=== PATIENT | female | born 1980 | race Caucasian/White ===

== ENCOUNTER 2016-08-05 15:21 | Emergency (ER) | payer MEDICAID ==
--- NOTE | 2016-08-05 15:52 | EDM.PDOC ---
ED HPI GI/ABDOMINAL - General Chief Complaint: Gastrointestinal Problem Stated Complaint: CONSTIPATION Time Seen by Provider: 08/05/16 15:37 Source of Information: Reports: Patient History Limitations: Reports: No limitations - History of Present Illness INITIAL COMMENTS - FREE TEXT/NARRATIVE: The patient presents with abdominal pain and cramping. She feels she is constipated. She has trouble with this and on July 29 she was here for the same and had an enema. She say Ana M Floberg in the mean time and she was put on miralax and she has tried prune juice. She has not had a bowel movement since . She has some nausea but no vomiting. She is still eating okay. She has some dysuria. Timing/Duration: Reports: Day(s): (3) Location: generalized Quality: Reports: cramping Severity: moderate Context: Denies: sick contact, bad/questionable food, out of country travel, recent surgery, recent trauma, lifting, activity/exercise Associated Symptoms (-Female): Reports: constipation, nausea/vomiting. Denies : chest pain, diarrhea - Related Data Allergies/ADRs: Allergies Allergy/AdvReac Type Severity Reaction Status Date / Time banana Allergy unknown Verified 08/05/16 15:42 Iodinated Contrast Media - Allergy Itching Verified 08/05/16 15:42 Oral and [Iodinated Contrast Media - IV Dye] melon Allergy UNKNOWN Verified 08/05/16 15:42 watermelon Allergy unknown Verified 08/05/16 15:42 Home Meds: Home Meds Cetirizine HCl [Zyrtec] 10 mg PO DAILY 11/10/13 [History] Fluticasone Propionate [Flonase] 2 spray NASBOTH DAILY 11/10/13 [History] Multivitamin with Minerals [Hair, Skin & Nails] 3 each PO DAILY 11/10/13 [ History] Albuterol [Proventil HFA] 2 puff INH Q4H PRN 01/28/16 [History] Calcium Carbonate [Calcium] 600 mg PO BID 01/28/16 [History] Cholecalciferol (Vitamin D3) [Vitamin D3] 5,000 unit PO ASDIRECTED 01/28/16 [ History] Clindamycin Phosphate [Cleocin T] 1 applic TP BID 01/28/16 [History] FA/Lycopene/Lut/MV,Ca,Iron,Min [Centrum] 1 tab PO DAILY 01/28/16 [History] Levothyroxine [Synthroid] 50 mcg PO ACBREAKFAST 01/28/16 [History] Lisinopril 20 mg PO DAILY 01/28/16 [History] Magnesium Oxide 500 mg PO DAILY 01/28/16 [History] Pantoprazole Sodium 40 mg PO DAILY 01/28/16 [History] Ziprasidone HCl 80 mg PO BID 01/28/16 [History] cloNIDine HCl [Catapres] 0.2 mg PO BEDTIME 01/28/16 [History] cycloSPORINE [Restasis] 1 each OP ASDIRECTED 01/28/16 [History] Empagliflozin [Jardiance] 25 mg PO DAILY 07/29/16 [History] Estradiol [Vagifem] 10 mg PO DAILY 07/29/16 [History] Insulin Glargine,Hum.Rec.Anlog [Toujeo Solostar] 50 units INJECT BEDTIME [History] fluvoxaMINE [Luvox] 100 mg PO DAILY 07/29/16 [History] ClonazePAM [KlonoPIN] 1 mg PO BID 08/05/16 [History] Docusate Sodium [Colace] 3 tab PO DAILY 08/05/16 [History] Fesoterodine Fumarate [Toviaz] 4 mg PO DAILY 08/05/16 [History] Krill/[place]-3/Dha/Epa/Lipids [Krill Oil 300 mg Softgel] 1 each PO DAILY [History] Lactobacillus Combination No.9 [Adult 50 + Probiotic] 1 each PO DAILY 08/05/16 [ History] Multivits Min/Iron/FA/Herb#186 [Hair, Skin & Nails Caplet] 3 tab PO DAILY [History] Prevagen 20 mg PO DAILY 08/05/16 [History] Psyllium Husk [Metamucil] 425 gm PO DAILY 08/05/16 [History] Rosuvastatin [Crestor] 5 mg PO DAILY 08/05/16 [History] atoMOXetine HCl [Strattera] 80 mg PO DAILY 08/05/16 [History] valACYclovir HCl [Valtrex] 500 mg PO DAILY 08/05/16 [History] Past Medical History HEENT History: Reports: Other (see below) Other HEENT History: 2 sinus surgeries Cardiovascular History: Reports: High cholesterol, Hypertension Gastrointestinal History: Reports: Irritable bowel syndrome Psychiatric History: Reports: ADHD, Anxiety, Bipolar, Dementia, OCD Endocrine/Metabolic History: Reports: Diabetes, type I, Other (see below) Other Endocrine/Metabolic History: fibramalgia - Past Surgical History HEENT Surgical History: Reports: Tonsillectomy GI Surgical History: Reports: Appendectomy, Bariatric procedure, Cholecystectomy Female Surgical History: Reports: Hysterectomy, Tubal ligation Social & Family History - Tobacco Use Smoking Status *Q: Former Smoker Years of Tobacco use: 20 Packs/Tins Daily: 0.2 Used Tobacco, but Quit: No Month Tobacco Last Used: 1 week Second Hand Smoke Exposure: Yes - Caffeine Use Caffeine Use: Reports: Coffee, Soda, Tea - Alcohol Use Days Per Week of Alcohol Use: 0 - Recreational Drug Use Recreational Drug Use: No ED ROS GENERAL - Review of Systems Review Of Systems: See Below Constitutional: Reports: no symptoms HEENT: Reports: No symptoms Respiratory: Reports: no symptoms Cardiovascular: Reports: No symptoms Endocrine: Reports: no symptoms GI/Abdominal: Reports: Abdominal pain, Constipation, Nausea. Denies: Diarrhea, Vomiting : Reports: dysuria Musculoskeletal: Reports: no symptoms Skin: Reports: no symptoms ED EXAM, GI/ABD - Physical Exam Exam: See Below Exam Limited By: No limitations General Appearance: alert, no apparent distress Ears: normal external exam Nose: normal inspection Head: atraumatic, normocephalic Neck: normal inspection Respiratory/Chest: no respiratory distress, lungs clear, normal breath sounds Cardiovascular: regular rate, rhythm, no edema, no murmur GI/Abdominal: soft, no organomegaly, no mass, tenderness (Mild generalized pain upon palpation) Course - Vital Signs Last Recorded V/S: Last Vital Signs Temp 97.7 F 08/05/16 15:35 Pulse 91 08/05/16 15:35 Resp 16 08/05/16 15:35 BP 137/103 H 08/05/16 15:35 Pulse Ox 98 08/05/16 15:35 - Orders/Labs/Meds Orders: Active Orders 24 hr Category Date Time Status Enema [RC] ASDIRECTED Care 08/05/16 16:11 Active Abdomen 1V Upright [CR] Stat Exams 08/05/16 15:47 Taken UA W/MICROSCOPIC [URIN] Stat Lab 08/05/16 16:24 Ordered - Re-Assessments/Exams Free Text/Narrative Re-Assessment/Exam: 08/05/16 15:52 I will get an x-ray and a UA. 08/05/16 17:42 She was unable to give us a urine sample. My nurse gave her an oil retention enema with no results and a soap suds enema with no results. Her x-ray shows moderate stool but it is up a little higher. I will give her some magnesium citrate to go home with. Departure - Departure Time of Disposition: 17:45 Disposition: Home, Self-Care 01 Condition: good Clinical Impression: Constipation by delayed colonic transit Referrals: Ana M Fontana [employer] IN[employer] [Primary Care Provider] - 1 Week Forms: ED Department Discharge Additional Instructions: Drink more water. Try to get about eight 8 ounce glasses per day or until your urine is pale yellow. Take more mag citrate tonight if you do not have a bowel movement. Please return if you are worse. - My Orders Last 24 Hours: My Active Orders 08/05/16 15:47 Abdomen 1V Upright [CR] Stat 08/05/16 16:11 Enema [RC] ASDIRECTED 08/05/16 16:24 UA W/MICROSCOPIC [URIN] Stat - Assessment/Plan Last 24 Hours: My Active Orders 08/05/16 15:47 Abdomen 1V Upright [CR] Stat 08/05/16 16:11 Enema [RC] ASDIRECTED 08/05/16 16:24 UA W/MICROSCOPIC [URIN] Stat
[2016-08-05] MEDS ORDERED: Magnesium Citrate Solution 296 ML Bottle PO ONE (17:44)
[2016-08-05 18:13] VITALS: BP 134/79
--- NOTE | 2016-08-07 07:37 | CR ---
Abdomen: Supine view of the abdomen was obtained. Comparison: Previous abdominal x-ray of 07/29/16. Bowel gas pattern is unremarkable with minimal increased stool within the colon. Surgical clips seen from prior cholecystectomy. Calcifications are identified from phleboliths. Bony structures are unremarkable. Surgical anastomotic sutures noted within the left upper abdomen. Impression: 1. Incidental findings as noted above. Minimal increased stool is seen. Diagnostic code #2
== END 2016-08-05 18:00 | disposition home or self-care (01) ==
LOC: JD.ED 15:21
DX: K59.01 Slow transit constipation (principal); I10 Essential (primary) hypertension; F41.9 Anxiety disorder, unspecified; F31.9 Bipolar disorder, unspecified; F03.90 Unspecified dementia, unspecified severity, without behavioral disturbance, psychotic disturbance, mood disturbance, and anxiety; E10.9 Type 1 diabetes mellitus without complications; Z98.890 Other specified postprocedural states; Z98.84 Bariatric surgery status; Z90.49 Acquired absence of other specified parts of digestive tract; Z90.710 Acquired absence of both cervix and uterus; Z87.891 Personal history of nicotine dependence; Z79.899 Other long term (current) drug therapy; Z91.041 Radiographic dye allergy status
CPT/HCPCS: 74000; 81001; 99284; A9270; 99282

== ENCOUNTER 2017-04-17 07:00 | Day surgery (SDC) | payer MEDICAID ==
--- NOTE | 2017-04-04 12:28 | HP ---
DATE OF ADMISSION: 04/04/2017 HISTORY OF PRESENT ILLNESS: This is the first orthopedic outpatient admission for surgery for this 36-year- old female who is being scheduled for left carpal tunnel release. The patient has had a failed conservative treatment program. 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 The procedure has been outlined to her. She understands the procedure itself and has consented to surgery. ALLERGIES: To iodine and contrast. CURRENT MEDICATIONS: Current medications include insulin, meloxicam, and Lyrica. PAST MEDICAL HISTORY: The patient has a history of hypertension along with increased cholesterol, sleep apnea, irritable bowel syndrome, and diabetes type 2. PAST SURGICAL HISTORY: Positive. She has had previous gastric surgery, bypass, sinus, hysterectomy, and tonsils. No general anesthesia complications or problem noted. Negative bleeding history and negative blood clot history. SOCIAL HISTORY: Tobacco use, the patient states she quit 6 months ago. Alcohol use is on occasional, infrequently. PHYSICAL EXAMINATION: GENERAL: Today reveals a well-developed and well-nourished 36-year-old female in moderate distress. HEAD, EYES, EARS, NOSE, AND THROAT: Normocephalic. NECK: Supple. CHEST: Clear. COR: Regular rate. ABDOMEN: Soft. : Intact. EXTREMITIES: Examination of the left wrist reveals positive pain over the carpal tunnel area with pressure. Positive Tinel's examination. The patient shows thenar atrophy, mild to moderate. ASSESSMENT: Carpal tunnel syndrome, left wrist, with failed treatment. PLAN: Plan is for the patient to undergo surgical left carpal tunnel ligament release. MMODAL /[id number]
[~2017-04-17 07:00] MED LIST: Lactated Ringers 1,000 ML IV SCH; Lidocaine 1%/Sod Bicarbonate in NS 8.4% 1 ML Syringe IV PRN; Sodium Chloride 0.9% 10 ML Syringe FLUSH PRN
[2017-04-17] MEDS ORDERED: Ketorolac 30 MG/ML SDV ONE (07:08)
[2017-04-17] MEDS ORDERED: Lactated Ringers 1,000 ML ONE (07:08)
[2017-04-17] MEDS ORDERED: Ondansetron 4 MG/2 ML SDV ONE (07:08)
[2017-04-17] MEDS ORDERED: ceFAZolin 1 GM Vial ONE (07:08)
[2017-04-17] MEDS ORDERED: fentaNYL 100 MCG/2 ML SDV ONE (07:08)
[2017-04-17] MEDS ORDERED: Midazolam 1 MG/ML 2 ML SDV ONE (07:08)
[2017-04-17] MEDS ORDERED: Scopolamine 1.5 MG Transdermal Patch TRDERM ONE (07:44)
--- NOTE | 2017-04-17 07:49 | PCM.PREANE ---
Preanesthetic Assessment - Anesthesia/Transfusion/Family Hx Anesthesia History: Prior Anesthesia Reaction Type of Anesthesia Reaction: Excessive Nausea/Vomiting Family History of Anesthesia Reaction: No Transfusion History: No Prior Transfusion(s) Intubation History: Unknown - Review of Systems General: Other (Muscle Pain) Pulmonary: No Symptoms, Other (Sleep Apnea in her history. No longer uses CPAP.) Cardiovascular: No Symptoms Gastrointestinal: No Symptoms Neurological: Numbness, Pre-Existing Deficit, Tingling, Other (Chronic Back Pain ) Other: Reports: Depression, Anxiety - Physical Assessment NPO Status Date: 04/16/17 NPO Status Time: 23:00 Pulse: 86 O2 Sat by Pulse Oximetry: 97 Respiratory Rate: 16 Blood Pressure: 128/81 Temperature: 36.6 C Weight: 94 kg ASA Class: 3 Mental Status: Alert & Oriented x3 Airway Class: Mallampati = 2 Dentition: Reports: Dentures (Upper and Lower) Thyro-Mental Finger Breadths: 3 Mouth Opening Finger Breadths: 3 ROM/Head Extension: Full Lungs: Clear to Auscultation, Normal Respiratory Effort Cardiovascular: Regular Rate, Regular Rhythm - Lab Values: Laboratory Last Values POC Glucose 140 mg/dL (70-105) H 04/17/17 07:40 - Allergies Allergies/Adverse Reactions: Allergies Allergy/AdvReac Type Severity Reaction Status Date / Time banana Allergy unknown Verified 04/16/17 14:17 Iodinated Contrast- Oral and Allergy Itching Verified 04/16/17 14:17 IV Dye [Iodinated Contrast Media - IV Dye] melon Allergy UNKNOWN Verified 04/16/17 14:17 watermelon Allergy unknown Verified 04/16/17 14:17 - Acknowledgements Anesthesia Type Planned: VILMA, MAC Pt an Appropriate Candidate for the Planned Anesthesia: Yes Alternatives and Risks of Anesthesia Discussed w Pt/Guardian: Yes Pt/Guardian Understands and Agrees with Anesthesia Plan: Yes PreAnesthesia Questionnaire HEENT History: Reports: Allergic Rhinitis, Sinusitis, Other (See Below) Other HEENT History: dentures, dental decay Cardiovascular History: Reports: High Cholesterol, Hypertension Respiratory History: Reports: Asthma, Bronchitis, Recurrent, Sleep Apnea, Other (See Below) Other Respiratory History: upper respiratory infection, Right lung nodule Gastrointestinal History: Reports: Chronic Constipation, GERD, Irritable Bowel Syndrome, Other (See Below) Other Gastrointestinal History: anal fissure, elevated liver function tests, nausea, flank pain Genitourinary History: Reports: STD, UTI, Recurrent, Other (See Below) Other Genitourinary History: dysuria, gential herpes, dyspareunia, frequency [employer] 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: Other (See Below) Other OB/BYN History: vagintis, vulvovagintitis, atropic vaginitis Musculoskeletal History: Reports: Arthritis, Fibromyalgia, Other (See Below) Other Musculoskeletal History: left carpal tunnel syndrome, cubital tunnel syndrome, elbow pain Neurological History: Reports: Migraines, Neuropathy, Diabetic, Other (See Below ) Other Neuro History: short term memory loss Psychiatric History: Reports: ADHD, Anxiety, Bipolar, Dementia, Depression, OCD Endocrine/Metabolic History: Reports: Diabetes, Type I, Obesity/BMI 30+, Vitamin D Deficiency Hematologic History: Reports: Other (See Below) Other Hematologic History: hypomagnesia Immunologic History: Reports: None Oncologic (Cancer) History: Reports: None Dermatologic History: Reports: Seborrheic Dermatitis, Other (See Below) Other Dermatologic History: acne, skin excoriation, skin lesion - Infectious Disease History Infectious Disease History: Reports: None - Past Surgical History Head Surgeries/Procedures: Reports: None HEENT Surgical History: Reports: Cataract Surgery, Naso-Sinus Surgery, Tonsillectomy Cardiovascular Surgical History: Reports: None Respiratory Surgical History: Reports: None GI Surgical History: Reports: Appendectomy, Bariatric Procedure, Cholecystectomy , Colonoscopy, EGD, Hernia, Inguinal Female Surgical History: Reports: Hysterectomy, Tubal Ligation Endocrine Surgical History: Reports: None Neurological Surgical History: Reports: None Musculoskeletal Surgical History: Reports: None Oncologic Surgical History: Reports: None - SUBSTANCE USE Smoking Status *Q: Former Smoker Tobacco Use Within Last Twelve Months: Cigarettes Second Hand Smoke Exposure: Yes Days Per Week of Alcohol Use: 0 Number of Drinks Per Day: 2 Total Drinks Per Week: 0 Recreational Drug Use History: No - HOME MEDS Home Medications: Home Meds Cetirizine HCl [Zyrtec] 10 mg PO DAILY 11/10/13 [History] Fluticasone Propionate [Flonase] 2 spray NASBOTH BID 11/10/13 [History] Multivitamin with Minerals [Hair, Skin & Nails] 3 each PO DAILY 11/10/13 [ History] Albuterol [Proventil HFA] 2 puff INH Q4H PRN 01/28/16 [History] Calcium Carbonate [Calcium] 600 mg PO BID 01/28/16 [History] Cholecalciferol (Vitamin D3) [Vitamin D3] 5,000 unit PO ASDIRECTED 01/28/16 [ History] FA/Lycopene/Lut/MV,Ca,Iron,Min [Centrum] 1 tab PO DAILY 01/28/16 [History] Levothyroxine [Synthroid] 50 mcg PO ACBREAKFAST 01/28/16 [History] Lisinopril 20 mg PO DAILY 01/28/16 [History] Magnesium Oxide 500 mg PO DAILY 01/28/16 [History] Pantoprazole Sodium 40 mg PO DAILY 01/28/16 [History] cloNIDine HCl [Catapres] 0.2 mg PO BEDTIME 01/28/16 [History] cycloSPORINE [Restasis] 1 each OP ASDIRECTED 01/28/16 [History] Insulin Glargine,Hum.Rec.Anlog [Toujeo Solostar] 60 units INJECT BEDTIME [History] fluvoxaMINE [Luvox] 100 mg PO BEDTIME 07/29/16 [History] ClonazePAM [KlonoPIN] 1 mg PO BEDTIME 08/05/16 [History] Docusate Sodium [Colace] 100 mg PO TID 08/05/16 [History] Lactobacillus Combination No.9 [Adult 50 + Probiotic] 1 each PO DAILY 08/05/16 [ History] Rosuvastatin [Crestor] 5 mg PO DAILY 08/05/16 [History] atoMOXetine HCl [Strattera] 80 mg PO DAILY 08/05/16 [History] valACYclovir HCl [Valtrex] 500 mg PO DAILY 08/05/16 [History] Adapalene [Differin] 1 dose TOP ASDIRECTED 04/16/17 [History] Clobetasol [Clobetasol 0.05%] 1 dose TOP ASDIRECTED 04/16/17 [History] Empagliflozin [Jardiance] 25 mg PO DAILY 04/16/17 [History] Estradiol [Yuvafem] 10 mcg VAG ASDIRECTED 04/16/17 [History] Fesoterodine Fumarate [Toviaz] 8 mg PO DAILY 04/16/17 [History] Insulin Aspart [NovoLOG] 1 dose SQ TID 04/16/17 [History] Lubiprostone [Amitiza] 24 mcg PO BID 04/16/17 [History] Polyethylene Glycol 3350 [MiraLAX] 17 g PO DAILY 04/16/17 [History] Pregabalin [Lyrica] 75 mg PO TID 04/16/17 [History] SUMAtriptan Succinate [Imitrex] 50 mg PO ASDIRECTED PRN 04/16/17 [History] Topiramate 25 mg PO BID 04/16/17 [History] Ziprasidone HCl [Geodon] 80 mg PO BID 04/16/17 [History] buPROPion [Wellbutrin XL] 150 mg PO DAILY 04/16/17 [History] hydrOXYzine HCl [Atarax] 50 mg PO BID 04/16/17 [History] - CURRENT (IN HOUSE) MEDS Current Meds: Current Medications Lactated Ringer's (Ringers, Lactated) 1,000 mls @ 125 mls/hr IV ASDIRECTED JACOB Lidocaine/Sodium Bicarbonate (Buffered Lidocaine 1% In Ns 8.4%) 0.25 ml IV ONETIME PRN PRN Reason: Prior to IV Start Sodium Chloride (Saline Flush) 10 ml FLUSH ASDIRECTED PRN PRN Reason: Keep Vein Open Discontinued Medications Cefazolin Sodium (Ancef) Confirm Administered Dose 2 gm .ROUTE .STK-MED ONE Stop: 04/17/17 07:09 Fentanyl (Sublimaze) Confirm Administered Dose 100 mcg .ROUTE .STK-MED ONE Stop: 04/17/17 07:09 Lactated Ringer's (Ringers, Lactated) Confirm Administered Dose 1,000 mls @ as directed .ROUTE .STK-MED ONE Stop: 04/17/17 07:09 Ketorolac Tromethamine (Toradol) Confirm Administered Dose 30 mg .ROUTE .STK- MED ONE Stop: 04/17/17 07:09 Midazolam HCl (Versed 1 Mg/Ml) Confirm Administered Dose 2 mg .ROUTE .STK-MED ONE Stop: 04/17/17 07:09 Ondansetron HCl (Zofran) Confirm Administered Dose 8 mg .ROUTE .STK-MED ONE Stop: 04/17/17 07:09
[2017-04-17] MEDS ORDERED: Ketorolac 30 MG/ML SDV IVPUSH PRN (07:50)
[2017-04-17] MEDS ORDERED: Acetaminophen/HYDROcodone 325-5 MG Tab PO PRN (07:50)
[2017-04-17] MEDS ORDERED: Ondansetron 4 MG/2 ML SDV IVPUSH PRN (07:50)
[2017-04-17] MEDS ORDERED: Propofol 200 MG/20 ML SDV ONE (07:58)
[2017-04-17] MEDS ORDERED: Lidocaine 1% 4 ML ONE (07:58)
[2017-04-17] MEDS ORDERED: Sodium Bicarbonate 8.4% 50 MEQ/50 ML SDV ONE (08:38)
[2017-04-17] MEDS ORDERED: Lidocaine 0.5% 50 ML SDV ONE (08:38)
--- NOTE | 2017-04-17 08:58 | PCM48HPAN ---
Post Anesthesia Note - EVALUATION WITHIN 48HRS OF ANESTHETIC Vital Signs in Normal Range: Yes Patient Participated in Evaluation: Yes Respiratory Function Stable: Yes Airway Patent: Yes Cardiovascular Function Stable: Yes Hydration Status Stable: Yes Pain Control Satisfactory: Yes Nausea and Vomiting Control Satisfactory: Yes Mental Status Recovered: Yes
[2017-04-17 09:00] VITALS: BP 119/75
--- NOTE | 2017-04-17 12:57 | OR ---
DATE OF OPERATION: 04/17/2017 SURGEON: Douglas Rucker MD PREOPERATIVE DIAGNOSIS: Severe carpal tunnel syndrome, left wrist. POSTOPERATIVE DIAGNOSIS: Severe carpal tunnel syndrome, left wrist. ANESTHESIA: Jacques block with sedation. OPERATION PERFORMED: Left wrist carpal tunnel ligament release. DESCRIPTION OF PROCEDURE: The patient was taken to the operative room in a supine position and was placed under a light sedation with a Jacques block anesthesia to the left upper extremity. After the adequate anesthesia, the left arm was then prepped and draped by standard technique, and the operation proceeded with evaluation of the approach to the carpal tunnel area. A small incision was made 1 cm distal to the flexion crease, paralleling the radial aspect of the ring finger. Approximately 1.5 cm incision was used, penetrating through the skin and subcutaneous tissues. These were dissected off the palmar fascia, which was lightly incised to expose the carpal ligament. Once the ligament was exposed, a direct-visualization release was then carried out in the mid-palm area into the carpal tunnel itself, staying to the ulnar aspect of the median nerve. The operation then proceeded with completion of the release approximately 1 cm to 2 cm past the flexion crease using the mini-instruments. The ligament was completely released to the level just above the flexion crease of the wrist and then the operation proceeded with inspection of that area. No other fibrous bands removed. It had a very soft type feel to it. The median nerve could be easily seen. The vasa vasorum returned quite nicely to the nerve itself. In the distal portion of the wound, the release was carried out to the palmar fat pad, again, staying to the ulnar aspect of the median nerve. Once that was completed, this was palpated to make sure no fibrous bands remained to cause compression on the nerve from the distal to the proximal release area. The nerve went through final inspection and then thorough irrigation. The operation then proceeded with closure of the wound using a 4-0 Prolene on a horizontal mattress suture and reinforced with 5-0 Prolene. She was then placed in standard dressings and splint. She tolerated this whole procedure well and left the operating room in a stable condition to room for recovery. ESTIMATED BLOOD LOSS: MMODAL /[id number]
== END 2017-04-17 09:37 | disposition home or self-care (01) ==
LOC: JD.SDS 07:00
PROVIDERS: ATTEND Specialist
DX: G56.02 Carpal tunnel syndrome, left upper limb (principal); G47.30 Sleep apnea, unspecified; E78.00 Pure hypercholesterolemia, unspecified; I10 Essential (primary) hypertension; K21.9 Gastro-esophageal reflux disease without esophagitis; K58.9 Irritable bowel syndrome, unspecified; F41.9 Anxiety disorder, unspecified; F32.9 Major depressive disorder, single episode, unspecified; F42.9 Obsessive-compulsive disorder, unspecified; F90.9 Attention-deficit hyperactivity disorder, unspecified type; E03.9 Hypothyroidism, unspecified; E11.40 Type 2 diabetes mellitus with diabetic neuropathy, unspecified; G43.909 Migraine, unspecified, not intractable, without status migrainosus; M19.90 Unspecified osteoarthritis, unspecified site; M79.7 Fibromyalgia; J45.909 Unspecified asthma, uncomplicated; F03.90 Unspecified dementia, unspecified severity, without behavioral disturbance, psychotic disturbance, mood disturbance, and anxiety; N32.81 Overactive bladder; E55.9 Vitamin D deficiency, unspecified; E66.9 Obesity, unspecified; Z68.39 Body mass index [BMI] 39.0-39.9, adult; Z87.891 Personal history of nicotine dependence; Z87.440 Personal history of urinary (tract) infections; Z91.041 Radiographic dye allergy status; Z91.018 Allergy to other foods; Z79.84 Long term (current) use of oral hypoglycemic drugs; Z79.818 Long term (current) use of other agents affecting estrogen receptors and estrogen levels; Z79.51 Long term (current) use of inhaled steroids; Z79.899 Other long term (current) drug therapy; Z79.4 Long term (current) use of insulin; Z98.84 Bariatric surgery status; Z98.49 Cataract extraction status, unspecified eye; Z98.51 Tubal ligation status; Z90.710 Acquired absence of both cervix and uterus; Z90.49 Acquired absence of other specified parts of digestive tract; Z98.890 Other specified postprocedural states
CPT/HCPCS: 64721; 82962; A9270; J0690; J1885; J2250; J2405; J3010; J7120; 01810; J2704

== ENCOUNTER 2017-12-01 15:22 | Emergency (ER) | payer MEDICAID ==
[2017-12-01 15:58] VITALS: BP 124/92
--- NOTE | 2017-12-01 17:57 | EDM.PDOC ---
ED HPI GENERAL MEDICAL PROBLEM - General Chief Complaint: Back Pain or Injury Stated Complaint: LOWER BACK PAIN Time Seen by Provider: 12/01/17 16:03 Source of Information: Reports: Patient, Family History Limitations: Reports: No Limitations - History of Present Illness INITIAL COMMENTS - FREE TEXT/NARRATIVE: The patient appears to have some cognitive difficulty, and as such is a poor historian. She states that she has lower back pain that radiates to her middle back. The pain occurs when she bends forward, or walks in a certain way. She states that it just developed yesterday, however, on further questioning, this is likely a chronic or recurring issue. She admitted that she has discussed this with her PCP, Ana M Fontana, but states that "nothing was done". She was seen by Dr. Rucker about 5 days ago, and prescribed prednisone 10 mg per day for probable arthritis, which she states has not helped. When asked further about this, she states that the prednisone was to treat her shoulder, not her back. She had previously been on Relafen, also without relief. No recent trauma , although the patient states that she falls a lot, but not since yesterday. During our discussion, while not her primary complaint, she also complained of constipation. The patient has an extremely long list of medications, including over-the- counter ointments, minerals, and supplements. Back Pain Score (Numeric/FACES): 8 - Related Data Allergies Allergy/AdvReac Type Severity Reaction Status Date / Time banana Allergy unknown Verified 12/01/17 16:04 Iodinated Contrast- Oral and Allergy Itching Verified 12/01/17 16:04 IV Dye [Iodinated Contrast Media - IV Dye] melon Allergy UNKNOWN Verified 12/01/17 16:04 watermelon Allergy unknown Verified 12/01/17 16:04 Home Meds: Home Meds ALPRAZolam [Xanax] 2 mg PO BID 12/01/17 [History] Activated Charcoal [Charcoal, Activated] 1,040 mg PO DAILY 12/01/17 [History] Albuterol [Ventolin HFA] 2 puff INH QID PRN 12/01/17 [History] Alpha Lipoic Acid 3 tab PO DAILY 12/01/17 [History] Ascorbic Acid/Ascorbate Sodium [Vitamin C 500 mg Wafer] 500 mg PO DAILY [History] Astroglide 1 dose TOP ASDIRECTED PRN 12/01/17 [History] Biotin 10,000 mcg PO DAILY 12/01/17 [History] Calcium Carbonate [Calcium] 1,200 mg PO DAILY 12/01/17 [History] Cetirizine [ZyrTEC] 10 mg PO DAILY 12/01/17 [History] Cholecalciferol (Vitamin D3) [Vitamin D3] 5,000 unit PO DAILY 12/01/17 [History] Chrom Emmett/Brindal Johnson [Garcinia Cambogia Tablet] 1,600 mg PO DAILY 12/01/17 [ History] Cinnamon Bark [Cinnamon] 2,000 mg PO DAILY 12/01/17 [History] Cognium 200 mg PO DAILY 12/01/17 [History] Cranberry Extract [Cranberry] 500 mg PO DAILY 12/01/17 [History] Docusate Sodium [Colace] 300 mg PO DAILY 12/01/17 [History] Empagliflozin [Jardiance] 25 mg PO DAILY 12/01/17 [History] Erythromycin/Benzoyl Peroxide [Benzamycin] 1 dose TP ASDIRECTED 12/01/17 [ History] Estradiol [Vagifem] 10 mcg VG DAILY 12/01/17 [History] Fesoterodine Fumarate [Toviaz] 8 mg PO DAILY 12/01/17 [History] Fluticasone Propionate [Flonase] 16 gm .XX ASDIRECTED PRN 12/01/17 [History] Gabapentin [Neurontin] 100 mg PO TID 12/01/17 [History] Molly 2 tab PO DAILY 12/01/17 [History] Glycerin/Min Oil/Polycarbophil [Replens Vaginal Applicator] 35 gm VG ASDIRECTED PRN 12/01/17 [History] Insulin Detemir [Levemir Flextouch] 65 unit SQ DAILY 12/01/17 [History] Iron 27 mg PO DAILY 12/01/17 [History] Lactobacillus Acidophilus [Probiotic] 1 each PO DAILY 12/01/17 [History] Levothyroxine [Synthroid] 50 mcg PO ACBREAKFAST 12/01/17 [History] Liraglutide [Victoza 3-Perez] 1.8 units .XX DAILY 12/01/17 [History] Lisdexamfetamine Dimesylate [Vyvanse] 70 mg PO DAILY 12/01/17 [History] Lubiprostone [Amitiza] 24 mcg PO BIDMEALS 12/01/17 [History] Lutein/Minerals/Vit A,C & E [Ocuvite] 1 tab PO DAILY 12/01/17 [History] Magnesium Oxide [Magnesium] 500 mg PO DAILY 12/01/17 [History] Meloxicam [Mobic] 15 mg PO DAILY 12/01/17 [History] Multivitamin/Iron/Folic Acid [Centrum Adults Tablet] 1 each PO DAILY 12/01/17 [ History] Ondansetron [Zofran ODT] 8 mg PO Q6H PRN 12/01/17 [History] Pantoprazole Sodium [Protonix] 40 mg PO DAILY 12/01/17 [History] Polyethylene Glycol 3350 [MiraLAX] 17 gm PO DAILY 12/01/17 [History] Rosuvastatin [Crestor] 5 mg PO DAILY 12/01/17 [History] Topiramate [Topamax] 50 mg PO BID 12/01/17 [History] Vitamin B6-pyridOXINE [Vitamin B6] 200 mg PO DAILY 12/01/17 [History] Vitamin E 2 tab PO DAILY 12/01/17 [History] Ziprasidone HCl [Geodon] 80 mg PO BID 12/01/17 [History] atoMOXetine HCl [Strattera] 100 mg PO DAILY 12/01/17 [History] buPROPion HCl [Wellbutrin Xl] 150 mg PO DAILY 12/01/17 [History] busPIRone [Buspar] 60 mg PO DAILY 12/01/17 [History] cloNIDine [Clonidine] 1 tab PO DAILY 12/01/17 [History] cycloSPORINE [Restasis] 1 each OP ASDIRECTED 12/01/17 [History] fluvoxaMINE [Luvox CR] 150 mg PO BID 12/01/17 [History] predniSONE [Prednisone] 10 mg PO DAILY 12/01/17 [History] valACYclovir HCl [Valtrex] 500 mg PO DAILY 12/01/17 [History] Past Medical History Cardiovascular History: Reports: High Cholesterol, Hypertension Respiratory History: Reports: Asthma (suspected), Sleep Apnea, Other (See Below ) (Right lung nodule) Gastrointestinal History: Reports: GERD, Irritable Bowel Syndrome (suspected), Other (See Below) (Anal fissure) NUTRITION EDUCATOR History: Reports: Other (See Below) (Atrophic vaginitis) Neurological History: Reports: Migraines, Other (See Below) (Short term memory loss) Psychiatric History: Reports: ADHD, Anxiety, Bipolar, Depression, OCD, Other ( See Below) (Fibromyalgia) Endocrine/Metabolic History: Reports: Diabetes, Type II, Hypothyroidism, Obesity /BMI 30+ Dermatologic History: Reports: Seborrheic Dermatitis - Infectious Disease History Infectious Disease History: Reports: Other (See Below) (STD) - Past Surgical History HEENT Surgical History: Reports: Tonsillectomy GI Surgical History: Reports: Appendectomy, Bariatric Procedure (Gastric bypass) , Cholecystectomy Female Surgical History: Reports: Hysterectomy, Salpingo-Oophorectomy, Tubal Ligation Social & Family History - Family History Family Medical History: Noncontributory - Tobacco Use Smoking Status *Q: Former Smoker Used Tobacco, but Quit: Yes Month/Year Tobacco Last Used: 1.5 yr - Caffeine Use Caffeine Use: Reports: Coffee, Soda, Tea - Recreational Drug Use Recreational Drug Use: No ED ROS GENERAL - Review of Systems Review Of Systems: ROS reveals no pertinent complaints other than HPI. ED EXAM, GENERAL - Physical Exam Exam: See Below Exam Limited By: No Limitations General Appearance: Alert, WD/WN, No Apparent Distress Eye Exam: Bilateral Eye: Normal Inspection Ears: Normal External Exam, Hearing Grossly Normal Nose: Normal Inspection, No Blood Throat/Mouth: Normal Inspection, Normal Lips, Normal Voice, No Airway Compromise Head: Atraumatic, Normocephalic Neck: Normal Inspection, Full Range of Motion Respiratory/Chest: No Respiratory Distress, Lungs Clear, Normal Breath Sounds, No Accessory Muscle Use Cardiovascular: Normal Peripheral Pulses, Regular Rate, Rhythm, No Gallop, No JVD, No Murmur, No Rub Peripheral Pulses: 4+: Radial (L), Radial (R) GI/Abdominal: Normal Bowel Sounds, Soft, Non-Tender, No Organomegaly, No Distention, No Abnormal Bruit, No Mass, Other (Obese) (Female) Exam: Deferred Rectal (Female) Exam: Deferred Back Exam: Normal Inspection, Full Range of Motion. No: Paraspinal Tenderness, Vertebral Tenderness Extremities: Normal Inspection, Normal Range of Motion, No Pedal Edema, Normal Capillary Refill Neurological: Alert, Oriented, No Motor/Sensory Deficits Psychiatric: Normal Affect Skin Exam: Warm, Dry, Intact, Normal Color, No Rash Course - Vital Signs Last Recorded V/S: Last Vital Signs Temp 36.4 C 12/01/17 15:55 Pulse 56 L 12/01/17 15:55 Resp 20 12/01/17 15:55 BP 124/92 H 12/01/17 15:55 Pulse Ox 99 12/01/17 15:55 - Orders/Labs/Meds Labs: Laboratory Tests 12/01/17 Range/Units 17:00 Urine Color Yellow (Yellow) Urine Appearance Clear (Clear) Urine pH 7.5 (5.0-8.0) Ur Specific [place] 1.020 (1.005-1.030) Urine Protein Negative (Negative) Urine Glucose (UA) 2+ H (Negative) Urine Ketones 1+ H (Negative) Urine Occult Blood Negative (Negative) Urine Nitrite Positive H (Negative) Urine Bilirubin Negative (Negative) Urine Urobilinogen 0.2 (0.2-1.0) Ur Leukocyte Esterase Negative (Negative) Urine RBC 0-5 (0-5) /hpf Urine WBC 0-5 (0-5) /hpf Ur Epithelial Cells 0-5 (0-5) /hpf Urine Bacteria Few (FEW) /hpf Urine Mucus Not seen (FEW) /hpf - Re-Assessments/Exams Free Text/Narrative Re-Assessment/Exam: 12/01/17 17:51 The patient has numerous complaints, primarily low back pain and constipation. Her low back pain is likely musculoskeletal in etiology, however, before I add another medication, such as a muscle relaxant, to her already long list, I'm recommending that she follow-up with her PCP, Ana M Fontana, for a medication review. I see numerous agents on that list that she can get rid of. Additionally , it sounds like she is already under the care of Dr. Rucker for her back pain. She had previously been on Relafen, and is currently on prednisone. The patient should follow-up with him in that regard. With respect to the patient having constipation, again, the patient is on numerous agents that can cause constipation, for example, she is on activated charcoal without sorbitol. She takes MiraLAX, but with an inadequate amount of fluid. She states that Addi has told her not to take so many enemas in the past, but for today's purposes, I am recommending she use [id number] mineral oil enemas, then follow-up with Ms. Fontana this week. Departure - Departure Time of Disposition: 17:53 Disposition: Home, Self-Care 01 Condition: Good Clinical Impression: Back pain, Constipation - Discharge Information Instructions: Constipation, Adult, Back Pain, Adult, [id number] Referrals: Ana M Fontana, ADVICE CLERK [Primary Care Provider] - Forms: ED Department Discharge Additional Instructions: You were seen in the emergency room for back pain and constipation. Based on your history and physical examination, it is likely that your back pain is musculoskeletal in etiology, however, before you are started on a muscle relaxant, we feel that it is better that you have a medication review. For your constipation, we recommend that you use [id number] mineral oil enemas until you get relief. Going forward, we recommend that you stop taking activated charcoal, and that you take your MiraLAX with 12 ounces of water. Stay adequately hydrated. Follow-up with your PCP, Ana M Fontana, this coming week, for a review of your medications. If any other problems, please do not hesitate to return to the ER.
== END 2017-12-01 18:10 | disposition home or self-care (01) ==
LOC: JD.ED 15:22
DX: M54.5 Low back pain (principal); E78.00 Pure hypercholesterolemia, unspecified; I10 Essential (primary) hypertension; K59.00 Constipation, unspecified; K21.9 Gastro-esophageal reflux disease without esophagitis; E03.9 Hypothyroidism, unspecified; F32.9 Major depressive disorder, single episode, unspecified; Z91.018 Allergy to other foods; Z79.899 Other long term (current) drug therapy; E11.9 Type 2 diabetes mellitus without complications; Z87.891 Personal history of nicotine dependence; Z79.4 Long term (current) use of insulin
CPT/HCPCS: 81001; 99284

== ENCOUNTER 2018-06-12 10:31 | Emergency (ER) | payer MEDICAID ==
[2018-06-12 10:45] VITALS: BP 143/101
[2018-06-12] MEDS ORDERED: ALPRAZolam 1 MG Tab PO ONE (11:24)
--- NOTE | 2018-06-12 11:32 | EDM.PDOCBH ---
ED HPI GENERAL MEDICAL PROBLEM - General Chief Complaint: Behavioral/Psych Stated Complaint: XANAX WITHDRAWAL Time Seen by Provider: 06/12/18 11:16 Source of Information: Reports: Patient, Old Records History Limitations: Reports: No Limitations - History of Present Illness INITIAL COMMENTS - FREE TEXT/NARRATIVE: 38-year-old female presents for refill of her Xanax and Xanax withdrawal. Patient reports she normally sees Dr. Gavin with [facility]. She has not seen him in several months. She is scheduled to see him on June 17. She reports that she is on Xanax 2 mg 3 times a day. She has been out for 3 days. She states that is hard for her to talk she feels very anxious and forgetful. Primary care provider is Ana M Fontana. She has not contacted her for refill of her medication. Reports she did contact Dr. Gavin's office on Sunday for refill but has not heard his office. Patient reports that she was seen by neurologist yesterday at [facility] in [place]. She states she had multiple labs done as she's been falling many times and feels that she is off balance. The neurologist recommended she be evaluated for paranoia. Patient reports past medical history of bipolar and OCD. - Related Data Allergies Allergy/AdvReac Type Severity Reaction Status Date / Time Iodinated Contrast- Oral and Allergy Itching Verified 06/12/18 10:45 IV Dye [Iodinated Contrast Media - IV Dye] Home Meds: Home Meds ALPRAZolam [Xanax] 2 mg PO TID 12/01/17 [History] Albuterol [Ventolin HFA] 2 puff INH QID PRN 12/01/17 [History] Calcium Carbonate [Calcium] 600 mg PO BID 12/01/17 [History] Cetirizine [ZyrTEC] 10 mg PO DAILY 12/01/17 [History] Cholecalciferol (Vitamin D3) [Vitamin D3] 5,000 unit PO DAILY 12/01/17 [History] Docusate Sodium [Colace] 250 mg PO DAILY 12/01/17 [History] Empagliflozin [Jardiance] 25 mg PO DAILY 12/01/17 [History] Erythromycin/Benzoyl Peroxide [Benzamycin] 1 dose TP BID PRN 12/01/17 [History] Estradiol [Vagifem] 10 mcg VG MOWEFR 12/01/17 [History] Fesoterodine Fumarate [Toviaz] 8 mg PO DAILY 12/01/17 [History] Fluticasone Propionate [Flonase] 1 spray RICARDO BID 12/01/17 [History] Gabapentin [Neurontin] 100 mg PO TID 12/01/17 [History] Molly 1 tab PO DAILY 12/01/17 [History] Lactobacillus Acidophilus [Probiotic] 1 each PO DAILY 12/01/17 [History] Levothyroxine [Synthroid] 50 mcg PO ACBREAKFAST 12/01/17 [History] Liraglutide [Victoza 3-Perez] 1.8 mg SQ DAILY 12/01/17 [History] Lisdexamfetamine Dimesylate [Vyvanse] 70 mg PO DAILY 12/01/17 [History] Lubiprostone [Amitiza] 24 mcg PO DAILY 12/01/17 [History] Lutein/Minerals/Vit A,C & E [Ocuvite] 1 tab PO DAILY 12/01/17 [History] Meloxicam [Mobic] 15 mg PO DAILY 12/01/17 [History] Multivitamin/Iron/Folic Acid [Centrum Adults Tablet] 1 each PO DAILY 12/01/17 [ History] Ondansetron [Zofran ODT] 8 mg PO Q6H PRN 12/01/17 [History] Pantoprazole Sodium [Protonix] 40 mg PO DAILY 12/01/17 [History] Polyethylene Glycol 3350 [MiraLAX] 1 packet PO DAILY 12/01/17 [History] Rosuvastatin [Crestor] 5 mg PO DAILY 12/01/17 [History] Topiramate [Topamax] 50 mg PO BID 12/01/17 [History] Ziprasidone HCl [Geodon] 80 mg PO DAILY 12/01/17 [History] cycloSPORINE [Restasis] 1 each OP BID 12/01/17 [History] valACYclovir HCl [Valtrex] 500 mg PO DAILY 12/01/17 [History] ALPRAZolam [Alprazolam] 2 mg PO TID PRN #20 tablet 06/12/18 [Rx] Ciprofloxacin [Ciprofloxacin HCl] 500 mg PO BID 06/12/18 [History] Cranberry Extract [Cranberry] 2 tab PO DAILY 06/12/18 [History] Cream Base No.103 [Lipovan] 1 appful RECTAL ASDIRECTED 06/12/18 [History] Enalapril [Vasotec] 2.5 mg PO DAILY 06/12/18 [History] Ibuprofen [Motrin] 800 mg PO BID 06/12/18 [History] Insulin Degludec/Liraglutide [Xultophy 100 Unit-3.6 mg/ml] 74 ml SQ BEDTIME 02/20 [History] Insulin Detemir [Levemir Flextouch] 80 unit SQ BEDTIME 06/12/18 [History] Lurasidone HCl [Latuda] 80 mg PO DAILY 06/12/18 [History] Magnesium Oxide [Magnesium] 400 mg PO DAILY 06/12/18 [History] Milk Thistle 175 mg PO BID 06/12/18 [History] buPROPion HCl [Wellbutrin Xl] 300 mg PO DAILY 06/12/18 [History] cloNIDine [Catapres] 0.2 mg PO DAILY 06/12/18 [History] fluvoxaMINE [fluvoxaMINE Maleate] 200 mg PO DAILY 06/12/18 [History] guaiFENesin [Mucus Relief ER] 600 mg PO BID 06/12/18 [History] Past Medical History HEENT History: Reports: Other (See Below) Other HEENT History: 2 sinus surgeries Cardiovascular History: Reports: High Cholesterol, Hypertension Respiratory History: Reports: Asthma, Sleep Apnea Other Respiratory History: upper respiratory infection, Right lung nodule Gastrointestinal History: Reports: GERD, Irritable Bowel Syndrome Other Gastrointestinal History: anal fissure, elevated liver function tests, nausea, flank pain Genitourinary History: Reports: STD, UTI, Recurrent, Other (See Below) Other Genitourinary History: dysuria, gential herpes, dyspareunia, frequency 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 SKEINS EXAMINER History: Reports: Other (See Below) (Atrophic vaginitis) Other YARN SKEINS EXAMINER History: vagintis, vulvovagintitis, atropic vaginitis Musculoskeletal History: Reports: Fibromyalgia Other Musculoskeletal History: left carpal tunnel syndrome, cubital tunnel syndrome, elbow pain Neurological History: Reports: Migraines Other Neuro History: short term memory loss Psychiatric History: Reports: ADHD, Anxiety, Bipolar, Depression, OCD Endocrine/Metabolic History: Reports: Diabetes, Type II, Hypothyroidism, Obesity /BMI 30+ Other Endocrine/Metabolic History: fibramalgia Hematologic History: Reports: Other (See Below) Other Hematologic History: hypomagnesia Immunologic History: Reports: None Oncologic (Cancer) History: Reports: None Dermatologic History: Reports: Seborrheic Dermatitis Other Dermatologic History: acne, skin excoriation, skin lesion - Infectious Disease History Infectious Disease History: Reports: Other (See Below) (STD) - Past Surgical History Head Surgeries/Procedures: Reports: None HEENT Surgical History: Reports: Tonsillectomy GI Surgical History: Reports: Appendectomy, Bariatric Procedure, Cholecystectomy Female Surgical History: Reports: Hysterectomy, Salpingo-Oophorectomy, Tubal Ligation Oncologic Surgical History: Reports: None Social & Family History - Family History Family Medical History: Noncontributory - Tobacco Use Smoking Status *Q: Never Smoker - Caffeine Use Caffeine Use: Reports: None - Recreational Drug Use Recreational Drug Use: No ED ROS GENERAL - Review of Systems Review Of Systems: See Below Psychiatric: Reports: Anxiety ED EXAM, BEHAVIORAL HEALTH - Physical Exam Exam: See Below Exam Limited By: No Limitations General Appearance: Alert, WD/WN, No Apparent Distress, Anxious Respiratory/Chest: No Respiratory Distress, Lungs Clear, Normal Breath Sounds Cardiovascular: Normal Peripheral Pulses, Regular Rate, Rhythm, No Rub Neurological: Alert, Normal Mood/Affect, Normal Cognition Psychiatric: Alert, Normal Affect, Normal Cognition Skin Exam: Warm, Dry, Normal color COURSE, BEHAVIORAL HEALTH COMP - Course Vital Signs: Last Vital Signs Temp 98.6 F 06/12/18 10:39 Pulse 111 H 06/12/18 10:39 Resp 20 06/12/18 10:39 BP 143/101 H 06/12/18 10:39 Pulse Ox 97 06/12/18 10:39 Orders, Labs, Meds: Active Orders 24 hr Category Date Time Status ALPRAZolam [Xanax] Med 06/12/18 11:24 Once 2 mg PO ONETIME ONE Re-Assessment/Re-Exam: 11:25 Patient was searched on the [place] prescription drug registry. She has not received a prescription present next since mid April. She has been receiving Xanax 2 mg 3 times a day. I will give her 2 mg of Xanax here and send a prescription for 10 pills. I did inform her the ED does not do to management of chronic problems and she will need to contact Dr. Gavin's office or Ana M Francois for further management. Educated that she may not receive a refill in the future from the ED. She expresses understanding. Discharge instructions as documented. Departure - Departure Time of Disposition: 11:26 Disposition: Home, Self-Care 01 Condition: Fair Clinical Impression: Anxiety - Discharge Information *PRESCRIPTION DRUG MONITORING PROGRAM REVIEWED*: Yes *COPY OF PRESCRIPTION DRUG MONITORING REPORT IN PATIENT NICOLAS: No Prescriptions: ALPRAZolam [Alprazolam] 2 mg PO TID PRN #20 tablet PRN Reason: Anxiety Referrals: PCP,Not In Area [Ordering Only Provider] - Ana M Fontana, ACCOUNT EXECUTIVE SALES REPRESENTATIVE [Primary Care Provider] - Additional Instructions: you were given medication in the ER that can affect your ability to drive or operate machinery. Do not drive or operate machinery within 10 hours of taking controlled substances. Take your xanax as prescribed 1 tab PO tid prn anxiety. It is not recommended that you drive or operate machinery within 10 hours of taking controlled substances. Unfortunately, we are unable to prescribe medications in the ER for management of chronic problems. I recommend you contact your psychiatrist, Dr. Gavin or Ana M Fontana for further management. Please return to ER if your symptoms change or worsen. - My Orders Last 24 Hours: My Active Orders 06/12/18 11:24 ALPRAZolam [Xanax] 2 mg PO ONETIME ONE - Assessment/Plan Last 24 Hours: My Active Orders 06/12/18 11:24 ALPRAZolam [Xanax] 2 mg PO ONETIME ONE
== END 2018-06-12 11:43 | disposition home or self-care (01) ==
LOC: JD.ED 10:31
DX: F41.9 Anxiety disorder, unspecified (principal); I10 Essential (primary) hypertension; E11.9 Type 2 diabetes mellitus without complications; E66.9 Obesity, unspecified; Z91.041 Radiographic dye allergy status; Z79.899 Other long term (current) drug therapy
CPT/HCPCS: 99284; A9270

== ENCOUNTER 2018-08-12 16:31 | Emergency (ER) | payer MEDICAID ==
[2018-08-12 16:41] VITALS: BP 128/93
[2018-08-12] MEDS ORDERED: Sodium Chloride 0.9% 10 ML Syringe FLUSH PRN (17:01)
[2018-08-12] MEDS ORDERED: Sodium Chloride 0.9% 1,000 ML IV SCH (17:15)
--- NOTE | 2018-08-12 19:09 | EDM.PDOC ---
ED HPI GENERAL MEDICAL PROBLEM - General Chief Complaint: Neuro Symptoms/Deficits Stated Complaint: [facility] Time Seen by Provider: 08/12/18 17:01 Source of Information: Reports: Patient, EMS, Family, RN Notes Reviewed (Mother) - History of Present Illness INITIAL COMMENTS - FREE TEXT/NARRATIVE: 2-year-old female who's been brought in by ambulance after having been found at home with altered mental status. And some dependent diabetic. She did not respond to family phone calls her messages this morning. They finally were able to get police to "break into her door". Is found in bed unresponsive extremely low blood sugar in the "20 range". EMS did get an IV started gave her one amp of D50 and she is awake on arrival to ED although still somewhat drowsy. Her mother states that she also had an episode of hypoglycemia about 2 or 3 days prior. At that time EMS just gave her some oral glucose and she responded very rapidly to that with no further intervention. Patient is not sure how long she may have been hypoglycemic. There's been no recent vomiting. On arrival to ED she denies chest pain or difficulty breathing. She denies headache or any focal weakness. - Related Data Allergies Allergy/AdvReac Type Severity Reaction Status Date / Time Iodinated Contrast- Oral and Allergy Itching Verified 08/12/18 16:40 IV Dye [Iodinated Contrast Media - IV Dye] Home Meds: Home Meds ALPRAZolam [Xanax] 2 mg PO TID 12/01/17 [History] Albuterol [Ventolin HFA] 2 puff INH QID PRN 12/01/17 [History] Calcium Carbonate [Calcium] 600 mg PO BID 12/01/17 [History] Cetirizine [ZyrTEC] 10 mg PO DAILY 12/01/17 [History] Cholecalciferol (Vitamin D3) [Vitamin D3] 5,000 unit PO DAILY 12/01/17 [History] Docusate Sodium [Colace] 250 mg PO DAILY 12/01/17 [History] Empagliflozin [Jardiance] 25 mg PO DAILY 12/01/17 [History] Erythromycin/Benzoyl Peroxide [Benzamycin] 1 dose TP BID PRN 12/01/17 [History] Estradiol [Vagifem] 10 mcg VG MOWEFR 12/01/17 [History] Fesoterodine Fumarate [Toviaz] 8 mg PO DAILY 12/01/17 [History] Fluticasone Propionate [Flonase] 1 spray RICARDO BID 12/01/17 [History] Gabapentin [Neurontin] 100 mg PO TID 12/01/17 [History] Molly 1 tab PO DAILY 12/01/17 [History] Lactobacillus Acidophilus [Probiotic] 1 each PO DAILY 12/01/17 [History] Levothyroxine [Synthroid] 50 mcg PO ACBREAKFAST 12/01/17 [History] Liraglutide [Victoza 3-Perez] 1.8 mg SQ DAILY 12/01/17 [History] Lisdexamfetamine Dimesylate [Vyvanse] 70 mg PO DAILY 12/01/17 [History] Lubiprostone [Amitiza] 24 mcg PO DAILY 12/01/17 [History] Lutein/Minerals/Vit A,C & E [Ocuvite] 1 tab PO DAILY 12/01/17 [History] Meloxicam [Mobic] 15 mg PO DAILY 12/01/17 [History] Multivitamin/Iron/Folic Acid [Centrum Adults Tablet] 1 each PO DAILY 12/01/17 [ History] Ondansetron [Zofran ODT] 8 mg PO Q6H PRN 12/01/17 [History] Pantoprazole Sodium [Protonix] 40 mg PO DAILY 12/01/17 [History] Polyethylene Glycol 3350 [MiraLAX] 1 packet PO DAILY 12/01/17 [History] Rosuvastatin [Crestor] 5 mg PO DAILY 12/01/17 [History] Topiramate [Topamax] 50 mg PO BID 12/01/17 [History] Ziprasidone HCl [Geodon] 80 mg PO DAILY 12/01/17 [History] cycloSPORINE [Restasis] 1 each OP BID 12/01/17 [History] valACYclovir HCl [Valtrex] 500 mg PO DAILY 12/01/17 [History] ALPRAZolam [Alprazolam] 2 mg PO TID PRN #20 tablet 06/12/18 [Rx] Ciprofloxacin [Ciprofloxacin HCl] 500 mg PO BID 06/12/18 [History] Cranberry Extract [Cranberry] 2 tab PO DAILY 06/12/18 [History] Cream Base No.103 [Lipovan] 1 appful RECTAL ASDIRECTED 06/12/18 [History] Enalapril [Vasotec] 2.5 mg PO DAILY 06/12/18 [History] Ibuprofen [Motrin] 800 mg PO BID 06/12/18 [History] Insulin Degludec/Liraglutide [Xultophy 100 Unit-3.6 mg/ml] 74 ml SQ BEDTIME 02/20 [History] Insulin Detemir [Levemir Flextouch] 80 unit SQ BEDTIME 06/12/18 [History] Lurasidone HCl [Latuda] 80 mg PO DAILY 06/12/18 [History] Magnesium Oxide [Magnesium] 400 mg PO DAILY 06/12/18 [History] Milk Thistle 175 mg PO BID 06/12/18 [History] buPROPion HCl [Wellbutrin Xl] 300 mg PO DAILY 06/12/18 [History] cloNIDine [Catapres] 0.2 mg PO DAILY 06/12/18 [History] fluvoxaMINE [fluvoxaMINE Maleate] 200 mg PO DAILY 06/12/18 [History] guaiFENesin [Mucus Relief ER] 600 mg PO BID 06/12/18 [History] Past Medical History HEENT History: Reports: Other (See Below) Other HEENT History: 2 sinus surgeries Cardiovascular History: Reports: High Cholesterol, Hypertension Respiratory History: Reports: Asthma, Sleep Apnea Other Respiratory History: upper respiratory infection, Right lung nodule Gastrointestinal History: Reports: GERD, Irritable Bowel Syndrome Other Gastrointestinal History: anal fissure, elevated liver function tests, nausea, flank pain Genitourinary History: Reports: STD, UTI, Recurrent, Other (See Below) Other Genitourinary History: dysuria, gential herpes, dyspareunia, frequency CURTAIN DRIER History: Reports: Other (See Below) Other CURTAIN DRIER History: vagintis, vulvovagintitis, atropic vaginitis Musculoskeletal History: Reports: Fibromyalgia Other Musculoskeletal History: left carpal tunnel syndrome, cubital tunnel syndrome, elbow pain Neurological History: Reports: Migraines Other Neuro History: short term memory loss Psychiatric History: Reports: ADHD, Anxiety, Bipolar, Depression, OCD Endocrine/Metabolic History: Reports: Diabetes, Type II, Hypothyroidism, Obesity /BMI 30+ Other Endocrine/Metabolic History: fibramalgia Hematologic History: Reports: Other (See Below) Other Hematologic History: hypomagnesia Immunologic History: Reports: None Oncologic (Cancer) History: Reports: None Dermatologic History: Reports: Seborrheic Dermatitis Other Dermatologic History: acne, skin excoriation, skin lesion - Infectious Disease History Infectious Disease History: Reports: Other (See Below) - Past Surgical History Head Surgeries/Procedures: Reports: None HEENT Surgical History: Reports: Tonsillectomy GI Surgical History: Reports: Appendectomy, Bariatric Procedure, Cholecystectomy Female Surgical History: Reports: Hysterectomy, Salpingo-Oophorectomy, Tubal Ligation Oncologic Surgical History: Reports: None Social & Family History - Family History Family Medical History: Noncontributory - Tobacco Use Smoking Status *Q: Never Smoker - Caffeine Use Caffeine Use: Reports: None - Recreational Drug Use Recreational Drug Use: No ED ROS GENERAL - Review of Systems Review Of Systems: Unable To Obtain Constitutional: Reports: Diaphoresis. Denies: Fever, Chills HEENT: Denies: Sinus Problem, Throat Pain (Gone) Respiratory: Denies: Shortness of Breath Cardiovascular: Denies: Chest Pain GI/Abdominal: Denies: Abdominal Pain, Nausea, Vomiting Musculoskeletal: Denies: Shoulder Pain, Arm Pain Skin: Denies: Rash Neurological: Reports: Dizziness (No better). Denies: Trouble Speaking, Weakness (No focal weakness) ED EXAM, NEURO - Physical Exam Exam: See Below General Appearance: Alert, No Apparent Distress (On arrival to ED) Throat/Mouth: Normal Inspection, Normal Oropharynx, Other (Oral mucosa is moist , no tongue injury) Head Exam: Atraumatic Neck: Supple, Full Range of Motion Respiratory/Chest: No Respiratory Distress, Lungs Clear, Normal Breath Sounds Cardiovascular: Regular Rate, Rhythm GI/Abdominal: Soft, Non-Tender Neurological: Alert, No Motor/Sensory Deficits Extremities: Normal Inspection, Normal Range of Motion Skin Exam: Warm, Dry, Normal Color Course - Vital Signs Last Recorded V/S: Last Vital Signs Temp 96.8 F 08/12/18 16:36 Pulse 78 08/12/18 16:36 Resp 18 08/12/18 16:36 BP 128/93 H 08/12/18 16:36 Pulse Ox 99 08/12/18 16:36 - Orders/Labs/Meds Orders: Active Orders 24 hr Category Date Time Status POC Glucose [Blood Glucose Check, Bedside] [RC] ONETIME Care 08/12/18 18:02 Active Peripheral IV Care [RC] . DIRECTED Care 08/12/18 17:01 Active Peripheral IV Insertion Adult [OM.PC] Stat Oth 08/12/18 17:01 Ordered Labs: Laboratory Tests 08/12/18 08/12/18 08/12/18 Range/Units 16:43 17:20 18:06 WBC 12.26 H (3.98-10.04) K/mm3 RBC 4.02 (3.98-5.22) M/mm3 Hgb 13.0 (11.2-15.7) gm/L Hct 39.9 (34.1-44.9) % MCV 99.3 H (79.4-94.8) fl MCH 32.3 H (25.6-32.2) pg MCHC 32.6 (32.2-35.5) g/dl RDW Std Deviation 51.3 H (36.4-46.3) fL Plt Count 329 (182-369) K/mm3 MPV 8.5 L (9.4-12.3) fl Neut % (Auto) 74.1 H (34.0-71.1) % Lymph % (Auto) 19.6 (19.3-51.7) % [place] % (Auto) 5.3 (4.7-12.5) % Eos % (Auto) 0.7 (0.7-5.8) Baso % (Auto) 0.1 (0.1-1.2) % Neut # (Auto) 9.09 H (1.56-6.13) K/mm3 Lymph # (Auto) 2.40 (1.18-3.74) K/mm3 [place] # (Auto) 0.65 H (0.24-0.36) K/mm3 Eos # (Auto) 0.09 (0.04-0.36) K/mm3 Baso # (Auto) 0.01 (0.01-0.08) K/mm3 Sodium (136-145) mEq/L Potassium (3.5-5.1) mEq/L Chloride (98-107) mEq/L Carbon Dioxide (21-32) mEq/L Anion Gap (5-15) BUN (7-18) mg/dL Creatinine (0.55-1.02) mg/dL Est Cr Clr Drug Dosing mL/min Estimated GFR (MDRD) (>60) mL/min BUN/Creatinine Ratio (14-18) Glucose (74-106) mg/dL POC Glucose 184 H (70-105) mg/dL Calcium (8.5-10.1) mg/dL Total Bilirubin (0.2-1.0) mg/dL AST (15-37) U/L ALT (14-59) U/L Alkaline Phosphatase (46-116) U/L Creatine Kinase (26-192) U/L Total Protein (6.4-8.2) g/dl Albumin (3.4-5.0) g/dl Globulin gm/dL Albumin/Globulin Ratio (1-2) Urine Color Yellow (Yellow) Urine Appearance Slt cloudy H (Clear) Urine pH 6.5 (5.0-8.0) Ur Specific [place] > or = 1.030 (1.005-1.030) Urine Protein Negative (Negative) Urine Glucose (UA) Trace H (Negative) Urine Ketones Negative (Negative) Urine Occult Blood Negative (Negative) Urine Nitrite Negative (Negative) Urine Bilirubin Negative (Negative) Urine Urobilinogen 0.2 (0.2-1.0) Ur Leukocyte Esterase 1+ H (Negative) Urine RBC 0-5 (0-5) /hpf Urine WBC 10-20 H (0-5) /hpf Ur Epithelial Cells 20-30 H (0-5) /hpf Urine Bacteria Few (FEW) /hpf Urine Mucus Many H (FEW) /hpf 08/12/18 08/12/18 08/12/18 Range/Units 18:06 18:06 19:02 WBC (3.98-10.04) K/mm3 RBC (3.98-5.22) M/mm3 Hgb (11.2-15.7) gm/L Hct (34.1-44.9) % MCV (79.4-94.8) fl MCH (25.6-32.2) pg MCHC (32.2-35.5) g/dl RDW Std Deviation (36.4-46.3) fL Plt Count (182-369) K/mm3 MPV (9.4-12.3) fl Neut % (Auto) (34.0-71.1) % Lymph % (Auto) (19.3-51.7) % [place] % (Auto) (4.7-12.5) % Eos % (Auto) (0.7-5.8) Baso % (Auto) (0.1-1.2) % Neut # (Auto) (1.56-6.13) K/mm3 Lymph # (Auto) (1.18-3.74) K/mm3 [place] # (Auto) (0.24-0.36) K/mm3 Eos # (Auto) (0.04-0.36) K/mm3 Baso # (Auto) (0.01-0.08) K/mm3 Sodium 148 H (136-145) mEq/L Potassium 3.7 (3.5-5.1) mEq/L Chloride 114 H (98-107) mEq/L Carbon Dioxide 23 (21-32) mEq/L Anion Gap 14.7 (5-15) BUN 24 H (7-18) mg/dL Creatinine 1.1 H (0.55-1.02) mg/dL Est Cr Clr Drug Dosing 56.24 mL/min Estimated GFR (MDRD) 55 (>60) mL/min BUN/Creatinine Ratio 21.8 H (14-18) Glucose 92 (74-106) mg/dL POC Glucose 205 H (70-105) mg/dL Calcium 8.9 (8.5-10.1) mg/dL Total Bilirubin 0.2 (0.2-1.0) mg/dL AST 29 (15-37) U/L ALT 45 (14-59) U/L Alkaline Phosphatase 76 (46-116) U/L Creatine Kinase 142 (26-192) U/L Total Protein 6.4 (6.4-8.2) g/dl Albumin 3.1 L (3.4-5.0) g/dl Globulin 3.3 gm/dL Albumin/Globulin Ratio 0.9 L (1-2) Urine Color (Yellow) Urine Appearance (Clear) Urine pH (5.0-8.0) Ur Specific [place] (1.005-1.030) Urine Protein (Negative) Urine Glucose (UA) (Negative) Urine Ketones (Negative) Urine Occult Blood (Negative) Urine Nitrite (Negative) Urine Bilirubin (Negative) Urine Urobilinogen (0.2-1.0) Ur Leukocyte Esterase (Negative) Urine RBC (0-5) /hpf Urine WBC (0-5) /hpf Ur Epithelial Cells (0-5) /hpf Urine Bacteria (FEW) /hpf Urine Mucus (FEW) /hpf Meds: Medications Discontinued Medications Generic Name Dose Route Start Last Admin Trade Name Perla PRN Reason Stop Dose Admin Sodium Chloride 1,000 mls @ 999 mls/hr 08/12/18 17:15 08/12/18 17:41 Normal Saline IV 999 mls/hr ONETIME JACOB Administration Sodium Chloride 10 ml 08/12/18 17:01 08/12/18 17:42 Saline Flush FLUSH 10 ml ASDIRECTED PRN Administration Keep Vein Open - Re-Assessments/Exams Free Text/Narrative Re-Assessment/Exam: 08/12/18 22:26 Labs did come back relatively normal, initial glucose 184, follow-up glucose 205 , has been alert the whole time here in the ED, ambulatory without difficulty she has eaten a small amount of food. She states she has been taking insulin 82 mg daily, I'm going to cut her back to 75. Discharge instructions as documented. Departure - Departure Time of Disposition: 19:13 Disposition: Home, Self-Care 01 Condition: Fair Clinical Impression: Hypoglycemia - Discharge Information Instructions: Hypoglycemia Referrals: Ana M Fontana, [facility] [Primary Care Provider] - Forms: ED Department Discharge Additional Instructions: Decrease your insulin to 75 units daily. Drink plenty of water to maintain hydration. Eat regular meals and snacks to keep your blood sugar up. Follow-up clinic Sunday, call tomorrow morning for appointment to see one of the other clinic providers covering for Darcy while she is gone. - My Orders Last 24 Hours: My Active Orders 08/12/18 17:01 Peripheral IV Care [RC] . DIRECTED Peripheral IV Insertion Adult [OM.PC] Stat 08/12/18 18:02 POC Glucose [Blood Glucose Check, Bedside] [] ONETIME - Assessment/Plan Last 24 Hours: My Active Orders 08/12/18 17:01 Peripheral IV Care [RC] . DIRECTED Peripheral IV Insertion Adult [OM.PC] Stat 08/12/18 18:02 POC Glucose [Blood Glucose Check, Bedside] [RC] ONETIME
== END 2018-08-12 19:22 | disposition home or self-care (01) ==
LOC: JD.ED 16:31 → SUPCPDRO 16:31 → JD.ED 19:22
DX: E11.649 Type 2 diabetes mellitus with hypoglycemia without coma (principal); E03.9 Hypothyroidism, unspecified; E66.9 Obesity, unspecified; Z90.49 Acquired absence of other specified parts of digestive tract; Z98.84 Bariatric surgery status; Z98.51 Tubal ligation status; Z90.710 Acquired absence of both cervix and uterus; Z79.4 Long term (current) use of insulin; Z79.899 Other long term (current) drug therapy; Z91.041 Radiographic dye allergy status
CPT/HCPCS: 36415; 80053; 81001; 82550; 82962; 85025; 96360; 96361; 99285; J7040; 99284

== ENCOUNTER 2018-08-13 15:48 | Emergency (ER) | payer MEDICAID ==
[2018-08-13] MEDS ORDERED: Dextrose 5%-0.9% NaCl 1,000 ML IV SCH (16:00)
--- NOTE | 2018-08-13 16:01 | EDM.PDOC ---
ED HPI GENERAL MEDICAL PROBLEM - General Chief Complaint: Diabetic Complaint Stated Complaint: [facility] Time Seen by Provider: 08/13/18 15:50 Source of Information: Reports: Patient, EMS History Limitations: Reports: No Limitations - History of Present Illness INITIAL COMMENTS - FREE TEXT/NARRATIVE: 38-year-old female arrives in the ED after suffering a severe insulin reaction and severe hypoglycemia in her home she was seen through the ED last evening with a hypoglycemic reaction secondary to insulin. Her Lantus insulin was reduced from 82 units to 75 units. She's not sure what she took last evening but she uses this medication only at bedtime. She never got out of bed today and is thus never ate or drank. When her mother went to check on her after work she found her unresponsive. Paramedics were summoned and identified initially no blood sugar record recording on the monitor. After nap of D50 they got 27 and after a second happened when up to 265. Piotr became alert and oriented within 2-3 minutes after the second amp of D50 percent. There was no evidence that she had suffered a seizure in terms of tongue was intact without any oral bleeding but she had lost control of her bladder. Is not acting postictal when I seen her but I'm suspicious she may have had a hypoglycemic seizure. Denies any pain. Patient is on a multitude of psychiatric medications and it must be very difficult for her to keep them straight as to what she should be taking and when. She usually does not use any insulin with meals. He is on Victoza for blood sugar controls as well and has been apparently for greater than 3 months. Has lost some weight on this medication this may be part of the reason she is developing hypoglycemic episodes. It appears that mostly is because she's not eating. Her serum may be some financial barriers to getting appropriate amounts of food. On initial assessment she is alert oriented and answers all questions fairly appropriately. Onset: Today, Unknown/Unsure (Never got out of bed today. Therefore appears that she developed hypoglycemia sometime early this morning or during the night and remained essentially comatose.) Onset Date: 08/13/18 Duration: Other (Unable to know for how long she has been hypoglycemic) Location: Reports: Generalized (Found unresponsive.) Quality: Reports: Same as Previous Episode (Had a similar event yesterday. And apparently 2 other attacks within the last 10 days.) Severity: Severe Improves with: Reports: Medication ( awoke after second amp of D50 percent was given intravenously.) Worsens with: Reports: Other (Not eating) Context: Reports: Other (and suffering insulin reactions.). Denies: Activity, Exercise, Lifting, Sick Contact, Trauma Associated Symptoms: Reports: Confusion, Malaise, Other (Clothing is what I believe she lost control of her bladder which she is also diaphoretic in her clothing is soak from sweat.). 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 (see below) (Patient has had 2 A of D50 percent given to her intravenously prior to arriving in the ED by paramedics.) - Related Data Allergies Allergy/AdvReac Type Severity Reaction Status Date / Time Iodinated Contrast- Oral and Allergy Itching Verified 08/13/18 16:03 IV Dye [Iodinated Contrast Media - IV Dye] Home Meds: Home Meds ALPRAZolam [Xanax] 10 mg PO BEDTIME 12/01/17 [History] Albuterol [Ventolin HFA] 2 puff INH QID PRN 12/01/17 [History] Calcium Carbonate [Calcium] 600 mg PO BID 12/01/17 [History] Cetirizine [ZyrTEC] 10 mg PO DAILY 12/01/17 [History] Cholecalciferol (Vitamin D3) [Vitamin D3] 5,000 unit PO DAILY 12/01/17 [History] Docusate Sodium [Colace] 250 mg PO DAILY 12/01/17 [History] Erythromycin/Benzoyl Peroxide [Benzamycin] 1 dose TP BID PRN 12/01/17 [History] Estradiol [Vagifem] 10 mcg VG MOWEFR 12/01/17 [History] Fesoterodine Fumarate [Toviaz] 8 mg PO DAILY 12/01/17 [History] Fluticasone Propionate [Flonase] 1 spray RICARDO BID 12/01/17 [History] Gabapentin [Neurontin] 100 mg PO TID 12/01/17 [History] Molly 1 tab PO DAILY 12/01/17 [History] Lactobacillus Acidophilus [Probiotic] 1 each PO DAILY 12/01/17 [History] Levothyroxine [Synthroid] 50 mcg PO ACBREAKFAST 12/01/17 [History] Liraglutide [Victoza 3-Perez] 1.8 mg SQ DAILY 12/01/17 [History] Lisdexamfetamine Dimesylate [Vyvanse] 70 mg PO DAILY 12/01/17 [History] Lubiprostone [Amitiza] 24 mcg PO BID 12/01/17 [History] Lutein/Minerals/Vit A,C & E [Ocuvite] 1 tab PO DAILY 12/01/17 [History] Meloxicam [Mobic] 15 mg PO DAILY 12/01/17 [History] Multivitamin/Iron/Folic Acid [Centrum Adults Tablet] 1 each PO DAILY 12/01/17 [ History] Ondansetron [Zofran ODT] 8 mg PO Q6H PRN 12/01/17 [History] Pantoprazole Sodium [Protonix] 40 mg PO DAILY 12/01/17 [History] Polyethylene Glycol 3350 [MiraLAX] 1 packet PO DAILY 12/01/17 [History] Rosuvastatin [Crestor] 5 mg PO DAILY 12/01/17 [History] Topiramate [Topamax] 50 mg PO BID 12/01/17 [History] cycloSPORINE [Restasis] 1 each OP BID 12/01/17 [History] valACYclovir HCl [Valtrex] 500 mg PO DAILY 12/01/17 [History] Cranberry Extract [Cranberry] 2 tab PO DAILY 06/12/18 [History] Cream Base No.103 [Lipovan] 1 appful RECTAL ASDIRECTED 06/12/18 [History] Enalapril [Vasotec] 2.5 mg PO DAILY 06/12/18 [History] Ibuprofen [Motrin] 800 mg PO BID 06/12/18 [History] Lurasidone HCl [Latuda] 80 mg PO DAILY 06/12/18 [History] Magnesium Oxide [Magnesium] 400 mg PO DAILY 06/12/18 [History] Milk Thistle 175 mg PO BID 06/12/18 [History] buPROPion HCl [Wellbutrin Xl] 300 mg PO DAILY 06/12/18 [History] cloNIDine [Catapres] 0.2 mg PO DAILY 06/12/18 [History] fluvoxaMINE [fluvoxaMINE Maleate] 200 mg PO DAILY 06/12/18 [History] guaiFENesin [Mucus Relief ER] 600 mg PO BID 06/12/18 [History] Diazepam [Valium] 10 mg PO ASDIRECTED 08/13/18 [History] Diazepam [Valium] 10 mg PO TID #90 tablet 08/13/18 [Rx] Lisdexamfetamine Dimesylate [Vyvanse] 70 mg PO DAILY #30 capsule 08/13/18 [Rx] Lurasidone HCl [Latuda] 80 mg PO DAILY #30 tablet 08/13/18 [Rx] Past Medical History HEENT History: Reports: Other (See Below) Other HEENT History: 2 sinus surgeries Cardiovascular History: Reports: High Cholesterol, Hypertension Respiratory History: Reports: Asthma, Sleep Apnea Other Respiratory History: upper respiratory infection, Right lung nodule Gastrointestinal History: Reports: GERD, Irritable Bowel Syndrome Other Gastrointestinal History: anal fissure, elevated liver function tests, nausea, flank pain Genitourinary History: Reports: STD, UTI, Recurrent, Other (See Below) Other Genitourinary History: dysuria, gential herpes, dyspareunia, frequency [employer]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 (See Below) 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 [employer]ING [employer]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 SUPER[employer]OR History: vagintis, vulvovagintitis, atropic vaginitis Musculoskeletal History: Reports: Fibromyalgia Other Musculoskeletal History: left carpal tunnel syndrome, cubital tunnel syndrome, elbow pain Neurological History: Reports: Migraines Other Neuro History: short term memory loss Psychiatric History: Reports: ADHD, Anxiety, Bipolar, Depression, OCD Endocrine/Metabolic History: Reports: Diabetes, Type II, Hypothyroidism, Obesity /BMI 30+ Other Endocrine/Metabolic History: fibramalgia Hematologic History: Reports: Other (See Below) Other Hematologic History: hypomagnesia Immunologic History: Reports: None Oncologic (Cancer) History: Reports: None Dermatologic History: Reports: Seborrheic Dermatitis Other Dermatologic History: acne, skin excoriation, skin lesion - Infectious Disease History Infectious Disease History: Reports: Other (See Below) - Past Surgical History Head Surgeries/Procedures: Reports: None HEENT Surgical History: Reports: Tonsillectomy GI Surgical History: Reports: Appendectomy, Bariatric Procedure, Cholecystectomy Female Surgical History: Reports: Hysterectomy, Salpingo-Oophorectomy, Tubal Ligation Oncologic Surgical History: Reports: None Social & Family History - Family History Family Medical History: Noncontributory - Caffeine Use Caffeine Use: Reports: None - Living Situation & Occupation Living situation: Reports: Single Occupation: Disabled ED ROS GENERAL - Review of Systems Review Of Systems: See Below Constitutional: Reports: Malaise, Weakness, Fatigue, Weight Loss (Reports probably a 5-10 pound weight loss in the last 2 months.). Denies: Fever, Chills HEENT: Reports: Glasses Respiratory: Denies: Shortness of Breath, Wheezing, Pleuritic Chest Pain, Cough , Sputum Cardiovascular: Reports: Dyspnea on Exertion, Lightheadedness. Denies: Chest Pain, Blood Pressure Problem, Claudication, Edema, Orthopnea Endocrine: Reports: Fatigue (Sometimes) GI/Abdominal: Reports: Constipation (Occasional problems with constipation) : Reports: Frequency, Incontinence (Some stress-induced incontinence) Musculoskeletal: Reports: Back Pain, Joint Pain (Knees hips and neck at times) Skin: Reports: Bruising (Bruises fairly easily.) Neurological: Reports: No Symptoms Psychiatric: Reports: Depression, Hallucinations, Mood Lability, Other (Patient is on what to do at present for bipolar affective disorder with apparent history of psychoses. She appears to have lost weight since she discontinued Geodon and is now using Latuda.) Hematologic/Lymphatic: Reports: No Symptoms Immunologic: Reports: No Symptoms ED EXAM GENERAL NO PERIP PULSE - Physical Exam Exam: See Below Exam Limited By: No Limitations General Appearance: Alert, WD/WN, Anxious (Mildly anxious.) Eye Exam: Bilateral Eye: Normal Fundi (No flame hemorrhages.), Normal Inspection , PERRL Ears: Normal TMs Throat/Mouth: Other (No evidence of any dental or tongue injuries.) Head: Atraumatic, Normocephalic Neck: Normal Inspection, Supple, Non-Tender, Full Range of Motion. No: Lymphadenopathy (L), Lymphadenopathy (R) Respiratory/Chest: No Respiratory Distress, Lungs Clear, Normal Breath Sounds, Chest Non-Tender, Other Cardiovascular: Normal Peripheral Pulses (No pain on from compression of her ribs and/or her sternum.), Regular Rate, Rhythm, No Edema, No Gallop, No Murmur , No Rub GI/Abdominal: Normal Bowel Sounds, Soft, Non-Tender, No Organomegaly, No Abnormal Bruit, No Mass, Pelvis Stable, Other (Mildly obese.) Back Exam: Normal Inspection, Full Range of Motion. No: CVA Tenderness (L), CVA Tenderness (R) Extremities: Normal Inspection, Normal Range of Motion, Non-Tender, No Pedal Edema, Other (No evidence of extremity trauma.) Neurological: Alert ( A few old bruises on her lower extremities which she states is from bumping into things), Oriented, CN II-XII Intact, Normal Cognition Psychiatric: Normal Affect, Normal Mood Skin Exam: Cool, Diaphoretic, Other (Temperatures 36.0.) Course - Vital Signs Last Recorded V/S: Last Vital Signs Temp 36.0 C 08/13/18 15:48 Pulse 68 08/13/18 15:48 Resp 18 08/13/18 15:48 BP 128/90 08/13/18 15:48 Pulse Ox 100 08/13/18 15:48 - Orders/Labs/Meds Orders: Active Orders 24 hr Category Date Time Status Blood Glucose Check, Bedside [RC] ASDIRECTED Care 08/13/18 16:35 Active Blood Glucose Check, Bedside [RC] ONETIME Care 08/13/18 16:05 Active Dextrose 5%-0.9% NaCl [Dextrose 5%-Normal Saline] 1,000 Med 08/13/18 16:00 Active ml IV ASDIRECTED Medication Orders Dextrose/Sodium Chloride (Dextrose 5%-Normal Saline) 1,000 mls @ 200 mls/hr IV ASDIRECTED JACOB Last Admin: 08/13/18 16:00 Dose: 200 mls/hr Labs: Laboratory Tests 08/13/18 08/13/18 08/13/18 Range/Units 16:07 16:12 16:12 WBC 7.41 (3.98-10.04) K/mm3 RBC 3.69 L (3.98-5.22) M/mm3 Hgb 11.9 (11.2-15.7) gm/L Hct 36.8 (34.1-44.9) % MCV 99.7 H (79.4-94.8) fl MCH 32.2 (25.6-32.2) pg MCHC 32.3 (32.2-35.5) g/dl RDW Std Deviation 51.6 H (36.4-46.3) fL Plt Count 268 (182-369) K/mm3 MPV 8.8 L (9.4-12.3) fl Neutrophils % (Manual) 60 (40-60) % Band Neutrophils % 0 (0-10) % Lymphocytes % (Manual) 33 (20-40) % Atypical Lymphs % 0 % Monocytes % (Manual) 6 (2-10) % Eosinophils % (Manual) 1 (0.7-5.8) % Basophils % (Manual) 0 L (0.1-1.2) Platelet Estimate Adequate Anisocytosis 1+ slight Macrocytosis 1+ slight Sodium 146 H (136-145) mEq/L Potassium 3.8 (3.5-5.1) mEq/L Chloride 113 H (98-107) mEq/L Carbon Dioxide 22 (21-32) mEq/L Anion Gap 14.8 (5-15) BUN 27 H (7-18) mg/dL Creatinine 1.1 H (0.55-1.02) mg/dL Est Cr Clr Drug Dosing 56.24 mL/min Estimated GFR (MDRD) 55 (>60) mL/min BUN/Creatinine Ratio 24.5 H (14-18) Glucose 146 H (74-106) mg/dL POC Glucose 179 H (70-105) mg/dL Hemoglobin A1c (4.50-6.20) % Calcium 8.6 (8.5-10.1) mg/dL Total Bilirubin 0.2 (0.2-1.0) mg/dL AST 36 (15-37) U/L ALT 43 (14-59) U/L Alkaline Phosphatase 72 (46-116) U/L Total Protein 5.9 L (6.4-8.2) g/dl Albumin 2.8 L (3.4-5.0) g/dl Globulin 3.1 gm/dL Albumin/Globulin Ratio 0.9 L (1-2) Urine Color (Yellow) Urine Appearance (Clear) Urine pH (5.0-8.0) Ur Specific [place] (1.005-1.030) Urine Protein (Negative) Urine Glucose (UA) (Negative) Urine Ketones (Negative) Urine Occult Blood (Negative) Urine Nitrite (Negative) Urine Bilirubin (Negative) Urine Urobilinogen (0.2-1.0) Ur Leukocyte Esterase (Negative) Urine RBC (0-5) /hpf Urine WBC (0-5) /hpf Ur Epithelial Cells Ur Squamous Epith Cells (0-5) /hpf Urine Bacteria (FEW) /hpf Urine Mucus (FEW) /hpf 08/13/18 08/13/18 08/13/18 Range/Units 16:12 16:48 17:07 WBC (3.98-10.04) K/mm3 RBC (3.98-5.22) M/mm3 Hgb (11.2-15.7) gm/L Hct (34.1-44.9) % MCV (79.4-94.8) fl MCH (25.6-32.2) pg MCHC (32.2-35.5) g/dl RDW Std Deviation (36.4-46.3) fL Plt Count (182-369) K/mm3 MPV (9.4-12.3) fl Neutrophils % (Manual) (40-60) % Band Neutrophils % (0-10) % Lymphocytes % (Manual) (20-40) % Atypical Lymphs % % Monocytes % (Manual) (2-10) % Eosinophils % (Manual) (0.7-5.8) % Basophils % (Manual) (0.1-1.2) Platelet Estimate Anisocytosis Macrocytosis Sodium (136-145) mEq/L Potassium (3.5-5.1) mEq/L Chloride (98-107) mEq/L Carbon Dioxide (21-32) mEq/L Anion Gap (5-15) BUN (7-18) mg/dL Creatinine (0.55-1.02) mg/dL Est Cr Clr Drug Dosing mL/min Estimated GFR (MDRD) (>60) mL/min BUN/Creatinine Ratio (14-18) Glucose (74-106) mg/dL POC Glucose 148 H 174 H (70-105) mg/dL Hemoglobin A1c 5.70 (4.50-6.20) % Calcium (8.5-10.1) mg/dL Total Bilirubin (0.2-1.0) mg/dL AST (15-37) U/L ALT (14-59) U/L Alkaline Phosphatase (46-116) U/L Total Protein (6.4-8.2) g/dl Albumin (3.4-5.0) g/dl Globulin gm/dL Albumin/Globulin Ratio (1-2) Urine Color (Yellow) Urine Appearance (Clear) Urine pH (5.0-8.0) Ur Specific [place] (1.005-1.030) Urine Protein (Negative) Urine Glucose (UA) (Negative) Urine Ketones (Negative) Urine Occult Blood (Negative) Urine Nitrite (Negative) Urine Bilirubin (Negative) Urine Urobilinogen (0.2-1.0) Ur Leukocyte Esterase (Negative) Urine RBC (0-5) /hpf Urine WBC (0-5) /hpf Ur Epithelial Cells Ur Squamous Epith Cells (0-5) /hpf Urine Bacteria (FEW) /hpf Urine Mucus (FEW) /hpf 08/13/18 08/13/18 08/13/18 Range/Units 17:51 18:36 20:24 WBC (3.98-10.04) K/mm3 RBC (3.98-5.22) M/mm3 Hgb (11.2-15.7) gm/L Hct (34.1-44.9) % MCV (79.4-94.8) fl MCH (25.6-32.2) pg MCHC (32.2-35.5) g/dl RDW Std Deviation (36.4-46.3) fL Plt Count (182-369) K/mm3 MPV (9.4-12.3) fl Neutrophils % (Manual) (40-60) % Band Neutrophils % (0-10) % Lymphocytes % (Manual) (20-40) % Atypical Lymphs % % Monocytes % (Manual) (2-10) % Eosinophils % (Manual) (0.7-5.8) % Basophils % (Manual) (0.1-1.2) Platelet Estimate Anisocytosis Macrocytosis Sodium (136-145) mEq/L Potassium (3.5-5.1) mEq/L Chloride (98-107) mEq/L Carbon Dioxide (21-32) mEq/L Anion Gap (5-15) BUN (7-18) mg/dL Creatinine (0.55-1.02) mg/dL Est Cr Clr Drug Dosing mL/min Estimated GFR (MDRD) (>60) mL/min BUN/Creatinine Ratio (14-18) Glucose (74-106) mg/dL POC Glucose 299 H 197 H (70-105) mg/dL Hemoglobin A1c (4.50-6.20) % Calcium (8.5-10.1) mg/dL Total Bilirubin (0.2-1.0) mg/dL AST (15-37) U/L ALT (14-59) U/L Alkaline Phosphatase (46-116) U/L Total Protein (6.4-8.2) g/dl Albumin (3.4-5.0) g/dl Globulin gm/dL Albumin/Globulin Ratio (1-2) Urine Color Yellow (Yellow) Urine Appearance Clear (Clear) Urine pH 6.0 (5.0-8.0) Ur Specific [place] > or = 1.030 (1.005-1.030) Urine Protein Negative (Negative) Urine Glucose (UA) 2+ H (Negative) Urine Ketones Negative (Negative) Urine Occult Blood Negative (Negative) Urine Nitrite Negative (Negative) Urine Bilirubin Negative (Negative) Urine Urobilinogen 0.2 (0.2-1.0) Ur Leukocyte Esterase Negative (Negative) Urine RBC 0-5 (0-5) /hpf Urine WBC 0-5 (0-5) /hpf Ur Epithelial Cells Not Reportable Ur Squamous Epith Cells 5-10 H (0-5) /hpf Urine Bacteria Few (FEW) /hpf Urine Mucus Moderate H (FEW) /hpf Meds: Medications Generic Name Dose Route Start Last Admin Trade Name Freq PRN Reason Stop Dose Admin Dextrose/Sodium Chloride 1,000 mls @ 200 mls/hr 08/13/18 16:00 08/13/18 16:00 Dextrose 5%-Normal Saline IV 200 mls/hr ASDIRECTED JACOB Administration Discontinued Medications Generic Name Dose Route Start Last Admin Trade Name Freq PRN Reason Stop Dose Admin Insulin Glargine 55 unit 08/13/18 19:24 Lantus SUBCUT 08/13/18 19:25 ONETIME ONE Insulin Glargine 55 unit 08/13/18 19:42 08/13/18 20:21 Lantus SUBCUT 08/13/18 19:43 55 unit ONETIME ONE Administration - Radiology Interpretation Free Text/Narrative:: 38-year-old female arrives in the ED per ambulance after being found unresponsive at her home by her mother. He is an insulin-dependent diabetic and had an insulin reaction yesterday where she had to be brought to the hospital per ambulance as well. Appears that it's a combination of things. She is not eating like she should and it appears that there may be some financial barriers to getting appropriate food. She has lost 5-10 pounds of weight after changing from Geodon and to latuda. Her Lantus insulin was decreased from 82 units to 75 units last evening. She did take this amount of insulin at bedtime and never woke up all day today. She never got up to eat or drink. Reports unclear how long she suffered significant hypoglycemia and whether or not she suffered any hypoglycemic seizures. I can find no trauma on her extremities had her neck or back. Paramedics resuscitated with 2 ampules of D50 percent to achieve blood sugar greater than 260. Initial blood sugar in the ED was 174. And routine labs will be performed. She will have blood sugars done every half an hour. She'll be started on D5 normal saline at 250 mils per hour. No triangular 78 and drink to make sure she does not suffer any further hypoglycemia. - Re-Assessments/Exams Free Text/Narrative Re-Assessment/Exam: 08/13/18 18:54 WBC is 7.41 with 60% neutrophils and no bands. Hemoglobin is slightly low 11.9 with hematocrit of 36.8. MCV is slightly elevated at 99.7. Clinically, Mr. is 68,000. The slide shows 1+ anisocytosis and 1+ macrocytosis. Sodium is 146 with a potassium of 3.8. Cord 113 with a bicarbonate of 22. And a gap is 14.8. BUNs 27. Creatinine is 1.1 EGFR is 55. BUN/creatinine ratio is 24.5. Glucose is 146. Last glucose was 299. This was at the bedside hemoglobin A1c is 5.70 indicating that she is a little overtreated in terms of insulin management. Calcium is 8.6. Bilirubin is 0.2. AST is 36 with an ALT of 43. Alk phosphatase is 72. Total protein is slightly limited low at 5.9 with an albumin fraction of 2.8. Urinalysis shows 2+ glucosuria no ketones 5-10 squamous epithelial cells no signs of infection 08/13/18 20:58 blood sugars dropped as low as 134. After eating and time they were up to 197 at the time of discharge home. I'm going to reduce her Lantus insulin to 55 units at bedtime. Her hemoglobin A1c was 5.7. It appears that she' s had for significant hypoglycemic episodes in the last 2 weeks. May need social worker assistant to become involved to identify whether or not she's got any financial barriers to getting appropriate amounts of food or food preparation. I also refilled prescriptions for diazepam 10 mg 3 times a day, Latuda -80 mg daily and her Vyvanse-70 mg daily. She had run a lot out of all of these medications. Can see her psychiatrist for several weeks and her primary care physician is out of the office until next week. She was advised to follow-up with her primary care physician early next week to discuss blood sugars. Departure - Departure Time of Disposition: 19:10 Disposition: Home, Self-Care 01 Condition: Fair Clinical Impression: Hypoglycemia due to type 2 diabetes mellitus Insulin reaction Qualifiers: Encounter type: initial encounter Qualified Code(s): T38.3X5A - Adverse effect of insulin and oral hypoglycemic [antidiabetic] drugs, initial encounter - Discharge Information *PRESCRIPTION DRUG MONITORING PROGRAM REVIEWED*: Not Applicable *COPY OF PRESCRIPTION DRUG MONITORING REPORT IN PATIENT NICOLAS: Not Applicable Prescriptions: Diazepam [Valium] 10 mg PO TID #90 tablet Lisdexamfetamine Dimesylate [Vyvanse] 70 mg PO DAILY #30 capsule Lurasidone HCl [Latuda] 80 mg PO DAILY #30 tablet Instructions: Hypoglycemia, [id number] Referrals: Chato Jorgensen MD [Primary Care Provider] - Forms: ED Department Discharge Additional Instructions: Evaluation in the emergency room today to insulin reaction and very very low blood sugar. When the paramedics arrived they found they could not register any sugar and after the first amp of D50 percent given intravenously they got 27 and after the second amp they got up over 260. Similar problem occurred last night with an insulin reaction. Therefore decision made to cut back on your current insulin dosage which is Lantus 82 units. It was cut back last night to 75 mg. However I want to cut back to 55 units at bedtime. Of course you must eat regularly and ideally 3 meals a day to prevent insulin reactions from occurring. I also refilled your medications for lipid 2-80 mg once daily. Diazepam 10 mg 3 times daily as you have been previously using and Vyvanse 70 mg once daily in the morning. Just follow-up with your personal care physician early next week. Of course keep track of your blood sugars when you take them and record them in a book so that we can identify your insulin requirements. - My Orders Last 24 Hours: My Active Orders 08/13/18 16:00 Dextrose 5%-0.9% NaCl [Dextrose 5%-Normal Saline] 1,000 ml IV ASDIRECTED 08/13/18 16:05 Blood Glucose Check, Bedside [RC] ONETIME 08/13/18 16:35 Blood Glucose Check, Bedside [RC] ASDIRECTED - Assessment/Plan Last 24 Hours: My Active Orders 08/13/18 16:00 Dextrose 5%-0.9% NaCl [Dextrose 5%-Normal Saline] 1,000 ml IV ASDIRECTED 08/13/18 16:05 Blood Glucose Check, Bedside [RC] ONETIME 08/13/18 16:35 Blood Glucose Check, Bedside [RC] ASDIRECTED
[2018-08-13 16:03] VITALS: BP 128/90
[2018-08-13 16:34] LABS: HEMOGLOBIN A1C 5.7 % (4.50-6.20)
[2018-08-13] MEDS ORDERED: Insulin Glarg,Human.Rec.Analog 100 UNIT/ML ML SUBCUT ONE ×2 (19:24→19:42)
== END 2018-08-13 20:30 | disposition home or self-care (01) ==
LOC: JD.ED 15:48
DX: E11.649 Type 2 diabetes mellitus with hypoglycemia without coma (principal); T38.3X5A Adverse effect of insulin and oral hypoglycemic [antidiabetic] drugs, initial encounter; I10 Essential (primary) hypertension; E03.9 Hypothyroidism, unspecified; E66.9 Obesity, unspecified; Z98.84 Bariatric surgery status; Z90.49 Acquired absence of other specified parts of digestive tract; Z90.710 Acquired absence of both cervix and uterus; Z98.51 Tubal ligation status; Z79.899 Other long term (current) drug therapy; Z91.041 Radiographic dye allergy status
CPT/HCPCS: 36415; 80053; 81001; 82962; 83036; 85007; 85027; 96360; 96361; 96372; 99283; J7042; 99285

== ENCOUNTER → 2018-08-13 | Emergency (ER) | payer MEDICAID ==
[2018-08-13 15:45] VITALS: BP 128/90
== END ==
LOC: JD.ED 15:50
DX: Z53.21 Procedure and treatment not carried out due to patient leaving prior to being seen by health care provider (principal)

== ENCOUNTER 2018-08-16 11:08 | Inpatient (IN) | payer MEDICAID ==
--- NOTE | 2018-08-16 11:21 | EDM.PDOC ---
ED HPI GENERAL MEDICAL PROBLEM - General Chief Complaint: Diabetic Complaint Stated Complaint: PHYLLIS SAGE Time Seen by Provider: 08/16/18 11:19 Source of Information: Reports: Patient History Limitations: Reports: No Limitations - History of Present Illness INITIAL COMMENTS - FREE TEXT/NARRATIVE: Patient is a 38-year-old female who presents to the ED complaining of hypoglycemic event secondary to inappropriate dosing of exogenous insulin. Patient was found to have altered mental status. EMS was called and patient had a blood sugar on arrival of 24. Amp of D50 was administered by EMS. Upon admission to the ED patient's blood sugar is 223. She has been seen in the ED on 3 different occasions since 12 August for hyperglycemia. Patient was supposed to decrease her evening dose of Lantus from 75 units to 55 units at bedtime. Patient states she took 75 units last night. She is very confused on what medications she is supposed to be taking and gets them mixed up often. She is also taking victoza 1.8 mq daily. She admitted to nursing staff that she has financial issues and has difficulty with buying groceries. She states this past Sunday she was able to buy groceries and ate 3 meals yesterday. Patient states she is on multiple medications at home and has difficulty with taking them at the appropriate time. She denies CP, SOB, N/V, abdominal pain, dizziness, fever , dysuria, and or any additional complaints. Treatments SET BUILDER: Reports: Other (see below) Other Treatments SET BUILDER: D50 given by ambulance Headache Pain Score (Numeric/FACES): 7 - Related Data Allergies Allergy/AdvReac Type Severity Reaction Status Date / Time Iodinated Contrast- Oral and Allergy Itching Verified 08/16/18 15:04 IV Dye [Iodinated Contrast Media - IV Dye] Home Meds: Home Meds ALPRAZolam [Xanax] 2 mg PO TID 12/01/17 [History] Calcium Carbonate [Calcium] 600 mg PO BID 12/01/17 [History] Cetirizine [ZyrTEC] 10 mg PO DAILY 12/01/17 [History] Cholecalciferol (Vitamin D3) [Vitamin D3] 5,000 unit PO DAILY 12/01/17 [History] Erythromycin/Benzoyl Peroxide [Benzamycin] 1 dose TP BID PRN 12/01/17 [History] Fesoterodine Fumarate [Toviaz] 8 mg PO DAILY 12/01/17 [History] Fluticasone Propionate [Flonase] 1 spray RICARDO BID 12/01/17 [History] Gabapentin [Neurontin] 100 mg PO TID 12/01/17 [History] Molly 1 tab PO DAILY 12/01/17 [History] Lactobacillus Acidophilus [Probiotic] 1 each PO DAILY 12/01/17 [History] Levothyroxine [Synthroid] 50 mcg PO ACBREAKFAST 12/01/17 [History] Liraglutide [Victoza 3-Perez] 1.8 mg SQ DAILY 12/01/17 [History] Lubiprostone [Amitiza] 24 mcg PO BID 12/01/17 [History] Lutein/Minerals/Vit A,C & E [Ocuvite] 1 tab PO DAILY 12/01/17 [History] Multivitamin/Iron/Folic Acid [Centrum Adults Tablet] 1 each PO DAILY 12/01/17 [ History] Ondansetron [Zofran ODT] 8 mg PO Q6H PRN 12/01/17 [History] Pantoprazole Sodium [Protonix] 40 mg PO DAILY 12/01/17 [History] Polyethylene Glycol 3350 [MiraLAX] 1 packet PO DAILY 12/01/17 [History] Rosuvastatin [Crestor] 5 mg PO DAILY 12/01/17 [History] Topiramate [Topamax] 50 mg PO BID 12/01/17 [History] cycloSPORINE [Restasis] 1 each OP BID 12/01/17 [History] valACYclovir HCl [Valtrex] 500 mg PO DAILY 12/01/17 [History] Cranberry Extract [Cranberry] 2 tab PO DAILY 06/12/18 [History] Cream Base No.103 [Lipovan] 1 appful RECTAL ASDIRECTED 06/12/18 [History] Enalapril [Vasotec] 2.5 mg PO DAILY 06/12/18 [History] Ibuprofen [Motrin] 800 mg PO TID PRN 06/12/18 [History] buPROPion HCl [Wellbutrin Xl] 300 mg PO DAILY 06/12/18 [History] fluvoxaMINE [fluvoxaMINE Maleate] 200 mg PO BEDTIME 06/12/18 [History] Lisdexamfetamine Dimesylate [Vyvanse] 70 mg PO DAILY #30 capsule 08/13/18 [Rx] Albuterol Sulfate [Proair Hfa] 2 inh INH Q4H PRN 08/16/18 [History] Albuterol [Proventil HFA] 2 inh INH Q4H PRN 08/16/18 [History] Cyclobenzaprine [Flexeril] 10 mg PO TID PRN 08/16/18 [History] Diazepam [Valium] 10 mg PO QID 08/16/18 [History] Diclofenac Sodium [Voltaren] 75 mg PO BID 08/16/18 [History] Empagliflozin [Jardiance] 25 mg PO DAILY 08/16/18 [History] Estradiol [Yuvafem] 10 mg VAG ASDIRECTED 08/16/18 [History] Fluconazole [Diflucan] 150 mg PO DAILY PRN 08/16/18 [History] Insulin Aspart [NovoLOG] 18 units SQ TIDMEALS 08/16/18 [History] Insulin Detemir [Levemir] 60 unit SQ DAILY 08/16/18 [History] Insulin Glarg,Human.Rec.Analog [Lantus Solostar] 55 unit SUBCUT BEDTIME [History] LORazepam 2 mg PO TID 08/16/18 [History] Lidocaine 5% 1 applic TOP Q6H PRN 08/16/18 [History] Lurasidone HCl [Latuda] 120 mg PO BEDTIME 08/16/18 [History] Nitroglycerin [Rectiv] 1 applic TOP BID 08/16/18 [History] Nystatin [Nyamyc] 1 applic TOP TID 08/16/18 [History] Pregabalin [Lyrica] 150 mg PO BID 08/16/18 [History] SUMAtriptan [Imitrex] 50 mg PO ASDIRECTED 08/16/18 [History] Triamcinolone Acetonide [Triamcinolone Acetonide 0.1% Crm] 1 applic TOP BID [History] busPIRone [Buspar] 30 mg PO BID 08/16/18 [History] cloNIDine HCl [Catapres] 0.2 mg PO BEDTIME 08/16/18 [History] hydrOXYzine HCl [hydrOXYzine] 50 mg PO TID 08/16/18 [History] Past Medical History HEENT History: Reports: Other (See Below) Other HEENT History: 2 sinus surgeries Cardiovascular History: Reports: High Cholesterol, Hypertension Respiratory History: Reports: Asthma, Sleep Apnea Other Respiratory History: upper respiratory infection, Right lung nodule Gastrointestinal History: Reports: GERD, Irritable Bowel Syndrome Other Gastrointestinal History: anal fissure, elevated liver function tests, nausea, flank pain Genitourinary History: Reports: STD, UTI, Recurrent, Other (See Below) Other Genitourinary History: dysuria, gential herpes, dyspareunia, frequency COMBINATION MAN History: Reports: Other (See Below) Other COMBINATION MAN History: vagintis, vulvovagintitis, atropic vaginitis Musculoskeletal History: Reports: Fibromyalgia Other Musculoskeletal History: left carpal tunnel syndrome, cubital tunnel syndrome, elbow pain Neurological History: Reports: Migraines Other Neuro History: short term memory loss Psychiatric History: Reports: ADHD, Anxiety, Bipolar, Depression, OCD Endocrine/Metabolic History: Reports: Diabetes, Type II, Hypothyroidism, Obesity /BMI 30+ Other Endocrine/Metabolic History: fibramalgia Hematologic History: Reports: Other (See Below) Other Hematologic History: hypomagnesia Immunologic History: Reports: None Oncologic (Cancer) History: Reports: None Dermatologic History: Reports: Seborrheic Dermatitis Other Dermatologic History: acne, skin excoriation, skin lesion - Infectious Disease History Infectious Disease History: Reports: Other (See Below) - Past Surgical History Head Surgeries/Procedures: Reports: None HEENT Surgical History: Reports: Tonsillectomy GI Surgical History: Reports: Appendectomy, Bariatric Procedure, Cholecystectomy Female Surgical History: Reports: Hysterectomy, Salpingo-Oophorectomy, Tubal Ligation Oncologic Surgical History: Reports: None Social & Family History - Family History Family Medical History: Noncontributory - Tobacco Use Smoking Status *Q: Former Smoker Used Tobacco, but Quit: Yes Month/Year Tobacco Last Used: 2 - Caffeine Use Caffeine Use: Reports: Coffee, Soda, Tea - Recreational Drug Use Recreational Drug Use: No ED ROS GENERAL - Review of Systems Review Of Systems: ROS reveals no pertinent complaints other than HPI. ED EXAM GENERAL NO PERIP PULSE - Physical Exam Exam: See Below Exam Limited By: No Limitations General Appearance: Alert, WD/WN, No Apparent Distress Eye Exam: Bilateral Eye: Normal Inspection, PERRL Ears: Hearing Grossly Normal Nose: Normal Inspection Throat/Mouth: Normal Inspection, Normal Oropharynx, Normal Voice, No Airway Compromise Head: Atraumatic, Normocephalic Neck: Normal Inspection, Supple Respiratory/Chest: No Respiratory Distress, Lungs Clear, Normal Breath Sounds, No Accessory Muscle Use, Chest Non-Tender Cardiovascular: Normal Peripheral Pulses, Regular Rate, Rhythm, No Murmur GI/Abdominal: Normal Bowel Sounds, Soft, Non-Tender, No Organomegaly, No Distention Back Exam: Normal Inspection Extremities: Normal Inspection, Non-Tender Neurological: Alert, Oriented, CN II-XII Intact, Normal Cognition, No Motor/ Sensory Deficits Psychiatric: Normal Affect, Normal Mood Skin Exam: Warm, Dry, Intact, Normal Color Course - Vital Signs Last Recorded V/S: Last Vital Signs Temp 97.9 F 08/16/18 11:10 Pulse 66 08/16/18 15:09 Resp 16 08/16/18 15:09 BP 133/84 08/16/18 15:09 Pulse Ox 99 08/16/18 15:09 - Orders/Labs/Meds Orders: Active Orders 24 hr Category Date Time Status Glucose [Blood Glucose Check, Bedside] [RC] ASDIRECTED Care 08/16/18 11:38 Active Dextrose 5%-0.9% NaCl [Dextrose 5%-Normal Saline] 1,000 Med 08/16/18 11:45 Active ml IV ASDIRECTED Medication Orders Dextrose/Sodium Chloride (Dextrose 5%-Normal Saline) 1,000 mls @ 150 mls/hr IV ASDIRECTED JACOB Last Admin: 08/16/18 11:49 Dose: 150 mls/hr Labs: Laboratory Tests 08/16/18 08/16/18 08/16/18 Range/Units 12:05 12:05 12:51 WBC 8.40 (3.98-10.04) K/mm3 RBC 4.16 (3.98-5.22) M/mm3 Hgb 13.4 (11.2-15.7) gm/L Hct 40.8 (34.1-44.9) % MCV 98.1 H (79.4-94.8) fl MCH 32.2 (25.6-32.2) pg MCHC 32.8 (32.2-35.5) g/dl RDW Std Deviation 50.9 H (36.4-46.3) fL Plt Count 309 (182-369) K/mm3 MPV 8.6 L (9.4-12.3) fl Neutrophils % (Manual) 64 H (40-60) % Band Neutrophils % 0 (0-10) % Lymphocytes % (Manual) 27 (20-40) % Atypical Lymphs % 0 % Monocytes % (Manual) 7 (2-10) % Eosinophils % (Manual) 2 (0.7-5.8) % Basophils % (Manual) 0 L (0.1-1.2) Platelet Estimate Adequate Plt Morphology Comment Normal RBC Morph Comment Normal Sodium 150 H (136-145) mEq/L Potassium 3.4 L (3.5-5.1) mEq/L Chloride 114 H (98-107) mEq/L Carbon Dioxide 25 (21-32) mEq/L Anion Gap 14.4 (5-15) BUN 26 H (7-18) mg/dL Creatinine 1.1 H (0.55-1.02) mg/dL Est Cr Clr Drug Dosing 56.24 mL/min Estimated GFR (MDRD) 55 (>60) mL/min BUN/Creatinine Ratio 23.6 H (14-18) Glucose 102 (74-106) mg/dL POC Glucose 124 H (70-105) mg/dL Calcium 9.0 (8.5-10.1) mg/dL Total Bilirubin 0.2 (0.2-1.0) mg/dL AST 26 (15-37) U/L ALT 47 (14-59) U/L Alkaline Phosphatase 70 (46-116) U/L Total Protein 6.5 (6.4-8.2) g/dl Albumin 3.1 L (3.4-5.0) g/dl Globulin 3.4 gm/dL Albumin/Globulin Ratio 0.9 L (1-2) Urine Color (Yellow) Urine Appearance (Clear) Urine pH (5.0-8.0) Ur Specific Cum[place] (1.005-1.030) Urine Protein (Negative) Urine Glucose (UA) (Negative) Urine Ketones (Negative) Urine Occult Blood (Negative) Urine Nitrite (Negative) Urine Bilirubin (Negative) Urine Urobilinogen (0.2-1.0) Ur Leukocyte Esterase (Negative) Urine RBC (0-5) /hpf Urine WBC (0-5) /hpf Ur Epithelial Cells (0-5) /hpf Urine Bacteria (FEW) /hpf Hyaline Casts (0-5) /lpf Urine Mucus (FEW) /hpf 08/16/18 Range/Units 13:15 WBC (3.98-10.04) K/mm3 RBC (3.98-5.22) M/mm3 Hgb (11.2-15.7) gm/L Hct (34.1-44.9) % MCV (79.4-94.8) fl MCH (25.6-32.2) pg MCHC (32.2-35.5) g/dl RDW Std Deviation (36.4-46.3) fL Plt Count (182-369) K/mm3 MPV (9.4-12.3) fl Neutrophils % (Manual) (40-60) % Band Neutrophils % (0-10) % Lymphocytes % (Manual) (20-40) % Atypical Lymphs % % Monocytes % (Manual) (2-10) % Eosinophils % (Manual) (0.7-5.8) % Basophils % (Manual) (0.1-1.2) Platelet Estimate Plt Morphology Comment RBC Morph Comment Sodium (136-145) mEq/L Potassium (3.5-5.1) mEq/L Chloride (98-107) mEq/L Carbon Dioxide (21-32) mEq/L Anion Gap (5-15) BUN (7-18) mg/dL Creatinine (0.55-1.02) mg/dL Est Cr Clr Drug Dosing mL/min Estimated GFR (MDRD) (>60) mL/min BUN/Creatinine Ratio (14-18) Glucose (74-106) mg/dL POC Glucose (70-105) mg/dL Calcium (8.5-10.1) mg/dL Total Bilirubin (0.2-1.0) mg/dL AST (15-37) U/L ALT (14-59) U/L Alkaline Phosphatase (46-116) U/L Total Protein (6.4-8.2) g/dl Albumin (3.4-5.0) g/dl Globulin gm/dL Albumin/Globulin Ratio (1-2) Urine Color Yellow (Yellow) Urine Appearance Clear (Clear) Urine pH 6.5 (5.0-8.0) Ur Specific [place] > or = 1.030 (1.005-1.030) Urine Protein Negative (Negative) Urine Glucose (UA) Negative (Negative) Urine Ketones Negative (Negative) Urine Occult Blood Negative (Negative) Urine Nitrite Negative (Negative) Urine Bilirubin Negative (Negative) Urine Urobilinogen 0.2 (0.2-1.0) Ur Leukocyte Esterase Negative (Negative) Urine RBC 0-5 (0-5) /hpf Urine WBC 0-5 (0-5) /hpf Ur Epithelial Cells 5-10 H (0-5) /hpf Urine Bacteria Few (FEW) /hpf Hyaline Casts 5-10 H (0-5) /lpf Urine Mucus Few (FEW) /hpf Meds: Medications Generic Name Dose Route Start Last Admin Trade Name Freq PRN Reason Stop Dose Admin Dextrose/Sodium Chloride 1,000 mls @ 150 mls/hr 08/16/18 11:45 08/16/18 11:49 Dextrose 5%-Normal Saline IV 150 mls/hr ASDIRECTED JACOB Administration Discontinued Medications Generic Name Dose Route Start Last Admin Trade Name Freq PRN Reason Stop Dose Admin Ondansetron HCl 4 mg 08/16/18 11:36 08/16/18 11:49 Zofran IVPUSH 08/16/18 11:37 4 mg ONETIME ONE Administration - Re-Assessments/Exams Free Text/Narrative Re-Assessment/Exam: IV was established with D5 normal saline and Zofran 4 mg IVP. Initial labs and studies include: CBC, chem 14, UA, and bedside blood glucose test every half hour for the next 2 hours. I have contacted that he was also services come speak with the patient. I do not believe patient is safe to go home since she cannot keep track of her diabetic medications. I believe the patient will require assistance and possible admission to that she can get the appropriate care. Labs reviewed: CBC was essentially normal. Strep panel revealed sodium 150, potassium 3.4, CO2 25, Hgb 14.4, BUN 26, creatinine 1.1, and glucose of 102. Point of care glucose 124. Patient is hungry will allow her to eat a diabetic diet. UA came back with specific gravity greater than 1.030. Otherwise negative. I spoke with Dr. Mcintosh. He has agreed to admit the patient. Admission orders have been placed. 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
[2018-08-16] MEDS ORDERED: Ondansetron 4 MG/2 ML SDV IVPUSH ONE (11:36)
[2018-08-16] MEDS ORDERED: Dextrose 5%-0.9% NaCl 1,000 ML IV SCH (11:45)
[2018-08-16] MEDS ORDERED: Metoprolol Tartrate 5 MG/5 ML SDV IVPUSH PRN (16:54)
[2018-08-16] MEDS ORDERED: LORazepam 2 MG/ML SDV IVPUSH PRN (16:54)
[2018-08-16] MEDS ORDERED: hydrALAZINE 20 MG/ML SDV IVPUSH PRN (16:54)
[2018-08-16] MEDS ORDERED: Albuterol/Ipratropium 3.0-0.5 MG/3 ML Neb Soln NEB PRN (16:59)
[2018-08-16] MEDS ORDERED: Acetaminophen 325 MG Tab PO PRN (16:59)
[2018-08-16] MEDS ORDERED: Promethazine 6.25 MG in Sodium Chloride 0.9% 50 ML IV PRN (16:59)
[2018-08-16] MEDS ORDERED: Docusate Sodium 100 MG Cap PO PRN (16:59)
[2018-08-16] MEDS ORDERED: HYDROmorphone 1 MG/ML Syringe IVPUSH PRN (16:59)
[2018-08-16] MEDS ORDERED: LORazepam 2 MG/ML SDV IV PRN (16:59)
[2018-08-16] MEDS ORDERED: Ondansetron 4 MG/2 ML SDV IV PRN (16:59)
[2018-08-16] MEDS ORDERED: Acetaminophen/HYDROcodone 325-5 MG Tab PO PRN (16:59)
[2018-08-16] MEDS ORDERED: Bisacodyl 5 MG Tab PO PRN (16:59)
[2018-08-16] MEDS: Potassium Chloride 20 MEQ Tab.ER PO SCH ×2 (18:30→21:55)
[2018-08-16] MEDS ORDERED: Ibuprofen 800 MG Tab PO PRN (19:32)
[2018-08-16] MEDS ORDERED: Cyclobenzaprine 10 MG Tab PO PRN (19:32)
[2018-08-16] MEDS ORDERED: Albuterol 6.7 GM Inhaler INH PRN (19:32)
[2018-08-16] MEDS ORDERED: Ondansetron 4 MG Tab.DIS PO PRN (19:32)
--- NOTE | 2018-08-16 19:40 | PCM.HP ---
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 She is a DM2 on insulin. She has seen a specialist in the past. She was told to go on insulin pump but could not afford it and her current insurance unfortunately would not cover it. She is currently on SGLT2 and GLP1 inhibitors as well insulin for her hyperglycemic regimen and still experience episodic hypoglycemia. Her nutritional intake is erratic and also not consistent. She brings a bag full of goodies and candies. Her initial work up shows a CBC remarkable for MCV of 98.1, RDW of 50.9, MPV of 8.6, and Neutrophils of 64%. Her Chemistry is significant for NA of 150, K of 3.4, Cl of 114, BUN of 26, Cr of 1.1, BS of 102, Albumin of 3.1. Her UDS is negative for UTI of suggestive of dehydration or inadequate fluid intake. She is essentially for inability to take care of her self and management of intermittent hypoglycemia. Headache Pain Score (Numeric/FACES): 7 - Related Data Allergies/Adverse Reactions: Allergies Allergy/AdvReac Type Severity Reaction Status Date / Time Iodinated Contrast- Oral and Allergy Itching Verified 08/16/18 15:04 IV Dye [Iodinated Contrast Media - IV Dye] Home Medications: Home Meds Calcium Carbonate [Calcium] 600 mg PO BID 12/01/17 [History] Cetirizine [ZyrTEC] 10 mg PO BEDTIME 12/01/17 [History] Cholecalciferol (Vitamin D3) [Vitamin D3] 5,000 unit PO DAILY 12/01/17 [History] Fesoterodine Fumarate [Toviaz] 8 mg PO DAILY 12/01/17 [History] Fluticasone Propionate [Flonase] 1 spray RICARDO BID 12/01/17 [History] Gabapentin [Neurontin] 100 mg PO TID 12/01/17 [History] Molly 1 tab PO DAILY 12/01/17 [History] Lactobacillus Acidophilus [Probiotic] 1 each PO DAILY 12/01/17 [History] Levothyroxine [Synthroid] 50 mcg PO ACBREAKFAST 12/01/17 [History] Liraglutide [Victoza 3-Perez] 1.8 mg SQ DAILY 12/01/17 [History] Lubiprostone [Amitiza] 24 mcg PO BID 12/01/17 [History] Lutein/Minerals/Vit A,C & E [Ocuvite] 1 tab PO DAILY 12/01/17 [History] Multivitamin/Iron/Folic Acid [Centrum Adults Tablet] 1 each PO DAILY 12/01/17 [ History] Ondansetron [Zofran ODT] 8 mg PO Q6H PRN 12/01/17 [History] Pantoprazole Sodium [Protonix] 40 mg PO DAILY 12/01/17 [History] Polyethylene Glycol 3350 [MiraLAX] 1 packet PO DAILY 12/01/17 [History] Rosuvastatin [Crestor] 5 mg PO BEDTIME 12/01/17 [History] Topiramate [Topamax] 50 mg PO BID 12/01/17 [History] cycloSPORINE [Restasis] 1 each OP BID 12/01/17 [History] valACYclovir HCl [Valtrex] 500 mg PO DAILY 12/01/17 [History] Cranberry Extract [Cranberry] 2 tab PO DAILY 06/12/18 [History] Enalapril [Vasotec] 2.5 mg PO DAILY 06/12/18 [History] Ibuprofen [Motrin] 800 mg PO TID PRN 06/12/18 [History] buPROPion HCl [Wellbutrin Xl] 300 mg PO DAILY 06/12/18 [History] fluvoxaMINE [fluvoxaMINE Maleate] 200 mg PO BEDTIME 06/12/18 [History] Lisdexamfetamine Dimesylate [Vyvanse] 70 mg PO DAILY #30 capsule 08/13/18 [Rx] Albuterol Sulfate [Proair Hfa] 2 inh INH Q4H PRN 08/16/18 [History] Cyclobenzaprine [Flexeril] 10 mg PO TID PRN 08/16/18 [History] Diazepam [Valium] 10 mg PO TID 08/16/18 [History] Empagliflozin [Jardiance] 25 mg PO DAILY 08/16/18 [History] Estradiol [Yuvafem] 10 mg VAG ASDIRECTED 08/16/18 [History] Fluconazole [Diflucan] 150 mg PO DAILY PRN 08/16/18 [History] Insulin Glarg,Human.Rec.Analog [Lantus Solostar] 55 unit SUBCUT BEDTIME [History] Lurasidone HCl [Latuda] 120 mg PO BEDTIME 08/16/18 [History] Nitroglycerin [Rectiv] 1 applic TOP BID 08/16/18 [History] SUMAtriptan [Imitrex] 50 mg PO ASDIRECTED 08/16/18 [History] Triamcinolone Acetonide [Triamcinolone Acetonide 0.1% Crm] 1 applic TOP BID [History] busPIRone [Buspar] 30 mg PO BID 08/16/18 [History] cloNIDine HCl [Catapres] 0.2 mg PO BEDTIME 08/16/18 [History] Past Medical History HEENT History: Reports: Other (See Below) Other HEENT History: 2 sinus surgeries Cardiovascular History: Reports: High Cholesterol, Hypertension Respiratory History: Reports: Asthma, Sleep Apnea Other Respiratory History: upper respiratory infection, Right lung nodule Gastrointestinal History: Reports: GERD, Irritable Bowel Syndrome Other Gastrointestinal History: anal fissure, elevated liver function tests, nausea, flank pain Genitourinary History: Reports: STD, UTI, Recurrent, Other (See Below) Other Genitourinary History: dysuria, gential herpes, dyspareunia, frequency [employer] History: Reports: Other (See Below) Other OB/BYN History: vagintis, vulvovagintitis, atropic vaginitis Musculoskeletal History: Reports: Fibromyalgia Other Musculoskeletal History: left carpal tunnel syndrome, cubital tunnel syndrome, elbow pain Neurological History: Reports: Migraines Other Neuro History: short term memory loss Psychiatric History: Reports: ADHD, Anxiety, Bipolar, Depression, OCD Endocrine/Metabolic History: Reports: Diabetes, Type II, Hypothyroidism, Obesity /BMI 30+ Other Endocrine/Metabolic History: fibramalgia Hematologic History: Reports: Other (See Below) Other Hematologic History: hypomagnesia Immunologic History: Reports: None Oncologic (Cancer) History: Reports: None Dermatologic History: Reports: Seborrheic Dermatitis Other Dermatologic History: acne, skin excoriation, skin lesion - Infectious Disease History Infectious Disease History: Reports: Other (See Below) Other Infectious Disease History: STD: genital herpes - Past Surgical History Head Surgeries/Procedures: Reports: None HEENT Surgical History: Reports: Tonsillectomy GI Surgical History: Reports: Appendectomy, Bariatric Procedure, Cholecystectomy Female Surgical History: Reports: Hysterectomy, Salpingo-Oophorectomy, Tubal Ligation Oncologic Surgical History: Reports: None Social & Family History - Family History Family Medical History: Noncontributory - Tobacco Use Smoking Status *Q: Former Smoker Used Tobacco, but Quit: Yes Month/Year Tobacco Last Used: 2 - Caffeine Use Caffeine Use: Reports: Coffee, Soda, Tea Other Caffeine Use: minimally - Recreational Drug Use Recreational Drug Use: No H&P Review of Systems - Review of Systems: Review Of Systems: See Below General: Denies: Fever, Chills, Malaise, Weakness, Fatigue HEENT: Reports: No Symptoms Pulmonary: Denies: Shortness of Breath, Pleuritic Chest Pain, Other Cardiovascular: Denies: Chest Pain, Dyspnea on Exertion, Lightheadedness Gastrointestinal: Reports: Constipation. Denies: Abdominal Pain, Decreased Appetite, Melena, Nausea Genitourinary: Reports: No Symptoms Musculoskeletal: Reports: No Symptoms, Neck Pain Skin: Denies: Cyanosis, Mottled, Pallor, Diaphoresis, Bruising, Erythema Psychiatric: Denies: Depression, Anxiety, Agitation Neurological: Denies: Confusion, Difficulty Walking, Weakness, Gait Disturbance Hematologic/Lymphatic: Reports: No Symptoms Immunologic: Reports: Seasonal Allergy Exam - Exam Exam: See Below - Vital Signs Vital Signs: Last Vital Signs Temp 36.5 C 08/16/18 14:34 Pulse 66 08/16/18 15:09 Resp 16 08/16/18 15:09 BP 133/84 08/16/18 15:09 Pulse Ox 99 08/16/18 15:09 Weight: 74.417 kg - Exam General: Alert, Oriented, Cooperative, Mild Distress HEENT: Conjunctiva Clear, EACs Clear, EOMI, Hearing Intact, Mucosa Moist & [place] , Nares Patent, Normal Nasal Septum, Posterior Pharynx Clear, Pupils Equal, Pupils Reactive, Other (missing full set of teeth) Neck: Supple, Trachea Midline Lungs: Clear to Auscultation, Normal Respiratory Effort Cardiovascular: Regular Rate, Regular Rhythm GI/Abdominal Exam: Normal Bowel Sounds, Soft, Non-Tender, No Organomegaly, No Distention, No Abnormal Bruit (Female) Exam: Deferred Rectal (Female) Exam: Deferred Back Exam: Normal Inspection, Decreased Range of Motion Extremities: Normal Inspection, Normal Range of Motion, Non-Tender, No Pedal Edema, Normal Capillary Refill Peripheral Pulses: 3+: Posterior Tibial (L), Posterior Tibial (R), Dorsalis Pedis (L), Dorsalis Pedis (R) Skin: Warm, Dry, Intact Neuro Extensive - Mental Status: Oriented x3, Normal Cognition, Memory Intact Neuro Extensive - Motor, Sensory, Reflexes: CN II-XII Intact Psychiatric: Alert, Normal Affect, Normal Mood - Patient Data Lab Results Last 24 hrs: Laboratory Results - last 24 hr 08/16/18 08/16/18 08/16/18 Range/Units 12:05 12:05 12:51 WBC 8.40 (3.98-10.04) K/mm3 RBC 4.16 (3.98-5.22) M/mm3 Hgb 13.4 (11.2-15.7) gm/L Hct 40.8 (34.1-44.9) % MCV 98.1 H (79.4-94.8) fl MCH 32.2 (25.6-32.2) pg MCHC 32.8 (32.2-35.5) g/dl RDW Std Deviation 50.9 H (36.4-46.3) fL Plt Count 309 (182-369) K/mm3 MPV 8.6 L (9.4-12.3) fl Neutrophils % (Manual) 64 H (40-60) % Band Neutrophils % 0 (0-10) % Lymphocytes % (Manual) 27 (20-40) % Atypical Lymphs % 0 % Monocytes % (Manual) 7 (2-10) % Eosinophils % (Manual) 2 (0.7-5.8) % Basophils % (Manual) 0 L (0.1-1.2) Platelet Estimate Adequate Plt Morphology Comment Normal RBC Morph Comment Normal Sodium 150 H (136-145) mEq/L Potassium 3.4 L (3.5-5.1) mEq/L Chloride 114 H (98-107) mEq/L Carbon Dioxide 25 (21-32) mEq/L Anion Gap 14.4 (5-15) BUN 26 H (7-18) mg/dL Creatinine 1.1 H (0.55-1.02) mg/dL Est Cr Clr Drug Dosing 56.24 mL/min Estimated GFR (MDRD) 55 (>60) mL/min BUN/Creatinine Ratio 23.6 H (14-18) Glucose 102 (74-106) mg/dL POC Glucose 124 H (70-105) mg/dL Calcium 9.0 (8.5-10.1) mg/dL Total Bilirubin 0.2 (0.2-1.0) mg/dL AST 26 (15-37) U/L ALT 47 (14-59) U/L Alkaline Phosphatase 70 (46-116) U/L Total Protein 6.5 (6.4-8.2) g/dl Albumin 3.1 L (3.4-5.0) g/dl Globulin 3.4 gm/dL Albumin/Globulin Ratio 0.9 L (1-2) Urine Color (Yellow) Urine Appearance (Clear) Urine pH (5.0-8.0) Ur Specific [place] (1.005-1.030) Urine Protein (Negative) Urine Glucose (UA) (Negative) Urine Ketones (Negative) Urine Occult Blood (Negative) Urine Nitrite (Negative) Urine Bilirubin (Negative) Urine Urobilinogen (0.2-1.0) Ur Leukocyte Esterase (Negative) Urine RBC (0-5) /hpf Urine WBC (0-5) /hpf Ur Epithelial Cells (0-5) /hpf Urine Bacteria (FEW) /hpf Hyaline Casts (0-5) /lpf Urine Mucus (FEW) /hpf 08/16/18 08/16/18 Range/Units 13:15 17:53 WBC (3.98-10.04) K/mm3 RBC (3.98-5.22) M/mm3 Hgb (11.2-15.7) gm/L Hct (34.1-44.9) % MCV (79.4-94.8) fl MCH (25.6-32.2) pg MCHC (32.2-35.5) g/dl RDW Std Deviation (36.4-46.3) fL Plt Count (182-369) K/mm3 MPV (9.4-12.3) fl Neutrophils % (Manual) (40-60) % Band Neutrophils % (0-10) % Lymphocytes % (Manual) (20-40) % Atypical Lymphs % % Monocytes % (Manual) (2-10) % Eosinophils % (Manual) (0.7-5.8) % Basophils % (Manual) (0.1-1.2) Platelet Estimate Plt Morphology Comment RBC Morph Comment Sodium (136-145) mEq/L Potassium (3.5-5.1) mEq/L Chloride (98-107) mEq/L Carbon Dioxide (21-32) mEq/L Anion Gap (5-15) BUN (7-18) mg/dL Creatinine (0.55-1.02) mg/dL Est Cr Clr Drug Dosing mL/min Estimated GFR (MDRD) (>60) mL/min BUN/Creatinine Ratio (14-18) Glucose (74-106) mg/dL POC Glucose 186 H (70-105) mg/dL Calcium (8.5-10.1) mg/dL Total Bilirubin (0.2-1.0) mg/dL AST (15-37) U/L ALT (14-59) U/L Alkaline Phosphatase (46-116) U/L Total Protein (6.4-8.2) g/dl Albumin (3.4-5.0) g/dl Globulin gm/dL Albumin/Globulin Ratio (1-2) Urine Color Yellow (Yellow) Urine Appearance Clear (Clear) Urine pH 6.5 (5.0-8.0) Ur Specific [place] > or = 1.030 (1.005-1.030) Urine Protein Negative (Negative) Urine Glucose (UA) Negative (Negative) Urine Ketones Negative (Negative) Urine Occult Blood Negative (Negative) Urine Nitrite Negative (Negative) Urine Bilirubin Negative (Negative) Urine Urobilinogen 0.2 (0.2-1.0) Ur Leukocyte Esterase Negative (Negative) Urine RBC 0-5 (0-5) /hpf Urine WBC 0-5 (0-5) /hpf Ur Epithelial Cells 5-10 H (0-5) /hpf Urine Bacteria Few (FEW) /hpf Hyaline Casts 5-10 H (0-5) /lpf Urine Mucus Few (FEW) /hpf Result Diagrams: 08/17/18 04:50 08/17/18 04:50 Problem List Initiated/Reviewed/Updated: Yes Orders Last 24hrs: Active Orders 24 hr Category Date Time Status Admission Status [Patient Status] [ADT] Routine ADT 08/16/18 14:04 Active Accu Check [Blood Glucose Check, Bedside] [RC] Care 08/16/18 17:03 Active QIDACANDBED Antiembolic Devices [RC] PER UNIT ROUTINE Care 08/16/18 17:00 Active Diabetes Education [RC] DAILY Care 08/16/18 18:04 Active Height and Weight [RC] 04 Care 08/16/18 16:59 Active Intake and Output [RC] QSHIFT Care 08/16/18 16:59 Active Oxygen Therapy [RC] PRN Care 08/16/18 16:59 Active RT Aerosol Therapy [RC] ASDIRECTED Care 08/16/18 17:00 Active Up ad Randi [RC] ASDIRECTED Care 08/16/18 16:59 Active VTE/DVT Education [RC] BID Care 08/16/18 16:59 Active Vital Signs [RC] Q4HR Care 08/16/18 16:59 Active Consult to Case Management/[employer] Programmer [CONS] Cons 08/16/18 16:59 Active Routine Consult to Spiritual Care [CONS] Routine Cons 08/16/18 16:59 Active ADA Diabetic [[place] Citizen [employer] Diet] [DIET Diet 08/16/18 Dinner Active ] A1C [GLYCOSYLATED HEMOGLOBIN,HGBA1C] [CHEM] AM Lab 08/17/18 05:11 Ordered BASIC METABOLIC PANEL,BMP [CHEM] AM Lab 08/17/18 05:11 Ordered BASIC METABOLIC PANEL,BMP [CHEM] AM Lab 08/18/18 05:11 Ordered BASIC METABOLIC PANEL,BMP [CHEM] AM Lab 08/19/18 05:11 Ordered BASIC METABOLIC PANEL,BMP [CHEM] AM Lab 08/20/18 05:11 Ordered CBC WITH AUTO DIFF [HEME] AM Lab 08/17/18 05:11 Ordered MAGNESIUM [CHEM] AM Lab 08/17/18 05:11 Ordered MAGNESIUM [CHEM] AM Lab 08/18/18 05:11 Ordered MAGNESIUM [CHEM] AM Lab 08/19/18 05:11 Ordered MAGNESIUM [CHEM] AM Lab 08/20/18 05:11 Ordered Acetaminophen [Tylenol] Med 08/16/18 16:59 Active 650 mg PO Q4H PRN Acetaminophen/HYDROcodone [[place] 325-5 MG] Med 08/16/18 16:59 Active 1 tab PO Q4H PRN Albuterol [Proventil HFA] Med 08/16/18 19:32 Ordered 2 inh INH Q4H PRN Albuterol/Ipratropium [DuoNeb 3.0-0.5 MG/3 ML] Med 08/16/18 16:59 Active 3 ml NEB Q4H PRN Bisacodyl [Dulcolax] Med 08/16/18 16:59 Active 5 mg PO DAILY PRN Calcium Carbonate Med 08/16/18 21:00 Ordered 600 mg PO BID Cetirizine Med 08/16/18 21:00 Ordered 10 mg PO BEDTIME Cholecalciferol (Vitamin D3) [Vitamin D3] Med 08/17/18 09:00 Ordered 5,000 unit PO DAILY Cyclobenzaprine [Flexeril] Med 08/16/18 19:32 Ordered 10 mg PO TID PRN Diazepam [Valium] Med 08/16/18 21:00 Ordered 10 mg PO TID Docusate Sodium [Colace] Med 08/16/18 16:59 Active 100 mg PO BID PRN Docusate Sodium/Sennosides [Senna Plus] Med 08/16/18 16:59 Active 1 tab PO BID PRN Empagliflozin [Jardiance] Med 08/17/18 09:00 Ordered 25 mg PO DAILY Enalapril [Vasotec] Med 08/17/18 09:00 Ordered 2.5 mg PO DAILY Estradiol [Yuvafem] Med 08/16/18 19:45 Ordered 10 mg VAG ASDIRECTED Fesoterodine Fumarate [Toviaz] Med 08/17/18 09:00 Ordered 8 mg PO DAILY Fluticasone Propionate Med 08/16/18 21:00 Ordered 1 spray RICARDO BID Gabapentin [Neurontin] Med 08/16/18 21:00 Ordered 100 mg PO TID HYDROmorphone [Dilaudid] Med 08/16/18 16:59 Active 0.25 mg IVPUSH Q2H PRN Ibuprofen [Motrin] Med 08/16/18 19:32 Ordered 800 mg PO TID PRN Insulin Glarg,Human.Rec.Analog [LantUS] Med 08/17/18 06:00 Active 20 unit SUBCUT BIDAC Insulin Lispro [HumaLOG] Med 08/16/18 22:00 Active See Protocol SUBCUT QIDACANDBED LORazepam [Ativan] Med 08/16/18 16:59 Active 0.5 mg IV Q6H PRN LORazepam [Ativan] Med 08/16/18 16:54 Active 2 mg IVPUSH Q4H PRN Lactobacillus Acidophilus [Probiotic] Med 08/17/18 09:00 Ordered 1 each PO DAILY Levothyroxine [Synthroid] Med 08/17/18 06:00 Ordered 50 mcg PO ACBREAKFAST Liraglutide Med 08/17/18 09:00 Ordered 1.8 mg SQ DAILY Lisdexamfetamine Dimesylate [Vyvanse] Med 08/17/18 09:00 Ordered 70 mg PO DAILY Lubiprostone [Amitiza] Med 08/16/18 21:00 Ordered 24 mcg PO BID Lurasidone HCl [Latuda] Med 08/16/18 21:00 Ordered 120 mg PO BEDTIME Metoprolol Tartrate [Lopressor] Med 08/16/18 16:54 Active 5 mg IVPUSH Q4H PRN Multivitamin/Iron/Folic Acid [Centrum Adults Tablet] Med 08/17/18 09:00 Ordered 1 each PO DAILY Nitroglycerin [Rectiv] Med 08/16/18 21:00 Ordered 1 applic TOP BID Ondansetron [Zofran ODT] Med 08/16/18 19:32 Ordered 8 mg PO Q6H PRN Ondansetron [Zofran] Med 08/16/18 16:59 Active 4 mg IV Q6H PRN Pantoprazole [ProTONIX] Med 08/17/18 09:00 Ordered 40 mg PO DAILY Pharmacy to Dose - Magnesium R [Pharmacy to Dose - Med 08/16/18 17:00 Pending Magnesium Replacement] 1 dose .XX ASDIRECTED Pharmacy to Dose - Potassium R [Pharmacy to Dose - Med 08/16/18 17:00 Pending Potassium Replacement] 1 dose .XX ASDIRECTED Polyethylene Glycol 3350 [MiraLAX] Med 08/17/18 09:00 Ordered 1 packet PO DAILY Potassium Chloride [Klor-Con M20] Med 08/16/18 18:00 Active 40 meq PO Q4H Promethazine [Phenergan] 6.25 mg Med 08/16/18 16:59 Active Sodium Chloride 0.9% [Normal Saline] 50 ml IV Q6H Rosuvastatin Med 08/16/18 21:00 Ordered 5 mg PO BEDTIME SUMAtriptan [Imitrex] Med 08/16/18 19:45 Ordered 50 mg PO ASDIRECTED Topiramate Med 08/16/18 21:00 Ordered 50 mg PO BID buPROPion HCl Med 08/17/18 09:00 Ordered 300 mg PO DAILY busPIRone [Buspar] Med 08/16/18 21:00 Ordered 30 mg PO BID cloNIDine HCl [Catapres] Med 08/16/18 21:00 Ordered 0.2 mg PO BEDTIME cycloSPORINE Med 08/16/18 21:00 Ordered 1 each OP BID fluvoxaMINE [Luvox] Med 08/16/18 21:00 Ordered 200 mg PO BEDTIME hydrALAZINE [Apresoline] Med 08/16/18 16:54 Active 20 mg IVPUSH Q4H PRN Sequential Compression Device [OM.PC] Per Unit Routine Oth 08/16/18 16:59 Ordered Resuscitation Status Routine Resus Stat 08/16/18 14:39 Ordered Medication Orders Acetaminophen (Tylenol) 650 mg PO Q4H PRN PRN Reason: Pain (Mild 1-3)/fever Hydrocodone Bitart/Acetaminophen ([place] 325-5 Mg) 1 tab PO Q4H PRN PRN Reason: Pain (moderate 4-6) Albuterol/Ipratropium (Duoneb 3.0-0.5 Mg/3 Ml) 3 ml NEB Q4H PRN PRN Reason: Shortness Of Breath/wheezing Bisacodyl (Dulcolax) 5 mg PO DAILY PRN PRN Reason: Constipation Docusate Sodium (Colace) 100 mg PO BID PRN PRN Reason: Constipation Hydralazine HCl (Apresoline) 20 mg IVPUSH Q4H PRN PRN Reason: Hypertension Hydromorphone HCl (Dilaudid) 0.25 mg IVPUSH Q2H PRN PRN Reason: Pain (severe 7-10) Promethazine HCl 6.25 mg/ (Sodium Chloride) 50.25 mls @ 100 mls/hr IV Q6H PRN PRN Reason: Nausea/Vomiting Insulin Glargine (Lantus) 20 unit SUBCUT BIDAC [facility] Insulin Human Lispro (Humalog) 0 unit SUBCUT QIDACANDBED [facility]; Protocol Lorazepam (Ativan) 2 mg IVPUSH Q4H PRN PRN Reason: Seizures Lorazepam (Ativan) 0.5 mg IV Q6H PRN PRN Reason: Anxiety Magnesium Sulfate (Pharmacy To Dose - Magnesium Replacement) 1 dose .XX ASDIRECTED [facility] Metoprolol Tartrate (Lopressor) 5 mg IVPUSH Q4H PRN PRN Reason: Tachycardia Ondansetron HCl (Zofran) 4 mg IV Q6H PRN PRN Reason: Nausea/Vomiting Potassium Chloride (Pharmacy To Dose - Potassium Replacement) 1 dose .XX ASDIRECTED [facility] Potassium Chloride (Klor-Con M20) 40 meq PO Q4H [facility] Stop: 08/16/18 22:01 Last Admin: 08/16/18 18:30 Dose: 40 meq Senna/Docusate Sodium (Senna Plus) 1 tab PO BID PRN PRN Reason: Constipation Assessment/Plan Comment:: Assessment/Plan: Acute: Hypoglycemia - Has DM2 on Jardiance, Victoza and Insulin - Poorly controlled and lives alone - Needs 24 hrs supervised care or placement to help with her insulin administration - Accu-check AC/HS and ISS - A1C in AM - Adjusted her insulin regimen Inability to Care for Herself - Unclear if she has baseline cognitive impairment - Polypharmacy is an obvious risk factor Polypharmacy - Recommend to trim down her extensive list of medications Chronic: HTN HLD Asthma ROWDY GERD IBS Recurrent UTI/STI Genital Herpes DM2 Hypothyroidism Vaginitis/Vulvovaginitis/Atrophic Vaginitis Fibromyalgia Carpal Tunnel and Cubital Tunnel Syndrome Migraines ADHD OCD Anxiety Depression Seborrheic Dermatitis Class I Obesity Plan: Admit to [facility] Admission Routine AM Lab Resume Some Home Meds Consider P[employer] CONSULTANT Evaluation r/o Cognitive Impairment DVT PPx SW/CM for d/c planning Discharge pending placement
[2018-08-16] MEDS ORDERED: SUMAtriptan 50 MG Tab PO SCH (19:45)
[2018-08-16] MEDS ORDERED: ESTRADIOL VAG SCH (19:45)
[2018-08-16] MEDS ORDERED: fluvoxaMINE 100 MG Tab PO SCH (21:00)
[2018-08-16] MEDS: Lubiprostone 24 MCG Cap PO SCH (21:47)
[2018-08-16] MEDS: busPIRone 15 MG Tab PO SCH (21:48)
[2018-08-16] MEDS: Calcium Carbonate 600 MG Tab PO SCH (21:48)
[2018-08-16] MEDS: cloNIDine 0.1 MG Tab PO SCH (21:49)
[2018-08-16] MEDS: Loratadine 10 MG Tab PO SCH (21:50)
[2018-08-16] MEDS: Rosuvastatin 10 MG Tab PO SCH (21:51)
[2018-08-16] MEDS: Topiramate 25 MG Tab PO SCH (21:53)
[2018-08-16] MEDS: Gabapentin 100 MG Cap PO SCH (21:53)
[2018-08-16] MEDS: Insulin Lispro 100 Units/ML 3 ML Vial SUBCUT SCH (21:54)
[2018-08-16] MEDS: Diazepam 5 MG Tab PO SCH (21:54)
[2018-08-17] MEDS: Levothyroxine 50 MCG Tab PO SCH (07:09)
[2018-08-17] MEDS: Pantoprazole 40 MG Tab.CR PO SCH (07:09)
[2018-08-17] MEDS: Trospium 20 MG Tab PO SCH ×2 (07:10→15:29)
[2018-08-17] MEDS: Insulin Lispro 100 Units/ML 3 ML Vial SUBCUT SCH ×4 (07:10→21:43)
[2018-08-17] MEDS: Insulin Glarg,Human.Rec.Analog 100 UNIT/ML ML SUBCUT SCH ×2 (07:53→15:30)
[2018-08-17 07:55] LABS: HEMOGLOBIN A1C 5.5 % (4.50-6.20)
--- NOTE | 2018-08-17 08:37 | PCM.PN ---
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 Subjective Update: Follow Up Functional Status: Reports: Pain Controlled, Tolerating Diet, Ambulating, Urinating - Review of Systems General: Denies: Fever, Weakness, Fatigue, Malaise, Chills HEENT: Reports: No Symptoms Pulmonary: Denies: Shortness of Breath Cardiovascular: Denies: Chest Pain, Dyspnea on Exertion, Lightheadedness Gastrointestinal: Denies: Abdominal Pain, Decreased Appetite, Nausea, Vomiting Genitourinary: Reports: No Symptoms Musculoskeletal: Reports: No Symptoms Skin: Denies: Cyanosis, Mottled, Bruising Neurological: Denies: Confusion, Weakness, Gait Disturbance Psychiatric: Denies: Depression, Anxiety, Agitation, Hallucinations Systems Review Comment:: No overnight or acute issues. She rested well last night and has no new complaints this AM. Her glucose overall is controlled. - Patient Data Vitals - Most Recent: Last Vital Signs Temp 36.8 C 08/17/18 07:39 Pulse 58 L 08/17/18 07:39 Resp 16 08/17/18 07:39 BP 99/65 08/17/18 07:39 Pulse Ox 99 08/17/18 07:39 Weight - Most Recent: 74.752 kg I&O - Last 24 Hours: Intake & Output 08/16/18 08/17/18 08/17/18 22:59 06:59 14:59 Intake Total 600 Output Total 1450 Balance -850 Lab Results Last 24 Hours: Laboratory Results - last 24 hr 08/16/18 08/16/18 08/16/18 Range/Units 12:05 12:05 12:51 WBC 8.40 (3.98-10.04) K/mm3 RBC 4.16 (3.98-5.22) M/mm3 Hgb 13.4 (11.2-15.7) gm/L Hct 40.8 (34.1-44.9) % MCV 98.1 H (79.4-94.8) fl MCH 32.2 (25.6-32.2) pg MCHC 32.8 (32.2-35.5) g/dl RDW Std Deviation 50.9 H (36.4-46.3) fL Plt Count 309 (182-369) K/mm3 MPV 8.6 L (9.4-12.3) fl Neut % (Auto) (34.0-71.1) % Lymph % (Auto) (19.3-51.7) % [place] % (Auto) (4.7-12.5) % Eos % (Auto) (0.7-5.8) Baso % (Auto) (0.1-1.2) % Neut # (Auto) (1.56-6.13) K/mm3 Lymph # (Auto) (1.18-3.74) K/mm3 [place] # (Auto) (0.24-0.36) K/mm3 Eos # (Auto) (0.04-0.36) K/mm3 Baso # (Auto) (0.01-0.08) K/mm3 Neutrophils % (Manual) 64 H (40-60) % Band Neutrophils % 0 (0-10) % Lymphocytes % (Manual) 27 (20-40) % Atypical Lymphs % 0 % Monocytes % (Manual) 7 (2-10) % Eosinophils % (Manual) 2 (0.7-5.8) % Basophils % (Manual) 0 L (0.1-1.2) Manual Slide Review Platelet Estimate Adequate Plt Morphology Comment Normal RBC Morph Comment Normal D-Dimer, Quantitative (0.19-0.50) mg/L Sodium 150 H (136-145) mEq/L Potassium 3.4 L (3.5-5.1) mEq/L Chloride 114 H (98-107) mEq/L Carbon Dioxide 25 (21-32) mEq/L Anion Gap 14.4 (5-15) BUN 26 H (7-18) mg/dL Creatinine 1.1 H (0.55-1.02) mg/dL Est Cr Clr Drug Dosing 56.24 mL/min Estimated GFR (MDRD) 55 (>60) mL/min BUN/Creatinine Ratio 23.6 H (14-18) Glucose 102 (74-106) mg/dL POC Glucose 124 H (70-105) mg/dL Hemoglobin A1c (4.50-6.20) % Calcium 9.0 (8.5-10.1) mg/dL Magnesium (1.8-2.4) mg/dl Total Bilirubin 0.2 (0.2-1.0) mg/dL AST 26 (15-37) U/L ALT 47 (14-59) U/L Alkaline Phosphatase 70 (46-116) U/L Total Protein 6.5 (6.4-8.2) g/dl Albumin 3.1 L (3.4-5.0) g/dl Globulin 3.4 gm/dL Albumin/Globulin Ratio 0.9 L (1-2) Urine Color (Yellow) Urine Appearance (Clear) Urine pH (5.0-8.0) Ur Specific [place] (1.005-1.030) Urine Protein (Negative) Urine Glucose (UA) (Negative) Urine Ketones (Negative) Urine Occult Blood (Negative) Urine Nitrite (Negative) Urine Bilirubin (Negative) Urine Urobilinogen (0.2-1.0) Ur Leukocyte Esterase (Negative) Urine RBC (0-5) /hpf Urine WBC (0-5) /hpf Ur Epithelial Cells (0-5) /hpf Urine Bacteria (FEW) /hpf Hyaline Casts (0-5) /lpf Urine Mucus (FEW) /hpf 08/16/18 08/16/18 08/16/18 Range/Units 13:15 17:53 20:41 WBC (3.98-10.04) K/mm3 RBC (3.98-5.22) M/mm3 Hgb (11.2-15.7) gm/L Hct (34.1-44.9) % MCV (79.4-94.8) fl MCH (25.6-32.2) pg MCHC (32.2-35.5) g/dl RDW Std Deviation (36.4-46.3) fL Plt Count (182-369) K/mm3 MPV (9.4-12.3) fl Neut % (Auto) (34.0-71.1) % Lymph % (Auto) (19.3-51.7) % [place] % (Auto) (4.7-12.5) % Eos % (Auto) (0.7-5.8) Baso % (Auto) (0.1-1.2) % Neut # (Auto) (1.56-6.13) K/mm3 Lymph # (Auto) (1.18-3.74) K/mm3 [place] # (Auto) (0.24-0.36) K/mm3 Eos # (Auto) (0.04-0.36) K/mm3 Baso # (Auto) (0.01-0.08) K/mm3 Neutrophils % (Manual) (40-60) % Band Neutrophils % (0-10) % Lymphocytes % (Manual) (20-40) % Atypical Lymphs % % Monocytes % (Manual) (2-10) % Eosinophils % (Manual) (0.7-5.8) % Basophils % (Manual) (0.1-1.2) Manual Slide Review Platelet Estimate Plt Morphology Comment RBC Morph Comment D-Dimer, Quantitative 0.74 H (0.19-0.50) mg/L Sodium (136-145) mEq/L Potassium (3.5-5.1) mEq/L Chloride (98-107) mEq/L Carbon Dioxide (21-32) mEq/L Anion Gap (5-15) BUN (7-18) mg/dL Creatinine (0.55-1.02) mg/dL Est Cr Clr Drug Dosing mL/min Estimated GFR (MDRD) (>60) mL/min BUN/Creatinine Ratio (14-18) Glucose (74-106) mg/dL POC Glucose 186 H (70-105) mg/dL Hemoglobin A1c (4.50-6.20) % Calcium (8.5-10.1) mg/dL Magnesium (1.8-2.4) mg/dl Total Bilirubin (0.2-1.0) mg/dL AST (15-37) U/L ALT (14-59) U/L Alkaline Phosphatase (46-116) U/L Total Protein (6.4-8.2) g/dl Albumin (3.4-5.0) g/dl Globulin gm/dL Albumin/Globulin Ratio (1-2) Urine Color Yellow (Yellow) Urine Appearance Clear (Clear) Urine pH 6.5 (5.0-8.0) Ur Specific [place] > or = 1.030 (1.005-1.030) Urine Protein Negative (Negative) Urine Glucose (UA) Negative (Negative) Urine Ketones Negative (Negative) Urine Occult Blood Negative (Negative) Urine Nitrite Negative (Negative) Urine Bilirubin Negative (Negative) Urine Urobilinogen 0.2 (0.2-1.0) Ur Leukocyte Esterase Negative (Negative) Urine RBC 0-5 (0-5) /hpf Urine WBC 0-5 (0-5) /hpf Ur Epithelial Cells 5-10 H (0-5) /hpf Urine Bacteria Few (FEW) /hpf Hyaline Casts 5-10 H (0-5) /lpf Urine Mucus Few (FEW) /hpf 08/16/18 08/17/18 08/17/18 Range/Units 21:45 04:50 04:50 WBC 9.82 (3.98-10.04) K/mm3 RBC 3.68 L (3.98-5.22) M/mm3 Hgb 11.8 (11.2-15.7) gm/L Hct 36.6 (34.1-44.9) % MCV 99.5 H (79.4-94.8) fl MCH 32.1 (25.6-32.2) pg MCHC 32.2 (32.2-35.5) g/dl RDW Std Deviation 50.6 H (36.4-46.3) fL Plt Count 291 (182-369) K/mm3 MPV 8.9 L (9.4-12.3) fl Neut % (Auto) 29.5 L (34.0-71.1) % Lymph % (Auto) 61.7 H (19.3-51.7) % [place] % (Auto) 5.8 (4.7-12.5) % Eos % (Auto) 2.7 (0.7-5.8) Baso % (Auto) 0.2 (0.1-1.2) % Neut # (Auto) 2.89 (1.56-6.13) K/mm3 Lymph # (Auto) 6.06 H (1.18-3.74) K/mm3 [place] # (Auto) 0.57 H (0.24-0.36) K/mm3 Eos # (Auto) 0.27 (0.04-0.36) K/mm3 Baso # (Auto) 0.02 (0.01-0.08) K/mm3 Neutrophils % (Manual) (40-60) % Band Neutrophils % (0-10) % Lymphocytes % (Manual) (20-40) % Atypical Lymphs % % Monocytes % (Manual) (2-10) % Eosinophils % (Manual) (0.7-5.8) % Basophils % (Manual) (0.1-1.2) Manual Slide Review Abnormal smear Platelet Estimate Plt Morphology Comment RBC Morph Comment D-Dimer, Quantitative (0.19-0.50) mg/L Sodium 144 (136-145) mEq/L Potassium 4.0 (3.5-5.1) mEq/L Chloride 113 H (98-107) mEq/L Carbon Dioxide 22 (21-32) mEq/L Anion Gap 13.0 (5-15) BUN 29 H (7-18) mg/dL Creatinine 1.0 (0.55-1.02) mg/dL Est Cr Clr Drug Dosing 61.86 mL/min Estimated GFR (MDRD) > 60 (>60) mL/min BUN/Creatinine Ratio 29.0 H (14-18) Glucose 102 (74-106) mg/dL POC Glucose 105 (70-105) mg/dL Hemoglobin A1c (4.50-6.20) % Calcium 8.8 (8.5-10.1) mg/dL Magnesium 1.9 (1.8-2.4) mg/dl Total Bilirubin (0.2-1.0) mg/dL AST (15-37) U/L ALT (14-59) U/L Alkaline Phosphatase (46-116) U/L Total Protein (6.4-8.2) g/dl Albumin (3.4-5.0) g/dl Globulin gm/dL Albumin/Globulin Ratio (1-2) Urine Color (Yellow) Urine Appearance (Clear) Urine pH (5.0-8.0) Ur Specific [place] (1.005-1.030) Urine Protein (Negative) Urine Glucose (UA) (Negative) Urine Ketones (Negative) Urine Occult Blood (Negative) Urine Nitrite (Negative) Urine Bilirubin (Negative) Urine Urobilinogen (0.2-1.0) Ur Leukocyte Esterase (Negative) Urine RBC (0-5) /hpf Urine WBC (0-5) /hpf Ur Epithelial Cells (0-5) /hpf Urine Bacteria (FEW) /hpf Hyaline Casts (0-5) /lpf Urine Mucus (FEW) /hpf 08/17/18 08/17/18 Range/Units 04:50 07:08 WBC (3.98-10.04) K/mm3 RBC (3.98-5.22) M/mm3 Hgb (11.2-15.7) gm/L Hct (34.1-44.9) % MCV (79.4-94.8) fl MCH (25.6-32.2) pg MCHC (32.2-35.5) g/dl RDW Std Deviation (36.4-46.3) fL Plt Count (182-369) K/mm3 MPV (9.4-12.3) fl Neut % (Auto) (34.0-71.1) % Lymph % (Auto) (19.3-51.7) % [place] % (Auto) (4.7-12.5) % Eos % (Auto) (0.7-5.8) Baso % (Auto) (0.1-1.2) % Neut # (Auto) (1.56-6.13) K/mm3 Lymph # (Auto) (1.18-3.74) K/mm3 [place] # (Auto) (0.24-0.36) K/mm3 Eos # (Auto) (0.04-0.36) K/mm3 Baso # (Auto) (0.01-0.08) K/mm3 Neutrophils % (Manual) (40-60) % Band Neutrophils % (0-10) % Lymphocytes % (Manual) (20-40) % Atypical Lymphs % % Monocytes % (Manual) (2-10) % Eosinophils % (Manual) (0.7-5.8) % Basophils % (Manual) (0.1-1.2) Manual Slide Review Platelet Estimate Plt Morphology Comment RBC Morph Comment D-Dimer, Quantitative (0.19-0.50) mg/L Sodium (136-145) mEq/L Potassium (3.5-5.1) mEq/L Chloride (98-107) mEq/L Carbon Dioxide (21-32) mEq/L Anion Gap (5-15) BUN (7-18) mg/dL Creatinine (0.55-1.02) mg/dL Est Cr Clr Drug Dosing mL/min Estimated GFR (MDRD) (>60) mL/min BUN/Creatinine Ratio (14-18) Glucose (74-106) mg/dL POC Glucose 83 (70-105) mg/dL Hemoglobin A1c 5.50 (4.50-6.20) % Calcium (8.5-10.1) mg/dL Magnesium (1.8-2.4) mg/dl Total Bilirubin (0.2-1.0) mg/dL AST (15-37) U/L ALT (14-59) U/L Alkaline Phosphatase (46-116) U/L Total Protein (6.4-8.2) g/dl Albumin (3.4-5.0) g/dl Globulin gm/dL Albumin/Globulin Ratio (1-2) Urine Color (Yellow) Urine Appearance (Clear) Urine pH (5.0-8.0) Ur Specific [place] (1.005-1.030) Urine Protein (Negative) Urine Glucose (UA) (Negative) Urine Ketones (Negative) Urine Occult Blood (Negative) Urine Nitrite (Negative) Urine Bilirubin (Negative) Urine Urobilinogen (0.2-1.0) Ur Leukocyte Esterase (Negative) Urine RBC (0-5) /hpf Urine WBC (0-5) /hpf Ur Epithelial Cells (0-5) /hpf Urine Bacteria (FEW) /hpf Hyaline Casts (0-5) /lpf Urine Mucus (FEW) /hpf Med Orders - Current: Current Medications Acetaminophen (Tylenol) 650 mg PO Q4H PRN PRN Reason: Pain (Mild 1-3)/fever Hydrocodone Bitart/Acetaminophen ([place] 325-5 Mg) 1 tab PO Q4H PRN PRN Reason: Pain (moderate 4-6) Albuterol (Proventil Hfa) 0 gm INH Q4H PRN PRN Reason: Shortness of Breath Albuterol/Ipratropium (Duoneb 3.0-0.5 Mg/3 Ml) 3 ml NEB Q4H PRN PRN Reason: Shortness Of Breath/wheezing Bisacodyl (Dulcolax) 5 mg PO DAILY PRN PRN Reason: Constipation Bupropion HCl (Wellbutrin Xl) 300 mg PO DAILY [facility] Buspirone HCl (Buspar) 30 mg PO BID [facility] Last Admin: 08/16/18 21:48 Dose: 30 mg Calcium Carbonate/Glycine (Calcium Carbonate) 600 mg PO BID [facility] Last Admin: 08/16/18 21:48 Dose: 600 mg Cholecalciferol (Vitamin D3) 5,000 unit PO DAILY [facility] Clonidine HCl (Catapres) 0.2 mg PO BEDTIME [facility] Last Admin: 08/16/18 21:49 Dose: 0.2 mg Cyclobenzaprine HCl (Flexeril) 10 mg PO TID PRN PRN Reason: Pain Diazepam (Valium.) 10 mg PO TID [facility] Last Admin: 08/16/18 21:54 Dose: 10 mg Docusate Sodium (Colace) 100 mg PO BID PRN PRN Reason: Constipation Enalapril Maleate (Vasotec) 2.5 mg PO DAILY [facility] Flunisolide (Nasalide Nasal [place]) 0 ml RICARDO BID [facility] Last Admin: 08/16/18 21:52 Dose: 2 sprays Fluvoxamine Maleate (Luvox) 200 mg PO BEDTIME [facility] Last Admin: 08/16/18 21:52 Dose: Not Given Gabapentin (Neurontin) 100 mg PO TID [facility] Last Admin: 08/16/18 21:53 Dose: 100 mg Hydralazine HCl (Apresoline) 20 mg IVPUSH Q4H PRN PRN Reason: Hypertension Hydromorphone HCl (Dilaudid) 0.25 mg IVPUSH Q2H PRN PRN Reason: Pain (severe 7-10) Promethazine HCl 6.25 mg/ (Sodium Chloride) 50.25 mls @ 100 mls/hr IV Q6H PRN PRN Reason: Nausea/Vomiting Ibuprofen (Motrin) 800 mg PO TID PRN PRN Reason: Pain Insulin Glargine (Lantus) 20 unit SUBCUT BIDAC [facility] Last Admin: 08/17/18 07:53 Dose: 20 units Insulin Human Lispro (Humalog) 0 unit SUBCUT QIDACANDBED [facility]; Protocol Last Admin: 08/17/18 07:10 Dose: Not Given Levothyroxine Sodium (Synthroid) 50 mcg PO ACBREAKFAST [facility] Last Admin: 08/17/18 07:09 Dose: 50 mcg Loratadine (Claritin) 10 mg PO BEDTIME [facility] Last Admin: 08/16/18 21:50 Dose: 10 mg Lorazepam (Ativan) 2 mg IVPUSH Q4H PRN PRN Reason: Seizures Lorazepam (Ativan) 0.5 mg IV Q6H PRN PRN Reason: Anxiety Lubiprostone (Amitiza) 24 mcg PO BID [facility] Last Admin: 08/16/18 21:47 Dose: Not Given Magnesium Sulfate (Pharmacy To Dose - Magnesium Replacement) 1 dose .XX ASDIRECTED [facility] Metoprolol Tartrate (Lopressor) 5 mg IVPUSH Q4H PRN PRN Reason: Tachycardia Multivitamins (Thera) 1 each PO DAILY [facility] Non-Formulary Medication (Cyclosporine) 1 each OP BID [facility] Non-Formulary Medication (Empagliflozin [Jardiance]) 25 mg PO DAILY [facility] Non-Formulary Medication (Estradiol [Yuvafem]) 10 mg VAG ASDIRECTED [facility] Non-Formulary Medication (Liraglutide) 1.8 mg SQ DAILY [facility] Non-Formulary Medication (Lisdexamfetamine Dimesylate [Vyvanse]) 70 mg PO DAILY [facility] Non-Formulary Medication (Lurasidone Hcl [Latuda]) 120 mg PO BEDTIME [facility] Non-Formulary Medication (Nitroglycerin [Rectiv]) 1 applic TOP BID [facility] Ondansetron HCl (Zofran) 4 mg IV Q6H PRN PRN Reason: Nausea/Vomiting Ondansetron HCl (Zofran Odt) 8 mg PO Q6H PRN PRN Reason: Nausea Pantoprazole Sodium (Protonix) 40 mg PO ACBREAKFAST [facility] Last Admin: 08/17/18 07:09 Dose: 40 mg Polyethylene Glycol (Miralax) 17 gm PO DAILY [facility] Potassium Chloride (Pharmacy To Dose - Potassium Replacement) 1 dose .XX ASDIRECTED [facility] Rosuvastatin Calcium (Crestor) 5 mg PO BEDTIME [facility] Last Admin: 08/16/18 21:51 Dose: 5 mg Saccharomyces Boulardii (Florastor) 250 mg PO DAILY [facility] Senna/Docusate Sodium (Senna Plus) 1 tab PO BID PRN PRN Reason: Constipation Sumatriptan Succinate (Imitrex) 50 mg PO ASDIRECTED [facility] Topiramate (Topamax) 50 mg PO BID [facility] Last Admin: 08/16/18 21:53 Dose: 50 mg Trospium (Sanctura) 20 mg PO BIDAC [facility] Last Admin: 08/17/18 07:10 Dose: 20 mg Discontinued Medications Dextrose/Sodium Chloride (Dextrose 5%-Normal Saline) 1,000 mls @ 150 mls/hr IV ASDIRECTED [facility] Last Admin: 08/16/18 11:49 Dose: 150 mls/hr Ondansetron HCl (Zofran) 4 mg IVPUSH ONETIME ONE Stop: 08/16/18 11:37 Last Admin: 08/16/18 11:49 Dose: 4 mg Potassium Chloride (Klor-Con M20) 40 meq PO Q4H [facility] Stop: 08/16/18 22:01 Last Admin: 08/16/18 21:55 Dose: 40 meq - Exam General: Alert, Oriented, Cooperative, No Acute Distress HEENT: Pupils Equal, Pupils Reactive, EOMI, Mucous Membr. Moist/[place], Other ( missing full set of teeth) Neck: Supple Lungs: Clear to Auscultation, Normal Respiratory Effort Cardiovascular: Regular Rate, Regular Rhythm GI/Abdominal Exam: Normal Bowel Sounds, Soft, Non-Tender, No Organomegaly, No Distention, No Abnormal Bruit (Female) Exam: Deferred Back Exam: Normal Inspection, Decreased Range of Motion Extremities: Normal Inspection, Normal Range of Motion, Non-Tender, No Pedal Edema, Normal Capillary Refill Peripheral Pulses: 2+: Dorsalis Pedis (L), Dorsalis Pedis (R) Skin: Warm, Dry, Intact Neurological: No New Focal Deficit Psy/Mental Status: Alert, Normal Affect, Normal Mood - Problem List Review Problem List Initiated/Reviewed/Updated: Yes - My Orders Last 24 Hours: My Active Orders 08/16/18 14:39 Resuscitation Status Routine 08/16/18 16:54 LORazepam [Ativan] 2 mg IVPUSH Q4H PRN Metoprolol Tartrate [Lopressor] 5 mg IVPUSH Q4H PRN hydrALAZINE [Apresoline] 20 mg IVPUSH Q4H PRN 08/16/18 16:59 Height and Weight [RC] 04 Intake and Output [RC] 04,16 Oxygen Therapy [RC] PRN Up ad Randi [RC] ASDIRECTED VTE/DVT Education [RC] BID Vital Signs [RC] Q4HR Consult to Case Management/Machine Sander [CONS] Routine Consult to Spiritual Care [CONS] Routine Acetaminophen [Tylenol] 650 mg PO Q4H PRN Acetaminophen/HYDROcodone [[place] 325-5 MG] 1 tab PO Q4H PRN Albuterol/Ipratropium [DuoNeb 3.0-0.5 MG/3 ML] 3 ml NEB Q4H PRN Bisacodyl [Dulcolax] 5 mg PO DAILY PRN Docusate Sodium [Colace] 100 mg PO BID PRN Docusate Sodium/Sennosides [Senna Plus] 1 tab PO BID PRN HYDROmorphone [Dilaudid] 0.25 mg IVPUSH Q2H PRN LORazepam [Ativan] 0.5 mg IV Q6H PRN Ondansetron [Zofran] 4 mg IV Q6H PRN Promethazine [Phenergan] 6.25 mg Sodium Chloride 0.9% [Normal Saline] 50 ml IV Q6H Sequential Compression Device [OM.PC] Per Unit Routine 08/16/18 17:00 Antiembolic Devices [RC] 10,22 RT Aerosol Therapy [RC] ASDIRECTED Pharmacy to Dose - Magnesium R [Pharmacy to Dose - Magnesium Replacement] 1 dose .XX ASDIRECTED Pharmacy to Dose - Potassium R [Pharmacy to Dose - Potassium Replacement] 1 dose .XX ASDIRECTED 08/16/18 17:03 Accu Check [Blood Glucose Check, Bedside] [RC] QIDACANDBED 08/16/18 18:04 Diabetes Education [RC] DAILY 08/16/18 19:32 Albuterol [Proventil HFA] 0 gm INH Q4H PRN Cyclobenzaprine [Flexeril] 10 mg PO TID PRN Ibuprofen [Motrin] 800 mg PO TID PRN Ondansetron [Zofran ODT] 8 mg PO Q6H PRN 08/16/18 19:45 Estradiol [Yuvafem] 10 mg VAG ASDIRECTED SUMAtriptan [Imitrex] 50 mg PO ASDIRECTED 08/16/18 21:00 Calcium Carbonate 600 mg PO BID Flunisolide [Nasalide Nasal [place]] 0 ml RICARDO BID Gabapentin [Neurontin] 100 mg PO TID Loratadine [Claritin] 10 mg PO BEDTIME Lubiprostone [Amitiza] 24 mcg PO BID Lurasidone HCl [Latuda] 120 mg PO BEDTIME Nitroglycerin [Rectiv] 1 applic TOP BID Rosuvastatin [Crestor] 5 mg PO BEDTIME Topiramate [Topamax] 50 mg PO BID busPIRone [Buspar] 30 mg PO BID cloNIDine [Catapres] 0.2 mg PO BEDTIME cycloSPORINE 1 each OP BID diazePAM [Valium] 10 mg PO TID fluvoxaMINE [Luvox] 200 mg PO BEDTIME 08/16/18 22:00 Insulin Lispro [HumaLOG] See Protocol SUBCUT QIDACANDBED 08/16/18 Dinner ADA Diabetic [[employer] Diet] [DIET] 08/17/18 06:00 Insulin Glarg,Human.Rec.Analog [LantUS] 20 unit SUBCUT BIDAC Levothyroxine [Synthroid] 50 mcg PO ACBREAKFAST Pantoprazole [ProTONIX] 40 mg PO ACBREAKFAST Trospium [Sanctura] 20 mg PO BIDAC 08/17/18 09:00 Cholecalciferol (Vitamin D3) [Vitamin D3] 5,000 unit PO DAILY Empagliflozin [Jardiance] 25 mg PO DAILY Enalapril [Vasotec] 2.5 mg PO DAILY Liraglutide 1.8 mg SQ DAILY Lisdexamfetamine Dimesylate [Vyvanse] 70 mg PO DAILY Multivitamins,Therapeutic [Thera] 1 each PO DAILY Polyethylene Glycol 3350 [MiraLAX] 17 gm PO DAILY Saccharomyces Boulardii [Florastor] 250 mg PO DAILY buPROPion [Wellbutrin XL] 300 mg PO DAILY 08/18/18 05:11 BASIC METABOLIC PANEL,BMP [CHEM] AM MAGNESIUM [CHEM] AM 08/19/18 05:11 BASIC METABOLIC PANEL,BMP [CHEM] AM MAGNESIUM [CHEM] AM 08/20/18 05:11 BASIC METABOLIC PANEL,BMP [CHEM] AM MAGNESIUM [CHEM] AM - Plan Plan:: Assessment/Plan: Acute: S/p Hypoglycemia - Has DM2 on Jardiance, Victoza and Insulin - Poorly controlled and lives alone - Needs 24 hrs supervised care or placement to help with her insulin administration - Accu-check AC/HS and ISS - A1C in AM - Adjusted her insulin regimen Inability to Care for Herself - Unclear if she has baseline cognitive impairment - Polypharmacy is an obvious risk factor Polypharmacy - Recommend to trim down her extensive list of medications - Will try to eliminate as much medications she got - Asked patient's mother to brings all her home meds so we can sort things out and perhaps discards those that have already Chronic: HTN HLD Asthma ROWDY GERD IBS Recurrent UTI/STI Genital Herpes DM2 Hypothyroidism Vaginitis/Vulvovaginitis/Atrophic Vaginitis Fibromyalgia Carpal Tunnel and Cubital Tunnel Syndrome Migraines ADHD OCD Anxiety Depression Seborrheic Dermatitis Class I Obesity Plan: She is clinically stable Continue current treatment Routine AM Lab Consider [employer] Evaluation r/o Cognitive Impairment DVT PPx SW/CM for d/c planning Discharge pending placement Updated other about her clinical and plan to trim down her home routine medications
[2018-08-17] MEDS: Cholecalciferol (Vitamin D3) 5,000 UNIT Tab PO SCH (09:50)
[2018-08-17] MEDS: Diazepam 5 MG Tab PO SCH ×3 (09:50→21:39)
[2018-08-17] MEDS: Gabapentin 100 MG Cap PO SCH ×3 (09:50→21:38)
[2018-08-17] MEDS: Saccharomyces Boulardii (Probiotic) 250 MG Cap PO SCH (09:51)
[2018-08-17] MEDS: Calcium Carbonate 600 MG Tab PO SCH ×2 (09:52→21:40)
[2018-08-17] MEDS: Multivitamins,Therapeutic Tab PO SCH (09:52)
[2018-08-17] MEDS: Topiramate 25 MG Tab PO SCH ×2 (09:57→21:41)
[2018-08-17] MEDS: buPROPion 150 MG Tab.ER PO SCH (09:57)
[2018-08-17] MEDS: busPIRone 15 MG Tab PO SCH ×2 (09:58→21:41)
[2018-08-17] MEDS: Polyethylene Glycol 3350 Powder 17 GM Packet PO SCH (10:01)
[2018-08-17] MEDS: Lubiprostone 24 MCG Cap PO SCH ×3 (11:00→21:40)
[2018-08-17] MEDS: NITROGLYCERIN TOP SCH ×3 (12:56→21:43)
[2018-08-17] MEDS: CYCLOSPORINE EYEBOTH SCH ×3 (12:56→21:42)
[2018-08-17] MEDS: Lisdexamfetamine Dimesylate [Vyvanse] 70 MG PO SCH (12:57)
[2018-08-17] MEDS: Empagliflozin [Jardiance] 25 MG PO SCH (12:57)
[2018-08-17] MEDS: Lurasidone Hcl [Latuda] 120 MG PO SCH ×2 (14:30→21:42)
[2018-08-17] MEDS: Loratadine 10 MG Tab PO SCH (21:38)
[2018-08-17] MEDS: Rosuvastatin 10 MG Tab PO SCH (21:39)
[2018-08-17] MEDS: cloNIDine 0.1 MG Tab PO SCH (21:40)
[2018-08-17] MEDS: FLUVOXAMINE 100 MG PO SCH (21:42)
[2018-08-18] MEDS: Pantoprazole 40 MG Tab.CR PO SCH (06:48)
[2018-08-18] MEDS: Trospium 20 MG Tab PO SCH ×2 (06:48→15:30)
[2018-08-18] MEDS: Insulin Glarg,Human.Rec.Analog 100 UNIT/ML ML SUBCUT SCH ×2 (06:48→15:30)
[2018-08-18] MEDS: Levothyroxine 50 MCG Tab PO SCH (06:48)
[2018-08-18] MEDS: Insulin Lispro 100 Units/ML 3 ML Vial SUBCUT SCH ×4 (06:49→22:27)
[2018-08-18] MEDS: Cholecalciferol (Vitamin D3) 5,000 UNIT Tab PO SCH (09:12)
[2018-08-18] MEDS: Gabapentin 100 MG Cap PO SCH ×3 (09:12→20:24)
[2018-08-18] MEDS: Calcium Carbonate 600 MG Tab PO SCH ×2 (09:13→20:26)
[2018-08-18] MEDS: Multivitamins,Therapeutic Tab PO SCH (09:13)
[2018-08-18] MEDS: busPIRone 15 MG Tab PO SCH ×2 (09:15→20:24)
[2018-08-18] MEDS: Saccharomyces Boulardii (Probiotic) 250 MG Cap PO SCH (09:15)
[2018-08-18] MEDS: buPROPion 150 MG Tab.ER PO SCH (09:16)
[2018-08-18] MEDS: Diazepam 5 MG Tab PO SCH ×3 (09:16→20:25)
[2018-08-18] MEDS: Topiramate 25 MG Tab PO SCH ×2 (09:17→20:25)
[2018-08-18] MEDS: Polyethylene Glycol 3350 Powder 17 GM Packet PO SCH (09:19)
[2018-08-18] MEDS: Lubiprostone 24 MCG Cap PO SCH ×2 (09:19→20:22)
[2018-08-18] MEDS: Empagliflozin [Jardiance] 25 MG PO SCH (10:53)
[2018-08-18] MEDS: CYCLOSPORINE EYEBOTH SCH ×2 (10:53→22:04)
[2018-08-18] MEDS: Lisdexamfetamine Dimesylate [Vyvanse] 70 MG PO SCH (10:54)
[2018-08-18] MEDS: NITROGLYCERIN TOP SCH ×2 (10:54→22:04)
[2018-08-18] MEDS: Potassium Chloride 20 MEQ Tab.ER PO SCH ×2 (11:05→14:25)
--- NOTE | 2018-08-18 12:49 | PCM.PN ---
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 Denies : New Symptoms - Review of Systems General: Denies: Fever, Weakness, Fatigue, Malaise, Chills HEENT: Reports: No Symptoms Pulmonary: Denies: Shortness of Breath, Pleuritic Chest Pain, Cough, Wheezing Cardiovascular: Denies: Chest Pain Gastrointestinal: Denies: Abdominal Pain, Constipation, Decreased Appetite, Hematochezia, Nausea, Vomiting Genitourinary: Reports: No Symptoms Musculoskeletal: Reports: No Symptoms Skin: Denies: Cyanosis, Mottled, Pallor, Bruising, Other Neurological: Denies: Confusion, Headache, Tingling, Difficulty Walking, Gait Disturbance Psychiatric: Denies: Depression, Anxiety, Agitation, Hallucinations Systems Review Comment:: No overnight or acute issues. She slept well and no complaints except she misses her cat. Her glucose overall is well control but her K is slightly low at 3.4. - Patient Data Vitals - Most Recent: Last Vital Signs Temp 36.9 C 08/18/18 04:47 Pulse 57 L 08/18/18 04:48 Resp 12 08/18/18 04:47 BP 114/75 08/18/18 09:13 Pulse Ox 96 08/18/18 04:48 Weight - Most Recent: 73.845 kg I&O - Last 24 Hours: Intake & Output 08/17/18 08/18/18 08/18/18 22:59 06:59 14:59 Intake Total 1040 600 Output Total 600 1100 Balance 440 -500 Lab Results Last 24 Hours: Laboratory Results - last 24 hr 08/17/18 08/17/18 08/18/18 Range/Units 16:54 21:37 04:30 Sodium 144 (136-145) mEq/L Potassium 3.4 L (3.5-5.1) mEq/L Chloride 108 H (98-107) mEq/L Carbon Dioxide 25 (21-32) mEq/L Anion Gap 14.4 (5-15) BUN 36 H (7-18) mg/dL Creatinine 0.9 (0.55-1.02) mg/dL Est Cr Clr Drug Dosing 68.73 mL/min Estimated GFR (MDRD) > 60 (>60) mL/min BUN/Creatinine Ratio 40.0 H (14-18) Glucose 110 H (74-106) mg/dL POC Glucose 143 H 145 H (70-105) mg/dL Calcium 9.8 (8.5-10.1) mg/dL Magnesium 2.0 (1.8-2.4) mg/dl 08/18/18 08/18/18 Range/Units 06:47 11:04 Sodium (136-145) mEq/L Potassium (3.5-5.1) mEq/L Chloride (98-107) mEq/L Carbon Dioxide (21-32) mEq/L Anion Gap (5-15) BUN (7-18) mg/dL Creatinine (0.55-1.02) mg/dL Est Cr Clr Drug Dosing mL/min Estimated GFR (MDRD) (>60) mL/min BUN/Creatinine Ratio (14-18) Glucose (74-106) mg/dL POC Glucose 115 H 207 H (70-105) mg/dL Calcium (8.5-10.1) mg/dL Magnesium (1.8-2.4) mg/dl Med Orders - Current: Current Medications Acetaminophen (Tylenol) 650 mg PO Q4H PRN PRN Reason: Pain (Mild 1-3)/fever Hydrocodone Bitart/Acetaminophen ([place] 325-5 Mg) 1 tab PO Q4H PRN PRN Reason: Pain (moderate 4-6) Albuterol (Proventil Hfa) 0 gm INH Q4H PRN PRN Reason: Shortness of Breath Albuterol/Ipratropium (Duoneb 3.0-0.5 Mg/3 Ml) 3 ml NEB Q4H PRN PRN Reason: Shortness Of Breath/wheezing Bisacodyl (Dulcolax) 5 mg PO DAILY PRN PRN Reason: Constipation Bupropion HCl (Wellbutrin Xl) 300 mg PO DAILY [facility] Last Admin: 08/18/18 09:16 Dose: 300 mg Buspirone HCl (Buspar) 30 mg PO BID [facility] Last Admin: 08/18/18 09:15 Dose: 30 mg Calcium Carbonate/Glycine (Calcium Carbonate) 600 mg PO BID [facility] Last Admin: 08/18/18 09:13 Dose: 600 mg Cholecalciferol (Vitamin D3) 5,000 unit PO DAILY [facility] Last Admin: 08/18/18 09:12 Dose: 5,000 unit Clonidine HCl (Catapres) 0.2 mg PO BEDTIME [facility] Last Admin: 08/17/18 21:40 Dose: 0.2 mg Cyclobenzaprine HCl (Flexeril) 10 mg PO TID PRN PRN Reason: Pain Diazepam (Valium.) 10 mg PO TID [facility] Last Admin: 08/18/18 09:16 Dose: 10 mg Docusate Sodium (Colace) 100 mg PO BID PRN PRN Reason: Constipation Enalapril Maleate (Vasotec) 2.5 mg PO DAILY [facility] Last Admin: 08/18/18 09:13 Dose: 2.5 mg Flunisolide (Nasalide Nasal [place]) 0 ml RICARDO BID [facility] Last Admin: 08/18/18 09:20 Dose: 2 sprays Gabapentin (Neurontin) 100 mg PO TID [facility] Last Admin: 08/18/18 09:12 Dose: 100 mg Hydralazine HCl (Apresoline) 20 mg IVPUSH Q4H PRN PRN Reason: Hypertension Hydromorphone HCl (Dilaudid) 0.25 mg IVPUSH Q2H PRN PRN Reason: Pain (severe 7-10) Promethazine HCl 6.25 mg/ (Sodium Chloride) 50.25 mls @ 100 mls/hr IV Q6H PRN PRN Reason: Nausea/Vomiting Ibuprofen (Motrin) 800 mg PO TID PRN PRN Reason: Pain Insulin Glargine (Lantus) 20 unit SUBCUT BIDAC [facility] Last Admin: 08/18/18 06:48 Dose: 20 units Insulin Human Lispro (Humalog) 0 unit SUBCUT QIDACANDBED [facility]; Protocol Last Admin: 08/18/18 11:21 Dose: 2 units Levothyroxine Sodium (Synthroid) 50 mcg PO ACBREAKFAST [facility] Last Admin: 08/18/18 06:48 Dose: 50 mcg Loratadine (Claritin) 10 mg PO BEDTIME [facility] Last Admin: 08/17/18 21:38 Dose: 10 mg Lorazepam (Ativan) 2 mg IVPUSH Q4H PRN PRN Reason: Seizures Lorazepam (Ativan) 0.5 mg IV Q6H PRN PRN Reason: Anxiety Lubiprostone (Amitiza) 24 mcg PO BID [facility] Last Admin: 08/18/18 09:19 Dose: 24 mcg Magnesium Sulfate (Pharmacy To Dose - Magnesium Replacement) 1 dose .XX ASDIRECTED [facility] Metoprolol Tartrate (Lopressor) 5 mg IVPUSH Q4H PRN PRN Reason: Tachycardia Multivitamins (Thera) 1 each PO DAILY [facility] Last Admin: 08/18/18 09:13 Dose: 1 each Ondansetron HCl (Zofran) 4 mg IV Q6H PRN PRN Reason: Nausea/Vomiting Ondansetron HCl (Zofran Odt) 8 mg PO Q6H PRN PRN Reason: Nausea Pantoprazole Sodium (Protonix) 40 mg PO ACBREAKFAST [facility] Last Admin: 08/18/18 06:48 Dose: 40 mg Cyclosporine 1 Each 0 each EYEBOTH BID [facility] Last Admin: 08/18/18 10:53 Dose: Not Given Empagliflozin [ (Jardiance] 25 Mg) 0 each PO DAILY [facility] Last Admin: 08/18/18 10:53 Dose: Not Given Estradiol [Yuvafem] (10 Mg) 0 each VAG ASDIRECTED [facility] Liraglutide 1.8 Mg 0 each SUBCUT DAILY [facility] Last Admin: 08/18/18 10:53 Dose: Not Given Lisdexamfetamine Dimesylate [Vyvanse] 70 Mg 0 each PO DAILY [facility] Last Admin: 08/18/18 10:54 Dose: Not Given Lurasidone Hcl [ (Latuda] 120 Mg) 0 each PO BEDTIME [facility] Last Admin: 08/17/18 21:42 Dose: Not Given Nitroglycerin [ (Rectiv] 1 Applic) 0 each TOP BID [facility] Last Admin: 08/18/18 10:54 Dose: Not Given Fluvoxamine 100 Mg (Tab.) 200 each PO BEDTIME [facility] Last Admin: 08/17/18 21:42 Dose: Not Given Polyethylene Glycol (Miralax) 17 gm PO DAILY [facility] Last Admin: 08/18/18 09:19 Dose: 17 gm Potassium Chloride (Pharmacy To Dose - Potassium Replacement) 1 dose .XX ASDIRECTED [facility] Potassium Chloride (Klor-Con M20) 40 meq PO Q4H [facility] Stop: 08/18/18 15:01 Last Admin: 08/18/18 11:05 Dose: 40 meq Rosuvastatin Calcium (Crestor) 5 mg PO BEDTIME [facility] Last Admin: 08/17/18 21:39 Dose: 5 mg Saccharomyces Boulardii (Florastor) 250 mg PO DAILY [facility] Last Admin: 08/18/18 09:15 Dose: 250 mg Senna/Docusate Sodium (Senna Plus) 1 tab PO BID PRN PRN Reason: Constipation Sumatriptan Succinate (Imitrex) 50 mg PO ASDIRECTED [facility] Topiramate (Topamax) 50 mg PO BID [facility] Last Admin: 08/18/18 09:17 Dose: 50 mg Trospium (Sanctura) 20 mg PO BIDAC [facility] Last Admin: 08/18/18 06:48 Dose: 20 mg Discontinued Medications Fluvoxamine Maleate (Luvox) 200 mg PO BEDTIME [facility] Last Admin: 08/16/18 21:52 Dose: Not Given Dextrose/Sodium Chloride (Dextrose 5%-Normal Saline) 1,000 mls @ 150 mls/hr IV ASDIRECTED [facility] Last Admin: 08/16/18 11:49 Dose: 150 mls/hr Ondansetron HCl (Zofran) 4 mg IVPUSH ONETIME ONE Stop: 08/16/18 11:37 Last Admin: 08/16/18 11:49 Dose: 4 mg Potassium Chloride (Klor-Con M20) 40 meq PO Q4H [facility] Stop: 08/16/18 22:01 Last Admin: 08/16/18 21:55 Dose: 40 meq - Exam General: Alert, Oriented, Cooperative, No Acute Distress HEENT: Pupils Equal, Pupils Reactive, EOMI, Mucous Membr. Moist/Black, Other ( missing full set of teeth) Neck: Supple, No JVD, No Thyromegaly Lungs: Clear to Auscultation, Normal Respiratory Effort Cardiovascular: Regular Rate, Regular Rhythm GI/Abdominal Exam: Normal Bowel Sounds, Soft, Non-Tender, No Organomegaly, No Distention, No Abnormal Bruit, No Mass (Female) Exam: Deferred Back Exam: Normal Inspection, Decreased Range of Motion Extremities: Normal Inspection, Normal Range of Motion, Non-Tender, No Pedal Edema, Normal Capillary Refill Peripheral Pulses: 2+: Dorsalis Pedis (L), Dorsalis Pedis (R) Skin: Warm, Dry, Intact Neurological: No New Focal Deficit Psy/Mental Status: Alert, Normal Affect, Normal Mood - Problem List Review Problem List Initiated/Reviewed/Updated: Yes - My Orders Last 24 Hours: My Active Orders 08/17/18 21:00 Patient's Own Medication [Ptom] 200 each PO BEDTIME 08/18/18 11:00 Potassium Chloride [Klor-Con M20] 40 meq PO Q4H 08/19/18 05:11 BASIC METABOLIC PANEL,BMP [CHEM] AM MAGNESIUM [CHEM] AM 08/20/18 05:11 BASIC METABOLIC PANEL,BMP [CHEM] AM MAGNESIUM [CHEM] AM - Plan Plan:: Assessment/Plan: Acute: Inability to Care for Herself - Unclear if she has baseline cognitive impairment - Polypharmacy is an obvious risk factor Polypharmacy - Recommend to trim down her extensive list of medications - Will try to eliminate as much medications she got - Asked patient's mother to brings all her home meds so we can sort things out and perhaps discards those that have already Hypokalemia - K 3.4 - 2/2 inadequate intake - Replete and monitor Resolved: S/p Hypoglycemia - Has DM2 on Jardiance, Victoza and Insulin - Poorly controlled and lives alone - Needs 24 hrs supervised care or placement to help with her insulin administration - Accu-check AC/HS and ISS - A1C in AM - Adjusted her insulin regimen Chronic: HTN HLD Asthma ROWDY GERD IBS Recurrent UTI/STI Genital Herpes DM2 Hypothyroidism Vaginitis/Vulvovaginitis/Atrophic Vaginitis Fibromyalgia Carpal Tunnel and Cubital Tunnel Syndrome Migraines ADHD OCD Anxiety Depression Seborrheic Dermatitis Class I Obesity Plan: She remains clinically stable Continue current treatment Routine AM Lab 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 Her mother is on board and willing to give it a try.
[2018-08-18] MEDS: Rosuvastatin 10 MG Tab PO SCH (20:23)
[2018-08-18] MEDS: cloNIDine 0.1 MG Tab PO SCH (20:24)
[2018-08-18] MEDS: Loratadine 10 MG Tab PO SCH (20:26)
[2018-08-18] MEDS: Lurasidone Hcl [Latuda] 120 MG PO SCH (22:04)
[2018-08-18] MEDS: FLUVOXAMINE 100 MG PO SCH (22:04)
[2018-08-19] MEDS: Trospium 20 MG Tab PO SCH ×2 (06:16→17:43)
[2018-08-19] MEDS: Pantoprazole 40 MG Tab.CR PO SCH (06:16)
[2018-08-19] MEDS: Levothyroxine 50 MCG Tab PO SCH (06:16)
[2018-08-19] MEDS: Insulin Glarg,Human.Rec.Analog 100 UNIT/ML ML SUBCUT SCH ×2 (06:16→17:43)
[2018-08-19] MEDS: Diazepam 5 MG Tab PO SCH ×2 (08:27→14:11)
[2018-08-19] MEDS: Topiramate 25 MG Tab PO SCH (08:27)
[2018-08-19] MEDS: busPIRone 15 MG Tab PO SCH (08:27)
[2018-08-19] MEDS: Cholecalciferol (Vitamin D3) 5,000 UNIT Tab PO SCH (08:29)
[2018-08-19] MEDS: buPROPion 150 MG Tab.ER PO SCH (08:29)
[2018-08-19] MEDS: Saccharomyces Boulardii (Probiotic) 250 MG Cap PO SCH (08:29)
[2018-08-19] MEDS: Calcium Carbonate 600 MG Tab PO SCH (08:29)
[2018-08-19] MEDS: Gabapentin 100 MG Cap PO SCH ×2 (08:29→14:11)
[2018-08-19] MEDS: Multivitamins,Therapeutic Tab PO SCH (08:29)
[2018-08-19] MEDS: Insulin Lispro 100 Units/ML 3 ML Vial SUBCUT SCH ×3 (08:30→17:42)
[2018-08-19] MEDS: Polyethylene Glycol 3350 Powder 17 GM Packet PO SCH (08:30)
[2018-08-19] MEDS: CYCLOSPORINE EYEBOTH SCH (08:46)
[2018-08-19] MEDS: Lubiprostone 24 MCG Cap PO SCH (08:46)
[2018-08-19] MEDS: Empagliflozin [Jardiance] 25 MG PO SCH (08:46)
[2018-08-19] MEDS: Lisdexamfetamine Dimesylate [Vyvanse] 70 MG PO SCH (08:47)
[2018-08-19] MEDS: NITROGLYCERIN TOP SCH (08:47)
--- NOTE | 2018-08-19 09:06 | PCM.PN ---
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 Mcintosh. She is lying in bed and has no concerns or complaints. No nursing concerns. We are awaiting placement. Dr. Mcintosh is going through her medications. She would like oral diabetic medications if possible. Blood sugars have been much better. Functional Status: Reports: Pain Controlled, Tolerating Diet, Ambulating, Urinating. Denies: New Symptoms - Review of Systems General: Reports: No Symptoms. Denies: Fever, Weakness, Fatigue, Malaise HEENT: Reports: No Symptoms. Denies: Headaches, Sore Throat Pulmonary: Reports: No Symptoms. Denies: Shortness of Breath, Pleuritic Chest Pain, Cough, Sputum, Wheezing Cardiovascular: Reports: No Symptoms. Denies: Chest Pain, Palpitations, Dyspnea on Exertion, Edema Gastrointestinal: Reports: No Symptoms. Denies: Abdominal Pain, Constipation, Diarrhea, Nausea, Vomiting Genitourinary: Reports: No Symptoms. Denies: Pain Musculoskeletal: Reports: No Symptoms Skin: Reports: No Symptoms. Denies: Cyanosis Neurological: Reports: No Symptoms Psychiatric: Reports: No Symptoms - Patient Data Vitals - Most Recent: Last Vital Signs Temp 98.2 F 08/19/18 08:26 Pulse 68 08/19/18 08:26 Resp 16 08/19/18 08:26 BP 105/82 08/19/18 08:26 Pulse Ox 97 08/19/18 08:26 Weight - Most Recent: 159 lb 8 oz I&O - Last 24 Hours: Intake & Output 08/18/18 08/19/18 08/19/18 22:59 06:59 14:59 Intake Total 580 800 Output Total 1200 1150 Balance -620 -350 Lab Results Last 24 Hours: Laboratory Results - last 24 hr 08/18/18 08/18/18 08/18/18 Range/Units 11:04 15:34 22:16 Sodium (136-145) mEq/L Potassium (3.5-5.1) mEq/L Chloride (98-107) mEq/L Carbon Dioxide (21-32) mEq/L Anion Gap (5-15) BUN (7-18) mg/dL Creatinine (0.55-1.02) mg/dL Est Cr Clr Drug Dosing mL/min Estimated GFR (MDRD) (>60) mL/min BUN/Creatinine Ratio (14-18) Glucose (74-106) mg/dL POC Glucose 207 H 135 H 144 H (70-105) mg/dL Calcium (8.5-10.1) mg/dL Magnesium (1.8-2.4) mg/dl 08/19/18 08/19/18 Range/Units 04:33 06:06 Sodium 143 (136-145) mEq/L Potassium 3.7 (3.5-5.1) mEq/L Chloride 109 H (98-107) mEq/L Carbon Dioxide 23 (21-32) mEq/L Anion Gap 14.7 (5-15) BUN 30 H (7-18) mg/dL Creatinine 0.9 (0.55-1.02) mg/dL Est Cr Clr Drug Dosing 68.73 mL/min Estimated GFR (MDRD) > 60 (>60) mL/min BUN/Creatinine Ratio 33.3 H (14-18) Glucose 143 H (74-106) mg/dL POC Glucose 153 H (70-105) mg/dL Calcium 10.0 (8.5-10.1) mg/dL Magnesium 1.8 (1.8-2.4) mg/dl Med Orders - Current: Current Medications Acetaminophen (Tylenol) 650 mg PO Q4H PRN PRN Reason: Pain (Mild 1-3)/fever Hydrocodone Bitart/Acetaminophen ([place] 325-5 Mg) 1 tab PO Q4H PRN PRN Reason: Pain (moderate 4-6) Albuterol (Proventil Hfa) 0 gm INH Q4H PRN PRN Reason: Shortness of Breath Albuterol/Ipratropium (Duoneb 3.0-0.5 Mg/3 Ml) 3 ml NEB Q4H PRN PRN Reason: Shortness Of Breath/wheezing Bisacodyl (Dulcolax) 5 mg PO DAILY PRN PRN Reason: Constipation Bupropion HCl (Wellbutrin Xl) 300 mg PO DAILY [facility] Last Admin: 08/19/18 08:29 Dose: 300 mg Buspirone HCl (Buspar) 30 mg PO BID [facility] Last Admin: 08/19/18 08:27 Dose: 30 mg Calcium Carbonate/Glycine (Calcium Carbonate) 600 mg PO BID [facility] Last Admin: 08/19/18 08:29 Dose: 600 mg Cholecalciferol (Vitamin D3) 5,000 unit PO DAILY [facility] Last Admin: 08/19/18 08:29 Dose: 5,000 unit Clonidine HCl (Catapres) 0.2 mg PO BEDTIME [facility] Last Admin: 08/18/18 20:24 Dose: 0.2 mg Cyclobenzaprine HCl (Flexeril) 10 mg PO TID PRN PRN Reason: Pain Diazepam (Valium.) 10 mg PO TID [facility] Last Admin: 08/19/18 08:27 Dose: 10 mg Docusate Sodium (Colace) 100 mg PO BID PRN PRN Reason: Constipation Enalapril Maleate (Vasotec) 2.5 mg PO DAILY [facility] Last Admin: 08/19/18 08:47 Dose: Not Given Flunisolide (Nasalide Nasal [place]) 0 ml RICARDO BID [facility] Last Admin: 08/19/18 08:40 Dose: 2 sprays Gabapentin (Neurontin) 100 mg PO TID [facility] Last Admin: 08/19/18 08:29 Dose: 100 mg Hydralazine HCl (Apresoline) 20 mg IVPUSH Q4H PRN PRN Reason: Hypertension Hydromorphone HCl (Dilaudid) 0.25 mg IVPUSH Q2H PRN PRN Reason: Pain (severe 7-10) Promethazine HCl 6.25 mg/ (Sodium Chloride) 50.25 mls @ 100 mls/hr IV Q6H PRN PRN Reason: Nausea/Vomiting Ibuprofen (Motrin) 800 mg PO TID PRN PRN Reason: Pain Insulin Glargine (Lantus) 20 unit SUBCUT BIDAC [facility] Last Admin: 08/19/18 06:16 Dose: 20 units Insulin Human Lispro (Humalog) 0 unit SUBCUT QIDACANDBED [facility]; Protocol Last Admin: 08/19/18 08:30 Dose: 1 units Levothyroxine Sodium (Synthroid) 50 mcg PO ACBREAKFAST [facility] Last Admin: 08/19/18 06:16 Dose: 50 mcg Loratadine (Claritin) 10 mg PO BEDTIME [facility] Last Admin: 08/18/18 20:26 Dose: 10 mg Lorazepam (Ativan) 2 mg IVPUSH Q4H PRN PRN Reason: Seizures Lorazepam (Ativan) 0.5 mg IV Q6H PRN PRN Reason: Anxiety Lubiprostone (Amitiza) 24 mcg PO BID [facility] Last Admin: 08/19/18 08:46 Dose: Not Given Magnesium Sulfate (Pharmacy To Dose - Magnesium Replacement) 1 dose .XX ASDIRECTED [facility] Metoprolol Tartrate (Lopressor) 5 mg IVPUSH Q4H PRN PRN Reason: Tachycardia Multivitamins (Thera) 1 each PO DAILY [facility] Last Admin: 08/19/18 08:29 Dose: 1 each Ondansetron HCl (Zofran) 4 mg IV Q6H PRN PRN Reason: Nausea/Vomiting Ondansetron HCl (Zofran Odt) 8 mg PO Q6H PRN PRN Reason: Nausea Pantoprazole Sodium (Protonix) 40 mg PO ACBREAKFAST [facility] Last Admin: 08/19/18 06:16 Dose: 40 mg Cyclosporine 1 Each 0 each EYEBOTH BID [facility] Last Admin: 08/19/18 08:46 Dose: Not Given Empagliflozin [ (Jardiance] 25 Mg) 0 each PO DAILY [facility] Last Admin: 08/19/18 08:46 Dose: Not Given Estradiol [Yuvafem] (10 Mg) 0 each VAG ASDIRECTED [facility] Liraglutide 1.8 Mg 0 each SUBCUT DAILY [facility] Last Admin: 08/19/18 08:46 Dose: Not Given Lisdexamfetamine Dimesylate [Vyvanse] 70 Mg 0 each PO DAILY [facility] Last Admin: 08/19/18 08:47 Dose: Not Given Lurasidone Hcl [ (Latuda] 120 Mg) 0 each PO BEDTIME [facility] Last Admin: 08/18/18 22:04 Dose: Not Given Nitroglycerin [ (Rectiv] 1 Applic) 0 each TOP BID [facility] Last Admin: 08/19/18 08:47 Dose: Not Given Fluvoxamine 100 Mg (Tab.) 200 each PO BEDTIME [facility] Last Admin: 08/18/18 22:04 Dose: Not Given Polyethylene Glycol (Miralax) 17 gm PO DAILY [facility] Last Admin: 08/19/18 08:30 Dose: 17 gm Potassium Chloride (Pharmacy To Dose - Potassium Replacement) 1 dose .XX ASDIRECTED [facility] Rosuvastatin Calcium (Crestor) 5 mg PO BEDTIME [facility] Last Admin: 08/18/18 20:23 Dose: 5 mg Saccharomyces Boulardii (Florastor) 250 mg PO DAILY [facility] Last Admin: 08/19/18 08:29 Dose: 250 mg Senna/Docusate Sodium (Senna Plus) 1 tab PO BID PRN PRN Reason: Constipation Sumatriptan Succinate (Imitrex) 50 mg PO ASDIRECTED [facility] Topiramate (Topamax) 50 mg PO BID [facility] Last Admin: 08/19/18 08:27 Dose: 50 mg Trospium (Sanctura) 20 mg PO BIDAC [facility] Last Admin: 08/19/18 06:16 Dose: 20 mg Discontinued Medications Fluvoxamine Maleate (Luvox) 200 mg PO BEDTIME [facility] Last Admin: 08/16/18 21:52 Dose: Not Given Dextrose/Sodium Chloride (Dextrose 5%-Normal Saline) 1,000 mls @ 150 mls/hr IV ASDIRECTED [facility] Last Admin: 08/16/18 11:49 Dose: 150 mls/hr Ondansetron HCl (Zofran) 4 mg IVPUSH ONETIME ONE Stop: 08/16/18 11:37 Last Admin: 08/16/18 11:49 Dose: 4 mg Potassium Chloride (Klor-Con M20) 40 meq PO Q4H [facility] Stop: 08/16/18 22:01 Last Admin: 08/16/18 21:55 Dose: 40 meq Potassium Chloride (Klor-Con M20) 40 meq PO Q4H [facility] Stop: 08/18/18 15:01 Last Admin: 08/18/18 14:25 Dose: 40 meq - Exam Quality Assessment: DVT Prophylaxis General: Alert, Oriented, Cooperative, No Acute Distress HEENT: Pupils Equal, Pupils Reactive, EOMI, Mucous Membr. Moist/[place] Neck: Supple, Trachea Midline, No JVD Lungs: Clear to Auscultation, Normal Respiratory Effort Cardiovascular: Regular Rate, Regular Rhythm GI/Abdominal Exam: Normal Bowel Sounds, Soft, Non-Tender, No Organomegaly, No Distention (Female) Exam: Deferred Back Exam: Normal Inspection, Full Range of Motion Extremities: Normal Inspection, Normal Range of Motion, Non-Tender, No Pedal Edema, Normal Capillary Refill Peripheral Pulses: 2+: Radial (L), Radial (R) Skin: Warm, Dry, Intact Neurological: No New Focal Deficit Psy/Mental Status: Alert, Normal Affect, Normal Mood - Problem List & Annotations (1) 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 SNOMED Code(s): 088740436, 080154315 Code(s): E16.1 - OTHER HYPOGLYCEMIA Status: Acute Priority: High Current Visit: Yes (2) Hypokalemia SNOMED Code(s): 25549817 Code(s): E87.6 - HYPOKALEMIA Status: Resolved Priority: High Current Visit: Yes (3) Polypharmacy SNOMED Code(s): 780592663 Code(s): 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 Status: Acute Priority: High Current Visit: Yes (4) Hospital admission due to social situation SNOMED Code(s): 221876055 Code(s): Z60.9 - PROBLEM RELATED TO SOCIAL ENVIRONMENT, UNSPECIFIED Status : Acute Priority: High Current Visit: Yes - Problem List Review Problem List Initiated/Reviewed/Updated: Yes - Plan Plan:: Assessment/Plan: Acute: Inability to Care for Herself - Unclear if she has baseline cognitive impairment - Polypharmacy is an obvious risk factor Polypharmacy - Recommend to trim down her extensive list of medications - Will try to eliminate as many medications as we can - Asked patient's mother to brings all her home meds so we can sort things out and perhaps discards those that have already Resolved: S/p Hypoglycemia - Has DM2 on Jardiance, Victoza and Insulin - Poorly controlled and lives alone - Needs 24 hrs supervised care or placement to help with her insulin administration - Accu-check AC/HS and ISS - A1C in AM - Adjusted her insulin regimen S/P Hypokalemia - K 3.4-->3.7 - 2/2 inadequate intake - Replete and monitor Chronic: HTN HLD Asthma ROWDY GERD IBS Recurrent UTI/STI Genital Herpes DM2 Hypothyroidism Vaginitis/Vulvovaginitis/Atrophic Vaginitis Fibromyalgia Carpal Tunnel and Cubital Tunnel Syndrome Migraines ADHD OCD Anxiety Depression Seborrheic Dermatitis Class I Obesity Plan: She remains clinically stable Continue current treatment Routine AM Lab Consider BLOOD TYPER Evaluation r/o Cognitive Impairment DVT PPx SW/CM for d/c planning Discharge pending placement We will try to sort out and trim down her home medications. Her mother is on board and willing to give it a try. She would like oral diabetic meds if possible
[2018-08-19] MEDS ORDERED: Lubiprostone 24 MCG Cap PO ONE (12:00)
[2018-08-19 16:19] VITALS: BP 112/72
--- NOTE | 2018-08-19 20:26 | PCM.DCSUM1 ---
Discharge Summary - Hospital Course Free Text/Narrative:: Patient was primarily admitted for hypoglycemia and inability to care for herself pending placement to assisted living or half-way. She was initially receptive to further placement while we were working on her paperwork. Unfortunately, it proved too much for her to be away from her angelo cats and so she decided to leave AMA this afternoon. HPI Initial Comments: This is a 38 yo white female with extensive past medical hx/o HTN, HLD, Asthma, ROWDY, GERD, IBS, Recurrent UTI/STI, Genital Herpes, DM2, Hypothyroidism, Vaginitis/Vulvovaginitis/Atrophic Vaginitis, Fibromyalgia, Carpal Tunnel and Cubital Tunnel Syndrome, Migraines, ADHD, OCD, Anxiety, Depression, Seborrheic Dermatitis, and Class I Obesity who comes in for chronic hypoglycemic episode. She is a DM2 on insulin. She has seen a specialist in the past. She was told to go on insulin pump but could not afford it and her current insurance unfortunately would not cover it. She is currently on SGLT2 and GLP1 inhibitors as well insulin for her hyperglycemic regimen and still experience episodic hypoglycemia. Her nutritional intake is erratic and also not consistent. She brings a bag full of goodies and candies. Her initial work up shows a CBC remarkable for MCV of 98.1, RDW of 50.9, MPV of 8.6, and Neutrophils of 64%. Her Chemistry is significant for NA of 150, K of 3.4, Cl of 114, BUN of 26, Cr of 1.1, BS of 102, Albumin of 3.1. Her UDS is negative for UTI of suggestive of dehydration or inadequate fluid intake. She is essentially for inability to take care of her self and management of intermittent hypoglycemia. Diagnosis: Stroke: No Modified Rhea Scale: No Symptoms at All Modified Sorin Scale Score: 0 - Discharge Data Discharge Date: 08/19/18 Discharge Disposition: Against Medical Advice 07 Condition: Undetermined - Discharge Diagnosis/Problem(s) (1) Left against medical advice SNOMED Code(s): 803614772 ICD Code: Z53.20 - PROC/TRTMT NOT CRD OUT BEC PT DECISION FOR UNSP REASONS Status: Acute (2) Hypoglycemia due to type 2 diabetes mellitus SNOMED Code(s): 108864733464011, 473531819523497 ICD Code: E11.649 - TYPE 2 DIABETES MELLITUS WITH HYPOGLYCEMIA WITHOUT COMA Status: Resolved (3) Polypharmacy SNOMED Code(s): 949405798 ICD Code: Z79.899 - OTHER SCHOOL CUSTODIAN (CURRENT) DRUG THERAPY Status: Chronic Priority: High - Patient Summary/Data Operative Procedure(s) Performed: None Complications: None Consults: Consultations 08/16/18 16:59 Consult to Case Management/Outsole Compressor [CONS] Routine Consult to Spiritual Care [CONS] Routine Labs Pending at D/C: None Recommended Follow-up Testing/Procedures: None Planned Operative Procedure(s) after DC: None - Patient Instructions Other/Special Instructions: - Patient against medical advice - Discharge Plan *PRESCRIPTION DRUG MONITORING PROGRAM REVIEWED*: Not Applicable *COPY OF PRESCRIPTION DRUG MONITORING REPORT IN PATIENT NICOLAS: Not Applicable Home Medications: Home Meds Calcium Carbonate [Calcium] 600 mg PO BID 12/01/17 [History] Cetirizine [ZyrTEC] 10 mg PO BEDTIME 12/01/17 [History] Cholecalciferol (Vitamin D3) [Vitamin D3] 5,000 unit PO DAILY 12/01/17 [History] Fesoterodine Fumarate [Toviaz] 8 mg PO DAILY 12/01/17 [History] Fluticasone Propionate [Flonase] 1 spray RICARDO BID 12/01/17 [History] Gabapentin [Neurontin] 100 mg PO TID 12/01/17 [History] Molly 1 tab PO DAILY 12/01/17 [History] Lactobacillus Acidophilus [Probiotic] 1 each PO DAILY 12/01/17 [History] Levothyroxine [Synthroid] 50 mcg PO ACBREAKFAST 12/01/17 [History] Liraglutide [Victoza 3-Perez] 1.8 mg SQ DAILY 12/01/17 [History] Lubiprostone [Amitiza] 24 mcg PO BID 12/01/17 [History] Lutein/Minerals/Vit A,C & E [Ocuvite] 1 tab PO DAILY 12/01/17 [History] Multivitamin/Iron/Folic Acid [Centrum Adults Tablet] 1 each PO DAILY 12/01/17 [ History] Ondansetron [Zofran ODT] 8 mg PO Q6H PRN 12/01/17 [History] Pantoprazole Sodium [Protonix] 40 mg PO DAILY 12/01/17 [History] Polyethylene Glycol 3350 [MiraLAX] 1 packet PO DAILY 12/01/17 [History] Rosuvastatin [Crestor] 5 mg PO BEDTIME 12/01/17 [History] Topiramate [Topamax] 50 mg PO BID 12/01/17 [History] cycloSPORINE [Restasis] 1 each OP BID 12/01/17 [History] valACYclovir HCl [Valtrex] 500 mg PO DAILY 12/01/17 [History] Cranberry Fruit Extract [Cranberry] 2 tab PO DAILY 06/12/18 [History] Enalapril [Vasotec] 2.5 mg PO DAILY 06/12/18 [History] Ibuprofen [Motrin] 800 mg PO TID PRN 06/12/18 [History] buPROPion HCl [Wellbutrin Xl] 300 mg PO DAILY 06/12/18 [History] fluvoxaMINE [fluvoxaMINE Maleate] 200 mg PO BEDTIME 06/12/18 [History] Lisdexamfetamine Dimesylate [Vyvanse] 70 mg PO DAILY #30 capsule 08/13/18 [Rx] Albuterol Sulfate [Proair Hfa] 2 inh INH Q4H PRN 08/16/18 [History] Cyclobenzaprine [Flexeril] 10 mg PO TID PRN 08/16/18 [History] Diazepam [Valium] 10 mg PO TID 08/16/18 [History] Empagliflozin [Jardiance] 25 mg PO DAILY 08/16/18 [History] Estradiol [Yuvafem] 10 mg VAG ASDIRECTED 08/16/18 [History] Fluconazole [Diflucan] 150 mg PO DAILY PRN 08/16/18 [History] Insulin Glarg,Human.Rec.Analog [Lantus Solostar] 55 unit SUBCUT BEDTIME [History] Lurasidone HCl [Latuda] 120 mg PO BEDTIME 08/16/18 [History] Nitroglycerin [Rectiv] 1 applic TOP BID 08/16/18 [History] SUMAtriptan [Imitrex] 50 mg PO ASDIRECTED 08/16/18 [History] Triamcinolone Acetonide [Triamcinolone Acetonide 0.1% Crm] 1 applic TOP BID [History] busPIRone [Buspar] 30 mg PO BID 08/16/18 [History] cloNIDine HCl [Catapres] 0.2 mg PO BEDTIME 08/16/18 [History] Referrals: Ana M Fontana, DIRECTOR OF INSTITUTIONAL GIVING [Primary Care Provider] - (Discuss with your doctor about reducing your medications.) - Discharge Summary/Plan Comment DC Time >30 min.: No Discharge Summary/Plan Comment: Patient left against medical advice - General Info Date of Service: 08/19/18 Admission Dx/Problem (Free Text: Admission Diagnosis/Problem Admission Diagnosis/Problem 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 Patient left AMA. - Patient Data Vitals - Most Recent: Last Vital Signs Temp 36.7 C 08/19/18 16:00 Pulse 78 08/19/18 16:00 Resp 14 08/19/18 16:00 BP 112/72 08/19/18 16:00 Pulse Ox 98 08/19/18 16:00 Weight - Most Recent: 72.348 kg I&O - Last 24 hours: Intake & Output 08/19/18 08/19/18 08/19/18 06:59 14:59 22:59 Intake Total 388 765 2606 Output Total 1150 Balance -453 720 8247 Lab Results - Last 24 hrs: Laboratory Results - last 24 hr 08/18/18 08/19/18 08/19/18 Range/Units 22:16 04:33 06:06 Sodium 143 (136-145) mEq/L Potassium 3.7 (3.5-5.1) mEq/L Chloride 109 H (98-107) mEq/L Carbon Dioxide 23 (21-32) mEq/L Anion Gap 14.7 (5-15) BUN 30 H (7-18) mg/dL Creatinine 0.9 (0.55-1.02) mg/dL Est Cr Clr Drug Dosing 68.73 mL/min Estimated GFR (MDRD) > 60 (>60) mL/min BUN/Creatinine Ratio 33.3 H (14-18) Glucose 143 H (74-106) mg/dL POC Glucose 144 H 153 H (70-105) mg/dL Calcium 10.0 (8.5-10.1) mg/dL Magnesium 1.8 (1.8-2.4) mg/dl 08/19/18 08/19/18 Range/Units 11:30 17:06 Sodium (136-145) mEq/L Potassium (3.5-5.1) mEq/L Chloride (98-107) mEq/L Carbon Dioxide (21-32) mEq/L Anion Gap (5-15) BUN (7-18) mg/dL Creatinine (0.55-1.02) mg/dL Est Cr Clr Drug Dosing mL/min Estimated GFR (MDRD) (>60) mL/min BUN/Creatinine Ratio (14-18) Glucose (74-106) mg/dL POC Glucose 103 136 H (70-105) mg/dL Calcium (8.5-10.1) mg/dL Magnesium (1.8-2.4) mg/dl Med Orders - Current: Current Medications Discontinued Medications Acetaminophen (Tylenol) 650 mg PO Q4H PRN PRN Reason: Pain (Mild 1-3)/fever Last Admin: 08/19/18 14:12 Dose: 650 mg Hydrocodone Bitart/Acetaminophen ([place] 325-5 Mg) 1 tab PO Q4H PRN PRN Reason: Pain (moderate 4-6) Albuterol (Proventil Hfa) 0 gm INH Q4H PRN PRN Reason: Shortness of Breath Albuterol/Ipratropium (Duoneb 3.0-0.5 Mg/3 Ml) 3 ml NEB Q4H PRN PRN Reason: Shortness Of Breath/wheezing Bisacodyl (Dulcolax) 5 mg PO DAILY PRN PRN Reason: Constipation Bupropion HCl (Wellbutrin Xl) 300 mg PO DAILY [facility] Last Admin: 08/19/18 08:29 Dose: 300 mg Buspirone HCl (Buspar) 30 mg PO BID [facility] Last Admin: 08/19/18 08:27 Dose: 30 mg Calcium Carbonate/Glycine (Calcium Carbonate) 600 mg PO BID [facility] Last Admin: 08/19/18 08:29 Dose: 600 mg Cholecalciferol (Vitamin D3) 5,000 unit PO DAILY [facility] Last Admin: 08/19/18 08:29 Dose: 5,000 unit Clonidine HCl (Catapres) 0.2 mg PO BEDTIME [facility] Last Admin: 08/18/18 20:24 Dose: 0.2 mg Cyclobenzaprine HCl (Flexeril) 10 mg PO TID PRN PRN Reason: Pain Diazepam (Valium.) 10 mg PO TID [facility] Last Admin: 08/19/18 14:11 Dose: 10 mg Docusate Sodium (Colace) 100 mg PO BID PRN PRN Reason: Constipation Enalapril Maleate (Vasotec) 2.5 mg PO DAILY [facility] Last Admin: 08/19/18 08:47 Dose: Not Given Flunisolide (Nasalide Nasal [place]) 0 ml RICARDO BID [facility] Last Admin: 08/19/18 09:00 Dose: 2 sprays Fluvoxamine Maleate (Luvox) 200 mg PO BEDTIME [facility] Last Admin: 08/16/18 21:52 Dose: Not Given Gabapentin (Neurontin) 100 mg PO TID [facility] Last Admin: 08/19/18 14:11 Dose: 100 mg Hydralazine HCl (Apresoline) 20 mg IVPUSH Q4H PRN PRN Reason: Hypertension Hydromorphone HCl (Dilaudid) 0.25 mg IVPUSH Q2H PRN PRN Reason: Pain (severe 7-10) Dextrose/Sodium Chloride (Dextrose 5%-Normal Saline) 1,000 mls @ 150 mls/hr IV ASDIRECTED [facility] Last Admin: 08/16/18 11:49 Dose: 150 mls/hr Promethazine HCl 6.25 mg/ (Sodium Chloride) 50.25 mls @ 100 mls/hr IV Q6H PRN PRN Reason: Nausea/Vomiting Ibuprofen (Motrin) 800 mg PO TID PRN PRN Reason: Pain Insulin Glargine (Lantus) 20 unit SUBCUT BIDAC [facility] Last Admin: 08/19/18 17:43 Dose: 20 units Insulin Human Lispro (Humalog) 0 unit SUBCUT QIDACANDBED [facility]; Protocol Last Admin: 08/19/18 17:42 Dose: Not Given Levothyroxine Sodium (Synthroid) 50 mcg PO ACBREAKFAST [facility] Last Admin: 08/19/18 06:16 Dose: 50 mcg Loratadine (Claritin) 10 mg PO BEDTIME [facility] Last Admin: 08/18/18 20:26 Dose: 10 mg Lorazepam (Ativan) 2 mg IVPUSH Q4H PRN PRN Reason: Seizures Lorazepam (Ativan) 0.5 mg IV Q6H PRN PRN Reason: Anxiety Last Admin: 08/19/18 13:29 Dose: 0.5 mg Lubiprostone (Amitiza) 24 mcg PO BID [facility] Last Admin: 08/19/18 08:46 Dose: Not Given Lubiprostone (Amitiza) 24 mcg PO ONETIME ONE Stop: 08/19/18 12:01 Last Admin: 08/19/18 12:07 Dose: 24 mcg Magnesium Sulfate (Pharmacy To Dose - Magnesium Replacement) 1 dose .XX ASDIRECTED [facility] Metoprolol Tartrate (Lopressor) 5 mg IVPUSH Q4H PRN PRN Reason: Tachycardia Multivitamins (Thera) 1 each PO DAILY [facility] Last Admin: 08/19/18 08:29 Dose: 1 each Ondansetron HCl (Zofran) 4 mg IVPUSH ONETIME ONE Stop: 08/16/18 11:37 Last Admin: 08/16/18 11:49 Dose: 4 mg Ondansetron HCl (Zofran) 4 mg IV Q6H PRN PRN Reason: Nausea/Vomiting Ondansetron HCl (Zofran Odt) 8 mg PO Q6H PRN PRN Reason: Nausea Pantoprazole Sodium (Protonix) 40 mg PO ACBREAKFAST [facility] Last Admin: 08/19/18 06:16 Dose: 40 mg Cyclosporine 1 Each 0 each EYEBOTH BID [facility] Last Admin: 08/19/18 08:46 Dose: Not Given Empagliflozin [ (Jardiance] 25 Mg) 0 each PO DAILY [facility] Last Admin: 08/19/18 08:46 Dose: Not Given Estradiol [Yuvafem] (10 Mg) 0 each VAG ASDIRECTED [facility] Liraglutide 1.8 Mg 0 each SUBCUT DAILY [facility] Last Admin: 08/19/18 08:46 Dose: Not Given Lisdexamfetamine Dimesylate [Vyvanse] 70 Mg 0 each PO DAILY [facility] Last Admin: 08/19/18 08:47 Dose: Not Given Lurasidone Hcl [ (Latuda] 120 Mg) 0 each PO BEDTIME [facility] Last Admin: 08/18/18 22:04 Dose: Not Given Nitroglycerin [ (Rectiv] 1 Applic) 0 each TOP BID [facility] Last Admin: 08/19/18 08:47 Dose: Not Given Fluvoxamine 100 Mg (Tab.) 200 each PO BEDTIME [facility] Last Admin: 08/18/18 22:04 Dose: Not Given Polyethylene Glycol (Miralax) 17 gm PO DAILY [facility] Last Admin: 08/19/18 08:30 Dose: 17 gm Potassium Chloride (Pharmacy To Dose - Potassium Replacement) 1 dose .XX ASDIRECTED [facility] Potassium Chloride (Klor-Con M20) 40 meq PO Q4H [facility] Stop: 08/16/18 22:01 Last Admin: 08/16/18 21:55 Dose: 40 meq Potassium Chloride (Klor-Con M20) 40 meq PO Q4H [facility] Stop: 08/18/18 15:01 Last Admin: 08/18/18 14:25 Dose: 40 meq Rosuvastatin Calcium (Crestor) 5 mg PO BEDTIME [facility] Last Admin: 08/18/18 20:23 Dose: 5 mg Saccharomyces Boulardii (Florastor) 250 mg PO DAILY [facility] Last Admin: 08/19/18 08:29 Dose: 250 mg Senna/Docusate Sodium (Senna Plus) 1 tab PO BID PRN PRN Reason: Constipation Sumatriptan Succinate (Imitrex) 50 mg PO ASDIRECTED [facility] Topiramate (Topamax) 50 mg PO BID [facility] Last Admin: 08/19/18 08:27 Dose: 50 mg Trospium (Sanctura) 20 mg PO BIDAC [facility] Last Admin: 08/19/18 17:43 Dose: 20 mg - Exam Physical Findings Comments:: Unable to perform. Patient left AMA.
== END 2018-08-19 18:30 | disposition left against medical advice (07) | DRG 639 ==
LOC: JD.ED 11:08 → SUPCPDRO 11:08 → JD.MS 14:04
PROVIDERS: ADMIT Internal Medicine; ATTEND Internal Medicine
DX: E11.649 Type 2 diabetes mellitus with hypoglycemia without coma (principal); R41.82 Altered mental status, unspecified; E87.6 Hypokalemia; K44.9 Diaphragmatic hernia without obstruction or gangrene; E78.00 Pure hypercholesterolemia, unspecified; I10 Essential (primary) hypertension; J45.909 Unspecified asthma, uncomplicated; G47.30 Sleep apnea, unspecified; K21.9 Gastro-esophageal reflux disease without esophagitis; K58.9 Irritable bowel syndrome, unspecified; A60.00 Herpesviral infection of urogenital system, unspecified; E78.5 Hyperlipidemia, unspecified; G47.33 Obstructive sleep apnea (adult) (pediatric); M79.7 Fibromyalgia; G43.909 Migraine, unspecified, not intractable, without status migrainosus; F90.9 Attention-deficit hyperactivity disorder, unspecified type; F41.9 Anxiety disorder, unspecified; F31.9 Bipolar disorder, unspecified; F42.9 Obsessive-compulsive disorder, unspecified; E03.9 Hypothyroidism, unspecified; E66.9 Obesity, unspecified; L21.9 Seborrheic dermatitis, unspecified; Z98.84 Bariatric surgery status; Z90.49 Acquired absence of other specified parts of digestive tract; Z90.710 Acquired absence of both cervix and uterus; Z79.4 Long term (current) use of insulin; Z87.440 Personal history of urinary (tract) infections; Z59.6 Low income; Z91.041 Radiographic dye allergy status; Z79.899 Other long term (current) drug therapy; Z87.891 Personal history of nicotine dependence; Z68.29 Body mass index [BMI] 29.0-29.9, adult; Z91.19 Patient's noncompliance with other medical treatment and regimen
CPT/HCPCS: 36415; 80053; 81001; 82962; 85007; 85027; 96361; 96374; 99285; J2405; J7042; 80048; 83036; 83735; 85025; 85379; A9270-GY; J1815-GY; J2060

== ENCOUNTER 2018-09-01 22:56 | Emergency (ER) | payer MEDICAID ==
[2018-09-01 23:03] VITALS: BP 124/82
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
== END 2018-09-02 09:00 ==
LOC: JD.ED 22:56
DX: R44.0 Auditory hallucinations (principal); R44.1 Visual hallucinations; I45.81 Long QT syndrome; E11.9 Type 2 diabetes mellitus without complications; F90.9 Attention-deficit hyperactivity disorder, unspecified type; F31.9 Bipolar disorder, unspecified; E78.00 Pure hypercholesterolemia, unspecified; I10 Essential (primary) hypertension; J45.909 Unspecified asthma, uncomplicated; K21.9 Gastro-esophageal reflux disease without esophagitis; E03.9 Hypothyroidism, unspecified; Z87.891 Personal history of nicotine dependence; Z79.4 Long term (current) use of insulin; Z91.041 Radiographic dye allergy status; Z79.899 Other long term (current) drug therapy
CPT/HCPCS: 36415; 80053; 80306; 81025; 84443; 85007; 85027; 93005; 99285; G0480; 93010

== ENCOUNTER 2018-11-25 10:29 | Emergency (ER) | payer MEDICAID ==
[2018-11-25 11:03] VITALS: BP 103/79
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
[2018-11-25] MEDS ORDERED: Sodium Chloride 0.9% 10 ML Syringe FLUSH PRN (12:53)
[2018-11-25] MEDS ORDERED: Sodium Chloride 0.9% 1,000 ML IV SCH (13:00)
== END 2018-11-25 16:20 ==
LOC: JD.ED 10:29
DX: R44.1 Visual hallucinations (principal); E78.00 Pure hypercholesterolemia, unspecified; I10 Essential (primary) hypertension; K21.9 Gastro-esophageal reflux disease without esophagitis; Z87.891 Personal history of nicotine dependence; Z91.041 Radiographic dye allergy status; Z79.899 Other long term (current) drug therapy
CPT/HCPCS: 36415; 80053; 80306; 81025; 82140; 84443; 85007; 85027; 93005; 96360; 96361; 99285; G0480; J7040; 93010

== ENCOUNTER 2020-02-17 11:38 | Emergency (ER) | payer MEDICARE, MEDICAID ==
[2020-02-17] MEDS ORDERED: Sodium Chloride 0.9% 10 ML Syringe FLUSH PRN (11:49)
[2020-02-17] MEDS ORDERED: HYDROmorphone 0.5 MG/0.5 ML Syringe IVPUSH ONE ×2 (12:15→14:21)
[2020-02-17] MEDS ORDERED: Ondansetron 4 MG/2 ML SDV IVPUSH ONE (12:15)
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
--- NOTE | 2020-02-17 12:21 | CT ---
Head CT Technique: Multiple axial sections through the brain were obtained. Intravenous contrast was not utilized. Comparison: Prior head CT study of 02/25/15. Findings: Ventricles along with basal cisterns and sulci over the convexities appear within normal limits for the patient's age. No abnormal parenchymal densities are seen. No evidence of intracranial hemorrhage. No midline shift or mass-effect is seen. Bone window settings were reviewed. No acute calvarial finding is seen. Visualized mastoid sinuses and visualized paranasal sinuses show nothing acute. No acute calvarial finding is seen. Impression: 1. Nothing acute is appreciated on noncontrast head CT exam. Diagnostic code #1 This report was dictated in MDT
[2020-02-17] MEDS ORDERED: Sodium Chloride 0.9% 1,000 ML IV STA (12:24)
--- NOTE | 2020-02-17 12:24 | EDM.PDOC ---
ED HPI GENERAL MEDICAL PROBLEM - General Chief Complaint: Lower Extremity Injury/Pain Stated Complaint: [facility] Time Seen by Provider: 02/17/20 11:43 Source of Information: Reports: Patient History Limitations: Reports: No Limitations - History of Present Illness INITIAL COMMENTS - FREE TEXT/NARRATIVE: Patient is a 39 year old female presenting to the ER via [facility] with c/o pain to her right lower leg. Pt states that she was answering the door and got dizzy and fell, landing on her right leg. She has been unable to bear weight on the extremity since the injury. She states that she has been having a migraine for the last few days and she frequently gets dizzy with her migraines. At this time, her headache is doing "OK", but she is c/o pain to her lower leg. She is type 2 diabetic and is due to take her weekly diabetic medication today. She denies any fever, abdominal pain, nausea, vomiting, or diarrhea. She denies being dizzy at this time. Right Lower Leg Pain Score (Numeric/FACES): 6 - Related Data Allergies Allergy/AdvReac Type Severity Reaction Status Date / Time Iodinated Contrast Media Allergy Itching Verified 02/17/20 11:43 [Iodinated Contrast Media - IV Dye] Home Meds: Home Meds Cetirizine [ZyrTEC] 10 mg PO BEDTIME 12/01/17 [History] Fesoterodine Fumarate [Toviaz] 8 mg PO DAILY 12/01/17 [History] Levothyroxine [Synthroid] 50 mcg PO ACBREAKFAST 12/01/17 [History] Lubiprostone [Amitiza] 24 mcg PO BID 12/01/17 [History] Ondansetron [Zofran ODT] 8 mg PO Q6H PRN 12/01/17 [History] Pantoprazole Sodium [Protonix] 40 mg PO DAILY 12/01/17 [History] Rosuvastatin [Crestor] 5 mg PO BEDTIME 12/01/17 [History] Topiramate [Topamax] 50 mg PO BID 12/01/17 [History] polyethylene glycoL 3350 [MiraLAX] 1 packet PO DAILY 12/01/17 [History] valACYclovir HCl [Valtrex] 500 mg PO DAILY 12/01/17 [History] fluvoxaMINE [fluvoxaMINE Maleate] 200 mg PO BEDTIME 06/12/18 [History] SUMAtriptan [Imitrex] 50 mg PO ASDIRECTED 08/16/18 [History] Hydrocodone/Acetaminophen [Hydrocodone-Acetamin 5-325 mg] 1 each PO Q4H PRN #15 tablet 02/17/20 [Rx] Past Medical History HEENT History: Reports: Other (See Below) Other HEENT History: 2 sinus surgeries Cardiovascular History: Reports: High Cholesterol, Hypertension Respiratory History: Reports: Asthma, Sleep Apnea Other Respiratory History: upper respiratory infection, Right lung nodule Gastrointestinal History: Reports: GERD, Irritable Bowel Syndrome, Other (See Below) Other Gastrointestinal History: anal fissure, elevated liver function tests, nausea, flank pain Genitourinary History: Reports: STD, UTI, Recurrent, Other (See Below) Other Genitourinary History: dysuria, gential herpes, dyspareunia, frequency FIBRE TECHNOLOGIST History: Reports: Other (See Below) Other FIBRE TECHNOLOGIST History: vagintis, vulvovagintitis, atropic vaginitis Musculoskeletal History: Reports: Fibromyalgia Other Musculoskeletal History: left carpal tunnel syndrome, cubital tunnel syndrome, elbow pain Neurological History: Reports: Migraines, Other (See Below) Other Neuro History: short term memory loss Psychiatric History: Reports: ADHD, Bipolar, Depression, OCD, Other (See Below) Endocrine/Metabolic History: Reports: Diabetes, Type II, Hypothyroidism, Obesity/BMI 30+ Other Endocrine/Metabolic History: fibromyalgia Hematologic History: Reports: Other (See Below) Other Hematologic History: hypomagnesia Immunologic History: Reports: None Oncologic (Cancer) History: Reports: None Dermatologic History: Reports: Seborrheic Dermatitis Other Dermatologic History: acne, skin excoriation, skin lesion - Infectious Disease History Infectious Disease History: Reports: None Other Infectious Disease History: STD: genital herpes - Past Surgical History Head Surgeries/Procedures: Reports: None HEENT Surgical History: Reports: Naso-Sinus Surgery, Oral Surgery, Tonsillectomy GI Surgical History: Reports: Appendectomy, Bariatric Procedure, Cholecystectomy Female Surgical History: Reports: Hysterectomy, Salpingo-Oophorectomy, Tubal Ligation Oncologic Surgical History: Reports: None Social & Family History - Family History Family Medical History: Noncontributory - Tobacco Use Smoking Status *Q: Current Every Day Smoker Years of Tobacco use: 2 Packs/Tins Daily: 0.5 - Caffeine Use Caffeine Use: Reports: Coffee, Soda, Tea Other Caffeine Use: minimally - Recreational Drug Use Recreational Drug Use: Yes Drug Use in Last 12 Months: No Recreational Drug Type: Reports: Cocaine, Heroin, Marijuana/Hashish, PCP (Lele Dust) - Living Situation & Occupation Living situation: Reports: Single, Alone Occupation: Disabled Review of Systems - Review of Systems Review Of Systems: See Below Constitutional: Reports: Chills. Denies: Fever, Weakness Eyes: Reports: No Symptoms Ears: Reports: No Symptoms Nose: Reports: No Symptoms Mouth/Throat: Reports: No Symptoms Respiratory: Reports: No Symptoms. Denies: Shortness of Breath, Cough Cardiovascular: Reports: No Symptoms GI/Abdominal: Reports: No Symptoms. Denies: Abdominal Pain, Diarrhea, Nausea, Vomiting Genitourinary: Reports: No Symptoms Musculoskeletal: Reports: Leg Pain Skin: Reports: No Symptoms Neurological: Reports: Dizziness, Headache Psychiatric: Reports: No Symptoms ED EXAM, GENERAL - Physical Exam Exam: See Below General Appearance: Alert, WD/WN, No Apparent Distress Respiratory/Chest: No Respiratory Distress, Lungs Clear, Normal Breath Sounds, No Accessory Muscle Use, Chest Non-Tender Cardiovascular: Normal Peripheral Pulses, Regular Rate, Rhythm, No Edema, No Gallop, No JVD, No Murmur, No Rub Extremities: Other (mild pretibial swelling to the right lower extremity. No obvious deformity. CMS intact distal to the injury.) Psychiatric: Normal Affect, Normal Mood Skin Exam: Warm, Dry, Intact, Normal Color, No Rash Course - Vital Signs Last Recorded V/S: Last Vital Signs Temp 97.3 F 02/17/20 14:46 Pulse 69 02/17/20 14:46 Resp 16 02/17/20 14:46 BP 119/78 02/17/20 14:46 Pulse Ox 96 02/17/20 14:46 - Orders/Labs/Meds Orders: Active Orders 24 hr Category Date Time Status CULTURE URINE [RM] Stat Lab 02/17/20 12:20 Received DME for Discharge [COMM] Routine Oth 02/17/20 15:06 Ordered Peripheral IV Insertion Adult [OM.PC] Stat Oth 02/17/20 11:49 Ordered Labs: Laboratory Tests 02/17/20 02/17/20 02/17/20 Range/Units 11:49 12:15 12:37 WBC (3.98-10.04) K/mm3 RBC (3.98-5.22) M/mm3 Hgb (11.2-15.7) gm/dl Hct (34.1-44.9) % MCV (79.4-94.8) fl MCH (25.6-32.2) pg MCHC (32.2-35.5) g/dl RDW Std Deviation (36.4-46.3) fL Plt Count (182-369) K/mm3 MPV (9.4-12.3) fl Neut % (Auto) (34.0-71.1) % Lymph % (Auto) (19.3-51.7) % Arthur % (Auto) (4.7-12.5) % Eos % (Auto) (0.7-5.8) Baso % (Auto) (0.1-1.2) % Neut # (Auto) (1.56-6.13) K/mm3 Lymph # (Auto) (1.18-3.74) K/mm3 Arthur # (Auto) (0.24-0.36) K/mm3 Eos # (Auto) (0.04-0.36) K/mm3 Baso # (Auto) (0.01-0.08) K/mm3 Sodium (136-145) mEq/L Potassium (3.5-5.1) mEq/L Chloride (98-107) mEq/L Carbon Dioxide (21-32) mEq/L Anion Gap (5-15) BUN (7-18) mg/dL Creatinine (0.55-1.02) mg/dL Est Cr Clr Drug Dosing mL/min Estimated GFR (MDRD) (>60) mL/min BUN/Creatinine Ratio (14-18) Glucose (74-106) mg/dL POC Glucose 249 H (70-105) mg/dL Calcium (8.5-10.1) mg/dL Total Bilirubin (0.2-1.0) mg/dL AST (15-37) U/L ALT (14-59) U/L Alkaline Phosphatase (46-116) U/L C-Reactive Protein (<1.0) mg/dL Total Protein (6.4-8.2) g/dl Albumin (3.4-5.0) g/dl Globulin gm/dL Albumin/Globulin Ratio (1-2) Urine Color Yellow (Yellow) Urine Appearance Clear (Clear) Urine pH 5.5 (5.0-8.0) Ur Specific [place] > or = 1.030 (1.005-1.030) Urine Protein 1+ H (Negative) Urine Glucose (UA) Negative (Negative) Urine Ketones Trace H (Negative) Urine Occult Blood Negative (Negative) Urine Nitrite Negative (Negative) Urine Bilirubin 1+ H (Negative) Urine Urobilinogen 0.2 (0.2-1.0) Ur Leukocyte Esterase Trace H (Negative) U Hyaline Cast (Auto) 20-30 H (0-5) /lpf Urine RBC Not seen (0-5) /hpf Urine WBC 0-5 (0-5) /hpf Ur Squamous Epith Cells 0-5 (0-5) /hpf Urine Bacteria Moderate H (FEW) /hpf Urine Mucus Many H (FEW) /hpf Urine Yeast Moderate H (NOT SEEN) SARS-CoV-2 RNA (RAYNE) Negative (NEGATIVE) 02/17/20 02/17/20 Range/Units 12:51 12:51 WBC 8.36 (3.98-10.04) K/mm3 RBC 4.19 (3.98-5.22) M/mm3 Hgb 13.5 (11.2-15.7) gm/dl Hct 40.7 (34.1-44.9) % MCV 97.1 H (79.4-94.8) fl MCH 32.2 (25.6-32.2) pg MCHC 33.2 (32.2-35.5) g/dl RDW Std Deviation 49.3 H (36.4-46.3) fL Plt Count 248 (182-369) K/mm3 MPV 9.0 L (9.4-12.3) fl Neut % (Auto) 59.5 (34.0-71.1) % Lymph % (Auto) 30.7 (19.3-51.7) % Arthur % (Auto) 6.3 (4.7-12.5) % Eos % (Auto) 3.2 (0.7-5.8) Baso % (Auto) 0.1 (0.1-1.2) % Neut # (Auto) 4.96 (1.56-6.13) K/mm3 Lymph # (Auto) 2.57 (1.18-3.74) K/mm3 Arthur # (Auto) 0.53 H (0.24-0.36) K/mm3 Eos # (Auto) 0.27 (0.04-0.36) K/mm3 Baso # (Auto) 0.01 (0.01-0.08) K/mm3 Sodium 143 (136-145) mEq/L Potassium 4.0 (3.5-5.1) mEq/L Chloride 108 H (98-107) mEq/L Carbon Dioxide 23 (21-32) mEq/L Anion Gap 16.0 H (5-15) BUN 18 (7-18) mg/dL Creatinine 1.0 (0.55-1.02) mg/dL Est Cr Clr Drug Dosing 61.24 mL/min Estimated GFR (MDRD) > 60 (>60) mL/min BUN/Creatinine Ratio 18.0 (14-18) Glucose 212 H (74-106) mg/dL POC Glucose (70-105) mg/dL Calcium 9.3 (8.5-10.1) mg/dL Total Bilirubin 0.2 (0.2-1.0) mg/dL AST 50 H (15-37) U/L ALT 96 H (14-59) U/L Alkaline Phosphatase 98 (46-116) U/L C-Reactive Protein 1.6 H* (<1.0) mg/dL Total Protein 6.5 (6.4-8.2) g/dl Albumin 3.3 L (3.4-5.0) g/dl Globulin 3.2 gm/dL Albumin/Globulin Ratio 1.0 (1-2) Urine Color (Yellow) Urine Appearance (Clear) Urine pH (5.0-8.0) Ur Specific [place] (1.005-1.030) Urine Protein (Negative) Urine Glucose (UA) (Negative) Urine Ketones (Negative) Urine Occult Blood (Negative) Urine Nitrite (Negative) Urine Bilirubin (Negative) Urine Urobilinogen (0.2-1.0) Ur Leukocyte Esterase (Negative) U Hyaline Cast (Auto) (0-5) /lpf Urine RBC (0-5) /hpf Urine WBC (0-5) /hpf Ur Squamous Epith Cells (0-5) /hpf Urine Bacteria (FEW) /hpf Urine Mucus (FEW) /hpf Urine Yeast (NOT SEEN) SARS-CoV-2 RNA (RAYNE) (NEGATIVE) Meds: Medications Discontinued Medications Generic Name Dose Route Start Last Admin Trade Name Perla PRN Reason Stop Dose Admin Hydromorphone HCl 0.5 mg 02/17/20 12:15 02/17/20 12:23 Dilaudid IVPUSH 02/17/20 12:16 0.5 mg ONETIME ONE Administration Hydromorphone HCl 0.5 mg 02/17/20 14:21 02/17/20 14:26 Dilaudid IVPUSH 02/17/20 14:22 0.5 mg ONETIME ONE Administration Sodium Chloride 1,000 mls @ 150 mls/hr 02/17/20 12:24 02/17/20 12:29 Normal Saline IV 02/17/20 19:03 150 mls/hr NOW STA Administration Ondansetron HCl 4 mg 02/17/20 12:15 02/17/20 12:22 Zofran IVPUSH 02/17/20 12:16 4 mg ONETIME ONE Administration Sodium Chloride 10 ml 02/17/20 11:49 02/17/20 12:23 Saline Flush FLUSH 10 ml ASDIRECTED PRN Administration Keep Vein Open - Re-Assessments/Exams Free Text/Narrative Re-Assessment/Exam: Patient is a 39-year-old female presenting to ER with complaints of right lower leg pain after falling at home. States that she got dizzy and feels that this was associated with her migraine headache that she is had for the last few days. I have ordered a CBC, CMP, CRP, a right tib-fib x-ray, and a head CT. We will start NS at 150 mils per hour, Dilaudid 0.5 mg IV, and Zofran 4 mg IV. 02/17/20 12:26 The right lower extremity showed a tibial diaphyseal fracture and a fibular head fracture. Spoke with orthopedist, Dr. Camarillo. He stated that he will stop the visit with the patient to discuss treatment options. There were no acute abnormalities visualized on the head CT. Lab results and urinalysis are currently pending. 02/17/20 14:54 Hematology was grossly unremarkable. Urinalysis showed trace leukocyte esterase and moderate bacteria. Patient has had no urinary symptoms. I have sent the urine for culture and will rate results before deciding if she needs treatment.Dr. Camarillo was here to see the pt. He had initially planned to admit her with plans for surgery tomorrow; however, there are currently no available beds in our facility. Dr. Camarillo recommended placing her in an above the knee splint and he will plan to take her to surgery on or Sunday. A posterior above the knee, custom orthoglass splint was applied. We will discharge her home with a prescription for Clark and a walker. Dr. Camarillo's office will be in contact with her to make arrangements for surgery. Discharge instructions as documented. Departure - Departure Time of Disposition: 15:00 Disposition: Home, Self-Care 01 Condition: Good Clinical Impression: Fracture of tibia AND fibula - Discharge Information *PRESCRIPTION DRUG MONITORING PROGRAM REVIEWED*: No Prescriptions: Hydrocodone/Acetaminophen [Hydrocodone-Acetamin 5-325 mg] 1 each PO Q4H PRN #15 tablet PRN Reason: Pain Instructions: Cast or Splint Care, Adult, [id number] Referrals: Romeo Camarillo MD [Physician] - Forms: ED Department Discharge Additional Instructions: You were seen in the emergency department today for pain and swelling to your right lower extremity after falling at home. Your work-up included blood work, urinalysis, CT scan of your head, and x-ray of your lower leg, and a coronavirus swab. X-ray of your lower leg shows that you do have a fracture of the shaft of your tibia as well as the head of your fibula. CT scan of your head was normal. Your lab work was overall normal. Urine sample has been sent for culture to see if antibiotic treatment is indicated. Your coronavirus test was negative. You have been placed in a posterior leg splint. This should be kept clean and dry and stay on at all times. Recommend that you ice and elevate your extremity intermittently over the next few days. Do not bear weight on the extremity. Use your walker for assistance with walking. Recommend that you take [id number] Tylenol routinely for pain management. For pain not relieved by this, you may use 1 Clark every 4 hours. Take this medication only as prescribed. Be aware that this can cause sedation. Follow-up with Dr. Camarillo as planned. They will be in contact with you to arrange for surgery date. Return to ER with any new or worsening symptoms of concern. Sepsis Event Note (ED) - Evaluation Sepsis Screening Result: No Definite Risk - Focused Exam Vital Signs: Vital Signs Temp Pulse Resp BP Pulse Ox 02/17/20 14:46 97.3 F 69 16 119/78 96 02/17/20 11:58 97.2 F 72 18 113/82 98 - My Orders Last 24 Hours: My Active Orders 02/17/20 11:49 Peripheral IV Insertion Adult [OM.PC] Stat 02/17/20 12:20 CULTURE URINE [RM] Stat 02/17/20 15:06 DME for Discharge [COMM] Routine - Assessment/Plan Last 24 Hours: My Active Orders 02/17/20 11:49 Peripheral IV Insertion Adult [OM.PC] Stat 02/17/20 12:20 CULTURE URINE [RM] Stat 02/17/20 15:06 DME for Discharge [COMM] Routine
[2020-02-17 14:47] VITALS: BP 119/78; PULSE 69
== END 2020-02-17 15:33 | disposition home or self-care (01) ==
LOC: JD.ED 11:38
DX: S82.301A Unspecified fracture of lower end of right tibia, initial encounter for closed fracture (principal); S82.831A Other fracture of upper and lower end of right fibula, initial encounter for closed fracture; I10 Essential (primary) hypertension; J45.909 Unspecified asthma, uncomplicated; E11.9 Type 2 diabetes mellitus without complications; E66.9 Obesity, unspecified; K21.9 Gastro-esophageal reflux disease without esophagitis; F17.210 Nicotine dependence, cigarettes, uncomplicated; Z91.041 Radiographic dye allergy status; Z79.899 Other long term (current) drug therapy; Z90.710 Acquired absence of both cervix and uterus; Z90.49 Acquired absence of other specified parts of digestive tract; W18.30XA Fall on same level, unspecified, initial encounter
CPT/HCPCS: 29505; 36415; 70450; 70450-26; 73590-26-RT; 73590-RT; 80053; 81001; 82962; 85025; 86140; 87086; 87088; 87186; 96361; 96374; 96375; 96376; 99285-25; J1170; J2405; J7030; U0002

== ENCOUNTER 2020-02-23 14:07 | Inpatient (IN) | payer MEDICARE, MEDICAID ==
[2020-02-23] MEDS: Lactated Ringers 1,000 ML IV SCH ×2 (07:55→14:03)
--- NOTE | 2020-02-23 08:02 | PCM.PREANE ---
Preanesthetic Assessment - Procedure Proposed Procedure: Right tibial intramedullary nailing. - Anesthesia/Transfusion/Family Hx Anesthesia History: Prior Anesthesia Without Reaction Transfusion History: No Prior Transfusion(s) Intubation History: Unknown Additional History: No previous difficulties with intubation per patient - Review of Systems General: No Symptoms Pulmonary: No Symptoms Cardiovascular: No Symptoms Gastrointestinal: No Symptoms Neurological: No Symptoms, Other (Flat affect) Other: Reports: None - Physical Assessment ASA Class: 2 Mental Status: Alert & Oriented x3 Airway Class: Mallampati = 3 Dentition: Reports: Dentures Thyro-Mental Finger Breadths: 3 Mouth Opening Finger Breadths: 3 ROM/Head Extension: Full Lungs: Clear to Auscultation, Normal Respiratory Effort Cardiovascular: Regular Rate, Regular Rhythm - Lab Values: Laboratory Last Values POC Glucose 160 mg/dL (70-105) H 02/23/20 07:56 SARS-CoV-2 (PCR) Not detected (NOT DETECT) 02/19/20 10:45 MRSA (PCR) Negative 02/19/20 10:10 - Allergies Allergies/Adverse Reactions: Allergies Allergy/AdvReac Type Severity Reaction Status Date / Time Iodinated Contrast Media Allergy Itching Verified 02/21/20 10:19 [Iodinated Contrast Media - IV Dye] - Anesthesia Plan Pre-Op Medication Ordered: Other (scopolamine patch) - Acknowledgements Anesthesia Type Planned: General Anesthesia Pt an Appropriate Candidate for the Planned Anesthesia: Yes Alternatives and Risks of Anesthesia Discussed w Pt/Guardian: Yes Pt/Guardian Understands and Agrees with Anesthesia Plan: Yes PreAnesthesia Questionnaire HEENT History: Reports: Impaired Vision, Other (See Below) Other HEENT History: wears glasses Cardiovascular History: Reports: High Cholesterol, Hypertension Respiratory History: Reports: Asthma, Sleep Apnea Other Respiratory History: upper respiratory infection, Right lung nodule Gastrointestinal History: Reports: GERD, Irritable Bowel Syndrome, Other (See Below) Other Gastrointestinal History: anal fissure, elevated liver function tests, nausea, flank pain Genitourinary History: Reports: STD, UTI, Recurrent, Other (See Below) Other Genitourinary History: dysuria, gential herpes, dyspareunia, frequency 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: Other (See Below) Other OB/BYN History: vagintis, vulvovagintitis, atropic vaginitis Musculoskeletal History: Reports: Fibromyalgia Other Musculoskeletal History: left carpal tunnel syndrome, cubital tunnel syndrome, elbow pain Neurological History: Reports: Migraines, Other (See Below) Other Neuro History: short term memory loss Psychiatric History: Reports: ADHD, Bipolar, Depression, OCD, Other (See Below) Endocrine/Metabolic History: Reports: Diabetes, Type II, Hypothyroidism, Obesity/BMI 30+ Other Endocrine/Metabolic History: fibromyalgia Hematologic History: Reports: Other (See Below) Other Hematologic History: hypomagnesia Immunologic History: Reports: None Oncologic (Cancer) History: Reports: None Dermatologic History: Reports: Seborrheic Dermatitis Other Dermatologic History: acne, skin excoriation, skin lesion - Infectious Disease History Infectious Disease History: Reports: Herpes Other Infectious Disease History: STD: genital herpes - Past Surgical History Head Surgeries/Procedures: Reports: None HEENT Surgical History: Reports: Naso-Sinus Surgery, Oral Surgery, Tonsillectomy Other HEENT Surgeries/Procedures: Endentulous Cardiovascular Surgical History: Reports: None Respiratory Surgical History: Reports: None GI Surgical History: Reports: Appendectomy, Bariatric Procedure, Cholecystectomy Female Surgical History: Reports: Hysterectomy, Salpingo-Oophorectomy, Tubal Ligation Endocrine Surgical History: Reports: None Neurological Surgical History: Reports: None Other Neurological Surgeries/Procedures: Depression Musculoskeletal Surgical History: Reports: None Oncologic Surgical History: Reports: None - SUBSTANCE USE Smoking Status *Q: Current Every Day Smoker Recreational Drug Use History: Yes - HOME MEDS Home Medications: Home Meds Cetirizine [ZyrTEC] 10 mg PO BEDTIME 12/01/17 [History] Fesoterodine Fumarate [Toviaz] 8 mg PO DAILY 12/01/17 [History] Levothyroxine [Synthroid] 50 mcg PO ACBREAKFAST 12/01/17 [History] Lubiprostone [Amitiza] 24 mcg PO BID 12/01/17 [History] Ondansetron [Zofran ODT] 8 mg PO Q6H PRN 12/01/17 [History] Pantoprazole Sodium [Protonix] 40 mg PO DAILY 12/01/17 [History] Rosuvastatin [Crestor] 5 mg PO BEDTIME 12/01/17 [History] Topiramate [Topamax] 50 mg PO BID 12/01/17 [History] polyethylene glycoL 3350 [MiraLAX] 1 packet PO DAILY 12/01/17 [History] valACYclovir HCl [Valtrex] 500 mg PO DAILY 12/01/17 [History] fluvoxaMINE [Luvox] 200 mg PO BEDTIME 06/12/18 [History] SUMAtriptan [Imitrex] 50 mg PO ASDIRECTED PRN 08/16/18 [History] Cefdinir [Omnicef] 300 mg PO BID 7 Days #14 cap 02/20/20 [Rx] Ozempic 1 dose SQ TH 02/21/20 [History] Acetaminophen/oxyCODONE [Percocet 325-5 MG] 1 - 2 each PO Q6H PRN #40 tab 02/23/20 [Rx] Cyclobenzaprine [Flexeril] 10 mg PO BID PRN #20 tab 02/23/20 [Rx] Enoxaparin Sodium [Lovenox] 40 mg SQ DAILY #30 ml 02/23/20 [Rx] - CURRENT (IN HOUSE) MEDS Current Meds: Current Medications Lactated Ringer's (Ringers, Lactated) 1,000 mls @ 125 mls/hr IV ASDIRECTED JACOB Lidocaine/Sodium Bicarbonate (Buffered Lidocaine 1% In Ns 8.4%) 0.25 ml IDERM ONETIME PRN PRN Reason: Prior to IV Start Scopolamine (Transderm-Scop) 1.5 mg TRDERM ONETIME PRN PRN Reason: PONV Last Admin: 02/23/20 07:54 Dose: 1.5 mg Documented by: Sodium Chloride (Saline Flush) 10 ml FLUSH ASDIRECTED PRN PRN Reason: Keep Vein Open Discontinued Medications Bupivacaine HCl (Sensorcaine-Mpf 0.25%) Confirm Administered Dose 20 ml .ROUTE .STK-MED ONE Stop: 02/23/20 07:22 Fentanyl (Sublimaze) Confirm Administered Dose 100 mcg .ROUTE .STK-MED ONE Stop: 02/23/20 07:40 Lidocaine HCl (Xylocaine-Mpf 1%) Confirm Administered Dose 4 mls @ as directed .ROUTE .STK-MED ONE Stop: 02/23/20 07:39 Propofol (Diprivan 20 Ml) Confirm Administered Dose 200 mg .ROUTE .STK-MED ONE Stop: 02/23/20 07:39
--- NOTE | 2020-02-23 12:58 | PCM.POSTAN ---
POST ANESTHESIA ASSESSMENT - MENTAL STATUS Mental Status: Alert, Somnolent - VITAL SIGNS Vital Signs: Last Vital Signs Temp 37.2 C 02/23/20 07:30 Pulse 82 02/23/20 07:30 Resp 16 02/23/20 07:30 BP 123/90 02/23/20 07:30 Pulse Ox 95 02/23/20 07:30 - RESPIRATORY Respiratory Status: Respiratory Rate WNL, Airway Patent, O2 Saturation Stable - CARDIOVASCULAR CV Status: Pulse Rate WNL, Blood Pressure Stable - GASTROINTESTINAL GI Status: No Symptoms - PAIN Pain Score: 0 - POST OP HYDRATION Hydration Status: Adequate & Stable - OBSERVATIONS Free Text/Narrative:: Routine extubation in OR without event. Transfer to PACU with handoff to RN. VSS, SV, PAULINO, FAC, CTAB. No concerns at this time.
[~2020-02-23 14:07] MED LIST changes: +Albuterol 0.083% 2.5 MG/3 ML Neb Soln NEB PRN; +Albuterol/Ipratropium 3.0-0.5 MG/3 ML Neb Soln NEB ONE; +Bupivacaine 0.25% 10 ML SDV ONE; +Famotidine 20 MG/2 ML SDV IVPUSH ONE; +HYDROmorphone 0.5 MG/0.5 ML Syringe IVPUSH PRN; +Lidocaine 1% 4 ML ONE; +Lidocaine 1%/Sod Bicarbonate in NS 8.4% 1 ML Syringe IDERM PRN; -Lidocaine 1%/Sod Bicarbonate in NS 8.4% 1 ML Syringe IV PRN; +Midazolam 1 MG/ML 2 ML SDV IVPUSH ONE; +Midazolam 1 MG/ML 2 ML SDV ONE; +Morphine 2 MG/ML SYRINGE IVPUSH PRN; +Naloxone 0.4 MG/ML SDV IVPUSH PRN; +Ondansetron 4 MG/2 ML SDV IVPUSH PRN; +Propofol 200 MG/20 ML SDV ONE; +Scopolamine 1.5 MG Transdermal Patch TRDERM PRN; +ceFAZolin 1 GM Vial ONE; +fentaNYL 100 MCG/2 ML SDV IVPUSH PRN; +fentaNYL 100 MCG/2 ML SDV ONE; +fentaNYL 250 MCG/5 ML SDV ONE
--- NOTE | 2020-02-23 14:50 | CR ---
Right tibia and fibula: 9 fluoroscopic spot views were obtained of the right tibia and fibula utilizing C-arm device. Comparison: Previous right tibia and fibula study of 02/17/20. Fracture is noted within the fibular head as well as tibial diaphysis. Tibial diaphyseal fracture shows fixation with intramedullary gracie. Fluoroscopy time is given as 79.2 seconds. Impression: 1. Procedural study showing placement of intramedullary gracie across previous tibia fracture. Diagnostic code #2 Study was dictated in MDT
[2020-02-23] MEDS: Acetaminophen/oxyCODONE 325-5 MG Tab PO PRN (17:42)
[2020-02-23] MEDS: Lubiprostone 24 MCG Cap PO SCH (17:43)
--- NOTE | 2020-02-23 19:03 | PCM.SN.2 ---
- Free Text/Narrative Note: Call received from Day Surgery nurse re: pt with incontinence and need for assistance of 3 to stand at edge of bed. Discussed with social work and DON. Decision made to admit pt to inpt status due to need for PT, OT, assistance with mobility and for close monitoring of pt's status due to comorbidities. Social work indicates pt agreeable to transfer to NH (likely in [place] or [place]). Pt with hx ROWDY, HTN, GERD, bipolar disorder, schizoaffective disorder, GERD, family hx VTE, hx gastric bypass, hx drug and ETOH abuse, DM.
[2020-02-23] MEDS: ceFAZolin 2 GM in Premix Bag 1 BAG IV SCH (19:31)
[2020-02-23] MEDS ORDERED: CEFDINIR 300 MG PO SCH (21:00)
[2020-02-23] MEDS: Cyclobenzaprine 10 MG Tab PO PRN (21:59)
[2020-02-23] MEDS: Topiramate 25 MG Tab PO SCH (22:00)
[2020-02-23] MEDS: Loratadine 10 MG Tab PO SCH (22:00)
[2020-02-23] MEDS: Rosuvastatin 10 MG Tab PO SCH (22:00)
[2020-02-23] MEDS: Ketorolac 15 MG/ML SDV IVPUSH PRN (22:01)
[2020-02-23] MEDS: FLUVOXAMINE 200 MG PO SCH (22:12)
[2020-02-24] MEDS: Nicotine 21 MG/24 Hr Patch TRDERM SCH ×2 (01:24→12:12)
[2020-02-24] MEDS: ceFAZolin 2 GM in Premix Bag 1 BAG IV SCH ×2 (03:29→12:18)
[2020-02-24] MEDS: Ketorolac 15 MG/ML SDV IVPUSH PRN ×2 (03:31→20:20)
[2020-02-24] MEDS: Pantoprazole 40 MG Tab.CR PO SCH (06:48)
[2020-02-24] MEDS: Levothyroxine 50 MCG Tab PO SCH (06:48)
--- NOTE | 2020-02-24 07:28 | PCM48HPAN ---
Post Anesthesia Note - EVALUATION WITHIN 48HRS OF ANESTHETIC Vital Signs in Normal Range: Yes Patient Participated in Evaluation: Yes Respiratory Function Stable: Yes Airway Patent: Yes Cardiovascular Function Stable: Yes Hydration Status Stable: Yes Pain Control Satisfactory: Yes (sitting up eating breakfast. Pain less than before.) Nausea and Vomiting Control Satisfactory: Yes Mental Status Recovered: Yes Vital Signs: Last Vital Signs Temp 98.2 F 02/24/20 04:00 Pulse 80 02/24/20 04:00 Resp 16 02/24/20 04:00 BP 136/88 02/24/20 04:00 Pulse Ox 95 02/24/20 04:00
[2020-02-24] MEDS ORDERED: Sennosides 8.6 MG Tab PO PRN (07:53)
[2020-02-24] MEDS ORDERED: Ondansetron 4 MG/2 ML SDV IVPUSH PRN (07:53)
--- NOTE | 2020-02-24 08:00 | PCM.SURGPN ---
- General Info Date of Service: 02/24/20 POD#: 1 Functional Status: Reports: Tolerating Diet, Ambulating, Urinating, Other (The pt received IV Toradol with improvements noted. ) - Review of Systems Musculoskeletal: Reports: Other (Pt has had ice to the limb and elevating limb. ) - Patient Data Vitals - Most Recent: Last Vital Signs Temp 98.2 F 02/24/20 04:00 Pulse 80 02/24/20 04:00 Resp 16 02/24/20 04:00 BP 136/88 02/24/20 04:00 Pulse Ox 95 02/24/20 04:00 Weight - Most Recent: 163 lb I&O - Last 24 Hours: Intake & Output 02/23/20 02/24/20 02/24/20 22:59 06:59 14:59 Intake Total 500 1000 Balance 500 1000 Lab Results Last 24 Hrs: Laboratory Results - last 24 hr 02/23/20 02/23/20 02/23/20 Range/Units 07:56 08:30 13:28 WBC (3.98-10.04) K/mm3 RBC (3.98-5.22) M/mm3 Hgb (11.2-15.7) gm/dl Hct (34.1-44.9) % MCV (79.4-94.8) fl MCH (25.6-32.2) pg MCHC (32.2-35.5) g/dl RDW Std Deviation (36.4-46.3) fL Plt Count (182-369) K/mm3 MPV (9.4-12.3) fl Sodium (136-145) mEq/L Potassium (3.5-5.1) mEq/L Chloride (98-107) mEq/L Carbon Dioxide (21-32) mEq/L Anion Gap (5-15) BUN (7-18) mg/dL Creatinine (0.55-1.02) mg/dL Est Cr Clr Drug Dosing mL/min Estimated GFR (MDRD) (>60) mL/min BUN/Creatinine Ratio (14-18) Glucose (74-106) mg/dL POC Glucose 160 H 168 H (70-105) mg/dL Calcium (8.5-10.1) mg/dL Total Bilirubin (0.2-1.0) mg/dL AST (15-37) U/L ALT (14-59) U/L Alkaline Phosphatase (46-116) U/L Total Protein (6.4-8.2) g/dl Albumin (3.4-5.0) g/dl Globulin gm/dL Albumin/Globulin Ratio (1-2) Urine Opiates Screen Presumptive positive H (TFUNRZ=288) Ur Buprenorphine Scrn Negative (CUTOFF=10) Ur Oxycodone Screen Negative (WRE1AT=959) Urine Methadone Screen Negative (GFWLVO=105) Ur Propoxyphene Screen Negative (ZCZUPK=053) Ur Barbiturates Screen Negative (XNNGQT=353) Ur Tricyclics Screen Negative (JOONIM=889) Ur Phencyclidine Scrn Negative (CUTOFF=25) Ur Amphetamine Screen Negative (EYVJJG=945) U Methamphetamines Scrn Negative (OVXOLJ=009) U Benzodiazepines Scrn Negative (GLFOEO=334) U Cocaine Metab Screen Negative (AFBEAE=622) U Marijuana (THC) Screen Negative (CUTOFF=50) 02/24/20 02/24/20 Range/Units 05:40 05:40 WBC 9.29 (3.98-10.04) K/mm3 RBC 2.93 L (3.98-5.22) M/mm3 Hgb 9.3 L D (11.2-15.7) gm/dl Hct 28.6 L (34.1-44.9) % MCV 97.6 H (79.4-94.8) fl MCH 31.7 (25.6-32.2) pg MCHC 32.5 (32.2-35.5) g/dl RDW Std Deviation 46.9 H (36.4-46.3) fL Plt Count 258 (182-369) K/mm3 MPV 8.8 L (9.4-12.3) fl Sodium 140 (136-145) mEq/L Potassium 4.3 (3.5-5.1) mEq/L Chloride 104 (98-107) mEq/L Carbon Dioxide 27 (21-32) mEq/L Anion Gap 13.3 (5-15) BUN 21 H (7-18) mg/dL Creatinine 0.9 (0.55-1.02) mg/dL Est Cr Clr Drug Dosing 65.06 mL/min Estimated GFR (MDRD) > 60 (>60) mL/min BUN/Creatinine Ratio 23.3 H (14-18) Glucose 211 H (74-106) mg/dL POC Glucose (70-105) mg/dL Calcium 8.9 (8.5-10.1) mg/dL Total Bilirubin 0.3 (0.2-1.0) mg/dL AST 36 (15-37) U/L ALT 57 (14-59) U/L Alkaline Phosphatase 107 (46-116) U/L Total Protein 5.7 L (6.4-8.2) g/dl Albumin 2.5 L (3.4-5.0) g/dl Globulin 3.2 gm/dL Albumin/Globulin Ratio 0.8 L (1-2) Urine Opiates Screen (VMUOZK=800) Ur Buprenorphine Scrn (CUTOFF=10) Ur Oxycodone Screen (EXD4MF=528) Urine Methadone Screen (NIADOG=921) Ur Propoxyphene Screen (ITQYVK=009) Ur Barbiturates Screen (HGWLDO=573) Ur Tricyclics Screen (CGUOHH=656) Ur Phencyclidine Scrn (CUTOFF=25) Ur Amphetamine Screen (PYYHPX=018) U Methamphetamines Scrn (MCRPSL=359) U Benzodiazepines Scrn (UQMFLV=926) U Cocaine Metab Screen (KFIEWR=767) U Marijuana (THC) Screen (CUTOFF=50) Med Orders - Current: Current Medications Bisacodyl (Dulcolax) 5 mg PO DAILY PRN PRN Reason: Constipation Cyclobenzaprine HCl (Flexeril) 10 mg PO TID PRN PRN Reason: Spasms Last Admin: 02/23/20 21:59 Dose: 10 mg Documented by: Docusate Sodium (Colace) 100 mg PO BID [facility] Enoxaparin Sodium (Lovenox) 30 mg SUBCUT BID [facility] Cefazolin Sodium/Dextrose 2 gm (/ Premix) 50 mls @ 100 mls/hr IV Q8H [facility] Stop: 02/24/20 11:29 Last Admin: 02/24/20 03:29 Dose: 100 mls/hr Documented by: Ketorolac Tromethamine (Toradol) 15 mg IVPUSH Q6H PRN PRN Reason: Pain Last Admin: 02/24/20 03:31 Dose: 15 mg Documented by: Levothyroxine Sodium (Synthroid) 50 mcg PO ACBREAKFAST [facility] Last Admin: 09/22/20 06:48 Dose: 50 mcg Documented by: Loratadine (Claritin) 10 mg PO BEDTIME [facility] Last Admin: 02/23/20 22:00 Dose: 10 mg Documented by: Lubiprostone (Amitiza) 24 mcg PO BIDMEALS [facility] Last Admin: 02/23/20 17:43 Dose: 24 mcg Documented by: Magnesium Hydroxide (Milk Of Magnesia) 30 ml PO BID PRN PRN Reason: Constipation Miscellaneous Information (Remove Patch) 0 ea TRDERM ONETIME ONE Stop: 02/26/20 08:01 Miscellaneous Information (Remove Patch) 1 ea TRDERM DAILY [facility] Morphine Sulfate (Morphine) 2 mg IVPUSH Q2H PRN PRN Reason: Breakthrough Pain Naloxone HCl (Narcan) 0.1 mg IVPUSH Q5M PRN PRN Reason: Oversedation Nicotine (Habitrol) 21 mg TRDERM DAILY [facility] Last Admin: 02/24/20 01:24 Dose: 21 mg Documented by: Ondansetron HCl (Zofran Odt) 8 mg PO Q6H PRN PRN Reason: Nausea Ondansetron HCl (Zofran) 4 mg IVPUSH Q6H PRN PRN Reason: Nausea/Vomiting Oxycodone/Acetaminophen (Percocet 325-5 Mg) 1 - 2 tab PO Q4H PRN PRN Reason: Pain Last Admin: 02/23/20 17:42 Dose: 1 tab Documented by: Pantoprazole Sodium (Protonix) 40 mg PO DAILY@0700 [facility] Last Admin: 02/24/20 06:48 Dose: 40 mg Documented by: Fluvoxamine 200 Mg 0 each PO BEDTIME [facility] Last Admin: 02/23/20 22:12 Dose: Not Given Documented by: Ozempic Pen Injector 0 each SUBCUT Th@0900 [facility] Polyethylene Glycol (Miralax) 17 gm PO DAILY [facility] Rosuvastatin Calcium (Crestor) 5 mg PO BEDTIME [facility] Last Admin: 02/23/20 22:00 Dose: 5 mg Documented by: Senna (Senna) 8.6 mg PO BID PRN PRN Reason: Constipation Sumatriptan Succinate (Imitrex) 50 mg PO ASDIRECTED PRN PRN Reason: migraines Topiramate (Topamax) 50 mg PO BID [facility] Last Admin: 02/23/20 22:00 Dose: 50 mg Documented by: Trospium (Sanctura) 20 mg PO BID [facility] Valacyclovir HCl (Valtrex) 500 mg PO DAILY [facility] Discontinued Medications Albuterol (Proventil Neb Soln) 2.5 mg NEB ONETIME PRN PRN Reason: asthma Stop: 02/23/20 18:00 Albuterol/Ipratropium (Duoneb 3.0-0.5 Mg/3 Ml) 3 ml NEB ONETIME ONE Stop: 02/23/20 09:01 Last Admin: 02/23/20 08:32 Dose: 3 ml Documented by: Bupivacaine HCl (Sensorcaine-Mpf 0.25%) Confirm Administered Dose 20 ml .ROUTE .STK-MED ONE Stop: 02/23/20 07:22 Last Admin: 02/23/20 12:37 Dose: 20 ml Documented by: Cefazolin Sodium (Ancef) 2 gm .ROUTE .STK-MED ONE Stop: 02/23/20 11:07 Famotidine (Pepcid) 20 mg IVPUSH ONETIME ONE Stop: 02/23/20 09:01 Last Admin: 02/23/20 08:40 Dose: 20 mg Documented by: Fentanyl (Sublimaze) Confirm Administered Dose 100 mcg .ROUTE .STK-MED ONE Stop: 02/23/20 07:40 Fentanyl (Sublimaze) 50 mcg IVPUSH Q5M PRN PRN Reason: Pain Stop: 02/23/20 18:00 Fentanyl (Sublimaze) Confirm Administered Dose 250 mcg .ROUTE .STK-MED ONE Stop: 02/23/20 11:21 Fentanyl (Sublimaze) 50 mcg IVPUSH Q5M PRN PRN Reason: Pain Stop: 02/23/20 18:00 Hydromorphone HCl (Dilaudid) 0.5 mg IVPUSH Q10M PRN PRN Reason: Pain (severe 7-10) Stop: 02/23/20 18:00 Hydromorphone HCl (Dilaudid) 0.5 mg IVPUSH Q10M PRN PRN Reason: Pain (severe 7-10) Stop: 02/23/20 18:00 Last Admin: 02/23/20 13:58 Dose: 0.5 mg Documented by: Lactated Ringer's (Ringers, Lactated) 1,000 mls @ 125 mls/hr IV ASDIRECTED [facility] Lidocaine HCl (Xylocaine-Mpf 1%) Confirm Administered Dose 4 mls @ as directed .ROUTE .ST-MED ONE Stop: 02/23/20 07:39 Lactated Ringer's (Ringers, Lactated) 1,000 mls @ 125 mls/hr IV ASDIRECTED [facility] Stop: 02/23/20 23:00 Last Admin: 02/23/20 14:03 Dose: 125 mls/hr Documented by: Lidocaine/Sodium Bicarbonate (Buffered Lidocaine 1% In Ns 8.4%) 0.25 ml IDERM ONETIME PRN PRN Reason: Prior to IV Start Lidocaine/Sodium Bicarbonate (Buffered Lidocaine 1% In Ns 8.4%) 0.25 ml IDERM ONETIME PRN PRN Reason: Prior to IV Start Stop: 02/23/20 18:00 Midazolam HCl (Versed 1 Mg/Ml) 1 mg IVPUSH ONETIME ONE Stop: 02/23/20 08:03 Last Admin: 02/23/20 17:12 Dose: Not Given Documented by: Midazolam HCl (Versed 1 Mg/Ml) Confirm Administered Dose 2 mg .ROUTE .[facility] ONE Stop: 02/23/20 11:10 Non-Formulary Medication (Cefdinir [Omnicef]) 300 mg PO BID [facility] Ondansetron HCl (Zofran) 4 mg IVPUSH ONETIME PRN PRN Reason: Nausea/Vomiting Stop: 02/23/20 18:00 Ondansetron HCl (Zofran) 4 mg IVPUSH ONETIME PRN PRN Reason: Nausea/Vomiting Stop: 02/23/20 18:00 Propofol (Diprivan 20 Ml) Confirm Administered Dose 200 mg .ROUTE .ST-MED ONE Stop: 02/23/20 07:39 Scopolamine (Transderm-Scop) 1.5 mg TRDERM ONETIME PRN PRN Reason: PONV Stop: 02/23/20 18:00 Last Admin: 02/23/20 07:54 Dose: 1.5 mg Documented by: Sodium Chloride (Saline Flush) 10 ml FLUSH ASDIRECTED PRN PRN Reason: Keep Vein Open Sodium Chloride (Saline Flush) 10 ml FLUSH ASDIRECTED PRN PRN Reason: Keep Vein Open Stop: 02/23/20 18:00 - Exam Wound/Incisions: Dressing Dry and Intact General: Alert, Cooperative, No Acute Distress Lungs: Normal Respiratory Effort Extremities: Other (NVS intact for RLE. Corine's negative. ) Sepsis Event Note - Evaluation Sepsis Screening Result: No Definite Risk - Focused Exam Vital Signs: Vital Signs Temp Pulse Resp BP Pulse Ox 02/24/20 04:00 98.2 F 80 16 136/88 95 02/23/20 23:57 98.1 F 79 16 137/84 95 - Problem List Review Problem List Initiated/Reviewed/Updated: Yes - My Orders Last 24 Hours: Active Orders 24 hr Category Date Time Status Admission Status [Patient Status] [ADT] Routine ADT 02/23/20 18:52 Active Patient Status [ADT] Routine ADT 02/23/20 14:07 Active Ambulate [RC] PER UNIT ROUTINE Care 02/23/20 14:07 Active Antiembolic Devices [RC] PER UNIT ROUTINE Care 02/23/20 14:09 Active Blood Glucose Check, Bedside [RC] PRN Care 02/23/20 14:05 Active Elevate Extremity [RC] CONTINUOUS Care 02/23/20 14:28 Active Insert Urinary Catheter [OM.PC] Q24H Care 02/23/20 08:15 Ordered May Shower [RC] ASDIRECTED Care 02/23/20 14:07 Active Notify Provider Consults [RC] ASDIRECTED Care 02/24/20 07:52 Ordered Oxygen Therapy [RC] PRN Care 02/23/20 14:07 Active Oxygen Therapy [RC] PRN Care 02/24/20 07:53 Ordered Ready for Discharge [RC] PER UNIT ROUTINE Care 02/23/20 07:05 Active Up to Chair [RC] ASDIRECTED Care 02/23/20 14:07 Active Vital Signs [RC] PER UNIT ROUTINE Care 02/24/20 07:53 Ordered Vital Signs [RC] Q4HR Care 02/23/20 14:07 Active Consult to Physician [CONS] Routine Cons 02/24/20 07:51 Ordered OT Evaluation and Treatment [CONS] Routine Cons 02/23/20 19:03 Active PT Evaluation and Treatment [CONS] Routine Cons 02/23/20 14:06 Active [employer] Diet [DIET] Diet 02/23/20 Lunch Active Acetaminophen/oxyCODONE [Percocet 325-5 MG] Med 02/23/20 14:06 Active 1 - 2 tab PO Q4H PRN Cyclobenzaprine [Flexeril] Med 02/23/20 15:00 Active 10 mg PO TID PRN Docusate Sodium [Colace] Med 02/24/20 09:00 Ordered 100 mg PO BID Enoxaparin [Lovenox] Med 02/24/20 09:00 Active 30 mg SUBCUT BID Ketorolac [Toradol] Med 02/23/20 15:00 Active 15 mg IVPUSH Q6H PRN Levothyroxine [Synthroid] Med 02/24/20 06:00 Active 50 mcg PO ACBREAKFAST Loratadine [Claritin] Med 02/23/20 21:00 Active 10 mg PO BEDTIME Lubiprostone [Amitiza] Med 02/23/20 17:00 Active 24 mcg PO BIDMEALS Magnesium Hydroxide [Milk of Magnesia] Med 02/24/20 07:53 Ordered 30 ml PO BID PRN Morphine Med 02/23/20 14:07 Active 2 mg IVPUSH Q2H PRN Naloxone [Narcan] Med 02/23/20 14:07 Active 0.1 mg IVPUSH Q5M PRN Nicotine [Habitrol] Med 02/24/20 01:00 Active 21 mg TRDERM DAILY Ondansetron [Zofran ODT] Med 02/23/20 14:29 Active 8 mg PO Q6H PRN Ondansetron [Zofran] Med 02/24/20 07:53 Ordered 4 mg IVPUSH Q6H PRN Pantoprazole [ProTONIX] Med 02/24/20 07:00 Active 40 mg PO DAILY@0700 Patient's Own Medication [Ptom] Med 02/23/20 21:00 Active 0 each PO BEDTIME Patient's Own Medication [Ptom] Med 02/26/20 09:00 Active 0 each SUBCUT Th@0900 Remove Patch Med 02/26/20 08:00 Once 0 ea TRDERM ONETIME ONE Remove Patch Med 02/24/20 09:00 Active 1 ea TRDERM DAILY Rosuvastatin [Crestor] Med 02/23/20 21:00 Active 5 mg PO BEDTIME SUMAtriptan [Imitrex] Med 02/23/20 14:29 Active 50 mg PO ASDIRECTED PRN Sennosides [Senna] Med 02/24/20 07:53 Ordered 8.6 mg PO BID PRN Topiramate [Topamax] Med 02/23/20 21:00 Active 50 mg PO BID Trospium [Sanctura] Med 02/24/20 09:00 Active 20 mg PO BID bisacodyL [Dulcolax] Med 02/24/20 07:53 Ordered 5 mg PO DAILY PRN ceFAZolin [Ancef] 2 gm Med 02/23/20 19:00 Active Premix Bag 1 bag IV Q8H polyethylene glycoL 3350 [MiraLAX] Med 02/24/20 09:00 Active 17 gm PO DAILY valACYclovir [Valtrex] Med 02/24/20 09:00 Active 500 mg PO DAILY Antiembolic Hose [OM.PC] Routine Oth 02/23/20 14:06 Ordered Ice Therapy [OM.PC] Per Unit Routine Oth 02/23/20 14:09 Ordered Peripheral IV Insertion Adult [OM.PC] Routine Oth 02/23/20 08:02 Ordered Sequential Compression Device [OM.PC] Per Unit Routine Oth 02/23/20 14:06 Ordered Weight bearing status [OM.PC] Routine Oth 02/23/20 14:06 Ordered Resuscitation Status Routine Resus Stat 02/23/20 14:07 Ordered Medication Orders Bisacodyl (Dulcolax) 5 mg PO DAILY PRN PRN Reason: Constipation Cyclobenzaprine HCl (Flexeril) 10 mg PO TID PRN PRN Reason: Spasms Last Admin: 02/23/20 21:59 Dose: 10 mg Documented by: LAINA Docusate Sodium (Colace) 100 mg PO BID [facility] Enoxaparin Sodium (Lovenox) 30 mg SUBCUT BID [facility] Cefazolin Sodium/Dextrose 2 gm (/ Premix) 50 mls @ 100 mls/hr IV Q8H [facility] Stop: 02/24/20 11:29 Last Admin: 02/24/20 03:29 Dose: 100 mls/hr Documented by: Infusion: 02/23/20 20:01 Dose: 100 mls/hr Documented by: Admin: 02/23/20 19:31 Dose: 100 mls/hr Documented by: LAINA Ketorolac Tromethamine (Toradol) 15 mg IVPUSH Q6H PRN PRN Reason: Pain Last Admin: 02/24/20 03:31 Dose: 15 mg Documented by: Admin: 02/23/20 22:01 Dose: 15 mg Documented by: LAINA Levothyroxine Sodium (Synthroid) 50 mcg PO ACBREAKFAST [facility] Last Admin: 02/24/20 06:48 Dose: 50 mcg Documented by: LAINA Loratadine (Claritin) 10 mg PO BEDTIME [facility] Last Admin: 02/23/20 22:00 Dose: 10 mg Documented by: LAINA Lubiprostone (Amitiza) 24 mcg PO BIDMEALS [facility] Last Admin: 02/23/20 17:43 Dose: 24 mcg Documented by: CHELSEA Magnesium Hydroxide (Milk Of Magnesia) 30 ml PO BID PRN PRN Reason: Constipation Miscellaneous Information (Remove Patch) 0 ea TRDERM ONETIME ONE Stop: 02/26/20 08:01 Miscellaneous Information (Remove Patch) 1 ea TRDERM DAILY [facility] Morphine Sulfate (Morphine) 2 mg IVPUSH Q2H PRN PRN Reason: Breakthrough Pain Naloxone HCl (Narcan) 0.1 mg IVPUSH Q5M PRN PRN Reason: Oversedation Nicotine (Habitrol) 21 mg TRDERM DAILY [facility] Last Admin: 02/24/20 01:24 Dose: 21 mg Documented by: LAINA Ondansetron HCl (Zofran Odt) 8 mg PO Q6H PRN PRN Reason: Nausea Ondansetron HCl (Zofran) 4 mg IVPUSH Q6H PRN PRN Reason: Nausea/Vomiting Oxycodone/Acetaminophen (Percocet 325-5 Mg) 1 - 2 tab PO Q4H PRN PRN Reason: Pain Last Admin: 02/23/20 17:42 Dose: 1 tab Documented by: CHELSEA Pantoprazole Sodium (Protonix) 40 mg PO DAILY@0700 [facility] Last Admin: 02/24/20 06:48 Dose: 40 mg Documented by: LAINA Fluvoxamine 200 Mg 0 each PO BEDTIME [facility] Last Admin: 02/23/20 22:12 Dose: Not Given Documented by: LAINA Ozempic Pen Injector 0 each SUBCUT Th@0900 [facility] Polyethylene Glycol (Miralax) 17 gm PO DAILY [facility] Rosuvastatin Calcium (Crestor) 5 mg PO BEDTIME [facility] Last Admin: 02/23/20 22:00 Dose: 5 mg Documented by: LAINA Senna (Senna) 8.6 mg PO BID PRN PRN Reason: Constipation Sumatriptan Succinate (Imitrex) 50 mg PO ASDIRECTED PRN PRN Reason: migraines Topiramate (Topamax) 50 mg PO BID [facility] Last Admin: 02/23/20 22:00 Dose: 50 mg Documented by: LAINA Trospium (Sanctura) 20 mg PO BID [facility] Valacyclovir HCl (Valtrex) 500 mg PO DAILY [facility] - Assessment Assessment (Free Text/Narrative):: POD#1 - IM gracie placement for right tibia fracture - Plan Plan (Free Text/Narrative):: 1. Hgb 9.3. 2. Lovenox BID (family hx VTE, pt with hx gastric bypass, smoker), frequent moibility, SCD, TEDs. 3. Suspect d/c to [place] for continued therapy. 4. Hospitalist consult ordered for DM, HTN, ROWDY management. 5. Social work/case management consult for discharge planning. The pt's case was discussed with Dr. Camarillo.
--- NOTE | 2020-02-24 08:07 | PCM.CONS ---
H&P History of Present Illness - General Date of Service: 02/24/20 Admit Problem/Dx: Admission Diagnosis/Problem Admission Diagnosis/Problem Fracture of distal end of right tibia Source of Information: Patient, Old Records, Provider, RN, RN Notes Reviewed History Limitations: Reports: No Limitations - History of Present Illness Initial Comments - Free Text/Narative: Nancy Davenport is a 39 yo female patient of Dr. Camarillo who is post-operative day 1 of right tibia intramedullary nailing. Was seen in the ED on 02/17/2020 and diagnosed with a tibial and fibular fracture. Splint was placed she was instructed to follow-up with orthopedics. Surgery was performed on 02/23/2020. P ryan was to discharge home same day, after surgery however patient was noted to have difficulty with urination and ambulation postoperatively. Hospital medicine was consulted for post-operative medical care of the following listed medical conditions. At this time she is resting comfortably in bed. Pain is controlled. She denies any chest pain, shortness of breath, palpitations, nausea, or vomiting. She carries a history of: HLD, HTN, asthma, sleep apnea, right lung nodule, GERD, IBD, elevated LFT, STDs, recurrent UTIs, fibromyalgia, migraines, short-term memory loss, ADHD, bipolar, depression, OCD, type II DM, hypothyroidism, obesity, History of drug and ETOH abuse, gastric bypass. She is a current daily smoker. She is a full code. Her primary care provider is Ana M Fontana NP. Right Lower Leg Pain Score (Numeric/FACES): 7 - Related Data Allergies/Adverse Reactions: Allergies Allergy/AdvReac Type Severity Reaction Status Date / Time Iodinated Contrast Media Allergy Rash Verified 02/23/20 10:35 [Iodinated Contrast Media - IV Dye] Home Medications: Home Meds Cetirizine [ZyrTEC] 10 mg PO BEDTIME 12/01/17 [History] Fesoterodine Fumarate [Toviaz] 8 mg PO DAILY 12/01/17 [History] Levothyroxine [Synthroid] 50 mcg PO ACBREAKFAST 12/01/17 [History] Lubiprostone [Amitiza] 24 mcg PO BID 12/01/17 [History] Ondansetron [Zofran ODT] 8 mg PO Q6H PRN 12/01/17 [History] Pantoprazole Sodium [Protonix] 40 mg PO DAILY 12/01/17 [History] Rosuvastatin [Crestor] 5 mg PO BEDTIME 12/01/17 [History] Topiramate [Topamax] 50 mg PO BID 12/01/17 [History] polyethylene glycoL 3350 [MiraLAX] 1 packet PO DAILY 12/01/17 [History] valACYclovir HCl [Valtrex] 500 mg PO DAILY 12/01/17 [History] fluvoxaMINE [Luvox] 200 mg PO BEDTIME 06/12/18 [History] SUMAtriptan [Imitrex] 50 mg PO ASDIRECTED PRN 08/16/18 [History] Cefdinir [Omnicef] 300 mg PO BID 7 Days #14 cap 02/20/20 [Rx] Ozempic 1 dose SQ TH 02/21/20 [History] Acetaminophen/oxyCODONE [Percocet 325-5 MG] 1 - 2 tab PO Q4H PRN #40 tablet 02/23/20 [Rx] Cyclobenzaprine [Flexeril] 10 mg PO BID PRN #20 tablet 02/23/20 [Rx] Enoxaparin [Lovenox] 30 mg SUBCUT BID #60 syringe 02/23/20 [Rx] Past Medical History HEENT History: Reports: Impaired Vision, Other (See Below) Other HEENT History: wears glasses Cardiovascular History: Reports: High Cholesterol, Hypertension Respiratory History: Reports: Asthma, Sleep Apnea Other Respiratory History: upper respiratory infection, Right lung nodule Gastrointestinal History: Reports: GERD, Irritable Bowel Syndrome, Other (See Below) Other Gastrointestinal History: anal fissure, elevated liver function tests, nausea, flank pain Genitourinary History: Reports: STD, UTI, Recurrent, Other (See Below) Other Genitourinary History: dysuria, gential herpes, dyspareunia, frequency FRUIT HARVESTER History: Reports: Other (See Below) Other OB/BYN History: vagintis, vulvovagintitis, atropic vaginitis Musculoskeletal History: Reports: Fibromyalgia Other Musculoskeletal History: left carpal tunnel syndrome, cubital tunnel syndrome, elbow pain Neurological History: Reports: Migraines, Other (See Below) Other Neuro History: short term memory loss Psychiatric History: Reports: ADHD, Bipolar, Depression, OCD, Other (See Below) Endocrine/Metabolic History: Reports: Diabetes, Type II, Hypothyroidism, Obesity/BMI 30+ Other Endocrine/Metabolic History: fibromyalgia Hematologic History: Reports: Other (See Below) Other Hematologic History: hypomagnesia Immunologic History: Reports: None Oncologic (Cancer) History: Reports: None Dermatologic History: Reports: Seborrheic Dermatitis Other Dermatologic History: acne, skin excoriation, skin lesion - Infectious Disease History Infectious Disease History: Reports: Herpes Other Infectious Disease History: STD: genital herpes - Past Surgical History Head Surgeries/Procedures: Reports: None HEENT Surgical History: Reports: Naso-Sinus Surgery, Oral Surgery, Tonsillectomy Other HEENT Surgeries/Procedures: Endentulous Cardiovascular Surgical History: Reports: None Respiratory Surgical History: Reports: None GI Surgical History: Reports: Appendectomy, Bariatric Procedure, Cholecystectomy Female Surgical History: Reports: Hysterectomy, Salpingo-Oophorectomy, Tubal Ligation Endocrine Surgical History: Reports: None Neurological Surgical History: Reports: None Other Neurological Surgeries/Procedures: Depression Musculoskeletal Surgical History: Reports: None Oncologic Surgical History: Reports: None Social & Family History - Family History Family Medical History: Noncontributory - Tobacco Use Smoking Status *Q: Current Every Day Smoker Years of Tobacco use: 20 Packs/Tins Daily: 10 Second Hand Smoke Exposure: Yes - Caffeine Use Caffeine Use: Reports: Coffee, Soda Other Caffeine Use: 2 cans of pop and a cup of coffee - Recreational Drug Use Recreational Drug Use: Yes Drug Use in Last 12 Months: No Recreational Drug Type: Reports: Ecstasy, Heroin, Methamphetamine, Other (see below) Other Recreational Drug Type: in [place] in 1996 - Living Situation & Occupation Living situation: Reports: Single, Alone Occupation: Disabled H&P Review of Systems - Review of Systems: Review Of Systems: See Below General: Reports: Weakness. Denies: Fever, Chills HEENT: Reports: No Symptoms Pulmonary: Reports: No Symptoms. Denies: Shortness of Breath, Wheezing, Pleuritic Chest Pain, Cough, Sputum Cardiovascular: Reports: No Symptoms. Denies: Chest Pain, Palpitations, Dyspnea on Exertion, Edema Gastrointestinal: Reports: No Symptoms. Denies: Abdominal Pain, Constipation, Diarrhea, Nausea, Vomiting Genitourinary: Reports: No Symptoms. Denies: Pain Musculoskeletal: Reports: Leg Pain Skin: Reports: No Symptoms. Denies: Cyanosis Psychiatric: Reports: No Symptoms. Denies: Confusion Neurological: Reports: Difficulty Walking, Weakness, Gait Disturbance. Denies: Numbness, Tingling Hematologic/Lymphatic: Reports: No Symptoms Immunologic: Reports: No Symptoms Exam - Exam Exam: See Below - Vital Signs Vital Signs: Last Vital Signs Temp 98.2 F 02/24/20 04:00 Pulse 80 02/24/20 04:00 Resp 16 02/24/20 04:00 BP 136/88 02/24/20 04:00 Pulse Ox 95 02/24/20 04:00 Weight: 163 lb - Exam Quality Assessment: DVT Prophylaxis. No: Supplemental Oxygen, Urinary Catheter General: Alert, Oriented, Cooperative. No: Mild Distress HEENT: Conjunctiva Clear, EACs Clear, Mucosa Moist & [place] Neck: Supple, Trachea Midline Lungs: Clear to Auscultation, Normal Respiratory Effort Cardiovascular: Regular Rate, Regular Rhythm GI/Abdominal Exam: Normal Bowel Sounds, Soft, Non-Tender, No Distention (Female) Exam: Normal External Exam Rectal (Female) Exam: Deferred Extremities: Normal Capillary Refill, Leg Pain, Limited Range of Motion, Other (Bandage in place on right leg. Cooling pack in place. ) Skin: Warm, Dry, Intact Neurological: Cranial Nerves Intact (Grossly ) Neuro Extensive - Mental Status: Alert, Oriented x3, Normal Mood/Affect - Patient Data Lab Results Last 24 hrs: Laboratory Results - last 24 hr 02/23/20 02/23/20 02/24/20 Range/Units 08:30 13:28 05:40 WBC 9.29 (3.98-10.04) K/mm3 RBC 2.93 L (3.98-5.22) M/mm3 Hgb 9.3 L D (11.2-15.7) gm/dl Hct 28.6 L (34.1-44.9) % MCV 97.6 H (79.4-94.8) fl MCH 31.7 (25.6-32.2) pg MCHC 32.5 (32.2-35.5) g/dl RDW Std Deviation 46.9 H (36.4-46.3) fL Plt Count 258 (182-369) K/mm3 MPV 8.8 L (9.4-12.3) fl Sodium (136-145) mEq/L Potassium (3.5-5.1) mEq/L Chloride (98-107) mEq/L Carbon Dioxide (21-32) mEq/L Anion Gap (5-15) BUN (7-18) mg/dL Creatinine (0.55-1.02) mg/dL Est Cr Clr Drug Dosing mL/min Estimated GFR (MDRD) (>60) mL/min BUN/Creatinine Ratio (14-18) Glucose (74-106) mg/dL POC Glucose 168 H (70-105) mg/dL Calcium (8.5-10.1) mg/dL Total Bilirubin (0.2-1.0) mg/dL AST (15-37) U/L ALT (14-59) U/L Alkaline Phosphatase (46-116) U/L Total Protein (6.4-8.2) g/dl Albumin (3.4-5.0) g/dl Globulin gm/dL Albumin/Globulin Ratio (1-2) Urine Opiates Screen Presumptive positive H (BOEYCV=405) Ur Buprenorphine Scrn Negative (CUTOFF=10) Ur Oxycodone Screen Negative (ARV4DH=244) Urine Methadone Screen Negative (DOYJQZ=888) Ur Propoxyphene Screen Negative (NRJDKN=655) Ur Barbiturates Screen Negative (YJTRWO=200) Ur Tricyclics Screen Negative (OUIQMG=261) Ur Phencyclidine Scrn Negative (CUTOFF=25) Ur Amphetamine Screen Negative (KHQAKS=750) U Methamphetamines Scrn Negative (SUZEPP=459) U Benzodiazepines Scrn Negative (QXIIXJ=913) U Cocaine Metab Screen Negative (KGUMSS=490) U Marijuana (THC) Screen Negative (CUTOFF=50) 02/24/20 Range/Units 05:40 WBC (3.98-10.04) K/mm3 RBC (3.98-5.22) M/mm3 Hgb (11.2-15.7) gm/dl Hct (34.1-44.9) % MCV (79.4-94.8) fl MCH (25.6-32.2) pg MCHC (32.2-35.5) g/dl RDW Std Deviation (36.4-46.3) fL Plt Count (182-369) K/mm3 MPV (9.4-12.3) fl Sodium 140 (136-145) mEq/L Potassium 4.3 (3.5-5.1) mEq/L Chloride 104 (98-107) mEq/L Carbon Dioxide 27 (21-32) mEq/L Anion Gap 13.3 (5-15) BUN 21 H (7-18) mg/dL Creatinine 0.9 (0.55-1.02) mg/dL Est Cr Clr Drug Dosing 65.06 mL/min Estimated GFR (MDRD) > 60 (>60) mL/min BUN/Creatinine Ratio 23.3 H (14-18) Glucose 211 H (74-106) mg/dL POC Glucose (70-105) mg/dL Calcium 8.9 (8.5-10.1) mg/dL Total Bilirubin 0.3 (0.2-1.0) mg/dL AST 36 (15-37) U/L ALT 57 (14-59) U/L Alkaline Phosphatase 107 (46-116) U/L Total Protein 5.7 L (6.4-8.2) g/dl Albumin 2.5 L (3.4-5.0) g/dl Globulin 3.2 gm/dL Albumin/Globulin Ratio 0.8 L (1-2) Urine Opiates Screen (TRTTLA=497) Ur Buprenorphine Scrn (CUTOFF=10) Ur Oxycodone Screen (CTV6VB=429) Urine Methadone Screen (VYKTOZ=269) Ur Propoxyphene Screen (VCNJUM=561) Ur Barbiturates Screen (DHVXVS=764) Ur Tricyclics Screen (QXLUGZ=008) Ur Phencyclidine Scrn (CUTOFF=25) Ur Amphetamine Screen (IZAKXE=843) U Methamphetamines Scrn (WXUXYB=007) U Benzodiazepines Scrn (FQSXRU=124) U Cocaine Metab Screen (NTNWQF=124) U Marijuana (THC) Screen (CUTOFF=50) Result Diagrams: 02/24/20 05:40 02/24/20 05:40 Sepsis Event Note - Evaluation Sepsis Screening Result: No Definite Risk - Focused Exam Vital Signs: Vital Signs Temp Pulse Resp BP Pulse Ox 02/24/20 04:00 98.2 F 80 16 136/88 95 02/23/20 23:57 98.1 F 79 16 137/84 95 Consult PN Assessment/Plan POD#: 1 Procedures: Procedures ACUTE HEPATITIS PANEL (03/20/18) ANTINUCLEAR ANTIBODIES (03/20/18) APPLICATION LONG LEG SPLINT (02/17/20) ASSAY OF AMMONIA (11/25/18) ASSAY OF CERULOPLASMIN (03/20/18) ASSAY OF CK (CPK) (08/12/18) ASSAY OF COPPER (11/16/15) ASSAY OF CREATININE (01/31/16) ASSAY OF FERRITIN (04/21/19) ASSAY OF FOLIC ACID SERUM (11/16/15) ASSAY OF FREE THYROXINE (09/15/15) ASSAY OF IRON (04/21/19) ASSAY OF LITHIUM (10/11/15) ASSAY OF MAGNESIUM (08/16/18) ASSAY OF PHOSPHORUS (11/16/15) ASSAY THYROID STIM HORMONE (11/13/19) BL SMEAR W/DIFF WBC COUNT (11/25/18) C-REACTIVE PROTEIN (02/17/20) CARDIOVASCULAR STRESS TEST (01/13/16) CARPAL TUNNEL SURGERY (04/17/17) CHEST X-RAY 2VW FRONTAL&LATL (01/13/16) COMP SCREEN MAMMOGRAM ADD-ON (09/03/14) COMPLETE CBC AUTOMATED (11/13/19) COMPLETE CBC W/AUTO DIFF WBC (02/19/20) COMPREHEN METABOLIC PANEL (02/19/20) CT HEAD/BRAIN W/O DYE (02/17/20) CT MAXILLOFACIAL W/O DYE (06/05/18) CT NECK SPINE W/O DYE (02/25/15) CT THORAX W/DYE (01/31/16) CULTURE SCREEN ONLY (08/21/17) DRUG TEST PRSMV INSTRMNT (11/25/18) ECHO EXAM OF ABDOMEN (12/12/17) ELECTROCARDIOGRAM TRACING (11/25/18) EMERGENCY DEPT VISIT (02/17/20) EMERGENCY DEPT VISIT (08/13/18) EMERGENCY DEPT VISIT (08/12/18) EMERGENCY DEPT VISIT (06/12/18) EMERGENCY DEPT VISIT (07/04/16) EMERGENCY DEPT VISIT (02/25/15) EMERGENCY DEPT VISIT (11/10/13) FIBRIN DEGRADATION QUANT (08/16/18) FREE ASSAY (FT-3) (09/15/15) GLUCOSE BLOOD TEST (02/17/20) GLYCOSYLATED HEMOGLOBIN TEST (02/19/20) HT MUSCLE IMAGE SPECT MULT (01/13/16) HYDRATE IV INFUSION ADD-ON (02/17/20) HYDRATION IV INFUSION INIT (11/25/18) LIPID PANEL (11/25/18) METABOLIC PANEL TOTAL CA (08/16/18) MICROBE SUSCEPTIBLE SALOME (02/17/20) MR-STAPH DNA AMP PROBE (04/04/17) MRI JOINT UPR EXTREM W/O DYE (10/23/17) OFFICE/OUTPATIENT VISIT EST (11/13/19) POLYSOM 6/> YRS 4/> ALEKSANDRA (05/17/17) PROTHROMBIN TIME (04/10/17) ROUTINE VENIPUNCTURE (02/19/20) SMEAR WET [place] SALINE/INK (06/24/18) STREP A AG IA (08/21/17) THER/PROPH/DIAG INJ IV PUSH (02/17/20) THER/PROPH/DIAG INJ SC/IM (08/13/18) TRICHOMONAS ASSAY W/OPTIC (06/24/18) TX/PRO/DX INJ NEW DRUG ADDON (02/17/20) TX/PRO/DX INJ SAME DRUG COLLABORATIVE PHYSICIAN (02/17/20) UR ALBUMIN SEMIQUANTITATIVE (02/15/16) URINALYSIS AUTO W/O SCOPE (04/21/19) URINALYSIS AUTO W/SCOPE (02/17/20) URINE BACTERIA CULTURE (02/17/20) URINE CULTURE/COLONY COUNT (02/17/20) URINE TEST (11/25/18) VITAMIN B-12 (06/27/17) VITAMIN D 25 HYDROXY (06/27/17) X-RAY EXAM L-S SPINE 2/3 VWS (12/06/17) X-RAY EXAM NECK SPINE 2-3 VW (11/10/13) X-RAY EXAM NECK SPINE 4/5VWS (10/17/17) X-RAY EXAM OF ABDOMEN (08/05/16) X-RAY EXAM OF ABDOMEN (07/29/16) X-RAY EXAM OF LOWER LEG (02/17/20) X-RAY EXAM OF SHOULDER (10/17/17) (1) HLD (hyperlipidemia) SNOMED Code(s): 18136545 Code(s): E78.5 - HYPERLIPIDEMIA, UNSPECIFIED Priority: Low Current Visit: No Qualifiers: Hyperlipidemia type: unspecified Qualified Code(s): E78.5 - Hyperlipidemia, unspecified (2) HTN (hypertension) SNOMED Code(s): 49238611 Code(s): I10 - ESSENTIAL (PRIMARY) HYPERTENSION Priority: Medium Current Visit: No Qualifiers: Hypertension type: unspecified Qualified Code(s): I10 - Essential (primary) hypertension (3) Asthma SNOMED Code(s): 359998505 Code(s): J45.909 - UNSPECIFIED ASTHMA, UNCOMPLICATED Priority: Low Current Visit: No Qualifiers: Asthma severity: unspecified severity Asthma persistence: unspecified Asthma complication type: unspecified Qualified Code(s): J45.909 - Unspecified asthma, uncomplicated (4) ROWDY (obstructive sleep apnea) SNOMED Code(s): 87462070 Code(s): G47.33 - OBSTRUCTIVE SLEEP APNEA (ADULT) (PEDIATRIC) Priority: Low Current Visit: No (5) GERD (gastroesophageal reflux disease) SNOMED Code(s): 149488751 Code(s): K21.9 - GASTRO-ESOPHAGEAL REFLUX DISEASE WITHOUT ESOPHAGITIS Priority: Low Current Visit: No Qualifiers: Esophagitis presence: esophagitis presence not specified Qualified Code(s): K21.9 - Gastro-esophageal reflux disease without esophagitis (6) Nodule of right lung SNOMED Code(s): 844252580 Code(s): R91.1 - SOLITARY PULMONARY NODULE Priority: Low Current Visit: No (7) STD (female) SNOMED Code(s): 1599301, 112862990 Code(s): A64 - UNSPECIFIED SEXUALLY TRANSMITTED DISEASE Priority: Low Current Visit: No (8) Recurrent UTI SNOMED Code(s): 034423783 Code(s): N39.0 - URINARY TRACT INFECTION, SITE NOT SPECIFIED Priority: Low Current Visit: No (9) Fibromyalgia SNOMED Code(s): 558658017 Code(s): M79.7 - FIBROMYALGIA Priority: Medium Current Visit: No (10) Migraines SNOMED Code(s): 76478552 Code(s): G43.909 - MIGRAINE, UNSP, NOT INTRACTABLE, WITHOUT STATUS MIGR AINOSUS Priority: Low Current Visit: No Qualifiers: Migraine type: unspecified Status migrainosus presence: without status migrainosus Intractability: not intractable Qualified Code(s): G43.909 - Migraine, unspecified, not intractable, without status migrainosus (11) ADHD SNOMED Code(s): 654080496 Code(s): F90.9 - ATTENTION-DEFICIT HYPERACTIVITY DISORDER, UNSPECIFIED TYPE Priority: Low Current Visit: No Qualifiers: Attention deficit-hyperactivity disorder type: unspecified Qualified Code(s): F90.9 - Attention-deficit hyperactivity disorder, unspecified type (12) Bipolar disorder SNOMED Code(s): 31046598 Code(s): F31.9 - BIPOLAR DISORDER, UNSPECIFIED Priority: Medium Current Visit: No Qualifiers: Active/Remission status: remission status unspecified Qualified Code(s): F31.9 - Bipolar disorder, unspecified (13) Depression SNOMED Code(s): 48234532 Code(s): F32.9 - MAJOR DEPRESSIVE DISORDER, SINGLE EPISODE, UNSPECIFIED Priority: Low Current Visit: No Qualifiers: Depression Type: other depression Qualified Code(s): F32.89 - Other specified depressive episodes (14) OCD (obsessive compulsive disorder) SNOMED Code(s): 187061094 Code(s): F42.9 - OBSESSIVE-COMPULSIVE DISORDER, UNSPECIFIED Priority: Medium Current Visit: No Qualifiers: Obsessive-compulsive disorder type: unspecified Qualified Code(s): F42.9 - Obsessive-compulsive disorder, unspecified (15) Type II diabetes mellitus SNOMED Code(s): 05561445 Code(s): E11.9 - TYPE 2 DIABETES MELLITUS WITHOUT COMPLICATIONS Priority: Medium Current Visit: Yes Qualifiers: Diabetes mellitus residential insulin use: without terminal manager use Diabetes mellitus complication status: with other specified complication Qualified Code(s): E11.69 - Type 2 diabetes mellitus with other specified complication (16) Hypothyroidism SNOMED Code(s): 41037649 Code(s): E03.9 - HYPOTHYROIDISM, UNSPECIFIED Priority: Low Current Visit: No Qualifiers: Hypothyroidism type: unspecified Qualified Code(s): E03.9 - Hypothyroidism, unspecified (17) Recent surgical procedure on lower extremity SNOMED Code(s): 316151622 Code(s): Z98.890 - OTHER SPECIFIED POSTPROCEDURAL STATES Priority: High Current Visit: Yes Problem List Initiated/Reviewed/Updated: Yes My Orders Last 24 Hours: My Active Orders 02/24/20 07:59 Blood Glucose Check, Bedside [RC] QIDACANDBED 02/24/20 11:00 Insulin Lispro [HumaLOG] See Protocol SUBCUT QIDACANDBED Plan: I/P: Acute: S/P right tibia intramedullary nailing - post-operative day 1 -Injured in fall - seen in ED on 02/17/2020 -Was admitted to floor last night after difficulty with ambulation and urination -DVT prophylaxis and pain management per primary care team -PT/OT -IS/RT -Monitor oxygen saturation -Titrate oxygen as needed -Home medications reviewed -Vital signs stable -Monitor labs -Pre-operative Hgb was 11.5; Now 9.3 -Pre-operative GFR was >60; Now >60 -Pre-operative A1C was 7.2% -Sliding scale insulin and QID AC and bedtime glucose checks Current daily smoker -Nicotine patches -Cessation counseling -Patches on discharge Chronic: HLD HTN asthma sleep apnea right lung nodule GERD IBD elevated LFT STDs recurrent UTIs fibromyalgia migraines short-term memory loss ADHD bipolar depression OCD type II DM hypothyroidism obesity History of drug and ETOH abuse History of gastric bypass Plan: CM for discharge planning GI prophylaxis Home medications as indicated Other orders as listed above Routine AM labs She is a full code. Her PCP is Ana M Fontana NP. From a hospitalist standpoint Nancy is doing pretty well today, after a difficult night. She is known to this service from prior hospitalizations. She has been hospitalized in the past for hypoglycemia. Her labs and vital signs hav e remained stable. She was up ambulating and working with PT and OT. She has been up urinating and is off of oxygen. She takes Ozempic for her diabetes. Blood glucose readings have overall been satisfactory, especially given her hypoglycemia history. Patient reports glucose readings of 120-160 at home. She reports she takes these occasionally. A1C was reviewed and was 7.2% on 02/19/20, up from 7.0% on 11/13/2019. Pain has been controlled. Per primary team and after discussion with the patient, plan is for discharge to a SNF vs. [facility]. During her last admission placement was recommend and she ultimately refused, leaving AMA. She is cleared for discharge, pending primary team and PT/OT agreement. Thank you for allowing us to participate in the care of this patient!! Requesting Provider: Dr. Camarillo Date Consult Requested: 02/24/20 Patient History Reviewed: Yes Admission H&P Reviewed: Yes Notified Requestor: Yes
[2020-02-24] MEDS: Trospium 20 MG Tab PO SCH ×2 (08:50→21:44)
[2020-02-24] MEDS: valACYclovir 500 MG Tab PO SCH (08:51)
[2020-02-24] MEDS: Lubiprostone 24 MCG Cap PO SCH ×2 (08:55→18:14)
[2020-02-24] MEDS: Docusate Sodium 100 MG Cap PO SCH ×2 (08:56→21:42)
[2020-02-24] MEDS: Enoxaparin 30 MG/0.3 ML Syringe SUBCUT SCH ×2 (08:56→21:47)
[2020-02-24] MEDS: Polyethylene Glycol 3350 Powder 17 GM Packet PO SCH (08:57)
[2020-02-24] MEDS: Magnesium Hydroxide 400 MG/5 ML Susp 30 ML Cup PO PRN (08:59)
[2020-02-24] MEDS: Topiramate 25 MG Tab PO SCH ×2 (09:15→21:43)
[2020-02-24] MEDS: Acetaminophen/oxyCODONE 325-5 MG Tab PO PRN ×3 (12:23→21:45)
[2020-02-24] MEDS: Cyclobenzaprine 10 MG Tab PO PRN ×2 (12:24→20:16)
[2020-02-24] MEDS: Insulin Lispro 100 Units/ML 3 ML Vial SUBCUT SCH ×3 (12:40→21:48)
[2020-02-24] MEDS: Loratadine 10 MG Tab PO SCH (21:41)
[2020-02-24] MEDS: Rosuvastatin 10 MG Tab PO SCH (21:42)
[2020-02-24] MEDS: Bisacodyl 5 MG Tab PO PRN (21:43)
[2020-02-24] MEDS: FLUVOXAMINE 200 MG PO SCH (22:31)
[2020-02-25] MEDS: Levothyroxine 50 MCG Tab PO SCH (06:15)
[2020-02-25] MEDS: Pantoprazole 40 MG Tab.CR PO SCH (06:15)
--- NOTE | 2020-02-25 07:15 | PCM.CONSN ---
- General Info Date of Service: 02/25/20 Admission Dx/Problem (Free Text): Admission Diagnosis/Problem Admission Diagnosis/Problem Fracture of distal end of right tibia Functional Status: Reports: Tolerating Diet, Ambulating, Urinating. Denies: Pain Controlled (Reports significan leg pain), New Symptoms - Review of Systems General: Reports: Weakness. Denies: Fever, Fatigue, Malaise, Chills HEENT: Reports: No Symptoms. Denies: Headaches, Sore Throat Pulmonary: Reports: No Symptoms. Denies: Shortness of Breath, Cough, Sputum, Wheezing Cardiovascular: Reports: No Symptoms. Denies: Chest Pain, Palpitations, Dyspnea on Exertion Gastrointestinal: Reports: No Symptoms. Denies: Abdominal Pain, Constipation, Diarrhea, Nausea, Vomiting Genitourinary: Reports: No Symptoms. Denies: Pain Musculoskeletal: Reports: Leg Pain Skin: Reports: No Symptoms. Denies: Cyanosis Neurological: Reports: Difficulty Walking, Weakness, Gait Disturbance. Denies: Numbness, Tingling Psychiatric: Reports: Mood Lability. Denies: Confusion - Patient Data Vitals - Most Recent: Last Vital Signs Temp 97.9 F 02/24/20 20:23 Pulse 91 02/24/20 20:23 Resp 16 02/24/20 20:23 BP 131/89 02/24/20 20:23 Pulse Ox 95 02/24/20 20:23 Weight - Most Recent: 163 lb I&O - Last 24 Hours: Intake & Output 02/24/20 02/25/20 02/25/20 22:59 06:59 14:59 Intake Total 1220 Balance 1220 Lab Results Last 24 Hours: Laboratory Results - last 24 hr 02/24/20 02/24/20 02/24/20 Range/Units 12:21 18:17 21:18 POC Glucose 348 H 295 H 189 H (70-105) mg/dL Med Orders - Current: Current Medications Bisacodyl (Dulcolax) 5 mg PO DAILY PRN PRN Reason: Constipation Last Admin: 02/24/20 21:43 Dose: 5 mg Documented by: Cyclobenzaprine HCl (Flexeril) 10 mg PO TID PRN PRN Reason: Spasms Last Admin: 02/24/20 20:16 Dose: 10 mg Documented by: Docusate Sodium (Colace) 100 mg PO BID JACOB Last Admin: 02/24/20 21:42 Dose: 100 mg Documented by: Enoxaparin Sodium (Lovenox) 30 mg SUBCUT BID [facility] Last Admin: 02/24/20 21:47 Dose: 30 mg Documented by: Insulin Human Lispro (Humalog) 0 unit SUBCUT QIDACANDBED [facility]; Protocol Last Admin: 02/24/20 21:48 Dose: 1 units Documented by: Levothyroxine Sodium (Synthroid) 50 mcg PO ACBREAKFAST [facility] Last Admin: 02/25/20 06:15 Dose: 50 mcg Documented by: Loratadine (Claritin) 10 mg PO BEDTIME [facility] Last Admin: 02/24/20 21:41 Dose: 10 mg Documented by: Lubiprostone (Amitiza) 24 mcg PO BIDMEALS [facility] Last Admin: 02/24/20 18:14 Dose: 24 mcg Documented by: Magnesium Hydroxide (Milk Of Magnesia) 30 ml PO BID PRN PRN Reason: Constipation Last Admin: 02/24/20 08:59 Dose: 30 ml Documented by: Miscellaneous Information (Remove Patch) 0 ea TRDERM ONETIME ONE Stop: 02/26/20 08:01 Miscellaneous Information (Remove Patch) 1 ea TRDERM DAILY [facility] Morphine Sulfate (Morphine) 2 mg IVPUSH Q2H PRN PRN Reason: Breakthrough Pain Naloxone HCl (Narcan) 0.1 mg IVPUSH Q5M PRN PRN Reason: Oversedation Nicotine (Habitrol) 21 mg TRDERM DAILY [facility] Ondansetron HCl (Zofran Odt) 8 mg PO Q6H PRN PRN Reason: Nausea Ondansetron HCl (Zofran) 4 mg IVPUSH Q6H PRN PRN Reason: Nausea/Vomiting Oxycodone/Acetaminophen (Percocet 325-5 Mg) 1 - 2 tab PO Q4H PRN PRN Reason: Pain Last Admin: 02/24/20 21:45 Dose: 2 tab Documented by: Pantoprazole Sodium (Protonix) 40 mg PO DAILY@0700 [facility] Last Admin: 02/25/20 06:15 Dose: 40 mg Documented by: Fluvoxamine 200 Mg 0 each PO BEDTIME [facility] Last Admin: 02/24/20 22:31 Dose: Not Given Documented by: Ozempic Pen Injector 0 each SUBCUT Th@0900 [facility] Polyethylene Glycol (Miralax) 17 gm PO DAILY [facility] Last Admin: 02/24/20 08:57 Dose: 17 gm Documented by: Rosuvastatin Calcium (Crestor) 5 mg PO BEDTIME [facility] Last Admin: 02/24/20 21:42 Dose: 5 mg Documented by: Senna (Senna) 8.6 mg PO BID PRN PRN Reason: Constipation Last Admin: 02/24/20 21:44 Dose: 8.6 mg Documented by: Sumatriptan Succinate (Imitrex) 50 mg PO ASDIRECTED PRN PRN Reason: migraines Topiramate (Topamax) 50 mg PO BID [facility] Last Admin: 02/24/20 21:43 Dose: 50 mg Documented by: Trospium (Sanctura) 20 mg PO BID [facility] Last Admin: 02/24/20 21:44 Dose: 20 mg Documented by: Valacyclovir HCl (Valtrex) 500 mg PO DAILY [facility] Last Admin: 02/24/20 08:51 Dose: 500 mg Documented by: Discontinued Medications Albuterol (Proventil Neb Soln) 2.5 mg NEB ONETIME PRN PRN Reason: asthma Stop: 02/23/20 18:00 Albuterol/Ipratropium (Duoneb 3.0-0.5 Mg/3 Ml) 3 ml NEB ONETIME ONE Stop: 02/23/20 09:01 Last Admin: 02/23/20 08:32 Dose: 3 ml Documented by: Bupivacaine HCl (Sensorcaine-Mpf 0.25%) Confirm Administered Dose 20 ml .ROUTE .STK-MED ONE Stop: 02/23/20 07:22 Last Admin: 02/23/20 12:37 Dose: 20 ml Documented by: Cefazolin Sodium (Ancef) 2 gm .ROUTE .STK-MED ONE Stop: 02/23/20 11:07 Famotidine (Pepcid) 20 mg IVPUSH ONETIME ONE Stop: 02/23/20 09:01 Last Admin: 02/23/20 08:40 Dose: 20 mg Documented by: Fentanyl (Sublimaze) Confirm Administered Dose 100 mcg .ROUTE .STK-MED ONE Stop: 02/23/20 07:40 Fentanyl (Sublimaze) 50 mcg IVPUSH Q5M PRN PRN Reason: Pain Stop: 02/23/20 18:00 Fentanyl (Sublimaze) Confirm Administered Dose 250 mcg .ROUTE .STK-MED ONE Stop: 02/23/20 11:21 Fentanyl (Sublimaze) 50 mcg IVPUSH Q5M PRN PRN Reason: Pain Stop: 02/23/20 18:00 Hydromorphone HCl (Dilaudid) 0.5 mg IVPUSH Q10M PRN PRN Reason: Pain (severe 7-10) Stop: 02/23/20 18:00 Hydromorphone HCl (Dilaudid) 0.5 mg IVPUSH Q10M PRN PRN Reason: Pain (severe 7-10) Stop: 02/23/20 18:00 Last Admin: 02/23/20 13:58 Dose: 0.5 mg Documented by: Lactated Ringer's (Ringers, Lactated) 1,000 mls @ 125 mls/hr IV ASDIRECTED [facility] Lidocaine HCl (Xylocaine-Mpf 1%) Confirm Administered Dose 4 mls @ as directed .ROUTE .STK-MED ONE Stop: 02/23/20 07:39 Lactated Ringer's (Ringers, Lactated) 1,000 mls @ 125 mls/hr IV ASDIRECTED [facility] Stop: 02/23/20 23:00 Last Admin: 02/23/20 14:03 Dose: 125 mls/hr Documented by: Cefazolin Sodium/Dextrose 2 gm (/ Premix) 50 mls @ 100 mls/hr IV Q8H [facility] Stop: 02/24/20 11:29 Last Admin: 02/24/20 12:18 Dose: 100 mls/hr Documented by: Ketorolac Tromethamine (Toradol) 15 mg IVPUSH Q6H PRN PRN Reason: Pain Last Admin: 02/24/20 20:20 Dose: 15 mg Documented by: Lidocaine/Sodium Bicarbonate (Buffered Lidocaine 1% In Ns 8.4%) 0.25 ml IDERM ONETIME PRN PRN Reason: Prior to IV Start Lidocaine/Sodium Bicarbonate (Buffered Lidocaine 1% In Ns 8.4%) 0.25 ml IDERM ONETIME PRN PRN Reason: Prior to IV Start Stop: 02/23/20 18:00 Midazolam HCl (Versed 1 Mg/Ml) 1 mg IVPUSH ONETIME ONE Stop: 02/23/20 08:03 Last Admin: 02/23/20 17:12 Dose: Not Given Documented by: Midazolam HCl (Versed 1 Mg/Ml) Confirm Administered Dose 2 mg .ROUTE .STK-MED ONE Stop: 02/23/20 11:10 Miscellaneous Information (Remove Patch) 1 ea TRDERM DAILY [facility] Last Admin: 02/24/20 19:18 Dose: Not Given Documented by: Nicotine (Habitrol) 21 mg TRDERM DAILY [facility] Stop: 02/25/20 01:00 Last Admin: 02/24/20 12:12 Dose: Not Given Documented by: Non-Formulary Medication (Cefdinir [Omnicef]) 300 mg PO BID [facility] Ondansetron HCl (Zofran) 4 mg IVPUSH ONETIME PRN PRN Reason: Nausea/Vomiting Stop: 02/23/20 18:00 Ondansetron HCl (Zofran) 4 mg IVPUSH ONETIME PRN PRN Reason: Nausea/Vomiting Stop: 02/23/20 18:00 Propofol (Diprivan 20 Ml) Confirm Administered Dose 200 mg .ROUTE .STK-MED ONE Stop: 02/23/20 07:39 Scopolamine (Transderm-Scop) 1.5 mg TRDERM ONETIME PRN PRN Reason: PONV Stop: 02/23/20 18:00 Last Admin: 02/23/20 07:54 Dose: 1.5 mg Documented by: Sodium Chloride (Saline Flush) 10 ml FLUSH ASDIRECTED PRN PRN Reason: Keep Vein Open Sodium Chloride (Saline Flush) 10 ml FLUSH ASDIRECTED PRN PRN Reason: Keep Vein Open Stop: 02/23/20 18:00 - Exam Quality Assessment: DVT Prophylaxis. No: Supplemental Oxygen, Urine Catheter General: Alert, Oriented, Cooperative, Mild Distress (reports leg pain ) HEENT: Pupils Equal, Pupils Reactive, Mucous Membr. Moist/Macy Neck: Supple, Trachea Midline Lungs: Clear to Auscultation, Normal Respiratory Effort Cardiovascular: Regular Rate, Regular Rhythm GI/Abdominal Exam: Normal Bowel Sounds, Soft, Non-Tender, No Distention, No Abnormal Bruit (Female) Exam: Deferred Back Exam: Normal Inspection, Full Range of Motion Extremities: No Pedal Edema, Leg Pain, Limited Range of Motion, Other (Bandage in place on right leg. Cooling pack is in place. ) Peripheral Pulses: 2+: Radial (L), Radial (R), Dorsalis Pedis (L), Dorsalis Pedis (R) Skin: Warm, Dry, Intact Wound/Incisions: Dressing Dry and Intact Neurological: No New Focal Deficit Psy/Mental Status: Alert Sepsis Event Note - Evaluation Sepsis Screening Result: No Definite Risk - Focused Exam Vital Signs: Vital Signs Temp Pulse Resp BP Pulse Ox 02/24/20 20:23 97.9 F 91 16 131/89 95 Consult PN Assessment/Plan POD#: 2 Procedures: Procedures ACUTE HEPATITIS PANEL (03/20/18) ANTINUCLEAR ANTIBODIES (03/20/18) APPLICATION LONG LEG SPLINT (02/17/20) ASSAY OF AMMONIA (11/25/18) ASSAY OF CERULOPLASMIN (03/20/18) ASSAY OF CK (CPK) (08/12/18) ASSAY OF COPPER (11/16/15) ASSAY OF CREATININE (01/31/16) ASSAY OF FERRITIN (04/21/19) ASSAY OF FOLIC ACID SERUM (11/16/15) ASSAY OF FREE THYROXINE (09/15/15) ASSAY OF IRON (04/21/19) ASSAY OF LITHIUM (10/11/15) ASSAY OF MAGNESIUM (08/16/18) ASSAY OF PHOSPHORUS (11/16/15) ASSAY THYROID STIM HORMONE (11/13/19) BL SMEAR W/DIFF WBC COUNT (11/25/18) C-REACTIVE PROTEIN (02/17/20) CARDIOVASCULAR STRESS TEST (01/13/16) CARPAL TUNNEL SURGERY (04/17/17) CHEST X-RAY 2VW FRONTAL&LATL (01/13/16) COMP SCREEN MAMMOGRAM ADD-ON (09/03/14) COMPLETE CBC AUTOMATED (11/13/19) COMPLETE CBC W/AUTO DIFF WBC (02/19/20) COMPREHEN METABOLIC PANEL (02/19/20) CT HEAD/BRAIN W/O DYE (02/17/20) CT MAXILLOFACIAL W/O DYE (06/05/18) CT NECK SPINE W/O DYE (02/25/15) CT THORAX W/DYE (01/31/16) CULTURE SCREEN ONLY (08/21/17) DRUG TEST PRSMV INSTRMNT (11/25/18) ECHO EXAM OF ABDOMEN (12/12/17) ELECTROCARDIOGRAM TRACING (11/25/18) EMERGENCY DEPT VISIT (02/17/20) EMERGENCY DEPT VISIT (08/13/18) EMERGENCY DEPT VISIT (08/12/18) EMERGENCY DEPT VISIT (06/12/18) EMERGENCY DEPT VISIT (07/04/16) EMERGENCY DEPT VISIT (02/25/15) EMERGENCY DEPT VISIT (11/10/13) FIBRIN DEGRADATION QUANT (08/16/18) FREE ASSAY (FT-3) (09/15/15) GLUCOSE BLOOD TEST (02/17/20) GLYCOSYLATED HEMOGLOBIN TEST (02/19/20) HT MUSCLE IMAGE SPECT MULT (01/13/16) HYDRATE IV INFUSION ADD-ON (02/17/20) HYDRATION IV INFUSION INIT (11/25/18) LIPID PANEL (11/25/18) METABOLIC PANEL TOTAL CA (08/16/18) MICROBE SUSCEPTIBLE SALOME (02/17/20) MR-STAPH DNA AMP PROBE (04/04/17) MRI JOINT UPR EXTREM W/O DYE (10/23/17) OFFICE/OUTPATIENT VISIT EST (11/13/19) POLYSOM 6/> YRS 4/> ALEKSANDRA (05/17/17) PROTHROMBIN TIME (04/10/17) ROUTINE VENIPUNCTURE (02/19/20) SMEAR WET MOUNT SALINE/INK (06/24/18) STREP A AG IA (08/21/17) THER/PROPH/DIAG INJ IV PUSH (02/17/20) THER/PROPH/DIAG INJ SC/IM (08/13/18) TRICHOMONAS ASSAY W/OPTIC (06/24/18) TX/PRO/DX INJ NEW DRUG ADDON (02/17/20) TX/PRO/DX INJ SAME DRUG AGENT (02/17/20) UR ALBUMIN SEMIQUANTITATIVE (02/15/16) URINALYSIS AUTO W/O SCOPE (04/21/19) URINALYSIS AUTO W/SCOPE (02/17/20) URINE BACTERIA CULTURE (02/17/20) URINE CULTURE/COLONY COUNT (02/17/20) URINE TEST (11/25/18) VITAMIN B-12 (06/27/17) VITAMIN D 25 HYDROXY (06/27/17) X-RAY EXAM L-S SPINE 2/3 VWS (12/06/17) X-RAY EXAM NECK SPINE 2-3 VW (11/10/13) X-RAY EXAM NECK SPINE 4/5VWS (10/17/17) X-RAY EXAM OF ABDOMEN (08/05/16) X-RAY EXAM OF ABDOMEN (07/29/16) X-RAY EXAM OF LOWER LEG (02/17/20) X-RAY EXAM OF SHOULDER (10/17/17) (1) HLD (hyperlipidemia) SNOMED Code(s): 25625553 Code(s): E78.5 - HYPERLIPIDEMIA, UNSPECIFIED Priority: Low Current Visit: No Qualifiers: Hyperlipidemia type: unspecified Qualified Code(s): E78.5 - Hyperlipidemia, unspecified (2) HTN (hypertension) SNOMED Code(s): 17345510 Code(s): I10 - ESSENTIAL (PRIMARY) HYPERTENSION Priority: Medium Current Visit: No Qualifiers: Hypertension type: unspecified Qualified Code(s): I10 - Essential (primary) hypertension (3) Asthma SNOMED Code(s): 203677004 Code(s): J45.909 - UNSPECIFIED ASTHMA, UNCOMPLICATED Priority: Low Current Visit: No Qualifiers: Asthma severity: unspecified severity Asthma persistence: unspecified Asthma complication type: unspecified Qualified Code(s): J45.909 - Unspecified asthma, uncomplicated (4) ROWDY (obstructive sleep apnea) SNOMED Code(s): 41943166 Code(s): G47.33 - OBSTRUCTIVE SLEEP APNEA (ADULT) (PEDIATRIC) Priority: Low Current Visit: No (5) GERD (gastroesophageal reflux disease) SNOMED Code(s): 460587627 Code(s): K21.9 - GASTRO-ESOPHAGEAL REFLUX DISEASE WITHOUT ESOPHAGITIS Priority: Low Current Visit: No Qualifiers: Esophagitis presence: esophagitis presence not specified Qualified Code(s): K21.9 - Gastro-esophageal reflux disease without esophagitis (6) Nodule of right lung SNOMED Code(s): 506525784 Code(s): R91.1 - SOLITARY PULMONARY NODULE Priority: Low Current Visit: No (7) STD (female) SNOMED Code(s): 9497170, 298983174 Code(s): A64 - UNSPECIFIED SEXUALLY TRANSMITTED DISEASE Priority: Low Current Visit: No (8) Recurrent UTI SNOMED Code(s): 837450476 Code(s): N39.0 - URINARY TRACT INFECTION, SITE NOT SPECIFIED Priority: Low Current Visit: No (9) Fibromyalgia SNOMED Code(s): 399539599 Code(s): M79.7 - FIBROMYALGIA Priority: Medium Current Visit: No (10) Migraines SNOMED Code(s): 57315814 Code(s): G43.909 - MIGRAINE, UNSP, NOT INTRACTABLE, WITHOUT STATUS MIGRAINOSUS Priority: Low Current Visit: No Qualifiers: Migraine type: unspecified Status migrainosus presence: without status migrainosus Intractability: not intractable Qualified Code(s): G43.909 - Migraine, unspecified, not intractable, without status migrainosus (11) ADHD SNOMED Code(s): 294103028 Code(s): F90.9 - ATTENTION-DEFICIT HYPERACTIVITY DISORDER, UNSPECIFIED TYPE Priority: Low Current Visit: No Qualifiers: Attention deficit-hyperactivity disorder type: unspecified Qualified Code(s): F90.9 - Attention-deficit hyperactivity disorder, unspecified type (12) Bipolar disorder SNOMED Code(s): 23717034 Code(s): F31.9 - BIPOLAR DISORDER, UNSPECIFIED Priority: Medium Current Visit: No Qualifiers: Active/Remission status: remission status unspecified Qualified Code(s): F31.9 - Bipolar disorder, unspecified (13) Depression SNOMED Code(s): 31821990 Code(s): F32.9 - MAJOR DEPRESSIVE DISORDER, SINGLE EPISODE, UNSPECIFIED Priority: Low Current Visit: No Qualifiers: Depression Type: other depression Qualified Code(s): F32.89 - Other specified depressive episodes (14) OCD (obsessive compulsive disorder) SNOMED Code(s): 866755087 Code(s): F42.9 - OBSESSIVE-COMPULSIVE DISORDER, UNSPECIFIED Priority: Medium Current Visit: No Qualifiers: Obsessive-compulsive disorder type: unspecified Qualified Code(s): F42.9 - Obsessive-compulsive disorder, unspecified (15) Type II diabetes mellitus SNOMED Code(s): 10933273 Code(s): E11.9 - TYPE 2 DIABETES MELLITUS WITHOUT COMPLICATIONS Priority: Medium Current Visit: Yes Qualifiers: Diabetes mellitus alf insulin use: without rat exterminator use Diabetes mellitus complication status: with other specified complication Qualified Code(s): E11.69 - Type 2 diabetes mellitus with other specified complication (16) Hypothyroidism SNOMED Code(s): 82195903 Code(s): E03.9 - HYPOTHYROIDISM, UNSPECIFIED Priority: Low Current Visit: No Qualifiers: Hypothyroidism type: unspecified Qualified Code(s): E03.9 - Hypothyroidism, unspecified (17) Recent surgical procedure on lower extremity SNOMED Code(s): 694343141 Code(s): Z98.890 - OTHER SPECIFIED POSTPROCEDURAL STATES Priority: High Current Visit: Yes (18) Transaminitis SNOMED Code(s): 699511281, 635113535 Code(s): R74.0 - NONSPEC ELEV OF LEVELS OF TRANSAMNS & LACTIC ACID DEHYDRGNSE Priority: Medium Current Visit: Yes Problem List Initiated/Reviewed/Updated: Yes My Orders Last 24 Hours: My Active Orders 02/24/20 07:59 Blood Glucose Check, Bedside [RC] QIDACANDBED 02/24/20 11:00 Insulin Lispro [HumaLOG] See Protocol SUBCUT QIDACANDBED 02/25/20 07:14 CBC WITH AUTO DIFF [HEME] Routine CMP [COMPREHENSIVE METABOLIC PN,CMP] [CHEM] Routine MAGNESIUM [CHEM] Routine Plan: I/P: Acute: S/P right tibia intramedullary nailing - post-operative day 2 -Injured in fall - seen in ED on 02/17/2020 -Was admitted to floor last night after difficulty with ambulation and urination -DVT prophylaxis and pain management per primary care team -PT/OT -IS/RT -Monitor oxygen saturation -Titrate oxygen as needed -Home medications reviewed -Vital signs stable -Monitor labs -Pre-operative Hgb was 11.5; Now 9.3-->10.1 -Pre-operative GFR was >60; Now >60 -Pre-operative A1C was 7.2% -Sliding scale insulin and QID AC and bedtime glucose checks Current daily smoker -Nicotine patches -Cessation counseling -Patches on discharge Transaminitis -AST 453 -ALT 240 -alkaline phosphatase 236 -Primary team adjusting pain medications from Percocet to Oxycodone -Monitor labs -Likely 2/2 anesthesia and pain medications -Carries history of elevated LFTs Chronic: HLD HTN asthma sleep apnea right lung nodule GERD IBD elevated LFT STDs recurrent UTIs fibromyalgia migraines short-term memory loss ADHD bipolar depression OCD type II DM hypothyroidism obesity History of drug and ETOH abuse History of gastric bypass Plan: CM for discharge planning GI prophylaxis Home medications as indicated Other orders as listed above Routine AM labs She is a full code. Her PCP is Ana M Fontana NP. 02/24/20: From a hospitalist standpoint Nancy is doing pretty well today, after a difficult night. She is known to this service from prior hospitalizations. She has been hospitalized in the past for hypoglycemia. Her labs and vital signs have remained stable. She was up ambulating and working with PT and OT. She has been up urinating and is off of oxygen. She takes Ozempic for her diabetes. Blood glucose readings have overall been satisfactory, especially given her hypoglycemia history. Patient reports glucose readings of 120-160 at home. She reports she takes these occasionally. A1C was reviewed and was 7.2% on 02/19/20, up from 7.0% on 11/13/2019. Pain has been controlled. Per primary team and after discussion with the patient, plan is for discharge to a SNF vs. [facility]. During her last admission placement was recommend and she ultimately refused, leaving AMA. She is cleared for discharge, pending primary team and PT/OT agreement. 02/25/20: Nancy had an ok night but a rough morning. Her pain has been more severe today. PT was in to work with her and reports her tolerance is much less today. The are currently recommending SNF placement. Per nursing, her higher bedside blood glucose readings yesterday were obtained after she had already ate. Liver enzymes are elevated today and primary team is adjusting pain medications to address this. She dose carry a history of elevated LFTs. We will continue to monitor. Otherwise she remains clinically stable. She has been up ambulating and continues to urinate. Vital signs have been stable. SW involved in finding placement. She remains off of oxygen. Thank you for allowing us to participate in the care of this patient!!
[2020-02-25] MEDS: Insulin Lispro 100 Units/ML 3 ML Vial SUBCUT SCH (07:40)
[2020-02-25] MEDS: Lubiprostone 24 MCG Cap PO SCH ×2 (07:57→16:59)
[2020-02-25] MEDS: Docusate Sodium 100 MG Cap PO SCH ×2 (09:38→20:10)
[2020-02-25] MEDS: oxyCODONE 5 MG Tab PO PRN ×4 (09:38→22:00)
[2020-02-25] MEDS: Trospium 20 MG Tab PO SCH ×2 (09:47→20:10)
[2020-02-25] MEDS: Topiramate 25 MG Tab PO SCH ×2 (09:47→20:10)
[2020-02-25] MEDS: valACYclovir 500 MG Tab PO SCH (09:47)
[2020-02-25] MEDS: Polyethylene Glycol 3350 Powder 17 GM Packet PO SCH (09:48)
[2020-02-25] MEDS: Nicotine 21 MG/24 Hr Patch TRDERM SCH (09:48)
[2020-02-25] MEDS: Enoxaparin 30 MG/0.3 ML Syringe SUBCUT SCH ×2 (09:49→20:10)
[2020-02-25] MEDS: Cyclobenzaprine 10 MG Tab PO PRN ×3 (09:58→22:00)
--- NOTE | 2020-02-25 10:16 | PCM.SURGPN ---
- General Info Date of Service: 02/25/20 POD#: 2 Functional Status: Reports: Tolerating Diet, Ambulating, Urinating, Other (The pt has been emotional today.) - Patient Data Vitals - Most Recent: Last Vital Signs Temp 98.1 F 02/25/20 09:54 Pulse 99 02/25/20 09:54 Resp 17 02/25/20 09:54 BP 136/86 02/25/20 09:54 Pulse Ox 99 02/25/20 09:54 Weight - Most Recent: 163 lb I&O - Last 24 Hours: Intake & Output 02/24/20 02/25/20 02/25/20 22:59 06:59 14:59 Intake Total 1580 Balance 1580 Lab Results Last 24 Hrs: Laboratory Results - last 24 hr 02/24/20 02/24/20 02/24/20 Range/Units 12:21 18:17 21:18 WBC (3.98-10.04) K/mm3 RBC (3.98-5.22) M/mm3 Hgb (11.2-15.7) gm/dl Hct (34.1-44.9) % MCV (79.4-94.8) fl MCH (25.6-32.2) pg MCHC (32.2-35.5) g/dl RDW Std Deviation (36.4-46.3) fL Plt Count (182-369) K/mm3 MPV (9.4-12.3) fl Neut % (Auto) (34.0-71.1) % Lymph % (Auto) (19.3-51.7) % [place] % (Auto) (4.7-12.5) % Eos % (Auto) (0.7-5.8) Baso % (Auto) (0.1-1.2) % Neut # (Auto) (1.56-6.13) K/mm3 Lymph # (Auto) (1.18-3.74) K/mm3 [place] # (Auto) (0.24-0.36) K/mm3 Eos # (Auto) (0.04-0.36) K/mm3 Baso # (Auto) (0.01-0.08) K/mm3 Sodium (136-145) mEq/L Potassium (3.5-5.1) mEq/L Chloride (98-107) mEq/L Carbon Dioxide (21-32) mEq/L Anion Gap (5-15) BUN (7-18) mg/dL Creatinine (0.55-1.02) mg/dL Est Cr Clr Drug Dosing mL/min Estimated GFR (MDRD) (>60) mL/min BUN/Creatinine Ratio (14-18) Glucose (74-106) mg/dL POC Glucose 348 H 295 H 189 H (70-105) mg/dL Calcium (8.5-10.1) mg/dL Magnesium (1.8-2.4) mg/dl Total Bilirubin (0.2-1.0) mg/dL AST (15-37) U/L ALT (14-59) U/L Alkaline Phosphatase (46-116) U/L Total Protein (6.4-8.2) g/dl Albumin (3.4-5.0) g/dl Globulin gm/dL Albumin/Globulin Ratio (1-2) 02/25/20 02/25/20 02/25/20 Range/Units 06:19 08:10 08:10 WBC 6.49 (3.98-10.04) K/mm3 RBC 3.19 L (3.98-5.22) M/mm3 Hgb 10.1 L (11.2-15.7) gm/dl Hct 31.8 L (34.1-44.9) % MCV 99.7 H (79.4-94.8) fl MCH 31.7 (25.6-32.2) pg MCHC 31.8 L (32.2-35.5) g/dl RDW Std Deviation 50.0 H (36.4-46.3) fL Plt Count 326 (182-369) K/mm3 MPV 8.9 L (9.4-12.3) fl Neut % (Auto) 31.6 L (34.0-71.1) % Lymph % (Auto) 56.9 H (19.3-51.7) % [place] % (Auto) 7.7 (4.7-12.5) % Eos % (Auto) 3.4 (0.7-5.8) Baso % (Auto) 0.2 (0.1-1.2) % Neut # (Auto) 2.06 (1.56-6.13) K/mm3 Lymph # (Auto) 3.69 (1.18-3.74) K/mm3 [place] # (Auto) 0.50 H (0.24-0.36) K/mm3 Eos # (Auto) 0.22 (0.04-0.36) K/mm3 Baso # (Auto) 0.01 (0.01-0.08) K/mm3 Sodium 140 (136-145) mEq/L Potassium 3.8 (3.5-5.1) mEq/L Chloride 104 (98-107) mEq/L Carbon Dioxide 27 (21-32) mEq/L Anion Gap 12.8 (5-15) BUN 21 H (7-18) mg/dL Creatinine 1.0 (0.55-1.02) mg/dL Est Cr Clr Drug Dosing 58.55 mL/min Estimated GFR (MDRD) > 60 (>60) mL/min BUN/Creatinine Ratio 21.0 H (14-18) Glucose 151 H (74-106) mg/dL POC Glucose 132 H (70-105) mg/dL Calcium 9.1 (8.5-10.1) mg/dL Magnesium 1.9 (1.8-2.4) mg/dl Total Bilirubin 0.5 (0.2-1.0) mg/dL AST 453 H (15-37) U/L ALT 240 H (14-59) U/L Alkaline Phosphatase 236 H (46-116) U/L Total Protein 6.3 L (6.4-8.2) g/dl Albumin 2.9 L (3.4-5.0) g/dl Globulin 3.4 gm/dL Albumin/Globulin Ratio 0.9 L (1-2) Med Orders - Current: Current Medications Bisacodyl (Dulcolax) 5 mg PO DAILY PRN PRN Reason: Constipation Last Admin: 02/24/20 21:43 Dose: 5 mg Documented by: Cyclobenzaprine HCl (Flexeril) 10 mg PO TID PRN PRN Reason: Spasms Last Admin: 02/25/20 09:58 Dose: 10 mg Documented by: Docusate Sodium (Colace) 100 mg PO BID JACOB Last Admin: 02/25/20 09:38 Dose: 100 mg Documented by: Enoxaparin Sodium (Lovenox) 30 mg SUBCUT BID [facility] Last Admin: 02/25/20 09:49 Dose: 30 mg Documented by: Insulin Human Lispro (Humalog) 0 unit SUBCUT QIDACANDBED [facility]; Protocol Last Admin: 02/25/20 07:40 Dose: Not Given Documented by: Levothyroxine Sodium (Synthroid) 50 mcg PO ACBREAKFAST [facility] Last Admin: 02/25/20 06:15 Dose: 50 mcg Documented by: Loratadine (Claritin) 10 mg PO BEDTIME [facility] Last Admin: 02/24/20 21:41 Dose: 10 mg Documented by: Lubiprostone (Amitiza) 24 mcg PO BIDMEALS [facility] Last Admin: 02/25/20 07:57 Dose: 24 mcg Documented by: Magnesium Hydroxide (Milk Of Magnesia) 30 ml PO BID PRN PRN Reason: Constipation Last Admin: 02/24/20 08:59 Dose: 30 ml Documented by: Miscellaneous Information (Remove Patch) 0 ea TRDERM ONETIME ONE Stop: 02/26/20 08:01 Miscellaneous Information (Remove Patch) 1 ea TRDERM DAILY [facility] Last Admin: 02/25/20 09:49 Dose: 1 ea Documented by: Morphine Sulfate (Morphine) 2 mg IVPUSH Q2H PRN PRN Reason: Breakthrough Pain Naloxone HCl (Narcan) 0.1 mg IVPUSH Q5M PRN PRN Reason: Oversedation Nicotine (Habitrol) 21 mg TRDERM DAILY [facility] Last Admin: 02/25/20 09:48 Dose: 21 mg Documented by: Ondansetron HCl (Zofran Odt) 8 mg PO Q6H PRN PRN Reason: Nausea Ondansetron HCl (Zofran) 4 mg IVPUSH Q6H PRN PRN Reason: Nausea/Vomiting Oxycodone HCl (Oxycodone) 5 - 10 mg PO Q4H PRN PRN Reason: Pain Last Admin: 02/25/20 09:38 Dose: 5 mg Documented by: Pantoprazole Sodium (Protonix) 40 mg PO DAILY@0700 [facility] Last Admin: 02/25/20 06:15 Dose: 40 mg Documented by: Fluvoxamine 200 Mg 0 each PO BEDTIME [facility] Last Admin: 02/24/20 22:31 Dose: Not Given Documented by: Ozempic Pen Injector 0 each SUBCUT Th@0900 [facility] Polyethylene Glycol (Miralax) 17 gm PO DAILY [facility] Last Admin: 02/25/20 09:48 Dose: 17 gm Documented by: Rosuvastatin Calcium (Crestor) 5 mg PO BEDTIME [facility] Last Admin: 02/24/20 21:42 Dose: 5 mg Documented by: Senna (Senna) 8.6 mg PO BID PRN PRN Reason: Constipation Last Admin: 02/24/20 21:44 Dose: 8.6 mg Documented by: Sumatriptan Succinate (Imitrex) 50 mg PO ASDIRECTED PRN PRN Reason: migraines Topiramate (Topamax) 50 mg PO BID [facility] Last Admin: 02/25/20 09:47 Dose: 50 mg Documented by: Trospium (Sanctura) 20 mg PO BID [facility] Last Admin: 02/25/20 09:47 Dose: 20 mg Documented by: Valacyclovir HCl (Valtrex) 500 mg PO DAILY [facility] Last Admin: 02/25/20 09:47 Dose: 500 mg Documented by: Discontinued Medications Albuterol (Proventil Neb Soln) 2.5 mg NEB ONETIME PRN PRN Reason: asthma Stop: 02/23/20 18:00 Albuterol/Ipratropium (Duoneb 3.0-0.5 Mg/3 Ml) 3 ml NEB ONETIME ONE Stop: 02/23/20 09:01 Last Admin: 02/23/20 08:32 Dose: 3 ml Documented by: Bupivacaine HCl (Sensorcaine-Mpf 0.25%) Confirm Administered Dose 20 ml .ROUTE .STK-MED ONE Stop: 02/23/20 07:22 Last Admin: 02/23/20 12:37 Dose: 20 ml Documented by: Cefazolin Sodium (Ancef) 2 gm .ROUTE .STK-MED ONE Stop: 02/23/20 11:07 Famotidine (Pepcid) 20 mg IVPUSH ONETIME ONE Stop: 02/23/20 09:01 Last Admin: 02/23/20 08:40 Dose: 20 mg Documented by: Fentanyl (Sublimaze) Confirm Administered Dose 100 mcg .ROUTE .STK-MED ONE Stop: 02/23/20 07:40 Fentanyl (Sublimaze) 50 mcg IVPUSH Q5M PRN PRN Reason: Pain Stop: 02/23/20 18:00 Fentanyl (Sublimaze) Confirm Administered Dose 250 mcg .ROUTE .STK-MED ONE Stop: 02/23/20 11:21 Fentanyl (Sublimaze) 50 mcg IVPUSH Q5M PRN PRN Reason: Pain Stop: 02/23/20 18:00 Hydromorphone HCl (Dilaudid) 0.5 mg IVPUSH Q10M PRN PRN Reason: Pain (severe 7-10) Stop: 02/23/20 18:00 Hydromorphone HCl (Dilaudid) 0.5 mg IVPUSH Q10M PRN PRN Reason: Pain (severe 7-10) Stop: 02/23/20 18:00 Last Admin: 02/23/20 13:58 Dose: 0.5 mg Documented by: Lactated Ringer's (Ringers, Lactated) 1,000 mls @ 125 mls/hr IV ASDIRECTED [facility] Lidocaine HCl (Xylocaine-Mpf 1%) Confirm Administered Dose 4 mls @ as directed .ROUTE .STK-MED ONE Stop: 02/23/20 07:39 Lactated Ringer's (Ringers, Lactated) 1,000 mls @ 125 mls/hr IV ASDIRECTED [facility] Stop: 02/23/20 23:00 Last Admin: 02/23/20 14:03 Dose: 125 mls/hr Documented by: Cefazolin Sodium/Dextrose 2 gm (/ Premix) 50 mls @ 100 mls/hr IV Q8H [facility] Stop: 02/24/20 11:29 Last Admin: 02/24/20 12:18 Dose: 100 mls/hr Documented by: Ketorolac Tromethamine (Toradol) 15 mg IVPUSH Q6H PRN PRN Reason: Pain Last Admin: 02/24/20 20:20 Dose: 15 mg Documented by: Lidocaine/Sodium Bicarbonate (Buffered Lidocaine 1% In Ns 8.4%) 0.25 ml IDERM ONETIME PRN PRN Reason: Prior to IV Start Lidocaine/Sodium Bicarbonate (Buffered Lidocaine 1% In Ns 8.4%) 0.25 ml IDERM ONETIME PRN PRN Reason: Prior to IV Start Stop: 02/23/20 18:00 Midazolam HCl (Versed 1 Mg/Ml) 1 mg IVPUSH ONETIME ONE Stop: 02/23/20 08:03 Last Admin: 02/23/20 17:12 Dose: Not Given Documented by: Midazolam HCl (Versed 1 Mg/Ml) Confirm Administered Dose 2 mg .ROUTE .STK-MED ONE Stop: 02/23/20 11:10 Miscellaneous Information (Remove Patch) 1 ea TRDERM DAILY [facility] Last Admin: 02/24/20 19:18 Dose: Not Given Documented by: Nicotine (Habitrol) 21 mg TRDERM DAILY [facility] Stop: 02/25/20 01:00 Last Admin: 02/24/20 12:12 Dose: Not Given Documented by: Non-Formulary Medication (Cefdinir [Omnicef]) 300 mg PO BID [facility] Ondansetron HCl (Zofran) 4 mg IVPUSH ONETIME PRN PRN Reason: Nausea/Vomiting Stop: 02/23/20 18:00 Ondansetron HCl (Zofran) 4 mg IVPUSH ONETIME PRN PRN Reason: Nausea/Vomiting Stop: 02/23/20 18:00 Oxycodone/Acetaminophen (Percocet 325-5 Mg) 1 - 2 tab PO Q4H PRN PRN Reason: Pain Last Admin: 02/24/20 21:45 Dose: 2 tab Documented by: Propofol (Diprivan 20 Ml) Confirm Administered Dose 200 mg .ROUTE .STK-MED ONE Stop: 02/23/20 07:39 Scopolamine (Transderm-Scop) 1.5 mg TRDERM ONETIME PRN PRN Reason: PONV Stop: 02/23/20 18:00 Last Admin: 02/23/20 07:54 Dose: 1.5 mg Documented by: Sodium Chloride (Saline Flush) 10 ml FLUSH ASDIRECTED PRN PRN Reason: Keep Vein Open Sodium Chloride (Saline Flush) 10 ml FLUSH ASDIRECTED PRN PRN Reason: Keep Vein Open Stop: 02/23/20 18:00 - Exam Wound/Incisions: Dressing Dry and Intact General: Alert, Cooperative, No Acute Distress Lungs: Normal Respiratory Effort Extremities: Other (NVS intact for RLE. Corine's negative.) Sepsis Event Note - Evaluation Sepsis Screening Result: No Definite Risk - Focused Exam Vital Signs: Vital Signs Temp Pulse Resp BP Pulse Ox 02/25/20 09:54 98.1 F 99 17 136/86 99 - Problem List Review Problem List Initiated/Reviewed/Updated: Yes - My Orders Last 24 Hours: Active Orders 24 hr Category Date Time Status Insulin Lispro [HumaLOG] Med 02/24/20 11:00 Active See Protocol SUBCUT QIDACANDBED Nicotine [Habitrol] Med 02/25/20 09:00 Active 21 mg TRDERM DAILY Patient's Own Medication [Ptom] Med 02/26/20 09:00 Active 0 each SUBCUT Th@0900 Remove Patch Med 02/26/20 08:00 Once 0 ea TRDERM ONETIME ONE Remove Patch Med 02/25/20 09:00 Active 1 ea TRDERM DAILY oxyCODONE Med 02/25/20 09:09 Active 5 - 10 mg PO Q4H PRN Medication Orders Bisacodyl (Dulcolax) 5 mg PO DAILY PRN PRN Reason: Constipation Last Admin: 02/24/20 21:43 Dose: 5 mg Documented by: LAINA Cyclobenzaprine HCl (Flexeril) 10 mg PO TID PRN PRN Reason: Spasms Last Admin: 02/25/20 09:58 Dose: 10 mg Documented by: Admin: 02/24/20 20:16 Dose: 10 mg Documented by: Admin: 02/24/20 12:24 Dose: 10 mg Documented by: Admin: 02/23/20 21:59 Dose: 10 mg Documented by: LAINA Docusate Sodium (Colace) 100 mg PO BID [facility] Last Admin: 02/25/20 09:38 Dose: 100 mg Documented by: Admin: 02/24/20 21:42 Dose: 100 mg Documented by: Admin: 02/24/20 08:56 Dose: 100 mg Documented by: CHELSEA Enoxaparin Sodium (Lovenox) 30 mg SUBCUT BID [facility] Last Admin: 02/25/20 09:49 Dose: 30 mg Documented by: Admin: 02/24/20 21:47 Dose: 30 mg Documented by: Admin: 02/24/20 08:56 Dose: 30 mg Documented by: CHELSEA Insulin Human Lispro (Humalog) 0 unit SUBCUT QIDACANDBED [facility]; Protocol Last Admin: 02/25/20 07:40 Dose: Not Given Documented by: Admin: 02/24/20 21:48 Dose: 1 units Documented by: Admin: 02/24/20 18:19 Dose: 3 units Documented by: Admin: 02/24/20 12:40 Dose: 4 units Documented by: CHELSEA Levothyroxine Sodium (Synthroid) 50 mcg PO ACBREAKFAST [facility] Last Admin: 02/25/20 06:15 Dose: 50 mcg Documented by: Admin: 02/24/20 06:48 Dose: 50 mcg Documented by: LAINA Loratadine (Claritin) 10 mg PO BEDTIME [facility] Last Admin: 02/24/20 21:41 Dose: 10 mg Documented by: Admin: 02/23/20 22:00 Dose: 10 mg Documented by: LAINA Lubiprostone (Amitiza) 24 mcg PO BIDMEALS [facility] Last Admin: 02/25/20 07:57 Dose: 24 mcg Documented by: Admin: 02/24/20 18:14 Dose: 24 mcg Documented by: Admin: 02/24/20 08:55 Dose: 24 mcg Documented by: Admin: 02/23/20 17:43 Dose: 24 mcg Documented by: CHELSEA Magnesium Hydroxide (Milk Of Magnesia) 30 ml PO BID PRN PRN Reason: Constipation Last Admin: 02/24/20 08:59 Dose: 30 ml Documented by: CHELSEA Miscellaneous Information (Remove Patch) 0 ea TRDERM ONETIME ONE Stop: 02/26/20 08:01 Miscellaneous Information (Remove Patch) 1 ea TRDERM DAILY [facility] Last Admin: 02/25/20 09:49 Dose: 1 ea Documented by: MOISES Morphine Sulfate (Morphine) 2 mg IVPUSH Q2H PRN PRN Reason: Breakthrough Pain Naloxone HCl (Narcan) 0.1 mg IVPUSH Q5M PRN PRN Reason: Oversedation Nicotine (Habitrol) 21 mg TRDERM DAILY [facility] Last Admin: 02/25/20 09:48 Dose: 21 mg Documented by: MOISES Ondansetron HCl (Zofran Odt) 8 mg PO Q6H PRN PRN Reason: Nausea Ondansetron HCl (Zofran) 4 mg IVPUSH Q6H PRN PRN Reason: Nausea/Vomiting Oxycodone HCl (Oxycodone) 5 - 10 mg PO Q4H PRN PRN Reason: Pain Last Admin: 02/25/20 09:38 Dose: 5 mg Documented by: MOISES Pantoprazole Sodium (Protonix) 40 mg PO DAILY@0700 [facility] Last Admin: 02/25/20 06:15 Dose: 40 mg Documented by: Admin: 02/24/20 06:48 Dose: 40 mg Documented by: LAINA Fluvoxamine 200 Mg 0 each PO BEDTIME [facility] Last Admin: 02/24/20 22:31 Dose: Not Given Documented by: Admin: 02/23/20 22:12 Dose: Not Given Documented by: LAINA Ozempic Pen Injector 0 each SUBCUT Th@0900 [facility] Polyethylene Glycol (Miralax) 17 gm PO DAILY [facility] Last Admin: 02/25/20 09:48 Dose: 17 gm Documented by: Admin: 02/24/20 08:57 Dose: 17 gm Documented by: CHELSEA Rosuvastatin Calcium (Crestor) 5 mg PO BEDTIME [facility] Last Admin: 02/24/20 21:42 Dose: 5 mg Documented by: Admin: 02/23/20 22:00 Dose: 5 mg Documented by: LAINA Senna (Senna) 8.6 mg PO BID PRN PRN Reason: Constipation Last Admin: 02/24/20 21:44 Dose: 8.6 mg Documented by: LAINA Sumatriptan Succinate (Imitrex) 50 mg PO ASDIRECTED PRN PRN Reason: migraines Topiramate (Topamax) 50 mg PO BID [facility] Last Admin: 02/25/20 09:47 Dose: 50 mg Documented by: Admin: 02/24/20 21:43 Dose: 50 mg Documented by: Admin: 02/24/20 09:15 Dose: 50 mg Documented by: Admin: 02/23/20 22:00 Dose: 50 mg Documented by: LAINA Trospium (Sanctura) 20 mg PO BID [facility] Last Admin: 02/25/20 09:47 Dose: 20 mg Documented by: Admin: 02/24/20 21:44 Dose: 20 mg Documented by: Admin: 02/24/20 08:50 Dose: 20 mg Documented by: CHELSEA Valacyclovir HCl (Valtrex) 500 mg PO DAILY JACOB Last Admin: 02/25/20 09:47 Dose: 500 mg Documented by: Admin: 02/24/20 08:51 Dose: 500 mg Documented by: CHELSEA - Assessment Assessment (Free Text/Narrative):: POD#2 - IM gracie placement for right tibia fracture - Plan Plan (Free Text/Narrative):: 1. PT is recommending SNF placement with therapy. 2. Lovenox BID, frequent mobility, TEDs, SCDs. 3. Continue with PT and OT. WBAT RLE. 4. Suspect d/c to [place] for continued therapy. Discharge planning per Social Work. The pt's case was discussed with Dr. Camarillo.
[2020-02-25] MEDS: Rosuvastatin 10 MG Tab PO SCH (20:10)
[2020-02-25] MEDS: CYCLOSPORINE EYEBOTH SCH (20:10)
[2020-02-25] MEDS: Loratadine 10 MG Tab PO SCH (20:10)
[2020-02-25] MEDS: FLUVOXAMINE 200 MG PO SCH (20:11)
[2020-02-26] MEDS: oxyCODONE 5 MG Tab PO PRN ×2 (03:08→20:12)
[2020-02-26] MEDS: Pantoprazole 40 MG Tab.CR PO SCH (06:16)
[2020-02-26] MEDS: Levothyroxine 50 MCG Tab PO SCH (06:16)
--- NOTE | 2020-02-26 07:48 | PCM.CONSN ---
- General Info Date of Service: 02/26/20 Admission Dx/Problem (Free Text): Admission Diagnosis/Problem Admission Diagnosis/Problem Fracture of distal end of right tibia Functional Status: Reports: Pain Controlled, Tolerating Diet, Ambulating, Urinating, Incentive Spirometry. Denies: New Symptoms - Review of Systems General: Reports: Weakness. Denies: Fever, Fatigue, Malaise, Chills HEENT: Reports: No Symptoms. Denies: Headaches, Sore Throat Pulmonary: Reports: No Symptoms. Denies: Shortness of Breath, Cough, Sputum, Wheezing Cardiovascular: Reports: No Symptoms. Denies: Chest Pain, Palpitations, Dyspnea on Exertion Gastrointestinal: Reports: No Symptoms. Denies: Abdominal Pain, Constipation, Diarrhea, Nausea, Vomiting Genitourinary: Reports: No Symptoms. Denies: Pain Musculoskeletal: Reports: Leg Pain Skin: Reports: No Symptoms. Denies: Cyanosis Neurological: Reports: Difficulty Walking, Weakness, Gait Disturbance. Denies: Confusion Psychiatric: Reports: No Symptoms - Patient Data Vitals - Most Recent: Last Vital Signs Temp 97.9 F 02/26/20 03:00 Pulse 89 02/26/20 03:00 Resp 17 02/26/20 03:00 BP 139/91 H 02/26/20 03:00 Pulse Ox 93 L 02/26/20 03:00 Weight - Most Recent: 166 lb 1.717 oz I&O - Last 24 Hours: Intake & Output 02/25/20 02/26/20 02/26/20 22:59 06:59 14:59 Intake Total 180 Output Total 350 1150 Balance -170 -1150 - Exam Quality Assessment: DVT Prophylaxis General: Alert, Oriented, Cooperative, No Acute Distress HEENT: Pupils Equal, Pupils Reactive, Mucous Membr. Moist/[place] Neck: Supple, Trachea Midline Lungs: Clear to Auscultation, Normal Respiratory Effort Cardiovascular: Regular Rate, Regular Rhythm GI/Abdominal Exam: Normal Bowel Sounds, Soft, Non-Tender, No Distention (Female) Exam: Deferred Back Exam: Normal Inspection, Full Range of Motion Extremities: Leg Pain, Limited Range of Motion, Other (Bandage in place on right leg. Cooling pack in place. ) Peripheral Pulses: 2+: Radial (L), Radial (R), Dorsalis Pedis (L), Dorsalis Pedis (R) Skin: Warm, Dry, Intact Wound/Incisions: Dressing Dry and Intact Neurological: No New Focal Deficit Psy/Mental Status: Alert Sepsis Event Note - Evaluation Sepsis Screening Result: No Definite Risk Consult PN Assessment/Plan POD#: 3 Procedures: Procedures ACUTE HEPATITIS PANEL (03/20/18) ANTINUCLEAR ANTIBODIES (03/20/18) APPLICATION LONG LEG SPLINT (02/17/20) ASSAY OF AMMONIA (11/25/18) ASSAY OF CERULOPLASMIN (03/20/18) ASSAY OF CK (CPK) (08/12/18) ASSAY OF COPPER (11/16/15) ASSAY OF CREATININE (01/31/16) ASSAY OF FERRITIN (04/21/19) ASSAY OF FOLIC ACID SERUM (11/16/15) ASSAY OF FREE THYROXINE (09/15/15) ASSAY OF IRON (04/21/19) ASSAY OF LITHIUM (10/11/15) ASSAY OF MAGNESIUM (08/16/18) ASSAY OF PHOSPHORUS (11/16/15) ASSAY THYROID STIM HORMONE (11/13/19) BL SMEAR W/DIFF WBC COUNT (11/25/18) C-REACTIVE PROTEIN (02/17/20) CARDIOVASCULAR STRESS TEST (01/13/16) CARPAL TUNNEL SURGERY (04/17/17) CHEST X-RAY 2VW FRONTAL&LATL (01/13/16) COMP SCREEN MAMMOGRAM ADD-ON (09/03/14) COMPLETE CBC AUTOMATED (11/13/19) COMPLETE CBC W/AUTO DIFF WBC (02/19/20) COMPREHEN METABOLIC PANEL (02/19/20) CT HEAD/BRAIN W/O DYE (02/17/20) CT MAXILLOFACIAL W/O DYE (06/05/18) CT NECK SPINE W/O DYE (02/25/15) CT THORAX W/DYE (01/31/16) CULTURE SCREEN ONLY (08/21/17) DRUG TEST PRSMV INSTRMNT (11/25/18) ECHO EXAM OF ABDOMEN (12/12/17) ELECTROCARDIOGRAM TRACING (11/25/18) EMERGENCY DEPT VISIT (02/17/20) EMERGENCY DEPT VISIT (08/13/18) EMERGENCY DEPT VISIT (08/12/18) EMERGENCY DEPT VISIT (06/12/18) EMERGENCY DEPT VISIT (07/04/16) EMERGENCY DEPT VISIT (02/25/15) EMERGENCY DEPT VISIT (11/10/13) FIBRIN DEGRADATION QUANT (08/16/18) FREE ASSAY (FT-3) (09/15/15) GLUCOSE BLOOD TEST (02/17/20) GLYCOSYLATED HEMOGLOBIN TEST (02/19/20) HT MUSCLE IMAGE SPECT MULT (01/13/16) HYDRATE IV INFUSION ADD-ON (02/17/20) HYDRATION IV INFUSION INIT (11/25/18) LIPID PANEL (11/25/18) METABOLIC PANEL TOTAL CA (08/16/18) MICROBE SUSCEPTIBLE SALOME (02/17/20) MR-STAPH DNA AMP PROBE (04/04/17) MRI JOINT UPR EXTREM W/O DYE (10/23/17) OFFICE/OUTPATIENT VISIT EST (11/13/19) POLYSOM 6/> YRS 4/> ALEKSANDRA (05/17/17) PROTHROMBIN TIME (04/10/17) ROUTINE VENIPUNCTURE (02/19/20) SMEAR WET [place] SALINE/INK (06/24/18) STREP A AG IA (08/21/17) THER/PROPH/DIAG INJ IV PUSH (02/17/20) THER/PROPH/DIAG INJ SC/IM (08/13/18) TRICHOMONAS ASSAY W/OPTIC (06/24/18) TX/PRO/DX INJ NEW DRUG ADDON (02/17/20) TX/PRO/DX INJ SAME DRUG ASPHALT RAKER (02/17/20) UR ALBUMIN SEMIQUANTITATIVE (02/15/16) URINALYSIS AUTO W/O SCOPE (04/21/19) URINALYSIS AUTO W/SCOPE (02/17/20) URINE BACTERIA CULTURE (02/17/20) URINE CULTURE/COLONY COUNT (02/17/20) URINE TEST (11/25/18) VITAMIN B-12 (06/27/17) VITAMIN D 25 HYDROXY (06/27/17) X-RAY EXAM L-S SPINE 2/3 VWS (12/06/17) X-RAY EXAM NECK SPINE 2-3 VW (11/10/13) X-RAY EXAM NECK SPINE 4/5VWS (10/17/17) X-RAY EXAM OF ABDOMEN (08/05/16) X-RAY EXAM OF ABDOMEN (07/29/16) X-RAY EXAM OF LOWER LEG (02/17/20) X-RAY EXAM OF SHOULDER (10/17/17) (1) HLD (hyperlipidemia) SNOMED Code(s): 64636900 Code(s): E78.5 - HYPERLIPIDEMIA, UNSPECIFIED Priority: Low Current Visit: No Qualifiers: Hyperlipidemia type: unspecified Qualified Code(s): E78.5 - Hyperlipidemia, unspecified (2) HTN (hypertension) SNOMED Code(s): 54011701 Code(s): I10 - ESSENTIAL (PRIMARY) HYPERTENSION Priority: Medium Current Visit: No Qualifiers: Hypertension type: unspecified Qualified Code(s): I10 - Essential (primary) hypertension (3) Asthma SNOMED Code(s): 543241347 Code(s): J45.909 - UNSPECIFIED ASTHMA, UNCOMPLICATED Priority: Low Current Visit: No Qualifiers: Asthma severity: unspecified severity Asthma persistence: unspecified Asthma complication type: unspecified Qualified Code(s): J45.909 - Unspecified asthma, uncomplicated (4) ROWDY (obstructive sleep apnea) SNOMED Code(s): 18511839 Code(s): G47.33 - OBSTRUCTIVE SLEEP APNEA (ADULT) (PEDIATRIC) Priority: Low Current Visit: No (5) GERD (gastroesophageal reflux disease) SNOMED Code(s): 237744139 Code(s): K21.9 - GASTRO-ESOPHAGEAL REFLUX DISEASE WITHOUT ESOPHAGITIS Priority: Low Current Visit: No Qualifiers: Esophagitis presence: esophagitis presence not specified Qualified Code(s): K21.9 - Gastro-esophageal reflux disease without esophagitis (6) Nodule of right lung SNOMED Code(s): 867250810 Code(s): R91.1 - SOLITARY PULMONARY NODULE Priority: Low Current Visit: No (7) STD (female) SNOMED Code(s): 6465147, 481543956 Code(s): A64 - UNSPECIFIED SEXUALLY TRANSMITTED DISEASE Priority: Low Current Visit: No (8) Recurrent UTI SNOMED Code(s): 295890388 Code(s): N39.0 - URINARY TRACT INFECTION, SITE NOT SPECIFIED Priority: Low Current Visit: No (9) Fibromyalgia SNOMED Code(s): 039219395 Code(s): M79.7 - FIBROMYALGIA Priority: Medium Current Visit: No (10) Migraines SNOMED Code(s): 88521794 Code(s): G43.909 - MIGRAINE, UNSP, NOT INTRACTABLE, WITHOUT STATUS MIGRAINOSUS Priority: Low Current Visit: No Qualifiers: Migraine type: unspecified Status migrainosus presence: without status migrainosus Intractability: not intractable Qualified Code(s): G43.909 - Migraine, unspecified, not intractable, without status migrainosus (11) ADHD SNOMED Code(s): 253045411 Code(s): F90.9 - ATTENTION-DEFICIT HYPERACTIVITY DISORDER, UNSPECIFIED TYPE Priority: Low Current Visit: No Qualifiers: Attention deficit-hyperactivity disorder type: unspecified Qualified Code(s): F90.9 - Attention-deficit hyperactivity disorder, unspecified type (12) Bipolar disorder SNOMED Code(s): 23055507 Code(s): F31.9 - BIPOLAR DISORDER, UNSPECIFIED Priority: Medium Current Visit: No Qualifiers: Active/Remission status: remission status unspecified Qualified Code(s): F31.9 - Bipolar disorder, unspecified (13) Depression SNOMED Code(s): 64154206 Code(s): F32.9 - MAJOR DEPRESSIVE DISORDER, SINGLE EPISODE, UNSPECIFIED Priority: Low Current Visit: No Qualifiers: Depression Type: other depression Qualified Code(s): F32.89 - Other specified depressive episodes (14) OCD (obsessive compulsive disorder) SNOMED Code(s): 647410599 Code(s): F42.9 - OBSESSIVE-COMPULSIVE DISORDER, UNSPECIFIED Priority: Medium Current Visit: No Qualifiers: Obsessive-compulsive disorder type: unspecified Qualified Code(s): F42.9 - Obsessive-compulsive disorder, unspecified (15) Type II diabetes mellitus SNOMED Code(s): 99522698 Code(s): E11.9 - TYPE 2 DIABETES MELLITUS WITHOUT COMPLICATIONS Priority: Medium Current Visit: Yes Qualifiers: Diabetes mellitus snf insulin use: without snf use Diabetes mellitus complication status: with other specified complication Qualified Code(s): E11.69 - Type 2 diabetes mellitus with other specified complication (16) Hypothyroidism SNOMED Code(s): 56316606 Code(s): E03.9 - HYPOTHYROIDISM, UNSPECIFIED Priority: Low Current Visit: No Qualifiers: Hypothyroidism type: unspecified Qualified Code(s): E03.9 - Hypothyroidism, unspecified (17) Recent surgical procedure on lower extremity SNOMED Code(s): 224703195 Code(s): Z98.890 - OTHER SPECIFIED POSTPROCEDURAL STATES Priority: High Current Visit: Yes (18) Transaminitis SNOMED Code(s): 501100069, 312875016 Code(s): R74.0 - NONSPEC ELEV OF LEVELS OF TRANSAMNS & LACTIC ACID DEHYDRGNSE Priority: Medium Current Visit: Yes (19) Hypomagnesemia SNOMED Code(s): 814860158 Code(s): E83.42 - HYPOMAGNESEMIA Priority: High Current Visit: Yes Problem List Initiated/Reviewed/Updated: Yes My Orders Last 24 Hours: My Active Orders 02/25/20 21:00 Patient's Own Medication [Ptom] 0 each EYEBOTH BID 02/26/20 08:00 Magnesium Sulfate/Water [Magnesium Sulfate in Water Premix] 2 gm in 50 ml IV ONETIME Plan: I/P: Acute: S/P right tibia intramedullary nailing - post-operative day 3 -Injured in fall - seen in ED on 02/17/2020 -Was admitted to floor last night after difficulty with ambulation and urination -DVT prophylaxis and pain management per primary care team -PT/OT -IS/RT -Monitor oxygen saturation -Titrate oxygen as needed -Home medications reviewed -Vital signs stable -Monitor labs -Pre-operative Hgb was 11.5; Now 9.3-->10.1-->9.1 -Pre-operative GFR was >60; Now >60 -Pre-operative A1C was 7.2% -Sliding scale insulin and QID AC and bedtime glucose checks Current daily smoker -Nicotine patches -Cessation counseling -Patches on discharge Transaminitis -AST 453-->503 -ALT 240-->373 -alkaline phosphatase 236-->293 -Primary team adjusting pain medications from Percocet to Oxycodone -Monitor labs -Likely 2/2 anesthesia and pain medications -Carries history of elevated LFTs Hypomagnesemia -Magnesium 1.7 -Supplement Chronic: HLD HTN asthma sleep apnea right lung nodule GERD IBD elevated LFT STDs recurrent UTIs fibromyalgia migraines short-term memory loss ADHD bipolar depression OCD type II DM hypothyroidism obesity History of drug and ETOH abuse History of gastric bypass Plan: CM for discharge planning GI prophylaxis Home medications as indicated Other orders as listed above Routine AM labs She is a full code. Her PCP is Ana M Fontana NP. 02/24/20: From a hospitalist standpoint Nancy is doing pretty well today, after a difficult night. She is known to this service from prior hospitalizations. She has been hospitalized in the past for hypoglycemia. Her labs and vital signs have remained stable. She was up ambulating and working with PT and OT. She has been up urinating and is off of oxygen. She takes Ozempic for her diabetes. Blood glucose readings have overall been satisfactory, especially given her hypoglycemia history. Patient reports glucose readings of 120-160 at home. She reports she takes these occasionally. A1C was reviewed and was 7.2% on 02/19/20, up from 7.0% on 11/13/2019. Pain has been controlled. Per primary team and after discussion with the patient, plan is for discharge to a SNF vs. [facility]. During her last admission placement was recommend and she ultimately refused, leaving AMA. She is cleared for discharge, pending primary team and PT/OT agreement. 02/25/20: Nancy had an ok night but a rough morning. Her pain has been more severe today. PT was in to work with her and reports her tolerance is much less today. The are currently recommending SNF placement. Per nursing, her higher bedside blood glucose readings yesterday were obtained after she had already ate. Liver enzymes are elevated today and primary team is adjusting pain medications to address this. She dose carry a history of elevated LFTs. We will continue to monitor. Otherwise she remains clinically stable. She has been up ambulating and continues to urinate. Vital signs have been stable. SW involved in finding placement. She remains off of oxygen. 02/26/2020: Nancy is doing better today. She has been up ambulating with nursing utilizing a walker as a standby assist. Magnesium was 1.7 and was supplemented. Minor increase in liver enzymes as noted above. Hgb down to 9.1. Labs and vital signs otherwise remain stable. Patient reports last BM was 02/18/20 however she is a rather poor historian. She is only now starting to eat better. Blood sugars 144- 190. [facility] swing-bed was in to evaluate patient. SW will follow-up with this. They did report earliest they could possibly accept patient would be 03/01/20. She remains off of oxygen. Continues to work with PT/OT. Pain has been controlled today. Thank you for allowing us to participate in the care of this patient!! LOS >96 hrs pending placement.
[2020-02-26] MEDS ORDERED: Magnesium Sulfate/Water 2 GM/50 ML BAG IV ONE (08:00)
[2020-02-26] MEDS: Lubiprostone 24 MCG Cap PO SCH ×2 (08:45→16:38)
[2020-02-26] MEDS: Trospium 20 MG Tab PO SCH ×2 (08:45→20:10)
[2020-02-26] MEDS: Polyethylene Glycol 3350 Powder 17 GM Packet PO SCH (08:45)
[2020-02-26] MEDS: Nicotine 21 MG/24 Hr Patch TRDERM SCH (08:45)
[2020-02-26] MEDS: SUMAtriptan 50 MG Tab PO PRN (08:46)
[2020-02-26] MEDS: Cyclobenzaprine 10 MG Tab PO PRN (08:46)
[2020-02-26] MEDS: valACYclovir 500 MG Tab PO SCH (08:46)
[2020-02-26] MEDS: Docusate Sodium 100 MG Cap PO SCH ×2 (08:46→20:10)
[2020-02-26] MEDS: Topiramate 25 MG Tab PO SCH ×2 (08:46→20:10)
[2020-02-26] MEDS: CYCLOSPORINE EYEBOTH SCH ×2 (08:47→20:12)
[2020-02-26] MEDS: Enoxaparin 30 MG/0.3 ML Syringe SUBCUT SCH ×2 (08:47→20:11)
[2020-02-26] MEDS ORDERED: OZEMPIC SUBCUT SCH (09:00)
[2020-02-26] MEDS: Ondansetron 4 MG Tab.DIS PO PRN (09:04)
[2020-02-26] MEDS ORDERED: Metoclopramide 10 MG/2 ML SDV ONE (09:29)
[2020-02-26] MEDS: Loratadine 10 MG Tab PO SCH (20:10)
[2020-02-26] MEDS: Rosuvastatin 10 MG Tab PO SCH (20:11)
[2020-02-26] MEDS: FLUVOXAMINE 200 MG PO SCH (20:12)
--- NOTE | 2020-02-26 20:27 | PCM.SURGPN ---
- General Info Date of Service: 02/26/20 POD#: 3 Functional Status: Reports: Pain Controlled, Tolerating Diet, Ambulating, Urinating, Incentive Spirometry, Other (The pt states she notes fatigue "from all the therapy". Pt's mother was present in room today.) - Patient Data Vitals - Most Recent: Last Vital Signs Temp 98.2 F 02/26/20 15:00 Pulse 102 H 02/26/20 15:00 Resp 16 02/26/20 15:00 BP 138/96 H 02/26/20 15:00 Pulse Ox 99 02/26/20 15:00 Weight - Most Recent: 166 lb 1.717 oz I&O - Last 24 Hours: Intake & Output 02/26/20 02/26/20 02/26/20 06:59 14:59 22:59 Intake Total 1720 Output Total 1150 1900 Balance -1150 -180 Lab Results Last 24 Hrs: Laboratory Results - last 24 hr 02/26/20 02/26/20 02/26/20 Range/Units 05:24 05:24 11:11 WBC 5.85 (3.98-10.04) K/mm3 RBC 2.90 L (3.98-5.22) M/mm3 Hgb 9.1 L (11.2-15.7) gm/dl Hct 28.8 L (34.1-44.9) % MCV 99.3 H (79.4-94.8) fl MCH 31.4 (25.6-32.2) pg MCHC 31.6 L (32.2-35.5) g/dl RDW Std Deviation 49.2 H (36.4-46.3) fL Plt Count 285 (182-369) K/mm3 MPV 8.9 L (9.4-12.3) fl Neut % (Auto) 29.5 L (34.0-71.1) % Lymph % (Auto) 54.9 H (19.3-51.7) % [facility] % (Auto) 10.3 (4.7-12.5) % Eos % (Auto) 4.8 (0.7-5.8) Baso % (Auto) 0.2 (0.1-1.2) % Neut # (Auto) 1.73 (1.56-6.13) K/mm3 Lymph # (Auto) 3.21 (1.18-3.74) K/mm3 [facility] [facility] # (Auto) 0.60 H (0.24-0.36) K/mm3 Eos # (Auto) 0.28 (0.04-0.36) K/mm3 Baso # (Auto) 0.01 (0.01-0.08) K/mm3 Sodium 139 (136-145) mEq/L Potassium 3.9 (3.5-5.1) mEq/L Chloride 104 (98-107) mEq/L Carbon Dioxide 26 (21-32) mEq/L Anion Gap 12.9 (5-15) BUN 19 H (7-18) mg/dL Creatinine 1.0 (0.55-1.02) mg/dL Est Cr Clr Drug Dosing 58.55 mL/min Estimated GFR (MDRD) > 60 (>60) mL/min BUN/Creatinine Ratio 19.0 H (14-18) Glucose 156 H (74-106) mg/dL POC Glucose 144 H (70-105) mg/dL Calcium 8.7 (8.5-10.1) mg/dL Magnesium 1.7 L (1.8-2.4) mg/dl Total Bilirubin 0.4 (0.2-1.0) mg/dL AST 503 H (15-37) U/L ALT 373 H (14-59) U/L Alkaline Phosphatase 293 H (46-116) U/L Total Protein 5.8 L (6.4-8.2) g/dl Albumin 2.5 L (3.4-5.0) g/dl Globulin 3.3 gm/dL Albumin/Globulin Ratio 0.8 L (1-2) 02/26/20 Range/Units 16:30 WBC (3.98-10.04) K/mm3 RBC (3.98-5.22) M/mm3 Hgb (11.2-15.7) gm/dl Hct (34.1-44.9) % MCV (79.4-94.8) fl MCH (25.6-32.2) pg MCHC (32.2-35.5) g/dl RDW Std Deviation (36.4-46.3) fL Plt Count (182-369) K/mm3 MPV (9.4-12.3) fl Neut % (Auto) (34.0-71.1) % Lymph % (Auto) (19.3-51.7) % [facility] [place] [facility] % (Auto) (4.7-12.5) % Eos % (Auto) (0.7-5.8) Baso % (Auto) (0.1-1.2) % Neut # (Auto) (1.56-6.13) K/mm3 Lymph # (Auto) (1.18-3.74) K/mm3 [facility] [place] [facility] # (Auto) (0.24-0.36) K/mm3 Eos # (Auto) (0.04-0.36) K/mm3 Baso # (Auto) (0.01-0.08) K/mm3 Sodium (136-145) mEq/L Potassium (3.5-5.1) mEq/L Chloride (98-107) mEq/L Carbon Dioxide (21-32) mEq/L Anion Gap (5-15) BUN (7-18) mg/dL Creatinine (0.55-1.02) mg/dL Est Cr Clr Drug Dosing mL/min Estimated GFR (MDRD) (>60) mL/min BUN/Creatinine Ratio (14-18) Glucose (74-106) mg/dL POC Glucose 218 H (70-105) mg/dL Calcium (8.5-10.1) mg/dL Magnesium (1.8-2.4) mg/dl Total Bilirubin (0.2-1.0) mg/dL AST (15-37) U/L ALT (14-59) U/L Alkaline Phosphatase (46-116) U/L Total Protein (6.4-8.2) g/dl Albumin (3.4-5.0) g/dl Globulin gm/dL Albumin/Globulin Ratio (1-2) Med Orders - Current: Current Medications Bisacodyl (Dulcolax) 5 mg PO DAILY PRN PRN Reason: Constipation Last Admin: 02/24/20 21:43 Dose: 5 mg Documented by: Cyclobenzaprine HCl (Flexeril) 10 mg PO TID PRN PRN Reason: Spasms Last Admin: 02/26/20 08:46 Dose: 10 mg Documented by: Docusate Sodium (Colace) 100 mg PO BID [facility] Last Admin: 02/26/20 20:10 Dose: 100 mg Documented by: Enoxaparin Sodium (Lovenox) 30 mg SUBCUT BID [facility] Last Admin: 02/26/20 20:11 Dose: 30 mg Documented by: Levothyroxine Sodium (Synthroid) 50 mcg PO ACBREAKFAST [facility] Last Admin: 02/26/20 06:16 Dose: 50 mcg Documented by: Loratadine (Claritin) 10 mg PO BEDTIME [facility] Last Admin: 02/26/20 20:10 Dose: 10 mg Documented by: Lubiprostone (Amitiza) 24 mcg PO BIDMEALS [facility] Last Admin: 02/26/20 16:38 Dose: 24 mcg Documented by: Magnesium Hydroxide (Milk Of Magnesia) 30 ml PO BID PRN PRN Reason: Constipation Last Admin: 02/24/20 08:59 Dose: 30 ml Documented by: Miscellaneous Information (Remove Patch) 1 ea TRDERM DAILY [facility] Last Admin: 02/26/20 08:47 Dose: 1 ea Documented by: Morphine Sulfate (Morphine) 2 mg IVPUSH Q2H PRN PRN Reason: Breakthrough Pain Naloxone HCl (Narcan) 0.1 mg IVPUSH Q5M PRN PRN Reason: Oversedation Nicotine (Habitrol) 21 mg TRDERM DAILY [facility] Last Admin: 02/26/20 08:45 Dose: 21 mg Documented by: Ondansetron HCl (Zofran Odt) 8 mg PO Q6H PRN PRN Reason: Nausea Last Admin: 02/26/20 09:04 Dose: 8 mg Documented by: Ondansetron HCl (Zofran) 4 mg IVPUSH Q6H PRN PRN Reason: Nausea/Vomiting Oxycodone HCl (Oxycodone) 5 - 10 mg PO Q4H PRN PRN Reason: Pain Last Admin: 02/26/20 20:12 Dose: 5 mg Documented by: Pantoprazole Sodium (Protonix) 40 mg PO DAILY@0700 [facility] Last Admin: 02/26/20 06:16 Dose: 40 mg Documented by: Fluvoxamine 200 Mg 0 each PO BEDTIME [facility] Last Admin: 02/26/20 20:12 Dose: Not Given Documented by: Ozempic Pen Injector 0 each SUBCUT Th@0900 [facility] Last Admin: 02/26/20 11:50 Dose: 1 each Documented by: Cyclosporine [ Restasis Multidose] Ophthal. Emulsion 0 each EYEBOTH BID [facility] Last Admin: 02/26/20 20:12 Dose: Not Given Documented by: Polyethylene Glycol (Miralax) 17 gm PO DAILY [facility] Last Admin: 02/26/20 08:45 Dose: 17 gm Documented by: Rosuvastatin Calcium (Crestor) 5 mg PO BEDTIME [facility] Last Admin: 02/26/20 20:11 Dose: 5 mg Documented by: Senna (Senna) 8.6 mg PO BID PRN PRN Reason: Constipation Last Admin: 02/24/20 21:44 Dose: 8.6 mg Documented by: Sumatriptan Succinate (Imitrex) 50 mg PO ASDIRECTED PRN PRN Reason: migraines Last Admin: 02/26/20 08:46 Dose: 50 mg Documented by: Topiramate (Topamax) 50 mg PO BID [facility] Last Admin: 02/26/20 20:10 Dose: 50 mg Documented by: Trospium (Sanctura) 20 mg PO BID [facility] Last Admin: 02/26/20 20:10 Dose: 20 mg Documented by: Valacyclovir HCl (Valtrex) 500 mg PO DAILY [facility] Last Admin: 02/26/20 08:46 Dose: 500 mg Documented by: Discontinued Medications Albuterol (Proventil Neb Soln) 2.5 mg NEB ONETIME PRN PRN Reason: asthma Stop: 02/23/20 18:00 Albuterol/Ipratropium (Duoneb 3.0-0.5 Mg/3 Ml) 3 ml NEB ONETIME ONE Stop: 02/23/20 09:01 Last Admin: 02/23/20 08:32 Dose: 3 ml Documented by: Bupivacaine HCl (Sensorcaine-Mpf 0.25%) Confirm Administered Dose 20 ml .ROUTE .STK-MED ONE Stop: 02/23/20 07:22 Last Admin: 02/23/20 12:37 Dose: 20 ml Documented by: Cefazolin Sodium (Ancef) 2 gm .ROUTE .STK-MED ONE Stop: 02/23/20 11:07 Famotidine (Pepcid) 20 mg IVPUSH ONETIME ONE Stop: 02/23/20 09:01 Last Admin: 02/23/20 08:40 Dose: 20 mg Documented by: Fentanyl (Sublimaze) Confirm Administered Dose 100 mcg .ROUTE .STK-MED ONE Stop: 02/23/20 07:40 Fentanyl (Sublimaze) 50 mcg IVPUSH Q5M PRN PRN Reason: Pain Stop: 02/23/20 18:00 Fentanyl (Sublimaze) Confirm Administered Dose 250 mcg .ROUTE .STK-MED ONE Stop: 02/23/20 11:21 Fentanyl (Sublimaze) 50 mcg IVPUSH Q5M PRN PRN Reason: Pain Stop: 02/23/20 18:00 Hydromorphone HCl (Dilaudid) 0.5 mg IVPUSH Q10M PRN PRN Reason: Pain (severe 7-10) Stop: 02/23/20 18:00 Hydromorphone HCl (Dilaudid) 0.5 mg IVPUSH Q10M PRN PRN Reason: Pain (severe 7-10) Stop: 02/23/20 18:00 Last Admin: 02/23/20 13:58 Dose: 0.5 mg Documented by: Lactated Ringer's (Ringers, Lactated) 1,000 mls @ 125 mls/hr IV ASDIRECTED [facility] Lidocaine HCl (Xylocaine-Mpf 1%) Confirm Administered Dose 4 mls @ as directed .ROUTE .STK-MED ONE Stop: 02/23/20 07:39 Lactated Ringer's (Ringers, Lactated) 1,000 mls @ 125 mls/hr IV ASDIRECTED [facility] Stop: 02/23/20 23:00 Last Admin: 02/23/20 14:03 Dose: 125 mls/hr Documented by: Cefazolin Sodium/Dextrose 2 gm (/ Premix) 50 mls @ 100 mls/hr IV Q8H [facility] Stop: 02/24/20 11:29 Last Admin: 02/24/20 12:18 Dose: 100 mls/hr Documented by: Magnesium Sulfate (Magnesium Sulfate In Water Premix) 2 gm in 50 mls @ 25 mls/hr IV ONETIME ONE Stop: 02/26/20 09:59 Last Admin: 02/26/20 08:45 Dose: 25 mls/hr Documented by: Insulin Human Lispro (Humalog) 0 unit SUBCUT QIDACANDBED [facility]; Protocol Last Admin: 02/25/20 07:40 Dose: Not Given Documented by: Ketorolac Tromethamine (Toradol) 15 mg IVPUSH Q6H PRN PRN Reason: Pain Last Admin: 02/24/20 20:20 Dose: 15 mg Documented by: Lidocaine/Sodium Bicarbonate (Buffered Lidocaine 1% In Ns 8.4%) 0.25 ml IDERM ONETIME PRN PRN Reason: Prior to IV Start Lidocaine/Sodium Bicarbonate (Buffered Lidocaine 1% In Ns 8.4%) 0.25 ml IDERM ONETIME PRN PRN Reason: Prior to IV Start Stop: 02/23/20 18:00 Metoclopramide HCl (Reglan) Confirm Administered Dose 10 mg .ROUTE .STK-MED ONE Stop: 02/26/20 09:30 Last Admin: 02/26/20 11:17 Dose: Not Given Documented by: Midazolam HCl (Versed 1 Mg/Ml) 1 mg IVPUSH ONETIME ONE Stop: 02/23/20 08:03 Last Admin: 02/23/20 17:12 Dose: Not Given Documented by: Midazolam HCl (Versed 1 Mg/Ml) Confirm Administered Dose 2 mg .ROUTE .STK-MED ONE Stop: 02/23/20 11:10 Miscellaneous Information (Remove Patch) 0 ea TRDERM ONETIME ONE Stop: 02/26/20 08:01 Last Admin: 02/26/20 08:46 Dose: 1 ea Documented by: Miscellaneous Information (Remove Patch) 1 ea TRDERM DAILY [facility] Last Admin: 02/24/20 19:18 Dose: Not Given Documented by: Nicotine (Habitrol) 21 mg TRDERM DAILY [facility] Stop: 02/25/20 01:00 Last Admin: 02/24/20 12:12 Dose: Not Given Documented by: Non-Formulary Medication (Cefdinir [Omnicef]) 300 mg PO BID [facility] Ondansetron HCl (Zofran) 4 mg IVPUSH ONETIME PRN PRN Reason: Nausea/Vomiting Stop: 02/23/20 18:00 Ondansetron HCl (Zofran) 4 mg IVPUSH ONETIME PRN PRN Reason: Nausea/Vomiting Stop: 02/23/20 18:00 Oxycodone/Acetaminophen (Percocet 325-5 Mg) 1 - 2 tab PO Q4H PRN PRN Reason: Pain Last Admin: 02/24/20 21:45 Dose: 2 tab Documented by: Propofol (Diprivan 20 Ml) Confirm Administered Dose 200 mg .ROUTE .STK-MED ONE Stop: 02/23/20 07:39 Scopolamine (Transderm-Scop) 1.5 mg TRDERM ONETIME PRN PRN Reason: PONV Stop: 02/23/20 18:00 Last Admin: 02/23/20 07:54 Dose: 1.5 mg Documented by: Sodium Chloride (Saline Flush) 10 ml FLUSH ASDIRECTED PRN PRN Reason: Keep Vein Open Sodium Chloride (Saline Flush) 10 ml FLUSH ASDIRECTED PRN PRN Reason: Keep Vein Open Stop: 02/23/20 18:00 - Exam Wound/Incisions: Dressing Dry and Intact General: Alert, Cooperative, No Acute Distress Lungs: Normal Respiratory Effort Extremities: Other (NVS intact for RLE. Corine's negative.) Sepsis Event Note - Evaluation Sepsis Screening Result: No Definite Risk - Focused Exam Vital Signs: Vital Signs Temp Pulse Resp BP Pulse Ox 02/26/20 15:00 98.2 F 102 H 16 138/96 H 99 02/26/20 09:00 97.8 F 22 H 125/68 98 - Problem List Review Problem List Initiated/Reviewed/Updated: Yes - My Orders Last 24 Hours: Active Orders 24 hr Category Date Time Status CBC WITH AUTO DIFF [HEME] AM Lab 02/27/20 05:11 Ordered CMP [COMPREHENSIVE METABOLIC PN,CMP] [CHEM] AM Lab 02/27/20 05:11 Ordered MAGNESIUM [CHEM] AM Lab 02/27/20 05:11 Ordered PHOSPHORUS [CHEM] AM Lab 02/27/20 05:11 Ordered Patient's Own Medication [Ptom] Med 02/25/20 21:00 Active 0 each EYEBOTH BID Patient's Own Medication [Ptom] Med 02/26/20 09:00 Active 0 each SUBCUT Th@0900 Medication Orders Bisacodyl (Dulcolax) 5 mg PO DAILY PRN PRN Reason: Constipation Last Admin: 02/24/20 21:43 Dose: 5 mg Documented by: LAINA Cyclobenzaprine HCl (Flexeril) 10 mg PO TID PRN PRN Reason: Spasms Last Admin: 02/26/20 08:46 Dose: 10 mg Documented by: Admin: 02/25/20 22:00 Dose: 10 mg Documented by: Admin: 02/25/20 17:40 Dose: 10 mg Documented by: Admin: 02/25/20 09:58 Dose: 10 mg Documented by: Admin: 02/24/20 20:16 Dose: 10 mg Documented by: Admin: 02/24/20 12:24 Dose: 10 mg Documented by: Admin: 02/23/20 21:59 Dose: 10 mg Documented by: LAINA Docusate Sodium (Colace) 100 mg PO BID [facility] Admin: 02/26/20 20:10 Dose: 100 mg Documented by: Admin: 02/26/20 08:46 Dose: 100 mg Documented by: Admin: 02/25/20 20:10 Dose: 100 mg Documented by: Admin: 02/25/20 09:38 Dose: 100 mg Documented by: Admin: 02/24/20 21:42 Dose: 100 mg Documented by: Admin: 02/24/20 08:56 Dose: 100 mg Documented by: CHELSEA Enoxaparin Sodium (Lovenox) 30 mg SUBCUT BID [facility] Admin: 02/26/20 20:11 Dose: 30 mg Documented by: Admin: 02/26/20 08:47 Dose: 30 mg Documented by: Admin: 02/25/20 20:10 Dose: 30 mg Documented by: Admin: 02/25/20 09:49 Dose: 30 mg Documented by: Admin: 02/24/20 21:47 Dose: 30 mg Documented by: Admin: 02/24/20 08:56 Dose: 30 mg Documented by: CHELSEA Levothyroxine Sodium (Synthroid) 50 mcg PO ACBREAKFAST [facility] Admin: 02/26/20 06:16 Dose: 50 mcg Documented by: Admin: 02/25/20 06:15 Dose: 50 mcg Documented by: Admin: 02/24/20 06:48 Dose: 50 mcg Documented by: LAINA Loratadine (Claritin) 10 mg PO BEDTIME [facility] Admin: 02/26/20 20:10 Dose: 10 mg Documented by: Admin: 02/25/20 20:10 Dose: 10 mg Documented by: Admin: 02/24/20 21:41 Dose: 10 mg Documented by: Admin: 02/23/20 22:00 Dose: 10 mg Documented by: LAINA Lubiprostone (Amitiza) 24 mcg PO BIDMEALS [facility] Last Admin: 02/26/20 16:38 Dose: 24 mcg Documented by: Admin: 02/26/20 08:45 Dose: 24 mcg Documented by: Admin: 02/25/20 16:59 Dose: 24 mcg Documented by: Admin: 02/25/20 07:57 Dose: 24 mcg Documented by: Admin: 02/24/20 18:14 Dose: 24 mcg Documented by: Admin: 02/24/20 08:55 Dose: 24 mcg Documented by: Admin: 02/23/20 17:43 Dose: 24 mcg Documented by: CHELSEA Magnesium Hydroxide (Milk Of Magnesia) 30 ml PO BID PRN PRN Reason: Constipation Last Admin: 02/24/20 08:59 Dose: 30 ml Documented by: CHELSEA Miscellaneous Information (Remove Patch) 1 ea TRDERM DAILY [facility] Last Admin: 02/26/20 08:47 Dose: 1 ea Documented by: Admin: 02/25/20 09:49 Dose: 1 ea Documented by: MOISES Morphine Sulfate (Morphine) 2 mg IVPUSH Q2H PRN PRN Reason: Breakthrough Pain Naloxone HCl (Narcan) 0.1 mg IVPUSH Q5M PRN PRN Reason: Oversedation Nicotine (Habitrol) 21 mg TRDERM DAILY [facility] Last Admin: 02/26/20 08:45 Dose: 21 mg Documented by: Admin: 02/25/20 09:48 Dose: 21 mg Documented by: MOISES Ondansetron HCl (Zofran Odt) 8 mg PO Q6H PRN PRN Reason: Nausea Last Admin: 02/26/20 09:04 Dose: 8 mg Documented by: CRISTOFER Ondansetron HCl (Zofran) 4 mg IVPUSH Q6H PRN PRN Reason: Nausea/Vomiting Oxycodone HCl (Oxycodone) 5 - 10 mg PO Q4H PRN PRN Reason: Pain Last Admin: 02/26/20 20:12 Dose: 5 mg Documented by: Admin: 02/26/20 03:08 Dose: 5 mg Documented by: Admin: 02/25/20 22:00 Dose: 5 mg Documented by: Admin: 02/25/20 17:37 Dose: 5 mg Documented by: Admin: 02/25/20 13:42 Dose: 10 mg Documented by: Admin: 02/25/20 09:38 Dose: 5 mg Documented by: MOISES Pantoprazole Sodium (Protonix) 40 mg PO DAILY@0700 [facility] Last Admin: 02/26/20 06:16 Dose: 40 mg Documented by: Admin: 02/25/20 06:15 Dose: 40 mg Documented by: Admin: 02/24/20 06:48 Dose: 40 mg Documented by: LAINA Fluvoxamine 200 Mg 0 each PO BEDTIME [facility] Last Admin: 02/26/20 20:12 Dose: Not Given Documented by: Admin: 02/25/20 20:11 Dose: Not Given Documented by: Admin: 02/24/20 22:31 Dose: Not Given Documented by: Admin: 02/23/20 22:12 Dose: Not Given Documented by: LAINA Ozempic Pen Injector 0 each SUBCUT Th@0900 [facility] Last Admin: 02/26/20 11:50 Dose: 1 each Documented by: CRISTOFER Cyclosporine [ Restasis Multidose] Ophthal. Emulsion 0 each EYEBOTH BID [facility] Last Admin: 02/26/20 20:12 Dose: Not Given Documented by: Admin: 02/26/20 08:47 Dose: Not Given Documented by: Admin: 02/25/20 20:10 Dose: Not Given Documented by: CARLOS Polyethylene Glycol (Miralax) 17 gm PO DAILY [facility] Last Admin: 02/26/20 08:45 Dose: 17 gm Documented by: Admin: 02/25/20 09:48 Dose: 17 gm Documented by: Admin: 02/24/20 08:57 Dose: 17 gm Documented by: CHELSEA Rosuvastatin Calcium (Crestor) 5 mg PO BEDTIME [facility] Last Admin: 02/26/20 20:11 Dose: 5 mg Documented by: Admin: 02/25/20 20:10 Dose: 5 mg Documented by: Admin: 02/24/20 21:42 Dose: 5 mg Documented by: Admin: 02/23/20 22:00 Dose: 5 mg Documented by: LAINA Senna (Senna) 8.6 mg PO BID PRN PRN Reason: Constipation Last Admin: 02/24/20 21:44 Dose: 8.6 mg Documented by: LAINA Sumatriptan Succinate (Imitrex) 50 mg PO ASDIRECTED PRN PRN Reason: migraines Last Admin: 02/26/20 08:46 Dose: 50 mg Documented by: CRISTOFER Topiramate (Topamax) 50 mg PO BID [facility] Last Admin: 02/26/20 20:10 Dose: 50 mg Documented by: Admin: 02/26/20 08:46 Dose: 50 mg Documented by: Admin: 02/25/20 20:10 Dose: 50 mg Documented by: Admin: 02/25/20 09:47 Dose: 50 mg Documented by: Admin: 02/24/20 21:43 Dose: 50 mg Documented by: Admin: 02/24/20 09:15 Dose: 50 mg Documented by: Admin: 02/23/20 22:00 Dose: 50 mg Documented by: LAINA Trospium (Sanctura) 20 mg PO BID [facility] Last Admin: 02/26/20 20:10 Dose: 20 mg Documented by: Admin: 02/26/20 08:45 Dose: 20 mg Documented by: Admin: 02/25/20 20:10 Dose: 20 mg Documented by: Admin: 02/25/20 09:47 Dose: 20 mg Documented by: Admin: 02/24/20 21:44 Dose: 20 mg Documented by: Admin: 02/24/20 08:50 Dose: 20 mg Documented by: CHELSEA Valacyclovir HCl (Valtrex) 500 mg PO DAILY [facility] Last Admin: 02/26/20 08:46 Dose: 500 mg Documented by: Admin: 02/25/20 09:47 Dose: 500 mg Documented by: Admin: 02/24/20 08:51 Dose: 500 mg Documented by: MERLEORMABNER - Assessment Assessment (Free Text/Narrative):: POD#3 - s/p IM gracie placement for right tibia fracture - Plan Plan (Free Text/Narrative):: 1. Lovenox BID, SCDs, TEDs, frequent mobility. 2. Continue with PT. 3. Suspect d/c to [facility] for continued therapy. 4. Further orders per Hospitalist service. The pt's case was discussed with Dr. Camarillo.
[2020-02-27] MEDS: oxyCODONE 5 MG Tab PO PRN ×2 (02:37→16:52)
[2020-02-27] MEDS: Magnesium Hydroxide 400 MG/5 ML Susp 30 ML Cup PO PRN (02:37)
[2020-02-27] MEDS: Pantoprazole 40 MG Tab.CR PO SCH (06:54)
[2020-02-27] MEDS: Levothyroxine 50 MCG Tab PO SCH (06:54)
--- NOTE | 2020-02-27 07:18 | PCM.CONSN ---
- General Info Date of Service: 02/27/20 Admission Dx/Problem (Free Text): Admission Diagnosis/Problem Admission Diagnosis/Problem Fracture of distal end of right tibia Functional Status: Reports: Pain Controlled, Tolerating Diet, Ambulating, Urinating, Incentive Spirometry. Denies: New Symptoms - Review of Systems General: Reports: Weakness. Denies: Fever, Chills HEENT: Reports: No Symptoms. Denies: Headaches, Sore Throat Pulmonary: Reports: No Symptoms. Denies: Shortness of Breath, Cough, Sputum, Wheezing Cardiovascular: Reports: No Symptoms. Denies: Chest Pain, Palpitations, Dyspnea on Exertion Gastrointestinal: Reports: No Symptoms. Denies: Abdominal Pain, Constipation, Diarrhea, Nausea, Vomiting Genitourinary: Reports: No Symptoms. Denies: Pain Musculoskeletal: Reports: Leg Pain Skin: Reports: No Symptoms. Denies: Cyanosis Neurological: Reports: Headache (Improved with Imitrex), Difficulty Walking, Weakness, Gait Disturbance Psychiatric: Reports: No Symptoms - Patient Data Vitals - Most Recent: Last Vital Signs Temp 98.1 F 02/27/20 02:35 Pulse 100 02/27/20 02:35 Resp 18 02/27/20 02:35 BP 145/94 H 02/27/20 02:35 Pulse Ox 96 02/27/20 02:35 Weight - Most Recent: 163 lb 8 oz I&O - Last 24 Hours: Intake & Output 02/26/20 02/27/20 02/27/20 22:59 06:59 14:59 Intake Total 1920 600 Output Total 1900 Balance 20 600 - Exam Quality Assessment: DVT Prophylaxis. No: Supplemental Oxygen, Urine Catheter General: Alert, Oriented, Cooperative, No Acute Distress HEENT: Pupils Equal, Pupils Reactive, Mucous Membr. Moist/Stryker Neck: Supple, Trachea Midline Lungs: Clear to Auscultation, Normal Respiratory Effort Cardiovascular: Regular Rate, Regular Rhythm GI/Abdominal Exam: Normal Bowel Sounds, Soft, Non-Tender, No Distention (Female) Exam: Deferred Back Exam: Normal Inspection, Full Range of Motion Extremities: Normal Capillary Refill, Leg Pain, Limited Range of Motion, Other (Bandage in place on right leg. Cooling pack in place) Peripheral Pulses: 2+: Radial (L), Radial (R), Dorsalis Pedis (L), Dorsalis Pedis (R) Skin: Warm, Dry, Intact Wound/Incisions: Dressing Dry and Intact Neurological: No New Focal Deficit Psy/Mental Status: Alert Sepsis Event Note - Evaluation Sepsis Screening Result: No Definite Risk Consult PN Assessment/Plan POD#: 4 Procedures: Procedures ACUTE HEPATITIS PANEL (03/20/18) ANTINUCLEAR ANTIBODIES (03/20/18) APPLICATION LONG LEG SPLINT (02/17/20) ASSAY OF AMMONIA (11/25/18) ASSAY OF CERULOPLASMIN (03/20/18) ASSAY OF CK (CPK) (08/12/18) ASSAY OF COPPER (11/16/15) ASSAY OF CREATININE (01/31/16) ASSAY OF FERRITIN (04/21/19) ASSAY OF FOLIC ACID SERUM (11/16/15) ASSAY OF FREE THYROXINE (09/15/15) ASSAY OF IRON (04/21/19) ASSAY OF LITHIUM (10/11/15) ASSAY OF MAGNESIUM (08/16/18) ASSAY OF PHOSPHORUS (11/16/15) ASSAY THYROID STIM HORMONE (11/13/19) BL SMEAR W/DIFF WBC COUNT (11/25/18) C-REACTIVE PROTEIN (02/17/20) CARDIOVASCULAR STRESS TEST (01/13/16) CARPAL TUNNEL SURGERY (04/17/17) CHEST X-RAY 2VW FRONTAL&LATL (01/13/16) COMP SCREEN MAMMOGRAM ADD-ON (09/03/14) COMPLETE CBC AUTOMATED (11/13/19) COMPLETE CBC W/AUTO DIFF WBC (02/19/20) COMPREHEN METABOLIC PANEL (02/19/20) CT HEAD/BRAIN W/O DYE (02/17/20) CT MAXILLOFACIAL W/O DYE (06/05/18) CT NECK SPINE W/O DYE (02/25/15) CT THORAX W/DYE (01/31/16) CULTURE SCREEN ONLY (08/21/17) DRUG TEST PRSMV INSTRMNT (11/25/18) ECHO EXAM OF ABDOMEN (12/12/17) ELECTROCARDIOGRAM TRACING (11/25/18) EMERGENCY DEPT VISIT (02/17/20) EMERGENCY DEPT VISIT (08/13/18) EMERGENCY DEPT VISIT (08/12/18) EMERGENCY DEPT VISIT (06/12/18) EMERGENCY DEPT VISIT (07/04/16) EMERGENCY DEPT VISIT (02/25/15) EMERGENCY DEPT VISIT (11/10/13) FIBRIN DEGRADATION QUANT (08/16/18) FREE ASSAY (FT-3) (09/15/15) GLUCOSE BLOOD TEST (02/17/20) GLYCOSYLATED HEMOGLOBIN TEST (02/19/20) HT MUSCLE IMAGE SPECT MULT (01/13/16) HYDRATE IV INFUSION ADD-ON (02/17/20) HYDRATION IV INFUSION INIT (11/25/18) LIPID PANEL (11/25/18) METABOLIC PANEL TOTAL CA (08/16/18) MICROBE SUSCEPTIBLE SALOME (02/17/20) MR-STAPH DNA AMP PROBE (04/04/17) MRI JOINT UPR EXTREM W/O DYE (10/23/17) OFFICE/OUTPATIENT VISIT EST (11/13/19) POLYSOM 6/> YRS 4/> ALEKSANDRA (05/17/17) PROTHROMBIN TIME (04/10/17) ROUTINE VENIPUNCTURE (02/19/20) SMEAR WET M[place] SALINE/INK (06/24/18) STREP A AG IA (08/21/17) THER/PROPH/DIAG INJ IV PUSH (02/17/20) THER/PROPH/DIAG INJ SC/IM (08/13/18) TRICHOMONAS ASSAY W/OPTIC (06/24/18) TX/PRO/DX INJ NEW DRUG ADDON (02/17/20) TX/PRO/DX INJ SAME DRUG UTILITY SPECIALIST (02/17/20) UR ALBUMIN SEMIQUANTITATIVE (02/15/16) URINALYSIS AUTO W/O SCOPE (04/21/19) URINALYSIS AUTO W/SCOPE (02/17/20) URINE BACTERIA CULTURE (02/17/20) URINE CULTURE/COLONY COUNT (02/17/20) URINE TEST (11/25/18) VITAMIN B-12 (06/27/17) VITAMIN D 25 HYDROXY (06/27/17) X-RAY EXAM L-S SPINE 2/3 VWS (12/06/17) X-RAY EXAM NECK SPINE 2-3 VW (11/10/13) X-RAY EXAM NECK SPINE 4/5VWS (10/17/17) X-RAY EXAM OF ABDOMEN (08/05/16) X-RAY EXAM OF ABDOMEN (07/29/16) X-RAY EXAM OF LOWER LEG (02/17/20) X-RAY EXAM OF SHOULDER (10/17/17) (1) HLD (hyperlipidemia) SNOMED Code(s): 66294340 Code(s): E78.5 - HYPERLIPIDEMIA, UNSPECIFIED Priority: Low Current Visit: No Qualifiers: Hyperlipidemia type: unspecified Qualified Code(s): E78.5 - Hyperlipidemia, unspecified (2) HTN (hypertension) SNOMED Code(s): 34922985 Code(s): I10 - ESSENTIAL (PRIMARY) HYPERTENSION Priority: Medium Current Visit: No Qualifiers: Hypertension type: unspecified Qualified Code(s): I10 - Essential (primary) hypertension (3) Asthma SNOMED Code(s): 969262257 Code(s): J45.909 - UNSPECIFIED ASTHMA, UNCOMPLICATED Priority: Low Current Visit: No Qualifiers: Asthma severity: unspecified severity Asthma persistence: unspecified Asthma complication type: unspecified Qualified Code(s): J45.909 - Unspecified asthma, uncomplicated (4) ROWDY (obstructive sleep apnea) SNOMED Code(s): 05802250 Code(s): G47.33 - OBSTRUCTIVE SLEEP APNEA (ADULT) (PEDIATRIC) Priority: Low Current Visit: No (5) GERD (gastroesophageal reflux disease) SNOMED Code(s): 103884316 Code(s): K21.9 - GASTRO-ESOPHAGEAL REFLUX DISEASE WITHOUT ESOPHAGITIS Priority: Low Current Visit: No Qualifiers: Esophagitis presence: esophagitis presence not specified Qualified Code(s): K21.9 - Gastro-esophageal reflux disease without esophagitis (6) Nodule of right lung SNOMED Code(s): 370982680 Code(s): R91.1 - SOLITARY PULMONARY NODULE Priority: Low Current Visit: No (7) STD (female) SNOMED Code(s): 7881934, 121440719 Code(s): A64 - UNSPECIFIED SEXUALLY TRANSMITTED DISEASE Priority: Low Current Visit: No (8) Recurrent UTI SNOMED Code(s): 406087789 Code(s): N39.0 - URINARY TRACT INFECTION, SITE NOT SPECIFIED Priority: Low Current Visit: No (9) Fibromyalgia SNOMED Code(s): 945695512 Code(s): M79.7 - FIBROMYALGIA Priority: Medium Current Visit: No (10) Migraines SNOMED Code(s): 63910991 Code(s): G43.909 - MIGRAINE, UNSP, NOT INTRACTABLE, WITHOUT STATUS MIGRAINOSUS Priority: Low Current Visit: No Qualifiers: Migraine type: unspecified Status migrainosus presence: without status migrainosus Intractability: not intractable Qualified Code(s): G43.909 - Migraine, unspecified, not intractable, without status migrainosus (11) ADHD SNOMED Code(s): 993892557 Code(s): F90.9 - ATTENTION-DEFICIT HYPERACTIVITY DISORDER, UNSPECIFIED TYPE Priority: Low Current Visit: No Qualifiers: Attention deficit-hyperactivity disorder type: unspecified Qualified Code(s): F90.9 - Attention-deficit hyperactivity disorder, unspecified type (12) Bipolar disorder SNOMED Code(s): 47921381 Code(s): F31.9 - BIPOLAR DISORDER, UNSPECIFIED Priority: Medium Current Visit: No Qualifiers: Active/Remission status: remission status unspecified Qualified Code(s): F31.9 - Bipolar disorder, unspecified (13) Depression SNOMED Code(s): 30617967 Code(s): F32.9 - MAJOR DEPRESSIVE DISORDER, SINGLE EPISODE, UNSPECIFIED Priority: Low Current Visit: No Qualifiers: Depression Type: other depression Qualified Code(s): F32.89 - Other specified depressive episodes (14) OCD (obsessive compulsive disorder) SNOMED Code(s): 824564486 Code(s): F42.9 - OBSESSIVE-COMPULSIVE DISORDER, UNSPECIFIED Priority: Medium Current Visit: No Qualifiers: Obsessive-compulsive disorder type: unspecified Qualified Code(s): F42.9 - Obsessive-compulsive disorder, unspecified (15) Type II diabetes mellitus SNOMED Code(s): 07660364 Code(s): E11.9 - TYPE 2 DIABETES MELLITUS WITHOUT COMPLICATIONS Priority: Medium Current Visit: Yes Qualifiers: Diabetes mellitus halfway insulin use: without halfway use Diabetes mellitus complication status: with other specified complication Qualified Code(s): E11.69 - Type 2 diabetes mellitus with other specified complication (16) Hypothyroidism SNOMED Code(s): 80151313 Code(s): E03.9 - HYPOTHYROIDISM, UNSPECIFIED Priority: Low Current Visit: No Qualifiers: Hypothyroidism type: unspecified Qualified Code(s): E03.9 - Hypothyroidism, unspecified (17) Recent surgical procedure on lower extremity SNOMED Code(s): 832897329 Code(s): Z98.890 - OTHER SPECIFIED POSTPROCEDURAL STATES Priority: High Current Visit: Yes (18) Transaminitis SNOMED Code(s): 988630454, 282189342 Code(s): R74.0 - NONSPEC ELEV OF LEVELS OF TRANSAMNS & LACTIC ACID DEHYDRGNSE Priority: Medium Current Visit: Yes (19) Hypomagnesemia SNOMED Code(s): 586698910 Code(s): E83.42 - HYPOMAGNESEMIA Priority: High Current Visit: Yes (20) Hypokalemia SNOMED Code(s): 33610789 Code(s): E87.6 - HYPOKALEMIA Priority: High Current Visit: Yes Problem List Initiated/Reviewed/Updated: Yes My Orders Last 24 Hours: My Active Orders 02/27/20 09:00 Potassium Chloride [Klor-Con M20] 40 meq PO BID Plan: I/P: Acute: S/P right tibia intramedullary nailing - post-operative day 4 -Injured in fall - seen in ED on 02/17/2020 -Was admitted to floor last night after difficulty with ambulation and urination -DVT prophylaxis and pain management per primary care team -PT/OT -IS/RT -Monitor oxygen saturation -Titrate oxygen as needed -Home medications reviewed -Vital signs stable -Monitor labs -Pre-operative Hgb was 11.5; Now 9.3-->10.1-->9.1-->10.3 -Pre-operative GFR was >60; Now >60 -Pre-operative A1C was 7.2% -Sliding scale insulin and QID AC and bedtime glucose checks Current daily smoker -Nicotine patches -Cessation counseling -Patches on discharge Transaminitis, improving -AST 453-->503-->135 -ALT 240-->373-->284 -alkaline phosphatase 236-->293-->288 -Primary team adjusting pain medications from Percocet to Oxycodone -Monitor labs -Likely 2/2 anesthesia and pain medications -Carries history of elevated LFTs Hypomagnesemia -Magnesium 1.7-->1.9 -Supplement daily Hypokalemia -Potassium 3.4 -Supplement Chronic: HLD HTN asthma sleep apnea right lung nodule GERD IBD elevated LFT STDs recurrent UTIs fibromyalgia migraines short-term memory loss ADHD bipolar depression OCD type II DM hypothyroidism obesity History of drug and ETOH abuse History of gastric bypass Plan: CM for discharge planning GI prophylaxis Home medications as indicated Other orders as listed above Routine AM labs She is a full code. Her PCP is Ana M Fontana NP. 02/24/20: From a hospitalist standpoint Nancy is doing pretty well today, after a difficult night. She is known to this service from prior hospitalizations. She has been hospitalized in the past for hypoglycemia. Her labs and vital signs have remained stable. She was up ambulating and working with PT and OT. She has been up urinating and is off of oxygen. She takes Ozempic for her diabetes. Blood glucose readings have overall been satisfactory, especially given her hypoglycemia history. Patient reports glucose readings of 120-160 at home. She reports she takes these occasionally. A1C was reviewed and was 7.2% on 02/19/20, up from 7.0% on 11/13/2019. Pain has been controlled. Per primary team and after discussion with the patient, plan is for discharge to a SNF vs. [facility]. During her last admission placement was recommend and she ultimately refused, leaving AMA. She is cleared for discharge, pending primary team and PT/OT agreement. 02/25/20: Nancy had an ok night but a rough morning. Her pain has been more severe today. PT was in to work with her and reports her tolerance is much less today. The are currently recommending SNF placement. Per nursing, her higher bedside blood glucose readings yesterday were obtained after she had already ate. Liver enzymes are elevated today and primary team is adjusting pain medications to address this. She dose carry a history of elevated LFTs. We will continue to monitor. Otherwise she remains clinically stable. She has been up ambulating and continues to urinate. Vital signs have been stable. SW involved in finding placement. She remains off of oxygen. 02/26/2020: Nancy is doing better today. She has been up ambulating with nursing utilizing a walker as a standby assist. Magnesium was 1.7 and was supplemented. Minor increase in liver enzymes as noted above. Hgb down to 9.1. Labs and vital signs otherwise remain stable. Patient reports last BM was 02/18/20 however she is a rather poor historian. She is only now starting to eat better. Blood sugars 144- 190. [place] swing-bed was in to evaluate patient. SW will follow-up with this. They did report earliest they could possibly accept patient would be 03/01/20. She remains off of oxygen. Continues to work with PT/OT. Pain has been controlled today. 02/27/2020: Nancy has continued to do well. She has been up ambulating with PT/OT and nursing. They continue to recommend SNF treatment. She complains of a headache improved with Imitrex. Magnesium was 1.9 and she was started on daily supplementation. Potassium was 3.4 and was supplemented. Vital signs trend: Tmax 98.7, HR 92-111, BP 145-128/94-89, RR 16-22, Oxygen saturations 93-99% on room air. Pain has been controlled with PO pain meds. Discontinued POC blood glucose readings. She remains off of oxygen. She has been accepted at [facility] on Sunday03/02/20. COVID-19 test ordered for Sunday03/01/20. Dr. Camarillo will repor tedly be in [place] on March 10 and CM will contact [facility] to schedule this appointment. Hgb has increased as above. Liver enzymes have improved. Planning on discharge Sunday. Thank you for allowing us to participate in the care of this patient!! LOS >96 hrs pending placement.
[2020-02-27] MEDS: Ondansetron 4 MG Tab.DIS PO PRN (08:27)
[2020-02-27] MEDS: Polyethylene Glycol 3350 Powder 17 GM Packet PO SCH (09:45)
[2020-02-27] MEDS: Lubiprostone 24 MCG Cap PO SCH ×2 (09:46→16:52)
[2020-02-27] MEDS: Trospium 20 MG Tab PO SCH ×2 (09:46→20:10)
[2020-02-27] MEDS: Docusate Sodium 100 MG Cap PO SCH ×2 (09:50→20:10)
[2020-02-27] MEDS: Topiramate 25 MG Tab PO SCH ×2 (09:51→20:10)
[2020-02-27] MEDS: Bisacodyl 5 MG Tab PO PRN (09:52)
[2020-02-27] MEDS: Magnesium Oxide 400 MG Tab PO SCH (09:52)
[2020-02-27] MEDS: valACYclovir 500 MG Tab PO SCH (09:52)
[2020-02-27] MEDS: Potassium Chloride 20 MEQ Tab.ER PO SCH ×2 (09:52→20:09)
[2020-02-27] MEDS: Nicotine 21 MG/24 Hr Patch TRDERM SCH (09:53)
[2020-02-27] MEDS: Enoxaparin 30 MG/0.3 ML Syringe SUBCUT SCH ×2 (09:53→20:13)
[2020-02-27] MEDS: CYCLOSPORINE EYEBOTH SCH ×2 (09:54→20:12)
[2020-02-27] MEDS: SUMAtriptan 50 MG Tab PO PRN (10:27)
--- NOTE | 2020-02-27 14:27 | PCM.SURGPN ---
- General Info Date of Service: 02/27/20 POD#: 4 Functional Status: Reports: Pain Controlled, Tolerating Diet, Ambulating, Urinating, Incentive Spirometry, Other (The pt states she is doing "better" today. She was resting comfortably in her chair. ) - Patient Data Vitals - Most Recent: Last Vital Signs Temp 98.2 F 02/27/20 08:48 Pulse 92 02/27/20 08:48 Resp 20 02/27/20 08:48 BP 128/89 02/27/20 08:48 Pulse Ox 97 02/27/20 08:48 Weight - Most Recent: 163 lb 8 oz I&O - Last 24 Hours: Intake & Output 02/26/20 02/27/20 02/27/20 22:59 06:59 14:59 Intake Total 1920 600 640 Output Total 1900 Balance 20 600 640 Lab Results Last 24 Hrs: Laboratory Results - last 24 hr 02/26/20 02/26/20 02/27/20 Range/Units 16:30 21:30 04:35 WBC 8.08 (3.98-10.04) K/mm3 RBC 3.21 L (3.98-5.22) M/mm3 Hgb 10.3 L (11.2-15.7) gm/dl Hct 31.8 L (34.1-44.9) % MCV 99.1 H (79.4-94.8) fl MCH 32.1 (25.6-32.2) pg MCHC 32.4 (32.2-35.5) g/dl RDW Std Deviation 49.6 H (36.4-46.3) fL Plt Count 331 (182-369) K/mm3 MPV 8.8 L (9.4-12.3) fl Neut % (Auto) 41.4 (34.0-71.1) % Lymph % (Auto) 44.3 (19.3-51.7) % Erie % (Auto) 8.0 (4.7-12.5) % Eos % (Auto) 5.9 H (0.7-5.8) Baso % (Auto) 0.2 (0.1-1.2) % Neut # (Auto) 3.33 (1.56-6.13) K/mm3 Lymph # (Auto) 3.58 (1.18-3.74) K/mm3 Erie # (Auto) 0.65 H (0.24-0.36) K/mm3 Eos # (Auto) 0.48 H (0.04-0.36) K/mm3 Baso # (Auto) 0.02 (0.01-0.08) K/mm3 Sodium (136-145) mEq/L Potassium (3.5-5.1) mEq/L Chloride (98-107) mEq/L Carbon Dioxide (21-32) mEq/L Anion Gap (5-15) BUN (7-18) mg/dL Creatinine (0.55-1.02) mg/dL Est Cr Clr Drug Dosing mL/min Estimated GFR (MDRD) (>60) mL/min BUN/Creatinine Ratio (14-18) Glucose (74-106) mg/dL POC Glucose 218 H 179 H (70-105) mg/dL Calcium (8.5-10.1) mg/dL Phosphorus (2.6-4.7) mg/dL Magnesium (1.8-2.4) mg/dl Total Bilirubin (0.2-1.0) mg/dL AST (15-37) U/L ALT (14-59) U/L Alkaline Phosphatase (46-116) U/L Total Protein (6.4-8.2) g/dl Albumin (3.4-5.0) g/dl Globulin gm/dL Albumin/Globulin Ratio (1-2) 02/27/20 02/27/20 02/27/20 Range/Units 04:35 06:53 10:51 WBC (3.98-10.04) K/mm3 RBC (3.98-5.22) M/mm3 Hgb (11.2-15.7) gm/dl Hct (34.1-44.9) % MCV (79.4-94.8) fl MCH (25.6-32.2) pg MCHC (32.2-35.5) g/dl RDW Std Deviation (36.4-46.3) fL Plt Count (182-369) K/mm3 MPV (9.4-12.3) fl Neut % (Auto) (34.0-71.1) % Lymph % (Auto) (19.3-51.7) % Erie % (Auto) (4.7-12.5) % Eos % (Auto) (0.7-5.8) Baso % (Auto) (0.1-1.2) % Neut # (Auto) (1.56-6.13) K/mm3 Lymph # (Auto) (1.18-3.74) K/mm3 Erie # (Auto) (0.24-0.36) K/mm3 Eos # (Auto) (0.04-0.36) K/mm3 Baso # (Auto) (0.01-0.08) K/mm3 Sodium 137 (136-145) mEq/L Potassium 3.4 L (3.5-5.1) mEq/L Chloride 103 (98-107) mEq/L Carbon Dioxide 26 (21-32) mEq/L Anion Gap 11.4 (5-15) BUN 13 (7-18) mg/dL Creatinine 0.9 (0.55-1.02) mg/dL Est Cr Clr Drug Dosing 65.06 mL/min Estimated GFR (MDRD) > 60 (>60) mL/min BUN/Creatinine Ratio 14.4 (14-18) Glucose 151 H (74-106) mg/dL POC Glucose 141 H 280 H (70-105) mg/dL Calcium 9.0 (8.5-10.1) mg/dL Phosphorus 4.2 (2.6-4.7) mg/dL Magnesium 1.9 (1.8-2.4) mg/dl Total Bilirubin 0.5 (0.2-1.0) mg/dL AST 135 H (15-37) U/L ALT 284 H (14-59) U/L Alkaline Phosphatase 288 H (46-116) U/L Total Protein 6.3 L (6.4-8.2) g/dl Albumin 2.8 L (3.4-5.0) g/dl Globulin 3.5 gm/dL Albumin/Globulin Ratio 0.8 L (1-2) Med Orders - Current: Current Medications Bisacodyl (Dulcolax) 5 mg PO DAILY PRN PRN Reason: Constipation Last Admin: 02/27/20 09:52 Dose: 5 mg Documented by: Cyclobenzaprine HCl (Flexeril) 10 mg PO TID PRN PRN Reason: Spasms Last Admin: 02/26/20 08:46 Dose: 10 mg Documented by: Docusate Sodium (Colace) 100 mg PO BID [facility] Last Admin: 02/27/20 09:50 Dose: 100 mg Documented by: Enoxaparin Sodium (Lovenox) 30 mg SUBCUT BID [facility] Last Admin: 02/27/20 09:53 Dose: 30 mg Documented by: Levothyroxine Sodium (Synthroid) 50 mcg PO ACBREAKFAST [facility] Last Admin: 02/27/20 06:54 Dose: 50 mcg Documented by: Loratadine (Claritin) 10 mg PO BEDTIME [facility] Last Admin: 02/26/20 20:10 Dose: 10 mg Documented by: Lubiprostone (Amitiza) 24 mcg PO BIDMEALS [facility] Last Admin: 02/27/20 09:46 Dose: 24 mcg Documented by: Magnesium Hydroxide (Milk Of Magnesia) 30 ml PO BID PRN PRN Reason: Constipation Last Admin: 02/27/20 02:37 Dose: 30 ml Documented by: Magnesium Oxide (Magnesium Oxide) 400 mg PO DAILY [facility] Last Admin: 02/27/20 09:52 Dose: 400 mg Documented by: Miscellaneous Information (Remove Patch) 1 ea TRDERM DAILY [facility] Last Admin: 02/27/20 09:54 Dose: 1 ea Documented by: Morphine Sulfate (Morphine) 2 mg IVPUSH Q2H PRN PRN Reason: Breakthrough Pain Naloxone HCl (Narcan) 0.1 mg IVPUSH Q5M PRN PRN Reason: Oversedation Nicotine (Habitrol) 21 mg TRDERM DAILY [facility] Last Admin: 02/27/20 09:53 Dose: 21 mg Documented by: Ondansetron HCl (Zofran Odt) 8 mg PO Q6H PRN PRN Reason: Nausea Last Admin: 02/27/20 08:27 Dose: 8 mg Documented by: Ondansetron HCl (Zofran) 4 mg IVPUSH Q6H PRN PRN Reason: Nausea/Vomiting Oxycodone HCl (Oxycodone) 5 - 10 mg PO Q4H PRN PRN Reason: Pain Last Admin: 02/27/20 02:37 Dose: 5 mg Documented by: Pantoprazole Sodium (Protonix) 40 mg PO DAILY@0700 [facility] Last Admin: 02/27/20 06:54 Dose: 40 mg Documented by: Ozempic Pen Injector 0 each SUBCUT Th@0900 [facility] Last Admin: 02/26/20 11:50 Dose: 1 each Documented by: Cyclosporine [ Restasis Multidose] Ophthal. Emulsion 0 each EYEBOTH BID [facility] Last Admin: 02/27/20 09:54 Dose: Not Given Documented by: Fluvoxamine 200 Mg 0 each PO BID [facility] Polyethylene Glycol (Miralax) 17 gm PO DAILY [facility] Last Admin: 02/27/20 09:45 Dose: 17 gm Documented by: Potassium Chloride (Klor-Con M20) 40 meq PO BID [facility] Stop: 02/27/20 21:01 Last Admin: 02/27/20 09:52 Dose: 40 meq Documented by: Rosuvastatin Calcium (Crestor) 5 mg PO BEDTIME [facility] Last Admin: 02/26/20 20:11 Dose: 5 mg Documented by: Senna (Senna) 8.6 mg PO BID PRN PRN Reason: Constipation Last Admin: 02/24/20 21:44 Dose: 8.6 mg Documented by: Sumatriptan Succinate (Imitrex) 50 mg PO ASDIRECTED PRN PRN Reason: migraines Last Admin: 02/27/20 10:27 Dose: 50 mg Documented by: Topiramate (Topamax) 50 mg PO BID [facility] Last Admin: 02/27/20 09:51 Dose: 50 mg Documented by: Trospium (Sanctura) 20 mg PO BID [facility] Last Admin: 02/27/20 09:46 Dose: 20 mg Documented by: Valacyclovir HCl (Valtrex) 500 mg PO DAILY [facility] Last Admin: 02/27/20 09:52 Dose: 500 mg Documented by: Discontinued Medications Albuterol (Proventil Neb Soln) 2.5 mg NEB ONETIME PRN PRN Reason: asthma Stop: 02/23/20 18:00 Albuterol/Ipratropium (Duoneb 3.0-0.5 Mg/3 Ml) 3 ml NEB ONETIME ONE Stop: 02/23/20 09:01 Last Admin: 02/23/20 08:32 Dose: 3 ml Documented by: Bupivacaine HCl (Sensorcaine-Mpf 0.25%) Confirm Administered Dose 20 ml .ROUTE .STK-MED ONE Stop: 02/23/20 07:22 Last Admin: 02/23/20 12:37 Dose: 20 ml Documented by: Cefazolin Sodium (Ancef) 2 gm .ROUTE .STK-MED ONE Stop: 02/23/20 11:07 Famotidine (Pepcid) 20 mg IVPUSH ONETIME ONE Stop: 02/23/20 09:01 Last Admin: 02/23/20 08:40 Dose: 20 mg Documented by: Fentanyl (Sublimaze) Confirm Administered Dose 100 mcg .ROUTE .STK-MED ONE Stop: 02/23/20 07:40 Fentanyl (Sublimaze) 50 mcg IVPUSH Q5M PRN PRN Reason: Pain Stop: 02/23/20 18:00 Fentanyl (Sublimaze) Confirm Administered Dose 250 mcg .ROUTE .STK-MED ONE Stop: 02/23/20 11:21 Fentanyl (Sublimaze) 50 mcg IVPUSH Q5M PRN PRN Reason: Pain Stop: 02/23/20 18:00 Hydromorphone HCl (Dilaudid) 0.5 mg IVPUSH Q10M PRN PRN Reason: Pain (severe 7-10) Stop: 02/23/20 18:00 Hydromorphone HCl (Dilaudid) 0.5 mg IVPUSH Q10M PRN PRN Reason: Pain (severe 7-10) Stop: 02/23/20 18:00 Last Admin: 02/23/20 13:58 Dose: 0.5 mg Documented by: Lactated Ringer's (Ringers, Lactated) 1,000 mls @ 125 mls/hr IV ASDIRECTED [facility] Lidocaine HCl (Xylocaine-Mpf 1%) Confirm Administered Dose 4 mls @ as directed .ROUTE .STK-MED ONE Stop: 02/23/20 07:39 Lactated Ringer's (Ringers, Lactated) 1,000 mls @ 125 mls/hr IV ASDIRECTED [facility] Stop: 02/23/20 23:00 Last Admin: 02/23/20 14:03 Dose: 125 mls/hr Documented by: Cefazolin Sodium/Dextrose 2 gm (/ Premix) 50 mls @ 100 mls/hr IV Q8H [facility] Stop: 02/24/20 11:29 Last Admin: 02/24/20 12:18 Dose: 100 mls/hr Documented by: Magnesium Sulfate (Magnesium Sulfate In Water Premix) 2 gm in 50 mls @ 25 mls/hr IV ONETIME ONE Stop: 02/26/20 09:59 Last Admin: 02/26/20 08:45 Dose: 25 mls/hr Documented by: Insulin Human Lispro (Humalog) 0 unit SUBCUT QIDACANDBED [facility]; Protocol Last Admin: 02/25/20 07:40 Dose: Not Given Documented by: Ketorolac Tromethamine (Toradol) 15 mg IVPUSH Q6H PRN PRN Reason: Pain Last Admin: 02/24/20 20:20 Dose: 15 mg Documented by: Lidocaine/Sodium Bicarbonate (Buffered Lidocaine 1% In Ns 8.4%) 0.25 ml IDERM ONETIME PRN PRN Reason: Prior to IV Start Lidocaine/Sodium Bicarbonate (Buffered Lidocaine 1% In Ns 8.4%) 0.25 ml IDERM ONETIME PRN PRN Reason: Prior to IV Start Stop: 02/23/20 18:00 Metoclopramide HCl (Reglan) Confirm Administered Dose 10 mg .ROUTE .STK-MED ONE Stop: 02/26/20 09:30 Last Admin: 02/26/20 11:17 Dose: Not Given Documented by: Midazolam HCl (Versed 1 Mg/Ml) 1 mg IVPUSH ONETIME ONE Stop: 02/23/20 08:03 Last Admin: 02/23/20 17:12 Dose: Not Given Documented by: Midazolam HCl (Versed 1 Mg/Ml) Confirm Administered Dose 2 mg .ROUTE .STK-MED ONE Stop: 02/23/20 11:10 Miscellaneous Information (Remove Patch) 0 ea TRDERM ONETIME ONE Stop: 02/26/20 08:01 Last Admin: 02/26/20 08:46 Dose: 1 ea Documented by: Miscellaneous Information (Remove Patch) 1 ea TRDERM DAILY [facility] Last Admin: 02/24/20 19:18 Dose: Not Given Documented by: Nicotine (Habitrol) 21 mg TRDERM DAILY [facility] Stop: 02/25/20 01:00 Last Admin: 02/24/20 12:12 Dose: Not Given Documented by: Non-Formulary Medication (Cefdinir [Omnicef]) 300 mg PO BID [facility] Ondansetron HCl (Zofran) 4 mg IVPUSH ONETIME PRN PRN Reason: Nausea/Vomiting Stop: 02/23/20 18:00 Ondansetron HCl (Zofran) 4 mg IVPUSH ONETIME PRN PRN Reason: Nausea/Vomiting Stop: 02/23/20 18:00 Oxycodone/Acetaminophen (Percocet 325-5 Mg) 1 - 2 tab PO Q4H PRN PRN Reason: Pain Last Admin: 02/24/20 21:45 Dose: 2 tab Documented by: Fluvoxamine 200 Mg 0 each PO BEDTIME [facility] Last Admin: 02/26/20 20:12 Dose: Not Given Documented by: Propofol (Diprivan 20 Ml) Confirm Administered Dose 200 mg .ROUTE .STK-MED ONE Stop: 02/23/20 07:39 Scopolamine (Transderm-Scop) 1.5 mg TRDERM ONETIME PRN PRN Reason: PONV Stop: 02/23/20 18:00 Last Admin: 02/23/20 07:54 Dose: 1.5 mg Documented by: Sodium Chloride (Saline Flush) 10 ml FLUSH ASDIRECTED PRN PRN Reason: Keep Vein Open Sodium Chloride (Saline Flush) 10 ml FLUSH ASDIRECTED PRN PRN Reason: Keep Vein Open Stop: 02/23/20 18:00 - Exam Wound/Incisions: Dressing Dry and Intact General: Alert, Cooperative, No Acute Distress Lungs: Normal Respiratory Effort Extremities: Other (NVS intact for BLE. Corine's negative. ) Sepsis Event Note - Evaluation Sepsis Screening Result: No Definite Risk - Focused Exam Vital Signs: Vital Signs Temp Pulse Resp BP Pulse Ox 02/27/20 08:48 98.2 F 92 20 128/89 97 02/27/20 02:35 98.1 F 100 18 145/94 H 96 - Problem List Review Problem List Initiated/Reviewed/Updated: Yes - My Orders Last 24 Hours: Active Orders 24 hr Category Date Time Status BASIC METABOLIC PANEL,BMP [CHEM] AM Lab 02/28/20 05:11 Ordered MAGNESIUM [CHEM] AM Lab 02/28/20 05:11 Ordered Magnesium Oxide Med 02/27/20 09:00 Active 400 mg PO DAILY Patient's Own Medication [Ptom] Med 02/27/20 21:00 Active 0 each PO BID Potassium Chloride [Klor-Con M20] Med 02/27/20 09:00 Active 40 meq PO BID Medication Orders Bisacodyl (Dulcolax) 5 mg PO DAILY PRN PRN Reason: Constipation Last Admin: 02/27/20 09:52 Dose: 5 mg Documented by: LUIS ARMANDO Admin: 02/24/20 21:43 Dose: 5 mg Documented by: LAINA Cyclobenzaprine HCl (Flexeril) 10 mg PO TID PRN PRN Reason: Spasms Last Admin: 02/26/20 08:46 Dose: 10 mg Documented by: Admin: 02/25/20 22:00 Dose: 10 mg Documented by: Admin: 02/25/20 17:40 Dose: 10 mg Documented by: Admin: 02/25/20 09:58 Dose: 10 mg Documented by: Admin: 02/24/20 20:16 Dose: 10 mg Documented by: Admin: 02/24/20 12:24 Dose: 10 mg Documented by: Admin: 02/23/20 21:59 Dose: 10 mg Documented by: LAINA Docusate Sodium (Colace) 100 mg PO BID [facility] Admin: 02/27/20 09:50 Dose: 100 mg Documented by: LUIS ARMANDO Admin: 02/26/20 20:10 Dose: 100 mg Documented by: Admin: 02/26/20 08:46 Dose: 100 mg Documented by: Admin: 02/25/20 20:10 Dose: 100 mg Documented by: Admin: 02/25/20 09:38 Dose: 100 mg Documented by: Admin: 02/24/20 21:42 Dose: 100 mg Documented by: Admin: 02/24/20 08:56 Dose: 100 mg Documented by: CHELSEA Enoxaparin Sodium (Lovenox) 30 mg SUBCUT BID [facility] Admin: 02/27/20 09:53 Dose: 30 mg Documented by: LUIS ARMANDO Admin: 02/26/20 20:11 Dose: 30 mg Documented by: Admin: 02/26/20 08:47 Dose: 30 mg Documented by: Admin: 02/25/20 20:10 Dose: 30 mg Documented by: Admin: 02/25/20 09:49 Dose: 30 mg Documented by: Admin: 02/24/20 21:47 Dose: 30 mg Documented by: Admin: 02/24/20 08:56 Dose: 30 mg Documented by: CHELSEA Levothyroxine Sodium (Synthroid) 50 mcg PO ACBREAKFAST [facility] Admin: 02/27/20 06:54 Dose: 50 mcg Documented by: Admin: 02/26/20 06:16 Dose: 50 mcg Documented by: Admin: 02/25/20 06:15 Dose: 50 mcg Documented by: Admin: 02/24/20 06:48 Dose: 50 mcg Documented by: LAINA Loratadine (Claritin) 10 mg PO BEDTIME [facility] Admin: 02/26/20 20:10 Dose: 10 mg Documented by: Admin: 02/25/20 20:10 Dose: 10 mg Documented by: Admin: 02/24/20 21:41 Dose: 10 mg Documented by: Admin: 02/23/20 22:00 Dose: 10 mg Documented by: LAINA Lubiprostone (Amitiza) 24 mcg PO BIDMEALS [facility] Admin: 02/27/20 09:46 Dose: 24 mcg Documented by: LUIS ARMANDO Admin: 02/26/20 16:38 Dose: 24 mcg Documented by: Admin: 02/26/20 08:45 Dose: 24 mcg Documented by: Admin: 02/25/20 16:59 Dose: 24 mcg Documented by: Admin: 02/25/20 07:57 Dose: 24 mcg Documented by: Admin: 02/24/20 18:14 Dose: 24 mcg Documented by: Admin: 02/24/20 08:55 Dose: 24 mcg Documented by: Admin: 02/23/20 17:43 Dose: 24 mcg Documented by: CHELSEA Magnesium Hydroxide (Milk Of Magnesia) 30 ml PO BID PRN PRN Reason: Constipation Last Admin: 02/27/20 02:37 Dose: 30 ml Documented by: Admin: 02/24/20 08:59 Dose: 30 ml Documented by: CHELSEA Magnesium Oxide (Magnesium Oxide) 400 mg PO DAILY [facility] Admin: 02/27/20 09:52 Dose: 400 mg Documented by: [id number] Miscellaneous Information (Remove Patch) 1 ea TRDERM DAILY [facility] Last Admin: 02/27/20 09:54 Dose: 1 ea Documented by: LUIS ARMANDO Admin: 02/26/20 08:47 Dose: 1 ea Documented by: Admin: 02/25/20 09:49 Dose: 1 ea Documented by: MOISES Morphine Sulfate (Morphine) 2 mg IVPUSH Q2H PRN PRN Reason: Breakthrough Pain Naloxone HCl (Narcan) 0.1 mg IVPUSH Q5M PRN PRN Reason: Oversedation Nicotine (Habitrol) 21 mg TRDERM DAILY [facility] Last Admin: 02/27/20 09:53 Dose: 21 mg Documented by: LUIS ARMANDO Admin: 02/26/20 08:45 Dose: 21 mg Documented by: Admin: 02/25/20 09:48 Dose: 21 mg Documented by: MOISES Ondansetron HCl (Zofran Odt) 8 mg PO Q6H PRN PRN Reason: Nausea Last Admin: 02/27/20 08:27 Dose: 8 mg Documented by: Admin: 02/26/20 09:04 Dose: 8 mg Documented by: CRISTOFER Ondansetron HCl (Zofran) 4 mg IVPUSH Q6H PRN PRN Reason: Nausea/Vomiting Oxycodone HCl (Oxycodone) 5 - 10 mg PO Q4H PRN PRN Reason: Pain Last Admin: 02/27/20 02:37 Dose: 5 mg Documented by: Admin: 02/26/20 20:12 Dose: 5 mg Documented by: Admin: 02/26/20 03:08 Dose: 5 mg Documented by: Admin: 02/25/20 22:00 Dose: 5 mg Documented by: Admin: 02/25/20 17:37 Dose: 5 mg Documented by: Admin: 02/25/20 13:42 Dose: 10 mg Documented by: Admin: 02/25/20 09:38 Dose: 5 mg Documented by: MOISES Pantoprazole Sodium (Protonix) 40 mg PO DAILY@0700 [facility] Last Admin: 02/27/20 06:54 Dose: 40 mg Documented by: Admin: 02/26/20 06:16 Dose: 40 mg Documented by: Admin: 02/25/20 06:15 Dose: 40 mg Documented by: Admin: 02/24/20 06:48 Dose: 40 mg Documented by: LAINA Ozempic Pen Injector 0 each SUBCUT Th@0900 [facility] Last Admin: 02/26/20 11:50 Dose: 1 each Documented by: CRISTOFER Cyclosporine [ Restasis Multidose] Ophthal. Emulsion 0 each EYEBOTH BID [facility] Last Admin: 02/27/20 09:54 Dose: Not Given Documented by: LUIS ARMANDO Admin: 02/26/20 20:12 Dose: Not Given Documented by: Admin: 02/26/20 08:47 Dose: Not Given Documented by: Admin: 02/25/20 20:10 Dose: Not Given Documented by: CARLOS Fluvoxamine 200 Mg 0 each PO BID [facility] Polyethylene Glycol (Miralax) 17 gm PO DAILY [facility] Last Admin: 02/27/20 09:45 Dose: 17 gm Documented by: LUIS ARMANDO Admin: 02/26/20 08:45 Dose: 17 gm Documented by: Admin: 02/25/20 09:48 Dose: 17 gm Documented by: Admin: 02/24/20 08:57 Dose: 17 gm Documented by: CHELSEA Potassium Chloride (Klor-Con M20) 40 meq PO BID [facility] Stop: 02/27/20 21:01 Last Admin: 02/27/20 09:52 Dose: 40 meq Documented by: LUIS ARMANDO Rosuvastatin Calcium (Crestor) 5 mg PO BEDTIME [facility] Last Admin: 02/26/20 20:11 Dose: 5 mg Documented by: Admin: 02/25/20 20:10 Dose: 5 mg Documented by: Admin: 02/24/20 21:42 Dose: 5 mg Documented by: Admin: 02/23/20 22:00 Dose: 5 mg Documented by: LAINA Senna (Senna) 8.6 mg PO BID PRN PRN Reason: Constipation Last Admin: 02/24/20 21:44 Dose: 8.6 mg Documented by: LAINA Sumatriptan Succinate (Imitrex) 50 mg PO ASDIRECTED PRN PRN Reason: migraines [facility] Admin: 02/27/20 10:27 Dose: 50 mg Documented by: LUIS ARMANDO Admin: 02/26/20 08:46 Dose: 50 mg Documented by: CRISTOFER Topiramate (Topamax) 50 mg PO BID [facility] Admin: 02/27/20 09:51 Dose: 50 mg Documented by: LUIS ARMANDO Admin: 02/26/20 20:10 Dose: 50 mg Documented by: Admin: 02/26/20 08:46 Dose: 50 mg Documented by: Admin: 02/25/20 20:10 Dose: 50 mg Documented by: Admin: 02/25/20 09:47 Dose: 50 mg Documented by: Admin: 02/24/20 21:43 Dose: 50 mg Documented by: Admin: 02/24/20 09:15 Dose: 50 mg Documented by: Admin: 02/23/20 22:00 Dose: 50 mg Documented by: LAINA Trospium (Sanctura) 20 mg PO BID [facility] Admin: 02/27/20 09:46 Dose: 20 mg Documented by: LUIS ARMANDO Admin: 02/26/20 20:10 Dose: 20 mg Documented by: Admin: 02/26/20 08:45 Dose: 20 mg Documented by: Admin: 02/25/20 20:10 Dose: 20 mg Documented by: Admin: 02/25/20 09:47 Dose: 20 mg Documented by: Admin: 02/24/20 21:44 Dose: 20 mg Documented by: Admin: 02/24/20 08:50 Dose: 20 mg Documented by: CHELSEA Valacyclovir HCl (Valtrex) 500 mg PO DAILY [facility] Admin: 02/27/20 09:52 Dose: 500 mg Documented by: LUIS ARMANDO Admin: 02/26/20 08:46 Dose: 500 mg Documented by: Admin: 02/25/20 09:47 Dose: 500 mg Documented by: Admin: 02/24/20 08:51 Dose: 500 mg Documented by: CHELSEA - Assessment Assessment (Free Text/Narrative):: POD#4 - s/p IM gracie placement for right tibia fracture - Plan Plan (Free Text/Narrative):: 1. Lovenox BID, frequent mobility, TEDs, SCDs. 2. D/C to [facility] next week. 3. Continue with PT. WBAT. 4. Hospitalist management of medical conditions. The pt's case was discussed with Dr. Camarillo.
[2020-02-27] MEDS ORDERED: PALIPERIDONE PALMITATE 234 MG IM SCH (15:15)
[2020-02-27] MEDS ORDERED: Albuterol 6.7 GM Inhaler INH PRN (15:16)
[2020-02-27] MEDS ORDERED: Bisacodyl 10 MG Supp RECTAL ONE (16:45)
[2020-02-27] MEDS: Propranolol 10 MG Tab PO SCH (20:10)
[2020-02-27] MEDS: Loratadine 10 MG Tab PO SCH (20:10)
[2020-02-27] MEDS: Rosuvastatin 10 MG Tab PO SCH (20:11)
[2020-02-27] MEDS ORDERED: fluvoxaMINE 100 MG Tab PO SCH (21:00)
[2020-02-27] MEDS ORDERED: FLUVOXAMINE 200 MG PO SCH ×2 (21:00)
[2020-02-28] MEDS: Levothyroxine 50 MCG Tab PO SCH (06:02)
[2020-02-28] MEDS: Pantoprazole 40 MG Tab.CR PO SCH (06:02)
[2020-02-28] MEDS: Lubiprostone 24 MCG Cap PO SCH ×2 (06:03→18:02)
[2020-02-28] MEDS: oxyCODONE 5 MG Tab PO PRN ×3 (08:29→20:47)
[2020-02-28] MEDS: Docusate Sodium 100 MG Cap PO SCH ×2 (09:38→20:45)
[2020-02-28] MEDS: Magnesium Oxide 400 MG Tab PO SCH (09:38)
[2020-02-28] MEDS: Topiramate 25 MG Tab PO SCH ×2 (09:39→20:45)
[2020-02-28] MEDS: Polyethylene Glycol 3350 Powder 17 GM Packet PO SCH (09:39)
[2020-02-28] MEDS: Trospium 20 MG Tab PO SCH ×2 (09:40→20:44)
[2020-02-28] MEDS: Propranolol 10 MG Tab PO SCH ×2 (09:40→20:44)
[2020-02-28] MEDS: valACYclovir 500 MG Tab PO SCH (09:40)
[2020-02-28] MEDS: CYCLOSPORINE EYEBOTH SCH ×2 (09:41→20:48)
[2020-02-28] MEDS: Nicotine 21 MG/24 Hr Patch TRDERM SCH (09:41)
[2020-02-28] MEDS: Enoxaparin 30 MG/0.3 ML Syringe SUBCUT SCH ×2 (09:41→20:46)
--- NOTE | 2020-02-28 10:16 | PCM.SURGPN ---
- General Info Date of Service: 02/28/20 POD#: 5 Functional Status: Reports: Pain Controlled, Tolerating Diet, Ambulating, Urinating, Other (The pt states she is doing well. ) - Patient Data Vitals - Most Recent: Last Vital Signs Temp 97.9 F 02/28/20 06:00 Pulse 84 02/28/20 09:40 Resp 16 02/28/20 06:00 BP 128/85 02/28/20 09:40 Pulse Ox 96 02/28/20 06:00 Weight - Most Recent: 162 lb 4.8 oz I&O - Last 24 Hours: Intake & Output 02/27/20 02/28/20 02/28/20 22:59 06:59 14:59 Intake Total 980 500 Balance 980 500 Lab Results Last 24 Hrs: Laboratory Results - last 24 hr 02/27/20 02/28/20 Range/Units 10:51 06:25 Sodium 136 (136-145) mEq/L Potassium 4.0 (3.5-5.1) mEq/L Chloride 105 (98-107) mEq/L Carbon Dioxide 22 (21-32) mEq/L Anion Gap 13.0 (5-15) BUN 12 (7-18) mg/dL Creatinine 0.7 (0.55-1.02) mg/dL Est Cr Clr Drug Dosing 83.65 mL/min Estimated GFR (MDRD) > 60 (>60) mL/min BUN/Creatinine Ratio 17.1 (14-18) Glucose 169 H (74-106) mg/dL POC Glucose 280 H (70-105) mg/dL Calcium 9.2 (8.5-10.1) mg/dL Magnesium 1.9 (1.8-2.4) mg/dl Med Orders - Current: Current Medications Albuterol (Proventil Hfa) 0 gm INH Q4H PRN PRN Reason: Shortness of Breath Bisacodyl (Dulcolax) 5 mg PO DAILY PRN PRN Reason: Constipation Last Admin: 02/27/20 09:52 Dose: 5 mg Documented by: Cyclobenzaprine HCl (Flexeril) 10 mg PO TID PRN PRN Reason: Spasms Last Admin: 02/26/20 08:46 Dose: 10 mg Documented by: Docusate Sodium (Colace) 100 mg PO BID [facility] Last Admin: 02/28/20 09:38 Dose: 100 mg Documented by: Enalapril Maleate (Vasotec) 2.5 mg PO DAILY [facility] Last Admin: 02/28/20 09:38 Dose: 2.5 mg Documented by: Enoxaparin Sodium (Lovenox) 30 mg SUBCUT BID [facility] Last Admin: 02/28/20 09:41 Dose: 30 mg Documented by: Levothyroxine Sodium (Synthroid) 50 mcg PO ACBREAKFAST [facility] Last Admin: 02/28/20 06:02 Dose: 50 mcg Documented by: Loratadine (Claritin) 10 mg PO BEDTIME [facility] Last Admin: 02/27/20 20:10 Dose: 10 mg Documented by: Lubiprostone (Amitiza) 24 mcg PO BIDMEALS [facility] Last Admin: 02/28/20 06:03 Dose: 24 mcg Documented by: Magnesium Hydroxide (Milk Of Magnesia) 30 ml PO BID PRN PRN Reason: Constipation Last Admin: 02/27/20 02:37 Dose: 30 ml Documented by: Magnesium Oxide (Magnesium Oxide) 400 mg PO DAILY [facility] Last Admin: 02/28/20 09:38 Dose: 400 mg Documented by: Miscellaneous Information (Remove Patch) 1 ea TRDERM DAILY [facility] Last Admin: 02/28/20 09:41 Dose: 1 ea Documented by: Morphine Sulfate (Morphine) 2 mg IVPUSH Q2H PRN PRN Reason: Breakthrough Pain Naloxone HCl (Narcan) 0.1 mg IVPUSH Q5M PRN PRN Reason: Oversedation Nicotine (Habitrol) 21 mg TRDERM DAILY [facility] Last Admin: 02/28/20 09:41 Dose: 21 mg Documented by: Fluvoxamine 100 Mg (Tab) 0 each PO BID [facility] Last Admin: 02/28/20 09:36 Dose: 2 each Documented by: Ondansetron HCl (Zofran Odt) 8 mg PO Q6H PRN PRN Reason: Nausea Last Admin: 02/27/20 08:27 Dose: 8 mg Documented by: Ondansetron HCl (Zofran) 4 mg IVPUSH Q6H PRN PRN Reason: Nausea/Vomiting Oxycodone HCl (Oxycodone) 5 - 10 mg PO Q4H PRN PRN Reason: Pain Last Admin: 02/28/20 08:29 Dose: 5 mg Documented by: Pantoprazole Sodium (Protonix) 40 mg PO DAILY@0700 [facility] Last Admin: 02/28/20 06:02 Dose: 40 mg Documented by: Ozempic Pen Injector 0 each SUBCUT Th@0900 [facility] Last Admin: 02/26/20 11:50 Dose: 1 each Documented by: Cyclosporine [ Restasis Multidose] Ophthal. Emulsion 0 each EYEBOTH BID [facility] Last Admin: 02/28/20 09:41 Dose: Not Given Documented by: Polyethylene Glycol (Miralax) 17 gm PO DAILY [facility] Last Admin: 02/28/20 09:39 Dose: 17 gm Documented by: Propranolol HCl (Inderal) 10 mg PO BID [facility] Last Admin: 02/28/20 09:40 Dose: 10 mg Documented by: Rosuvastatin Calcium (Crestor) 5 mg PO BEDTIME [facility] Last Admin: 02/27/20 20:11 Dose: 5 mg Documented by: Senna (Senna) 8.6 mg PO BID PRN PRN Reason: Constipation Last Admin: 02/24/20 21:44 Dose: 8.6 mg Documented by: Sumatriptan Succinate (Imitrex) 50 mg PO ASDIRECTED PRN PRN Reason: migraines Last Admin: 02/27/20 10:27 Dose: 50 mg Documented by: Topiramate (Topamax) 50 mg PO BID [facility] Last Admin: 02/28/20 09:39 Dose: 50 mg Documented by: Trospium (Sanctura) 20 mg PO BID [facility] Last Admin: 02/28/20 09:40 Dose: 20 mg Documented by: Valacyclovir HCl (Valtrex) 500 mg PO DAILY [facility] Last Admin: 02/28/20 09:40 Dose: 500 mg Documented by: Discontinued Medications Albuterol (Proventil Neb Soln) 2.5 mg NEB ONETIME PRN PRN Reason: asthma Stop: 02/23/20 18:00 Albuterol/Ipratropium (Duoneb 3.0-0.5 Mg/3 Ml) 3 ml NEB ONETIME ONE Stop: 02/23/20 09:01 Last Admin: 02/23/20 08:32 Dose: 3 ml Documented by: Bisacodyl (Dulcolax) 10 mg RECTAL ONETIME ONE Stop: 02/27/20 16:46 Last Admin: 02/27/20 16:52 Dose: 10 mg Documented by: Bupivacaine HCl (Sensorcaine-Mpf 0.25%) Confirm Administered Dose 20 ml .ROUTE .STK-MED ONE Stop: 02/23/20 07:22 Last Admin: 02/23/20 12:37 Dose: 20 ml Documented by: Cefazolin Sodium (Ancef) 2 gm .ROUTE .STK-MED ONE Stop: 02/23/20 11:07 Famotidine (Pepcid) 20 mg IVPUSH ONETIME ONE Stop: 02/23/20 09:01 Last Admin: 02/23/20 08:40 Dose: 20 mg Documented by: Fentanyl (Sublimaze) Confirm Administered Dose 100 mcg .ROUTE .STK-MED ONE Stop: 02/23/20 07:40 Fentanyl (Sublimaze) 50 mcg IVPUSH Q5M PRN PRN Reason: Pain Stop: 02/23/20 18:00 Fentanyl (Sublimaze) Confirm Administered Dose 250 mcg .ROUTE .ST-MED ONE Stop: 02/23/20 11:21 Fentanyl (Sublimaze) 50 mcg IVPUSH Q5M PRN PRN Reason: Pain Stop: 02/23/20 18:00 Hydromorphone HCl (Dilaudid) 0.5 mg IVPUSH Q10M PRN PRN Reason: Pain (severe 7-10) Stop: 02/23/20 18:00 Hydromorphone HCl (Dilaudid) 0.5 mg IVPUSH Q10M PRN PRN Reason: Pain (severe 7-10) Stop: 02/23/20 18:00 Last Admin: 02/23/20 13:58 Dose: 0.5 mg Documented by: Lactated Ringer's (Ringers, Lactated) 1,000 mls @ 125 mls/hr IV ASDIRECTED [facility] Lidocaine HCl (Xylocaine-Mpf 1%) Confirm Administered Dose 4 mls @ as directed .ROUTE .STK-MED ONE Stop: 02/23/20 07:39 Lactated Ringer's (Ringers, Lactated) 1,000 mls @ 125 mls/hr IV ASDIRECTED [facility]AC[facility] Stop: 02/23/20 23:00 Last Admin: 02/23/20 14:03 Dose: 125 mls/hr Documented by: Cefazolin Sodium/Dextrose 2 gm (/ Premix) 50 mls @ 100 mls/hr IV Q8H [facility] Stop: 02/24/20 11:29 Last Admin: 02/24/20 12:18 Dose: 100 mls/hr Documented by: Magnesium Sulfate (Magnesium Sulfate In Water Premix) 2 gm in 50 mls @ 25 mls/hr IV ONETIME ONE Stop: 02/26/20 09:59 Last Admin: 02/26/20 08:45 Dose: 25 mls/hr Documented by: Insulin Human Lispro (Humalog) 0 unit SUBCUT QIDACANDBED [facility]; Protocol Last Admin: 02/25/20 07:40 Dose: Not Given Documented by: Ketorolac Tromethamine (Toradol) 15 mg IVPUSH Q6H PRN PRN Reason: Pain Last Admin: 02/24/20 20:20 Dose: 15 mg Documented by: Lidocaine/Sodium Bicarbonate (Buffered Lidocaine 1% In Ns 8.4%) 0.25 ml IDERM ONETIME PRN PRN Reason: Prior to IV Start Lidocaine/Sodium Bicarbonate (Buffered Lidocaine 1% In Ns 8.4%) 0.25 ml IDERM ONETIME PRN PRN Reason: Prior to IV Start Stop: 02/23/20 18:00 Metoclopramide HCl (Reglan) Confirm Administered Dose 10 mg .ROUTE .STK-MED ONE Stop: 02/26/20 09:30 Last Admin: 02/26/20 11:17 Dose: Not Given Documented by: Midazolam HCl (Versed 1 Mg/Ml) 1 mg IVPUSH ONETIME ONE Stop: 02/23/20 08:03 Last Admin: 02/23/20 17:12 Dose: Not Given Documented by: Midazolam HCl (Versed 1 Mg/Ml) Confirm Administered Dose 2 mg .ROUTE .STK-MED ONE Stop: 02/23/20 11:10 Miscellaneous Information (Remove Patch) 0 ea TRDERM ONETIME ONE Stop: 02/26/20 08:01 Last Admin: 02/26/20 08:46 Dose: 1 ea Documented by: Miscellaneous Information (Remove Patch) 1 ea TRDERM DAILY [facility] Last Admin: 02/24/20 19:18 Dose: Not Given Documented by: Nicotine (Habitrol) 21 mg TRDERM DAILY [facility] Stop: 02/25/20 01:00 Last Admin: 02/24/20 12:12 Dose: Not Given Documented by: Non-Formulary Medication (Cefdinir [Omnicef]) 300 mg PO BID [facility] Non-Formulary Medication (Fluvoxamine) 200 mg PO BID [facility] Non-Formulary Medication (Paliperidone Palmitate [Invega Sustenna]) 234 mg IM ASDIRECTED [facility] Ondansetron HCl (Zofran) 4 mg IVPUSH ONETIME PRN PRN Reason: Nausea/Vomiting Stop: 02/23/20 18:00 Ondansetron HCl (Zofran) 4 mg IVPUSH ONETIME PRN PRN Reason: Nausea/Vomiting Stop: 02/23/20 18:00 Oxycodone/Acetaminophen (Percocet 325-5 Mg) 1 - 2 tab PO Q4H PRN PRN Reason: Pain Last Admin: 02/24/20 21:45 Dose: 2 tab Documented by: Fluvoxamine 200 Mg 0 each PO BEDTIME [facility] Last Admin: 02/26/20 20:12 Dose: Not Given Documented by: Fluvoxamine 200 Mg 0 each PO BID [facility] Potassium Chloride (Klor-Con M20) 40 meq PO BID [facility] Stop: 02/27/20 21:01 Last Admin: 02/27/20 20:09 Dose: 40 meq Documented by: Propofol (Diprivan 20 Ml) Confirm Administered Dose 200 mg .ROUTE .STK-MED ONE Stop: 02/23/20 07:39 Scopolamine (Transderm-Scop) 1.5 mg TRDERM ONETIME PRN PRN Reason: PONV Stop: 02/23/20 18:00 Last Admin: 02/23/20 07:54 Dose: 1.5 mg Documented by: Sodium Chloride (Saline Flush) 10 ml FLUSH ASDIRECTED PRN PRN Reason: Keep Vein Open Sodium Chloride (Saline Flush) 10 ml FLUSH ASDIRECTED PRN PRN Reason: Keep Vein Open Stop: 02/23/20 18:00 - Exam Wound/Incisions: Dressing Dry and Intact General: Alert, Cooperative, No Acute Distress Lungs: Normal Respiratory Effort Extremities: Other (NVS intact for RLE. Independent SLR and SAQ RLE. Corine's negative.) Sepsis Event Note - Evaluation Sepsis Screening Result: No Definite Risk - Focused Exam Vital Signs: Vital Signs Temp Pulse Resp BP Pulse Ox 02/28/20 09:40 84 128/85 02/28/20 09:38 128/85 02/28/20 06:00 97.9 F 88 16 132/96 H 96 - Problem List Review Problem List Initiated/Reviewed/Updated: Yes - My Orders Last 24 Hours: Active Orders 24 hr Category Date Time Status Communication Order [RC] ASDIRECTED Care 02/27/20 17:00 Active Dressing Change [Wound Care] [RC] ASDIRECTED Care 02/28/20 10:12 Ordered Albuterol [Proventil HFA] Med 02/27/20 15:16 Active 0 gm INH Q4H PRN Enalapril [Vasotec] Med 02/28/20 09:00 Active 2.5 mg PO DAILY Non-Formulary Medication [NF Drug] Med 02/27/20 21:00 Active 0 each PO BID Propranolol [Inderal] Med 02/27/20 21:00 Active 10 mg PO BID Medication Orders Albuterol (Proventil Hfa) 0 gm INH Q4H PRN PRN Reason: Shortness of Breath Bisacodyl (Dulcolax) 5 mg PO DAILY PRN PRN Reason: Constipation Last Admin: 02/27/20 09:52 Dose: 5 mg Documented by: [id number] Admin: 02/24/20 21:43 Dose: 5 mg Documented by: LAINA Cyclobenzaprine HCl (Flexeril) 10 mg PO TID PRN PRN Reason: Spasms Last Admin: 02/26/20 08:46 Dose: 10 mg Documented by: Admin: 02/25/20 22:00 Dose: 10 mg Documented by: Admin: 02/25/20 17:40 Dose: 10 mg Documented by: Admin: 02/25/20 09:58 Dose: 10 mg Documented by: Admin: 02/24/20 20:16 Dose: 10 mg Documented by: Admin: 02/24/20 12:24 Dose: 10 mg Documented by: Admin: 02/23/20 21:59 Dose: 10 mg Documented by: LAINA Docusate Sodium (Colace) 100 mg PO BID [facility] Last Admin: 02/28/20 09:38 Dose: 100 mg Documented by: LUIS ARMANDO Admin: 02/27/20 20:10 Dose: 100 mg Documented by: Admin: 02/27/20 09:50 Dose: 100 mg Documented by: LUIS ARMANDO Admin: 02/26/20 20:10 Dose: 100 mg Documented by: Admin: 02/26/20 08:46 Dose: 100 mg Documented by: Admin: 02/25/20 20:10 Dose: 100 mg Documented by: Admin: 02/25/20 09:38 Dose: 100 mg Documented by: Admin: 02/24/20 21:42 Dose: 100 mg Documented by: Admin: 02/24/20 08:56 Dose: 100 mg Documented by: CHELSEA Enalapril Maleate (Vasotec) 2.5 mg PO DAILY [facility] Admin: 02/28/20 09:38 Dose: 2.5 mg Documented by: LUIS ARMANDO Enoxaparin Sodium (Lovenox) 30 mg SUBCUT BID [facility] Admin: 02/28/20 09:41 Dose: 30 mg Documented by: LUIS ARMANDO Admin: 02/27/20 20:13 Dose: 30 mg Documented by: Admin: 02/27/20 09:53 Dose: 30 mg Documented by: LUIS ARMANDO Admin: 02/26/20 20:11 Dose: 30 mg Documented by: Admin: 02/26/20 08:47 Dose: 30 mg Documented by: Admin: 02/25/20 20:10 Dose: 30 mg Documented by: Admin: 02/25/20 09:49 Dose: 30 mg Documented by: Admin: 02/24/20 21:47 Dose: 30 mg Documented by: Admin: 02/24/20 08:56 Dose: 30 mg Documented by: CHELSEA Levothyroxine Sodium (Synthroid) 50 mcg PO ACBREAKFAST [facility] Admin: 02/28/20 06:02 Dose: 50 mcg Documented by: Admin: 02/27/20 06:54 Dose: 50 mcg Documented by: Admin: 02/26/20 06:16 Dose: 50 mcg Documented by: Admin: 02/25/20 06:15 Dose: 50 mcg Documented by: Admin: 02/24/20 06:48 Dose: 50 mcg Documented by: LAINA Loratadine (Claritin) 10 mg PO BEDTIME [facility] Admin: 02/27/20 20:10 Dose: 10 mg Documented by: Admin: 02/26/20 20:10 Dose: 10 mg Documented by: Admin: 02/25/20 20:10 Dose: 10 mg Documented by: Admin: 02/24/20 21:41 Dose: 10 mg Documented by: Admin: 02/23/20 22:00 Dose: 10 mg Documented by: LAINA Lubiprostone (Amitiza) 24 mcg PO BIDMEALS [facility] Admin: 02/28/20 06:03 Dose: 24 mcg Documented by: Admin: 02/27/20 16:52 Dose: 24 mcg Documented by: LUIS ARMANDO Admin: 02/27/20 09:46 Dose: 24 mcg Documented by: LUIS ARMANDO Admin: 02/26/20 16:38 Dose: 24 mcg Documented by: Admin: 02/26/20 08:45 Dose: 24 mcg Documented by: Admin: 02/25/20 16:59 Dose: 24 mcg Documented by: Admin: 02/25/20 07:57 Dose: 24 mcg Documented by: Admin: 02/24/20 18:14 Dose: 24 mcg Documented by: Admin: 02/24/20 08:55 Dose: 24 mcg Documented by: Admin: 02/23/20 17:43 Dose: 24 mcg Documented by: CHELSEA Magnesium Hydroxide (Milk Of Magnesia) 30 ml PO BID PRN PRN Reason: Constipation Last Admin: 02/27/20 02:37 Dose: 30 ml Documented by: Admin: 02/24/20 08:59 Dose: 30 ml Documented by: CHELSEA Magnesium Oxide (Magnesium Oxide) 400 mg PO DAILY [facility] Admin: 02/28/20 09:38 Dose: 400 mg Documented by: LUIS ARMANDO Admin: 02/27/20 09:52 Dose: 400 mg Documented by: LUIS ARMANDO Miscellaneous Information (Remove Patch) 1 ea TRDERM DAILY [facility] Admin: 02/28/20 09:41 Dose: 1 ea Documented by: LUIS ARMANDO Admin: 02/27/20 09:54 Dose: 1 ea Documented by: LUIS ARMANDO Admin: 02/26/20 08:47 Dose: 1 ea Documented by: Admin: 02/25/20 09:49 Dose: 1 ea Documented by: MOSIES Morphine Sulfate (Morphine) 2 mg IVPUSH Q2H PRN PRN Reason: Breakthrough Pain Naloxone HCl (Narcan) 0.1 mg IVPUSH Q5M PRN PRN Reason: Oversedation Nicotine (Habitrol) 21 mg TRDERM DAILY [facility] Last Admin: 02/28/20 09:41 Dose: 21 mg Documented by: LUIS ARMANDO Admin: 02/27/20 09:53 Dose: 21 mg Documented by: LUIS ARMANDO Admin: 02/26/20 08:45 Dose: 21 mg Documented by: Admin: 02/25/20 09:48 Dose: 21 mg Documented by: MOISES Fluvoxamine 100 Mg (Tab) 0 each PO BID [facility] Last Admin: 02/28/20 09:36 Dose: 2 each Documented by: LUIS ARMANDO Admin: 02/27/20 20:12 Dose: 2 each Documented by: BASIM Ondansetron HCl (Zofran Odt) 8 mg PO Q6H PRN PRN Reason: Nausea Last Admin: 02/27/20 08:27 Dose: 8 mg Documented by: Admin: 02/26/20 09:04 Dose: 8 mg Documented by: CRISTOFER Ondansetron HCl (Zofran) 4 mg IVPUSH Q6H PRN PRN Reason: Nausea/Vomiting Oxycodone HCl (Oxycodone) 5 - 10 mg PO Q4H PRN PRN Reason: Pain Last Admin: 02/28/20 08:29 Dose: 5 mg Documented by: LUIS ARMANDO Admin: 02/27/20 16:52 Dose: 5 mg Documented by: LUIS ARMANDO Admin: 02/27/20 02:37 Dose: 5 mg Documented by: Admin: 02/26/20 20:12 Dose: 5 mg Documented by: Admin: 02/26/20 03:08 Dose: 5 mg Documented by: Admin: 02/25/20 22:00 Dose: 5 mg Documented by: Admin: 02/25/20 17:37 Dose: 5 mg Documented by: Admin: 02/25/20 13:42 Dose: 10 mg Documented by: Admin: 02/25/20 09:38 Dose: 5 mg Documented by: MOISES Pantoprazole Sodium (Protonix) 40 mg PO DAILY@0700 [facility] Admin: 02/28/20 06:02 Dose: 40 mg Documented by: Admin: 02/27/20 06:54 Dose: 40 mg Documented by: Admin: 02/26/20 06:16 Dose: 40 mg Documented by: Admin: 02/25/20 06:15 Dose: 40 mg Documented by: Admin: 02/24/20 06:48 Dose: 40 mg Documented by: LAINA Ozempic Pen Injector 0 each SUBCUT Th@0900 [facility] Admin: 02/26/20 11:50 Dose: 1 each Documented by: CRISTOFER Cyclosporine [ Restasis Multidose] Ophthal. Emulsion 0 each EYEBOTH BID [facility] Admin: 02/28/20 09:41 Dose: Not Given Documented by: LUIS ARMANDO Admin: 02/27/20 20:12 Dose: Not Given Documented by: Admin: 02/27/20 09:54 Dose: Not Given Documented by: LUIS ARMANDO Admin: 02/26/20 20:12 Dose: Not Given Documented by: Admin: 02/26/20 08:47 Dose: Not Given Documented by: Admin: 02/25/20 20:10 Dose: Not Given Documented by: CARLOS Polyethylene Glycol (Miralax) 17 gm PO DAILY [facility] Admin: 02/28/20 09:39 Dose: 17 gm Documented by: LUIS ARMANDO Admin: 02/27/20 09:45 Dose: 17 gm Documented by: LUIS ARMANDO Admin: 02/26/20 08:45 Dose: 17 gm Documented by: Admin: 02/25/20 09:48 Dose: 17 gm Documented by: Admin: 02/24/20 08:57 Dose: 17 gm Documented by: CHELSEA Propranolol HCl (Inderal) 10 mg PO BID [facility] Admin: 02/28/20 09:40 Dose: 10 mg Documented by: LUIS ARMANDO Admin: 02/27/20 20:10 Dose: 10 mg Documented by: BASIM Rosuvastatin Calcium (Crestor) 5 mg PO BEDTIME [facility] Last Admin: 02/27/20 20:11 Dose: 5 mg Documented by: Admin: 02/26/20 20:11 Dose: 5 mg Documented by: Admin: 02/25/20 20:10 Dose: 5 mg Documented by: Admin: 02/24/20 21:42 Dose: 5 mg Documented by: Admin: 02/23/20 22:00 Dose: 5 mg Documented by: LAINA Senna (Senna) 8.6 mg PO BID PRN PRN Reason: Constipation Last Admin: 02/24/20 21:44 Dose: 8.6 mg Documented by: LAINA Sumatriptan Succinate (Imitrex) 50 mg PO ASDIRECTED PRN PRN Reason: migraines Last Admin: 02/27/20 10:27 Dose: 50 mg Documented by: LUIS ARMANDO Admin: 02/26/20 08:46 Dose: 50 mg Documented by: CRISTOFER Topiramate (Topamax) 50 mg PO BID [facility] Last Admin: 02/28/20 09:39 Dose: 50 mg Documented by: LUIS ARMANDO Admin: 02/27/20 20:10 Dose: 50 mg Documented by: Admin: 02/27/20 09:51 Dose: 50 mg Documented by: LUIS ARMANDO Admin: 02/26/20 20:10 Dose: 50 mg Documented by: Admin: 02/26/20 08:46 Dose: 50 mg Documented by: Admin: 02/25/20 20:10 Dose: 50 mg Documented by: Admin: 02/25/20 09:47 Dose: 50 mg Documented by: Admin: 02/24/20 21:43 Dose: 50 mg Documented by: Admin: 02/24/20 09:15 Dose: 50 mg Documented by: Admin: 02/23/20 22:00 Dose: 50 mg Documented by: LAINA Trospium (Sanctura) 20 mg PO BID [facility] Last Admin: 02/28/20 09:40 Dose: 20 mg Documented by: LUIS ARMANDO Admin: 02/27/20 20:10 Dose: 20 mg Documented by: Admin: 02/27/20 09:46 Dose: 20 mg Documented by: LUIS ARMANDO Admin: 02/26/20 20:10 Dose: 20 mg Documented by: Admin: 02/26/20 08:45 Dose: 20 mg Documented by: Admin: 02/25/20 20:10 Dose: 20 mg Documented by: Admin: 02/25/20 09:47 Dose: 20 mg Documented by: Admin: 02/24/20 21:44 Dose: 20 mg Documented by: Admin: 02/24/20 08:50 Dose: 20 mg Documented by: CHELSEA Valacyclovir HCl (Valtrex) 500 mg PO DAILY [facility] Admin: 02/28/20 09:40 Dose: 500 mg Documented by: LUIS ARMANDO Admin: 02/27/20 09:52 Dose: 500 mg Documented by: LUIS ARMANDO Admin: 02/26/20 08:46 Dose: 500 mg Documented by: Admin: 02/25/20 09:47 Dose: 500 mg Documented by: Admin: 02/24/20 08:51 Dose: 500 mg Documented by: CHELSEA - Assessment Assessment (Free Text/Narrative):: POD#5 - s/p IM gracie placement for right tibia fracture - Plan Plan (Free Text/Narrative):: 1. Lovenox BID. Frequent mobility, TEDs. 2. Discharge to [facility] next week for continued rehab and monitoring. 3. LFTs have improved. Medical management per Hospitalist service. 4. Will d/c KISHAN bandage and place Mepilex or Aquacel dressings on 02-29-2020. 5. f/u with Dr. Camarillo scheduled for 03-10-2020 in [place]. The pt's case was discussed with Dr. Camarillo.
--- NOTE | 2020-02-28 13:28 | PCM.CONSN ---
- General Info Date of Service: 02/28/20 Subjective Update: Slept okay Pain control Bowel movement today - Patient Data Vitals - Most Recent: Last Vital Signs Temp 98.1 F 02/28/20 11:08 Pulse 87 02/28/20 11:08 Resp 16 02/28/20 11:08 BP 122/85 02/28/20 11:08 Pulse Ox 96 02/28/20 11:08 Weight - Most Recent: 73.618 kg - Exam Physical Findings Comments:: Quality Assessment: DVT Prophylaxis. No: Supplemental Oxygen, Urine Catheter General: Alert, Oriented, Cooperative, No Acute Distress HEENT: Pupils Equal, Pupils Reactive, Mucous Membr. Moist/[place] Neck: Supple, Trachea Midline Lungs: Clear to Auscultation, Normal Respiratory Effort Cardiovascular: Regular Rate, Regular Rhythm GI/Abdominal Exam: Normal Bowel Sounds, Soft, Non-Tender, No Distention (Female) Exam: Deferred Back Exam: Normal Inspection, Full Range of Motion Extremities: Normal Capillary Refill, Leg Pain, Limited Range of Motion, Other (Bandage in place on right leg. Cooling pack in place) Peripheral Pulses: 2+: Radial (L), Radial (R), Dorsalis Pedis (L), Dorsalis Pedis (R) Skin: Warm, Dry, Intact Wound/Incisions: Dressing Dry and Intact Neurological: No New Focal Deficit Psy/Mental Status: Alert Sepsis Event Note - Evaluation Sepsis Screening Result: No Definite Risk Consult PN Assessment/Plan (1) ADHD SNOMED Code(s): 875881339 Code(s): F90.9 - ATTENTION-DEFICIT HYPERACTIVITY DISORDER, UNSPECIFIED TYPE Priority: Low Current Visit: No Qualifiers: Attention deficit-hyperactivity disorder type: unspecified Qualified Code(s): F90.9 - Attention-deficit hyperactivity disorder, unspecified type (2) Anxiety SNOMED Code(s): 70788089 Code(s): F41.9 - ANXIETY DISORDER, UNSPECIFIED Current Visit: No (3) Asthma SNOMED Code(s): 850484781 Code(s): J45.909 - UNSPECIFIED ASTHMA, UNCOMPLICATED Priority: Low Current Visit: No Qualifiers: Asthma severity: unspecified severity Asthma persistence: unspecified Asthma complication type: unspecified Qualified Code(s): J45.909 - Unspecified asthma, uncomplicated (4) Bipolar disorder SNOMED Code(s): 03784319 Code(s): F31.9 - BIPOLAR DISORDER, UNSPECIFIED Priority: Medium Current V isit: No Qualifiers: Active/Remission status: remission status unspecified Qualified Code(s): F31.9 - Bipolar disorder, unspecified (5) Depression SNOMED Code(s): 91437655 Code(s): F32.9 - MAJOR DEPRESSIVE DISORDER, SINGLE EPISODE, UNSPECIFIED Priority: Low Current Visit: No Qualifiers: Depression Type: other depression Qualified Code(s): F32.89 - Other specified depressive episodes (6) Fibromyalgia SNOMED Code(s): 608525722 Code(s): M79.7 - FIBROMYALGIA Priority: Medium Current Visit: No (7) Fracture of tibia AND fibula SNOMED Code(s): 928092339 Code(s): S82.209A - UNSP FRACTURE OF SHAFT OF UNSP TIBIA, INIT FOR CLOS FX; S82.409A - UNSP FRACTURE OF SHAFT OF UNSP FIBULA, INIT FOR CLOS FX Current Visit: No (8) GERD (gastroesophageal reflux disease) SNOMED Code(s): 142495794 Code(s): K21.9 - GASTRO-ESOPHAGEAL REFLUX DISEASE WITHOUT ESOPHAGITIS Priority: Low Current Visit: No Qualifiers: Esophagitis presence: esophagitis presence not specified Qualified Code(s): K21.9 - Gastro-esophageal reflux disease without esophagitis (9) HLD (hyperlipidemia) SNOMED Code(s): 94959478 Code(s): E78.5 - HYPERLIPIDEMIA, UNSPECIFIED Priority: Low Current Visit: No Qualifiers: Hyperlipidemia type: unspecified Qualified Code(s): E78.5 - Hyperlipidemia, unspecified (10) HTN (hypertension) SNOMED Code(s): 05800486 Code(s): I10 - ESSENTIAL (PRIMARY) HYPERTENSION Priority: Medium Current Visit: No Qualifiers: Hypertension type: unspecified Qualified Code(s): I10 - Essential (primary) hypertension (11) Migraines SNOMED Code(s): 07227711 Code(s): G43.909 - MIGRAINE, UNSP, NOT INTRACTABLE, WITHOUT STATUS MIGRAINOSUS Priority: Low Current Visit: No Qualifiers: Migraine type: unspecified Status migrainosus presence: without status migrainosus Intractability: not intractable Qualified Code(s): G43.909 - Migraine, unspecified, not intractable, without status migrainosus (12) Obesity SNOMED Code(s): 078100656, 793069334 Code(s): E66.9 - OBESITY, UNSPECIFIED Priority: Low Current Visit: No Qualifiers: Obesity type: unspecified obesity type (13) OCD (obsessive compulsive disorder) SNOMED Code(s): 302892588 Code(s): F42.9 - OBSESSIVE-COMPULSIVE DISORDER, UNSPECIFIED Priority: Medium Current Visit: No Qualifiers: Obsessive-compulsive disorder type: unspecified Qualified Code(s): F42.9 - Obsessive-compulsive disorder, unspecified (14) ROWDY (obstructive sleep apnea) SNOMED Code(s): 52421081 Code(s): G47.33 - OBSTRUCTIVE SLEEP APNEA (ADULT) (PEDIATRIC) Priority: Low Current Visit: No (15) QT prolongation SNOMED Code(s): 284595444 Code(s): R94.31 - ABNORMAL ELECTROCARDIOGRAM [ECG] [EKG] Current Visit: No (16) Type II diabetes mellitus SNOMED Code(s): 84782995 Code(s): E11.9 - TYPE 2 DIABETES MELLITUS WITHOUT COMPLICATIONS Priority: Medium Current Visit: Yes Qualifiers: Diabetes mellitus retirement insulin use: without intermediate manager use Diabetes mellitus complication status: with other specified complication Qualified Code(s): E11.69 - Type 2 diabetes mellitus with other specified complication Problem List Initiated/Reviewed/Updated: Yes Plan: Acute: S/P right tibia intramedullary nailing - post-operative day 4 -Injured in fall - seen in ED on 02/17/2020 -Was admitted to floor last night after difficulty with ambulation and urination -DVT prophylaxis and pain management per primary care team -PT/OT -IS/RT -Monitor oxygen saturation -Titrate oxygen as needed -Home medications reviewed -Vital signs stable -Monitor labs -Pre-operative Hgb was 11.5; Now 9.3-->10.1-->9.1-->10.3 -Pre-operative GFR was >60; Now >60 -Pre-operative A1C was 7.2% -Sliding scale insulin and QID AC and bedtime glucose checks Current daily smoker -Nicotine patches -Cessation counseling -Patches on discharge Transaminitis, improving -AST 453-->503-->135 -ALT 240-->373-->284 -alkaline phosphatase 236-->293-->288 -Primary team adjusting pain medications from Percocet to Oxycodone -Monitor labs -Likely 2/2 anesthesia and pain medications -Carries history of elevated LFTs Hypomagnesemia -Magnesium 1.7-->1.9 -Supplement daily Hypokalemia -Potassium 3.4 -Supplement Chronic: HLD HTN asthma sleep apnea right lung nodule GERD IBD elevated LFT STDs recurrent UTIs fibromyalgia migraines short-term memory loss ADHD bipolar depression OCD type II DM hypothyroidism obesity History of drug and ETOH abuse History of gastric bypass Plan: CM for discharge planning GI prophylaxis Home medications as indicated Other orders as listed above Routine AM labs She is a full code. Her PCP is Ana M Fontana NP. 02/24/20: From a hospitalist standpoint Nancy is doing pretty well today, after a difficult night. She is known to this service from prior hospitalizations. She has been hospitalized in the past for hypoglycemia. Her labs and vital signs have remained stable. She was up ambulating and working with PT and OT. She has been up urinating and is off of oxygen. She takes Ozempic for her diabetes. Blood glucose readings have overall been satisfactory, especially given her hypoglycemia history. Patient reports glucose readings of 120-160 at home. She reports she takes these occasionally. A1C was reviewed and was 7.2% on 02/19/20, up from 7.0% on 11/13/2019. Pain has been controlled. Per primary team and after discussion with the patient, plan is for discharge to a SNF vs. [facility]. During her last admission placement was recommend and she ultimately refused, leaving AMA. She is cleared for discharge, pending primary team and PT/OT agreement. 02/25/20: Nancy had an ok night but a rough morning. Her pain has been more severe today. PT was in to work with her and reports her tolerance is much less today. The are currently recommending SNF placement. Per nursing, her higher bedside blood glucose readings yesterday were obtained after she had already ate. Liver enzymes are elevated today and primary team is adjusting pain medications to address this. She dose carry a history of elevated LFTs. We will continue to monitor. Otherwise she remains clinically stable. She has been up ambulating and continues to urinate. Vital signs have been stable. SW involved in finding placement. She remains off of oxygen. 02/26/2020: Nancy is doing better today. She has been up ambulating with nursing utilizing a walker as a standby assist. Magnesium was 1.7 and was supplemented. Minor increase in liver enzymes as noted above. Hgb down to 9.1. Labs and vital signs otherwise remain stable. Patient reports last BM was 02/18/20 however she is a rather poor historian. She is only now starting to eat better. Blood sugars 144- 190. [facility] swing-bed was in to evaluate patient. SW will follow-up with this. They did report earliest they could possibly accept patient would be 03/01/20. She remains off of oxygen. Continues to work with PT/OT. Pain has been controlled today. 02/27/2020: Nancy has continued to do well. She has been up ambulating with PT/OT and nursing. They continue to recommend SNF treatment. She complains of a headache improved with Imitrex. Magnesium was 1.9 and she was started on daily supplementation. Potassium was 3.4 and was supplemented. Vital signs trend: Tmax 98.7, HR 92-111, BP 145-128/94-89, RR 16-22, Oxygen saturations 93-99% on room air. Pain has been controlled with PO pain meds. Discontinued POC blood glucose readings. She remains off of oxygen. She has been [facility] at [facility] on Sunday03[facility]02/20. COVID-19 test ordered for Sunday03/01/20. Dr. Camarillo will reportedly be in [facility] on March 10 and CM will contact [facility] to schedule this appointment. Hgb has increased as above. Liver enzymes have improved. Planning on discharge Sunday. 02/28/2020: Continues to do well Ambulating with physical therapy and nursing Tolerating diet Magnesium and potassium are now within normal limits Glucose POC [id number] Vital signs trend Blood pressure 935128/80 994 T-max 98.6 Heart rate 54653 Pulse ox greater than 96% on room air Pain is controlled Continues to do well Pending placement as per SNF recommendations
[2020-02-28] MEDS: Loratadine 10 MG Tab PO SCH (20:45)
[2020-02-28] MEDS: Rosuvastatin 10 MG Tab PO SCH (20:46)
[2020-02-29] MEDS: Pantoprazole 40 MG Tab.CR PO SCH (06:52)
[2020-02-29] MEDS: Levothyroxine 50 MCG Tab PO SCH (06:52)
--- NOTE | 2020-02-29 08:32 | PCM.CONSN ---
- General Info Date of Service: 02/29/20 Subjective Update: Slept okay Pain control Bowel movement today - Patient Data Vitals - Most Recent: Last Vital Signs Temp 98.2 F 02/29/20 02:07 Pulse 76 02/29/20 02:07 Resp 12 02/29/20 02:07 BP 118/69 02/29/20 02:07 Pulse Ox 97 02/29/20 02:07 Weight - Most Recent: 73.845 kg - Exam General: Alert, Oriented, Cooperative, No Acute Distress HEENT: Mucous Membr. Moist/[place] Neck: Supple Lungs: Clear to Auscultation, Normal Respiratory Effort. No: Crackles, Rales, Rhonchi, Rub, Stridor, Wheezing Cardiovascular: Regular Rate, Regular Rhythm. No: Murmurs, Gallops, Rubs GI/Abdominal Exam: Normal Bowel Sounds, Soft, Non-Tender Extremities: Limited Range of Motion Wound/Incisions: Healing Well Sepsis Event Note - Evaluation Sepsis Screening Result: No Definite Risk Consult PN Assessment/Plan (1) ADHD SNOMED Code(s): 666891817 Code(s): F90.9 - ATTENTION-DEFICIT HYPERACTIVITY DISORDER, UNSPECIFIED TYPE Priority: Low Current Visit: No Qualifiers: Attention deficit-hyperactivity disorder type: unspecified Qualified Code(s): F90.9 - Attention-deficit hyperactivity disorder, unspecified type (2) Anxiety SNOMED Code(s): 54563053 Code(s): F41.9 - ANXIETY DISORDER, UNSPECIFIED Current Visit: No (3) Asthma SNOMED Code(s): 486693600 Code(s): J45.909 - UNSPECIFIED ASTHMA, UNCOMPLICATED Priority: Low C urrent Visit: No Qualifiers: Asthma severity: unspecified severity Asthma persistence: unspecified Asthma complication type: unspecified Qualified Code(s): J45.909 - Unspecified asthma, uncomplicated (4) Bipolar disorder SNOMED Code(s): 45914748 Code(s): F31.9 - BIPOLAR DISORDER, UNSPECIFIED Priority: Medium Current Visit: No Qualifiers: Active/Remission status: remission status unspecified Qualified Code(s): F31.9 - Bipolar disorder, unspecified (5) Depression SNOMED Code(s): 79149208 Code(s): F32.9 - MAJOR DEPRESSIVE DISORDER, SINGLE EPISODE, UNSPECIFIED Priority: Low Current Visit: No Qualifiers: Depression Type: other depression Qualified Code(s): F32.89 - Other specified depressive episodes (6) Fibromyalgia SNOMED Code(s): 733546478 Code(s): M79.7 - FIBROMYALGIA Priority: Medium Current Visit: No (7) Fracture of tibia AND fibula SNOMED Code(s): 635030308 Code(s): S82.209A - UNSP FRACTURE OF SHAFT OF UNSP TIBIA, INIT FOR CLOS FX; S82.409A - UNSP FRACTURE OF SHAFT OF UNSP FIBULA, INIT FOR CLOS FX Current Visit: No (8) GERD (gastroesophageal reflux disease) SNOMED Code(s): 886791368 Code(s): K21.9 - GASTRO-ESOPHAGEAL REFLUX DISEASE WITHOUT ESOPHAGITIS Priority: Low Current Visit: No Qualifiers: Esophagitis presence: esophagitis presence not specified Qualified Code(s): K21.9 - Gastro-esophageal reflux disease without esophagitis (9) HLD (hyperlipidemia) SNOMED Code(s): 27086382 Code(s): E78.5 - HYPERLIPIDEMIA, UNSPECIFIED Priority: Low Current Visit: No Qualifiers: Hyperlipidemia type: unspecified Qualified Code(s): E78.5 - Hyperlipidemia, unspecified (10) HTN (hypertension) SNOMED Code(s): 66816688 Code(s): I10 - ESSENTIAL (PRIMARY) HYPERTENSION Priority: Medium Current Visit: No Qualifiers: Hypertension type: unspecified Qualified Code(s): I10 - Essential (primary) hypertension (11) Migraines SNOMED Code(s): 68865306 Code(s): G43.909 - MIGRAINE, UNSP, NOT INTRACTABLE, WITHOUT STATUS MIGRAINOSUS Priority: Low Current Visit: No Qualifiers: Migraine type: unspecified Status migrainosus presence: without status migrainosus Intractability: not intractable Qualified Code(s): G43.909 - Migraine, unspecified, not intractable, without status migrainosus (12) Obesity SNOMED Code(s): 555214353, 175290698 Code(s): E66.9 - OBESITY, UNSPECIFIED Priority: Low Current Visit: No Qualifiers: Obesity type: unspecified obesity type (13) OCD (obsessive compulsive disorder) SNOMED Code(s): 079767999 Code(s): F42.9 - OBSESSIVE-COMPULSIVE DISORDER, UNSPECIFIED Priority: Medium Current Visit: No Qualifiers: Obsessive-compulsive disorder type: unspecified Qualified Code(s): F42.9 - Obsessive-compulsive disorder, unspecified (14) ROWDY (obstructive sleep apnea) SNOMED Code(s): 74255391 Code(s): G47.33 - OBSTRUCTIVE SLEEP APNEA (ADULT) (PEDIATRIC) Priority: Low Current Visit: No (15) QT prolongation SNOMED Code(s): 034641367 Code(s): R94.31 - ABNORMAL ELECTROCARDIOGRAM [ECG] [EKG] Current Visit: No (16) Type II diabetes mellitus SNOMED Code(s): 78286550 Code(s): E11.9 - TYPE 2 DIABETES MELLITUS WITHOUT COMPLICATIONS Priority: Medium Current Visit: Yes Qualifiers: Diabetes mellitus terminal computer operator insulin use: without terminal computer operator use Diabetes mellitus complication status: with other specified complication Qualified Code(s): E11.69 - Type 2 diabetes mellitus with other specified complication Problem List Initiated/Reviewed/Updated: Yes Plan: Acute: S/P right tibia intramedullary nailing - post-operative day 4 -Injured in fall - seen in ED on 02/17/2020 -Was admitted to floor last night after difficulty with ambulation and urination -DVT prophylaxis and pain management per primary care team -PT/OT -IS/RT -Monitor oxygen saturation -Titrate oxygen as needed -Home medications reviewed -Vital signs stable -Monitor labs -Pre-operative Hgb was 11.5; Now 9.3-->10.1-->9.1-->10.3 -Pre-operative GFR was >60; Now >60 -Pre-operative A1C was 7.2% -Sliding scale insulin and QID AC and bedtime glucose checks Current daily smoker -Nicotine patches -Cessation counseling -Patches on discharge Transaminitis, improving -AST 453-->503-->135 -ALT 240-->373-->284 -alkaline phosphatase 236-->293-->288 -Primary team adjusting pain medications from Percocet to Oxycodone -Monitor labs -Likely 2/2 anesthesia and pain medications -Carries history of elevated LFTs Hypomagnesemia -Magnesium 1.7-->1.9 -Supplement daily Hypokalemia -Potassium 3.4 -Supplement Chronic: HLD HTN asthma sleep apnea right lung nodule GERD IBD elevated LFT STDs recurrent UTIs fibromyalgia migraines short-term memory loss ADHD bipolar depression OCD type II DM hypothyroidism obesity History of drug and ETOH abuse History of gastric bypass Plan: CM for discharge planning GI prophylaxis Home medications as indicated Other orders as listed above Routine AM labs She is a full code. Her PCP is Ana M Fontana NP. 02/24/20: From a hospitalist standpoint Nancy is doing pretty well today, after a difficult night. She is known to this service from prior hospitalizations. She has been hospitalized in the past for hypoglycemia. Her labs and vital signs have remained stable. She was up ambulating and working with PT and OT. She has been up urinating and is off of oxygen. She takes Ozempic for her diabetes. Blood glucose readings have overall been satisfactory, especially given her hypoglycemia history. Patient reports glucose readings of 120-160 at home. She reports she takes these occasionally. A1C was reviewed and was 7.2% on 02/19/20, up from 7.0% on 11/13/2019. Pain has been controlled. Per primary team and after discussion with the patient, plan is for discharge to a SNF vs. [facility]. During her last admission placement was recommend and she ultimately refused, leaving AMA. She is cleared for discharge, pending primary team and PT/OT agreement. 02/25/20: Nancy had an ok night but a rough morning. Her pain has been more severe today. PT was in to work with her and reports her tolerance is much less today. The are currently recommending SNF placement. Per nursing, her higher bedside blood gl ucose readings yesterday were obtained after she had already ate. Liver enzymes are elevated today and primary team is adjusting pain medications to address this. She dose carry a history of elevated LFTs. We will continue to monitor. Otherwise she remains clinically stable. She has been up ambulating and continues to urinate. Vital signs have been stable. SW involved in finding placement. She remains off of oxygen. 02/26/2020: Nancy is doing better today. She has been up ambulating with nursing utilizing a walker as a standby assist. Magnesium was 1.7 and was supplemented. Minor increase in liver enzymes as noted above. Hgb down to 9.1. Labs and vital signs otherwise remain stable. Patient reports last BM was 02/18/20 however she is a rather poor historian. She is only now starting to eat better. Blood sugars 144- 190. [facility] swing-bed was in to evaluate patient. SW will follow-up with this. They did report earliest they could possibly accept patient would be 03/01/20. She remains off of oxygen. Continues to work with PT/OT. Pain has been controlled today. 02/27/2020: Nancy has continued to do well. She has been up ambulating with PT/OT and nursing. They continue to recommend SNF treatment. She complains of a headache improved with Imitrex. Magnesium was 1.9 and she was started on daily supplementation. Potassium was 3.4 and was supplemented. Vital signs trend: Tmax 98.7, HR 92-111, BP 145-128/94-89, RR 16-22, Oxygen saturations 93-99% on room air. Pain has been controlled with PO pain meds. Discontinued POC blood glucose readings. She remains off of oxygen. She has been accepted at [facility] on Sunday03/02/20. COVID-19 test ordered for Sunday03/01/20. Dr. Camarillo will reportedly be in [place] on March 10 and CM will contact [facility] to schedule this appointment. Hgb has increased as above. Liver enzymes have improved. Planning on discharge Sunday. 02/28/2020: Continues to do well Ambulating with physical therapy and nursing Tolerating diet Magnesium and potassium are now within normal limits Glucose POC [id number] Vital signs trend Blood pressure 567958/80 994 T-max 98.6 Heart rate 88480 Pulse ox greater than 96% on room air Pain is controlled Continues to do well Pending placement as per SNF recommendations by PT 02/29/2020 Pain is controlled Is ambulating with nursing and a walker Tolerating diet Sleeping well Vital signs stable
[2020-02-29] MEDS: Lubiprostone 24 MCG Cap PO SCH ×2 (08:58→17:17)
[2020-02-29] MEDS: Polyethylene Glycol 3350 Powder 17 GM Packet PO SCH (08:58)
[2020-02-29] MEDS: oxyCODONE 5 MG Tab PO PRN ×2 (08:59→20:41)
[2020-02-29] MEDS: Trospium 20 MG Tab PO SCH ×2 (09:00→20:31)
[2020-02-29] MEDS: Topiramate 25 MG Tab PO SCH ×2 (09:00→20:34)
[2020-02-29] MEDS: Docusate Sodium 100 MG Cap PO SCH ×2 (09:01→20:34)
[2020-02-29] MEDS: Propranolol 10 MG Tab PO SCH ×2 (09:01→20:31)
[2020-02-29] MEDS: Magnesium Oxide 400 MG Tab PO SCH (09:01)
[2020-02-29] MEDS: Nicotine 21 MG/24 Hr Patch TRDERM SCH (09:02)
[2020-02-29] MEDS: Enoxaparin 30 MG/0.3 ML Syringe SUBCUT SCH ×2 (09:02→20:35)
[2020-02-29] MEDS: CYCLOSPORINE EYEBOTH SCH ×2 (09:03→20:36)
[2020-02-29] MEDS: valACYclovir 500 MG Tab PO SCH (10:16)
--- NOTE | 2020-02-29 11:23 | PCM.SURGPN ---
- General Info Date of Service: 02/29/20 POD#: 6 Functional Status: Reports: Pain Controlled, Tolerating Diet, Ambulating, Urinating, Other (The pt ambulated in room with contact-guard assist. Pt's mother present today.) - Patient Data Vitals - Most Recent: Last Vital Signs Temp 98.5 F 02/29/20 09:00 Pulse 86 02/29/20 09:01 Resp 18 02/29/20 09:00 BP 127/81 02/29/20 09:01 Pulse Ox 99 02/29/20 09:00 Weight - Most Recent: 162 lb 12.8 oz I&O - Last 24 Hours: Intake & Output 02/28/20 02/29/20 02/29/20 22:59 06:59 14:59 Intake Total 770 400 Output Total 100 1200 Balance 670 -800 Lab Results Last 24 Hrs: Laboratory Results - last 24 hr 02/28/20 Range/Units 11:35 POC Glucose 278 H (70-105) mg/dL Med Orders - Current: Current Medications Albuterol (Proventil Hfa) 0 gm INH Q4H PRN PRN Reason: Shortness of Breath Bisacodyl (Dulcolax) 5 mg PO DAILY PRN PRN Reason: Constipation Last Admin: 02/27/20 09:52 Dose: 5 mg Documented by: Cyclobenzaprine HCl (Flexeril) 10 mg PO TID PRN PRN Reason: Spasms Last Admin: 02/26/20 08:46 Dose: 10 mg Documented by: Docusate Sodium (Colace) 100 mg PO BID [facility] Last Admin: 02/29/20 09:01 Dose: 100 mg Documented by: Enalapril Maleate (Vasotec) 2.5 mg PO DAILY [facility] Last Admin: 02/29/20 09:00 Dose: 2.5 mg Documented by: Enoxaparin Sodium (Lovenox) 30 mg SUBCUT BID [facility] Last Admin: 02/29/20 09:02 Dose: 30 mg Documented by: Levothyroxine Sodium (Synthroid) 50 mcg PO ACBREAKFAST [facility] Last Admin: 02/29/20 06:52 Dose: 50 mcg Documented by: Loratadine (Claritin) 10 mg PO BEDTIME [facility] Last Admin: 02/28/20 20:45 Dose: 10 mg Documented by: Lubiprostone (Amitiza) 24 mcg PO BIDMEALS [facility] Last Admin: 02/29/20 08:58 Dose: 24 mcg Documented by: Magnesium Hydroxide (Milk Of Magnesia) 30 ml PO BID PRN PRN Reason: Constipation Last Admin: 02/27/20 02:37 Dose: 30 ml Documented by: Magnesium Oxide (Magnesium Oxide) 400 mg PO DAILY [facility] Last Admin: 02/29/20 09:01 Dose: 400 mg Documented by: Miscellaneous Information (Remove Patch) 1 ea TRDERM DAILY [facility] Last Admin: 02/29/20 09:03 Dose: 1 ea Documented by: Morphine Sulfate (Morphine) 2 mg IVPUSH Q2H PRN PRN Reason: Breakthrough Pain Naloxone HCl (Narcan) 0.1 mg IVPUSH Q5M PRN PRN Reason: Oversedation Nicotine (Habitrol) 21 mg TRDERM DAILY [facility] Last Admin: 02/29/20 09:02 Dose: 21 mg Documented by: Fluvoxamine 100 Mg (Tab) 0 each PO BID [facility] Last Admin: 02/29/20 08:59 Dose: 2 each Documented by: Ondansetron HCl (Zofran Odt) 8 mg PO Q6H PRN PRN Reason: Nausea Last Admin: 02/27/20 08:27 Dose: 8 mg Documented by: Ondansetron HCl (Zofran) 4 mg IVPUSH Q6H PRN PRN Reason: Nausea/Vomiting Oxycodone HCl (Oxycodone) 5 - 10 mg PO Q4H PRN PRN Reason: Pain Last Admin: 02/29/20 08:59 Dose: 5 mg Documented by: Pantoprazole Sodium (Protonix) 40 mg PO DAILY@0700 [facility] Last Admin: 02/29/20 06:52 Dose: 40 mg Documented by: Ozempic Pen Injector 0 each SUBCUT Th@0900 [facility] Last Admin: 02/26/20 11:50 Dose: 1 each Documented by: Cyclosporine [ Restasis Multidose] Ophthal. Emulsion 0 each EYEBOTH BID [facility] Last Admin: 02/29/20 09:03 Dose: Not Given Documented by: Polyethylene Glycol (Miralax) 17 gm PO DAILY [facility] Last Admin: 02/29/20 08:58 Dose: 17 gm Documented by: Propranolol HCl (Inderal) 10 mg PO BID [facility] Last Admin: 02/29/20 09:01 Dose: 10 mg Documented by: Rosuvastatin Calcium (Crestor) 5 mg PO BEDTIME [facility] Last Admin: 02/28/20 20:46 Dose: 5 mg Documented by: Senna (Senna) 8.6 mg PO BID PRN PRN Reason: Constipation Last Admin: 02/24/20 21:44 Dose: 8.6 mg Documented by: Sumatriptan Succinate (Imitrex) 50 mg PO ASDIRECTED PRN PRN Reason: migraines Last Admin: 02/27/20 10:27 Dose: 50 mg Documented by: Topiramate (Topamax) 50 mg PO BID [facility] Last Admin: 02/29/20 09:00 Dose: 50 mg Documented by: Trospium (Sanctura) 20 mg PO BID [facility] Last Admin: 02/29/20 09:00 Dose: 20 mg Documented by: Valacyclovir HCl (Valtrex) 500 mg PO DAILY [facility] Last Admin: 02/29/20 10:16 Dose: 500 mg Documented by: Discontinued Medications Albuterol (Proventil Neb Soln) 2.5 mg NEB ONETIME PRN PRN Reason: asthma Stop: 02/23/20 18:00 Albuterol/Ipratropium (Duoneb 3.0-0.5 Mg/3 Ml) 3 ml NEB ONETIME ONE Stop: 02/23/20 09:01 Last Admin: 02/23/20 08:32 Dose: 3 ml Documented by: Bisacodyl (Dulcolax) 10 mg RECTAL ONETIME ONE Stop: 02/27/20 16:46 Last Admin: 02/27/20 16:52 Dose: 10 mg Documented by: Bupivacaine HCl (Sensorcaine-Mpf 0.25%) Confirm Administered Dose 20 ml .ROUTE .STK-MED ONE Stop: 02/23/20 07:22 Last Admin: 02/23/20 12:37 Dose: 20 ml Documented by: Cefazolin Sodium (Ancef) 2 gm .ROUTE .STK-MED ONE Stop: 02/23/20 11:07 Enoxaparin Sodium (Lovenox) 30 mg SUBCUT BID [facility] Last Admin: 02/28/20 09:41 Dose: 30 mg Documented by: Famotidine (Pepcid) 20 mg IVPUSH ONETIME ONE Stop: 02/23/20 09:01 Last Admin: 02/23/20 08:40 Dose: 20 mg Documented by: Fentanyl (Sublimaze) Confirm Administered Dose 100 mcg .ROUTE .STK-MED ONE Stop: 02/23/20 07:40 Fentanyl (Sublimaze) 50 mcg IVPUSH Q5M PRN PRN Reason: Pain Stop: 02/23/20 18:00 Fentanyl (Sublimaze) Confirm Administered Dose 250 mcg .ROUTE .STK-MED ONE Stop: 02/23/20 11:21 Fentanyl (Sublimaze) 50 mcg IVPUSH Q5M PRN PRN Reason: Pain Stop: 02/23/20 18:00 Hydromorphone HCl (Dilaudid) 0.5 mg IVPUSH Q10M PRN PRN Reason: Pain (severe 7-10) Stop: 02/23/20 18:00 Hydromorphone HCl (Dilaudid) 0.5 mg IVPUSH Q10M PRN PRN Reason: Pain (severe 7-10) Stop: 02/23/20 18:00 Last Admin: 02/23/20 13:58 Dose: 0.5 mg Documented by: Lactated Ringer's (Ringers, Lactated) 1,000 mls @ 125 mls/hr IV ASDIRECTED [facility] Lidocaine HCl (Xylocaine-Mpf 1%) Confirm Administered Dose 4 mls @ as directed .ROUTE .[facility] ONE Stop: 02/23/20 07:39 Lactated Ringer's (Ringers, Lactated) 1,000 mls @ 125 mls/hr IV ASDIRECTED [facility] Stop: 02/23/20 23:00 Last Admin: 02/23/20 14:03 Dose: 125 mls/hr Documented by: Cefazolin Sodium/Dextrose 2 gm (/ Premix) 50 mls @ 100 mls/hr IV Q8H [facility] Stop: 02/24/20 11:29 Last Admin: 02/24/20 12:18 Dose: 100 mls/hr Documented by: Magnesium Sulfate (Magnesium Sulfate In Water Premix) 2 gm in 50 mls @ 25 mls/hr IV ONETIME ONE Stop: 02/26/20 09:59 Last Admin: 02/26/20 08:45 Dose: 25 mls/hr Documented by: Insulin Human Lispro (Humalog) 0 unit SUBCUT QIDACANDBED [facility]; Protocol Last Admin: 02/25/20 07:40 Dose: Not Given Documented by: Ketorolac Tromethamine (Toradol) 15 mg IVPUSH Q6H PRN PRN Reason: Pain Last Admin: 02/24/20 20:20 Dose: 15 mg Documented by: Lidocaine/Sodium Bicarbonate (Buffered Lidocaine 1% In Ns 8.4%) 0.25 ml IDERM ONETIME PRN PRN Reason: Prior to IV Start Lidocaine/Sodium Bicarbonate (Buffered Lidocaine 1% In Ns 8.4%) 0.25 ml IDERM ONETIME PRN PRN Reason: Prior to IV Start Stop: 02/23/20 18:00 Metoclopramide HCl (Reglan) Confirm Administered Dose 10 mg .ROUTE .STK-MED ONE Stop: 02/26/20 09:30 Last Admin: 02/26/20 11:17 Dose: Not Given Documented by: Midazolam HCl (Versed 1 Mg/Ml) 1 mg IVPUSH ONETIME ONE Stop: 02/23/20 08:03 Last Admin: 02/23/20 17:12 Dose: Not Given Documented by: Midazolam HCl (Versed 1 Mg/Ml) Confirm Administered Dose 2 mg .ROUTE .STK-MED ONE Stop: 02/23/20 11:10 Miscellaneous Information (Remove Patch) 0 ea TRDERM ONETIME ONE Stop: 02/26/20 08:01 Last Admin: 02/26/20 08:46 Dose: 1 ea Documented by: Miscellaneous Information (Remove Patch) 1 ea TRDERM DAILY [facility] Last Admin: 02/24/20 19:18 Dose: Not Given Documented by: Nicotine (Habitrol) 21 mg TRDERM DAILY [facility] Stop: 02/25/20 01:00 Last Admin: 02/24/20 12:12 Dose: Not Given Documented by: Non-Formulary Medication (Cefdinir [Omnicef]) 300 mg PO BID [facility] Non-Formulary Medication (Fluvoxamine) 200 mg PO BID [facility] Non-Formulary Medication (Paliperidone Palmitate [Invega Sustenna]) 234 mg IM ASDIRECTED [facility] Ondansetron HCl (Zofran) 4 mg IVPUSH ONETIME PRN PRN Reason: Nausea/Vomiting Stop: 02/23/20 18:00 Ondansetron HCl (Zofran) 4 mg IVPUSH ONETIME PRN PRN Reason: Nausea/Vomiting Stop: 02/23/20 18:00 Oxycodone/Acetaminophen (Percocet 325-5 Mg) 1 - 2 tab PO Q4H PRN PRN Reason: Pain Last Admin: 02/24/20 21:45 Dose: 2 tab Documented by: Fluvoxamine 200 Mg 0 each PO BEDTIME [facility] Last Admin: 02/26/20 20:12 Dose: Not Given Documented by: Fluvoxamine 200 Mg 0 each PO BID [facility] Potassium Chloride (Klor-Con M20) 40 meq PO BID [facility] Stop: 02/27/20 21:01 Last Admin: 02/27/20 20:09 Dose: 40 meq Documented by: Propofol (Diprivan 20 Ml) Confirm Administered Dose 200 mg .ROUTE .STK-MED ONE Stop: 02/23/20 07:39 Scopolamine (Transderm-Scop) 1.5 mg TRDERM ONETIME PRN PRN Reason: PONV Stop: 02/23/20 18:00 Last Admin: 02/23/20 07:54 Dose: 1.5 mg Documented by: Sodium Chloride (Saline Flush) 10 ml FLUSH ASDIRECTED PRN PRN Reason: Keep Vein Open Sodium Chloride (Saline Flush) 10 ml FLUSH ASDIRECTED PRN PRN Reason: Keep Vein Open Stop: 02/23/20 18:00 - Exam Wound/Incisions: Dressing Dry and Intact, Other (Dressings and bandage removed today and 5 incisions noted to be healing. No bleeding, drainage noted from areas. [place] intact. Aquacels placed.) General: Alert, Cooperative, No Acute Distress Lungs: Normal Respiratory Effort Extremities: Other (NVS intact for RLE. Corine's negative.) Sepsis Event Note - Evaluation Sepsis Screening Result: No Definite Risk - Focused Exam Vital Signs: Vital Signs Temp Temp Pulse Pulse Resp BP BP 02/29/20 09:01 86 127/81 02/29/20 09:00 98.5 F 79 18 127/81 133/88 02/29/20 02:07 98.2 F 76 12 118/69 Pulse Ox 02/29/20 09:01 02/29/20 09:00 99 02/29/20 02:07 97 - Problem List Review Problem List Initiated/Reviewed/Updated: Yes - My Orders Last 24 Hours: Active Orders 24 hr Category Date Time Status Enema [RC] ASDIRECTED Care 02/28/20 11:29 Active Enoxaparin [Lovenox] Med 02/28/20 21:00 Active 30 mg SUBCUT BID Medication Orders Albuterol (Proventil Hfa) 0 gm INH Q4H PRN PRN Reason: Shortness of Breath Bisacodyl (Dulcolax) 5 mg PO DAILY PRN PRN Reason: Constipation Last Admin: 02/27/20 09:52 Dose: 5 mg Documented by: LUIS ARMANDO Admin: 02/24/20 21:43 Dose: 5 mg Documented by: LAINA Cyclobenzaprine HCl (Flexeril) 10 mg PO TID PRN PRN Reason: Spasms Last Admin: 02/26/20 08:46 Dose: 10 mg Documented by: Admin: 02/25/20 22:00 Dose: 10 mg Documented by: Admin: 02/25/20 17:40 Dose: 10 mg Documented by: Admin: 02/25/20 09:58 Dose: 10 mg Documented by: Admin: 02/24/20 20:16 Dose: 10 mg Documented by: Admin: 02/24/20 12:24 Dose: 10 mg Documented by: Admin: 02/23/20 21:59 Dose: 10 mg Documented by: LAINA Docusate Sodium (Colace) 100 mg PO BID [facility] Last Admin: 02/29/20 09:01 Dose: 100 mg Documented by: LUIS ARMANDO Admin: 02/28/20 20:45 Dose: 100 mg Documented by: Admin: 02/28/20 09:38 Dose: 100 mg Documented by: LUIS ARMANDO Admin: 02/27/20 20:10 Dose: 100 mg Documented by: Admin: 02/27/20 09:50 Dose: 100 mg Documented by: LUIS ARMANDO Admin: 02/26/20 20:10 Dose: 100 mg Documented by: Admin: 02/26/20 08:46 Dose: 100 mg Documented by: Admin: 02/25/20 20:10 Dose: 100 mg Documented by: Admin: 02/25/20 09:38 Dose: 100 mg Documented by: Admin: 02/24/20 21:42 Dose: 100 mg Documented by: Admin: 02/24/20 08:56 Dose: 100 mg Documented by: CHELSEA Enalapril Maleate (Vasotec) 2.5 mg PO DAILY Count includes the [facility] Admin: 02/29/20 09:00 Dose: 2.5 mg Documented by: LUIS ARMANDO Admin: 02/28/20 09:38 Dose: 2.5 mg Documented by: LUIS ARMANDO Enoxaparin Sodium (Lovenox) 30 mg SUBCUT BID Count includes the [facility] Admin: 02/29/20 09:02 Dose: 30 mg Documented by: LUIS ARMANDO Admin: 02/28/20 20:46 Dose: 30 mg Documented by: KAYKAY Levothyroxine Sodium (Synthroid) 50 mcg PO ACBREAKFAST Count includes the [facility] Admin: 02/29/20 06:52 Dose: 50 mcg Documented by: Admin: 02/28/20 06:02 Dose: 50 mcg Documented by: Admin: 02/27/20 06:54 Dose: 50 mcg Documented by: Admin: 02/26/20 06:16 Dose: 50 mcg Documented by: Admin: 02/25/20 06:15 Dose: 50 mcg Documented by: Admin: 02/24/20 06:48 Dose: 50 mcg Documented by: LAINA Loratadine (Claritin) 10 mg PO BEDTIME Count includes the [facility] Admin: 02/28/20 20:45 Dose: 10 mg Documented by: Admin: 02/27/20 20:10 Dose: 10 mg Documented by: Admin: 02/26/20 20:10 Dose: 10 mg Documented by: Admin: 02/25/20 20:10 Dose: 10 mg Documented by: Admin: 02/24/20 21:41 Dose: 10 mg Documented by: Admin: 02/23/20 22:00 Dose: 10 mg Documented by: LAINA Lubiprostone (Amitiza) 24 mcg PO BIDMEALS Count includes the [facility] Admin: 02/29/20 08:58 Dose: 24 mcg Documented by: LUIS ARMANDO Admin: 02/28/20 18:02 Dose: 24 mcg Documented by: LUIS ARMANDO Admin: 02/28/20 06:03 Dose: 24 mcg Documented by: Admin: 02/27/20 16:52 Dose: 24 mcg Documented by: LUIS ARMANDO Admin: 02/27/20 09:46 Dose: 24 mcg Documented by: LUIS ARMANDO Admin: 02/26/20 16:38 Dose: 24 mcg Documented by: Admin: 02/26/20 08:45 Dose: 24 mcg Documented by: Admin: 02/25/20 16:59 Dose: 24 mcg Documented by: Admin: 02/25/20 07:57 Dose: 24 mcg Documented by: Admin: 02/24/20 18:14 Dose: 24 mcg Documented by: Admin: 02/24/20 08:55 Dose: 24 mcg Documented by: Admin: 02/23/20 17:43 Dose: 24 mcg Documented by: CHELSEA Magnesium Hydroxide (Milk Of Magnesia) 30 ml PO BID PRN PRN Reason: Constipation Last Admin: 02/27/20 02:37 Dose: 30 ml Documented by: Admin: 02/24/20 08:59 Dose: 30 ml Documented by: CHELSEA Magnesium Oxide (Magnesium Oxide) 400 mg PO DAILY [facility] Last Admin: 02/29/20 09:01 Dose: 400 mg Documented by: LUIS ARMANDO Admin: 02/28/20 09:38 Dose: 400 mg Documented by: LUIS ARMANDO Admin: 02/27/20 09:52 Dose: 400 mg Documented by: LUIS ARMANDO Miscellaneous Information (Remove Patch) 1 ea TRDERM DAILY Count includes the [facility] Admin: 02/29/20 09:03 Dose: 1 ea Documented by: LUIS ARMANDO Admin: 02/28/20 09:41 Dose: 1 ea Documented by: LUIS ARMANDO Admin: 02/27/20 09:54 Dose: 1 ea Documented by: LUIS ARMANDO Admin: 02/26/20 08:47 Dose: 1 ea Documented by: Admin: 02/25/20 09:49 Dose: 1 ea Documented by: MOISES Morphine Sulfate (Morphine) 2 mg IVPUSH Q2H PRN PRN Reason: Breakthrough Pain Naloxone HCl (Narcan) 0.1 mg IVPUSH Q5M PRN PRN Reason: Oversedation Nicotine (Habitrol) 21 mg TRDERM DAILY [facility] Last Admin: 02/29/20 09:02 Dose: 21 mg Documented by: LUIS ARMANDO Admin: 02/28/20 09:41 Dose: 21 mg Documented by: LUIS ARMANDO Admin: 02/27/20 09:53 Dose: 21 mg Documented by: LUIS ARMANDO Admin: 02/26/20 08:45 Dose: 21 mg Documented by: Admin: 02/25/20 09:48 Dose: 21 mg Documented by: MOISES Fluvoxamine 100 Mg (Tab) 0 each PO BID [facility] Last Admin: 02/29/20 08:59 Dose: 2 each Documented by: LUIS ARMANDO Admin: 02/28/20 20:47 Dose: 2 each Documented by: Admin: 02/28/20 09:36 Dose: 2 each Documented by: LUIS ARMANDO Admin: 02/27/20 20:12 Dose: 2 each Documented by: BASIM Ondansetron HCl (Zofran Odt) 8 mg PO Q6H PRN PRN Reason: Nausea Last Admin: 02/27/20 08:27 Dose: 8 mg Documented by: Admin: 02/26/20 09:04 Dose: 8 mg Documented by: CRISTOFER Ondansetron HCl (Zofran) 4 mg IVPUSH Q6H PRN PRN Reason: Nausea/Vomiting Oxycodone HCl (Oxycodone) 5 - 10 mg PO Q4H PRN PRN Reason: Pain Last Admin: 02/29/20 08:59 Dose: 5 mg Documented by: LUIS ARMANDO Admin: 02/28/20 20:47 Dose: 5 mg Documented by: Admin: 02/28/20 15:33 Dose: 5 mg Documented by: LUIS ARMANDO Admin: 02/28/20 08:29 Dose: 5 mg Documented by: LUIS ARMANDO Admin: 02/27/20 16:52 Dose: 5 mg Documented by: LUIS ARMANDO Admin: 02/27/20 02:37 Dose: 5 mg Documented by: Admin: 02/26/20 20:12 Dose: 5 mg Documented by: Admin: 02/26/20 03:08 Dose: 5 mg Documented by: Admin: 02/25/20 22:00 Dose: 5 mg Documented by: Admin: 02/25/20 17:37 Dose: 5 mg Documented by: Admin: 02/25/20 13:42 Dose: 10 mg Documented by: Admin: 02/25/20 09:38 Dose: 5 mg Documented by: MOISES Pantoprazole Sodium (Protonix) 40 mg PO DAILY@0700 Count includes the [facility] Admin: 02/29/20 06:52 Dose: 40 mg Documented by: Admin: 02/28/20 06:02 Dose: 40 mg Documented by: Admin: 02/27/20 06:54 Dose: 40 mg Documented by: Admin: 02/26/20 06:16 Dose: 40 mg Documented by: Admin: 02/25/20 06:15 Dose: 40 mg Documented by: Admin: 02/24/20 06:48 Dose: 40 mg Documented by: LAINA Ozempic Pen Injector 0 each SUBCUT Th@0900 Count includes the [facility] Admin: 02/26/20 11:50 Dose: 1 each Documented by: CRISTOFER Cyclosporine [ Restasis Multidose] Ophthal. Emulsion 0 each EYEBOTH BID Count includes the [facility] Admin: 02/29/20 09:03 Dose: Not Given Documented by: LUIS ARMANDO Admin: 02/28/20 20:48 Dose: Not Given Documented by: Admin: 02/28/20 09:41 Dose: Not Given Documented by: LUIS ARMANDO Admin: 02/27/20 20:12 Dose: Not Given Documented by: Admin: 02/27/20 09:54 Dose: Not Given Documented by: LUIS ARMANDO Admin: 02/26/20 20:12 Dose: Not Given Documented by: Admin: 02/26/20 08:47 Dose: Not Given Documented by: Admin: 02/25/20 20:10 Dose: Not Given Documented by: CARLOS Polyethylene Glycol (Miralax) 17 gm PO DAILY Count includes the [facility] Admin: 02/29/20 08:58 Dose: 17 gm Documented by: LUIS ARMANDO Admin: 02/28/20 09:39 Dose: 17 gm Documented by: LUIS ARMANDO Admin: 02/27/20 09:45 Dose: 17 gm Documented by: LUIS ARMANDO Admin: 02/26/20 08:45 Dose: 17 gm Documented by: Admin: 02/25/20 09:48 Dose: 17 gm Documented by: Admin: 02/24/20 08:57 Dose: 17 gm Documented by: CHELSEA Propranolol HCl (Inderal) 10 mg PO BID [facility] Last Admin: 02/29/20 09:01 Dose: 10 mg Documented by: LUIS ARMANDO Admin: 02/28/20 20:44 Dose: 10 mg Documented by: Admin: 02/28/20 09:40 Dose: 10 mg Documented by: LUIS ARMANDO Admin: 02/27/20 20:10 Dose: 10 mg Documented by: BASIM Rosuvastatin Calcium (Crestor) 5 mg PO BEDTIME [facility] Last Admin: 02/28/20 20:46 Dose: 5 mg Documented by: Admin: 02/27/20 20:11 Dose: 5 mg Documented by: Admin: 02/26/20 20:11 Dose: 5 mg Documented by: Admin: 02/25/20 20:10 Dose: 5 mg Documented by: Admin: 02/24/20 21:42 Dose: 5 mg Documented by: Admin: 02/23/20 22:00 Dose: 5 mg Documented by: LAINA Senna (Senna) 8.6 mg PO BID PRN PRN Reason: Constipation Last Admin: 02/24/20 21:44 Dose: 8.6 mg Documented by: LAINA Sumatriptan Succinate (Imitrex) 50 mg PO ASDIRECTED PRN PRN Reason: migraines Last Admin: 02/27/20 10:27 Dose: 50 mg Documented by: LUIS ARMANDO Admin: 02/26/20 08:46 Dose: 50 mg Documented by: CRISTOFER Topiramate (Topamax) 50 mg PO BID [facility] Last Admin: 02/29/20 09:00 Dose: 50 mg Documented by: LUIS ARMANDO Admin: 02/28/20 20:45 Dose: 50 mg Documented by: Admin: 02/28/20 09:39 Dose: 50 mg Documented by: LUIS ARMANDO Admin: 02/27/20 20:10 Dose: 50 mg Documented by: Admin: 02/27/20 09:51 Dose: 50 mg Documented by: LUIS ARMANDO Admin: 02/26/20 20:10 Dose: 50 mg Documented by: Admin: 02/26/20 08:46 Dose: 50 mg Documented by: Admin: 02/25/20 20:10 Dose: 50 mg Documented by: Admin: 02/25/20 09:47 Dose: 50 mg Documented by: Admin: 02/24/20 21:43 Dose: 50 mg Documented by: Admin: 02/24/20 09:15 Dose: 50 mg Documented by: Admin: 02/23/20 22:00 Dose: 50 mg Documented by: LAINA Trospium (Sanctura) 20 mg PO BID Count includes the [facility] Admin: 02/29/20 09:00 Dose: 20 mg Documented by: LUIS ARMANDO Admin: 02/28/20 20:44 Dose: 20 mg Documented by: Admin: 02/28/20 09:40 Dose: 20 mg Documented by: LUIS ARMANDO Admin: 02/27/20 20:10 Dose: 20 mg Documented by: Admin: 02/27/20 09:46 Dose: 20 mg Documented by: LUIS ARMANDO Admin: 02/26/20 20:10 Dose: 20 mg Documented by: Admin: 02/26/20 08:45 Dose: 20 mg Documented by: Admin: 02/25/20 20:10 Dose: 20 mg Documented by: Admin: 02/25/20 09:47 Dose: 20 mg Documented by: Admin: 02/24/20 21:44 Dose: 20 mg Documented by: Admin: 02/24/20 08:50 Dose: 20 mg Documented by: CHELSEA Valacyclovir HCl (Valtrex) 500 mg PO DAILY Count includes the [facility] Admin: 02/29/20 10:16 Dose: 500 mg Documented by: LUIS ARMANDO Admin: 02/28/20 09:40 Dose: 500 mg Documented by: LUIS ARMANDO Admin: 02/27/20 09:52 Dose: 500 mg Documented by: LUIS ARMANDO Admin: 02/26/20 08:46 Dose: 500 mg Documented by: Admin: 02/25/20 09:47 Dose: 500 mg Documented by: Admin: 02/24/20 08:51 Dose: 500 mg Documented by: MERLEORMAR - Assessment Assessment (Free Text/Narrative):: POD#1 - IM gracie placement for right tibia fracture - Plan Plan (Free Text/Narrative):: 1. Medical management per Hospitalist service. 2. Lovenox BID. TEDs, SCDs, frequent mobility. 3. Transfer to CT in [place] on 03-02-2020 for continued monitoring and therapy. 4. Incision sites without concern today. Dressing change completed. The pt's case was discussed with Dr. Camarillo.
[2020-02-29] MEDS: Loratadine 10 MG Tab PO SCH (20:31)
[2020-02-29] MEDS: Rosuvastatin 10 MG Tab PO SCH (20:34)
[2020-03-01] MEDS: Pantoprazole 40 MG Tab.CR PO SCH (06:46)
[2020-03-01] MEDS: Levothyroxine 50 MCG Tab PO SCH (06:46)
--- NOTE | 2020-03-01 07:44 | PCM.CONSN ---
- General Info Date of Service: 03/01/20 Admission Dx/Problem (Free Text): Admission Diagnosis/Problem Admission Diagnosis/Problem Fracture of distal end of right tibia Functional Status: Reports: Pain Controlled, Tolerating Diet, Ambulating, Urinating. Denies: New Symptoms - Review of Systems General: Reports: Weakness. Denies: Fever, Fatigue, Malaise, Chills HEENT: Reports: No Symptoms. Denies: Headaches, Sinus Congestion Pulmonary: Reports: No Symptoms. Denies: Shortness of Breath, Pleuritic Chest Pain, Cough, Sputum, Wheezing Cardiovascular: Reports: No Symptoms. Denies: Chest Pain, Palpitations, Dyspnea on Exertion Gastrointestinal: Reports: Constipation. Denies: Abdominal Pain, Nausea, Vomiting Genitourinary: Reports: No Symptoms. Denies: Pain Musculoskeletal: Reports: Leg Pain Skin: Reports: No Symptoms. Denies: Cyanosis Neurological: Reports: Difficulty Walking, Weakness, Gait Disturbance. Denies: Confusion Psychiatric: Reports: No Symptoms - Patient Data Weight - Most Recent: 160 lb 8 oz I&O - Last 24 Hours: Intake & Output 02/29/20 03/01/20 03/01/20 22:59 06:59 14:59 Intake Total 950 1200 Output Total 900 2000 Balance 50 -800 - Exam Quality Assessment: DVT Prophylaxis. No: Supplemental Oxygen General: Alert, Oriented, Cooperative, No Acute Distress HEENT: Pupils Equal, Pupils Reactive, Mucous Membr. Moist/[place] Neck: Supple, Trachea Midline Lungs: Clear to Auscultation, Normal Respiratory Effort Cardiovascular: Regular Rate, Regular Rhythm GI/Abdominal Exam: Normal Bowel Sounds, Non-Tender, No Organomegaly, Distended (Female) Exam: Deferred Back Exam: Normal Inspection, Full Range of Motion Extremities: No Pedal Edema, Leg Pain, Limited Range of Motion, Other (Bandage in place on right leg. Cooling pack in place. ) Peripheral Pulses: 2+: Radial (L), Radial (R), Dorsalis Pedis (L), Dorsalis Pedis (R) Skin: Warm, Dry, Intact Wound/Incisions: Dressing Dry and Intact Neurological: No New Focal Deficit Psy/Mental Status: Alert Sepsis Event Note - Evaluation Sepsis Screening Result: No Definite Risk Consult PN Assessment/Plan POD#: 7 Procedures: Procedures ACUTE HEPATITIS PANEL (03/20/18) ANTINUCLEAR ANTIBODIES (03/20/18) APPLICATION LONG LEG SPLINT (02/17/20) ASSAY OF AMMONIA (11/25/18) ASSAY OF CERULOPLASMIN (03/20/18) ASSAY OF CK (CPK) (08/12/18) ASSAY OF COPPER (11/16/15) ASSAY OF CREATININE (01/31/16) ASSAY OF FERRITIN (04/21/19) ASSAY OF FOLIC ACID SERUM (11/16/15) ASSAY OF FREE THYROXINE (09/15/15) ASSAY OF IRON (04/21/19) ASSAY OF LITHIUM (10/11/15) ASSAY OF MAGNESIUM (08/16/18) ASSAY OF PHOSPHORUS (11/16/15) ASSAY THYROID STIM HORMONE (11/13/19) BL SMEAR W/DIFF WBC COUNT (11/25/18) C-REACTIVE PROTEIN (02/17/20) CARDIOVASCULAR STRESS TEST (01/13/16) CARPAL TUNNEL SURGERY (04/17/17) CHEST X-RAY 2VW FRONTAL&LATL (01/13/16) COMP SCREEN MAMMOGRAM ADD-ON (09/03/14) COMPLETE CBC AUTOMATED (11/13/19) COMPLETE CBC W/AUTO DIFF WBC (02/19/20) COMPREHEN METABOLIC PANEL (02/19/20) CT HEAD/BRAIN W/O DYE (02/17/20) CT MAXILLOFACIAL W/O DYE (06/05/18) CT NECK SPINE W/O DYE (02/25/15) CT THORAX W/DYE (01/31/16) CULTURE SCREEN ONLY (08/21/17) DRUG TEST PRSMV INSTRMNT (11/25/18) ECHO EXAM OF ABDOMEN (12/12/17) ELECTROCARDIOGRAM TRACING (11/25/18) EMERGENCY DEPT VISIT (02/17/20) EMERGENCY DEPT VISIT (08/13/18) EMERGENCY DEPT VISIT (08/12/18) EMERGENCY DEPT VISIT (06/12/18) EMERGENCY DEPT VISIT (07/04/16) EMERGENCY DEPT VISIT (02/25/15) EMERGENCY DEPT VISIT (11/10/13) FIBRIN DEGRADATION QUANT (08/16/18) FREE ASSAY (FT-3) (09/15/15) GLUCOSE BLOOD TEST (02/17/20) GLYCOSYLATED HEMOGLOBIN TEST (02/19/20) HT MUSCLE IMAGE SPECT MULT (01/13/16) HYDRATE IV INFUSION ADD-ON (02/17/20) HYDRATION IV INFUSION INIT (11/25/18) LIPID PANEL (11/25/18) METABOLIC PANEL TOTAL CA (08/16/18) MICROBE SUSCEPTIBLE SALOME (02/17/20) MR-STAPH DNA AMP PROBE (04/04/17) MRI JOINT UPR EXTREM W/O DYE (10/23/17) OFFICE/OUTPATIENT VISIT EST (11/13/19) POLYSOM 6/> YRS 4/> ALEKSANDRA (05/17/17) PROTHROMBIN TIME (04/10/17) ROUTINE VENIPUNCTURE (02/19/20) SMEAR WET [place] SALINE/INK (06/24/18) STREP A AG IA (08/21/17) THER/PROPH/DIAG INJ IV PUSH (02/17/20) THER/PROPH/DIAG INJ SC/IM (08/13/18) TRICHOMONAS ASSAY W/OPTIC (06/24/18) TX/PRO/DX INJ NEW DRUG ADDON (02/17/20) TX/PRO/DX INJ SAME DRUG MATERIAL CONTROL ASSOCIATE (02/17/20) UR ALBUMIN SEMIQUANTITATIVE (02/15/16) URINALYSIS AUTO W/O SCOPE (04/21/19) URINALYSIS AUTO W/SCOPE (02/17/20) URINE BACTERIA CULTURE (02/17/20) URINE CULTURE/COLONY COUNT (02/17/20) URINE TEST (11/25/18) VITAMIN B-12 (06/27/17) VITAMIN D 25 HYDROXY (06/27/17) X-RAY EXAM L-S SPINE 2/3 VWS (12/06/17) X-RAY EXAM NECK SPINE 2-3 VW (11/10/13) X-RAY EXAM NECK SPINE 4/5VWS (10/17/17) X-RAY EXAM OF ABDOMEN (08/05/16) X-RAY EXAM OF ABDOMEN (07/29/16) X-RAY EXAM OF LOWER LEG (02/17/20) X-RAY EXAM OF SHOULDER (10/17/17) (1) HLD (hyperlipidemia) SNOMED Code(s): 50905497 Code(s): E78.5 - HYPERLIPIDEMIA, UNSPECIFIED Priority: Low Current Visit: No Qualifiers: Hyperlipidemia type: unspecified Qualified Code(s): E78.5 - Hyperlipidemia, unspecified (2) HTN (hypertension) SNOMED Code(s): 70015625 Code(s): I10 - ESSENTIAL (PRIMARY) HYPERTENSION Priority: Medium Current Visit: No Qualifiers: Hypertension type: unspecified Qualified Code(s): I10 - Essential (primary) hypertension (3) Asthma SNOMED Code(s): 008895943 Code(s): J45.909 - UNSPECIFIED ASTHMA, UNCOMPLICATED Priority: Low Current Visit: No Qualifiers: Asthma severity: unspecified severity Asthma persistence: unspecified Asthma complication type: unspecified Qualified Code(s): J45.909 - Unspecified asthma, uncomplicated (4) ROWDY (obstructive sleep apnea) SNOMED Code(s): 11062456 Code(s): G47.33 - OBSTRUCTIVE SLEEP APNEA (ADULT) (PEDIATRIC) Priority: Low Current Visit: No (5) GERD (gastroesophageal reflux disease) SNOMED Code(s): 672661328 Code(s): K21.9 - GASTRO-ESOPHAGEAL REFLUX DISEASE WITHOUT ESOPHAGITIS Priority: Low Current Visit: No Qualifiers: Esophagitis presence: esophagitis presence not specified Qualified Code(s): K21.9 - Gastro-esophageal reflux disease without esophagitis (6) Nodule of right lung SNOMED Code(s): 850263786 Code(s): R91.1 - SOLITARY PULMONARY NODULE Priority: Low Current Visit: No (7) STD (female) SNOMED Code(s): 6820915, 364704979 Code(s): A64 - UNSPECIFIED SEXUALLY TRANSMITTED DISEASE Priority: Low Current Visit: No (8) Recurrent UTI SNOMED Code(s): 448464592 Code(s): N39.0 - URINARY TRACT INFECTION, SITE NOT SPECIFIED Priority: Low Current Visit: No (9) Fibromyalgia SNOMED Code(s): 476331495 Code(s): M79.7 - FIBROMYALGIA Priority: Medium Current Visit: No (10) Migraines SNOMED Code(s): 15495531 Code(s): G43.909 - MIGRAINE, UNSP, NOT INTRACTABLE, WITHOUT STATUS MIGRAINOSUS Priority: Low Current Visit: No Qualifiers: Migraine type: unspecified Status migrainosus presence: without status migrainosus Intractability: not intractable Qualified Code(s): G43.909 - Migraine, unspecified, not intractable, without status migrainosus (11) ADHD SNOMED Code(s): 905604408 Code(s): F90.9 - ATTENTION-DEFICIT HYPERACTIVITY DISORDER, UNSPECIFIED TYPE Priority: Low Current Visit: No Qualifiers: Attention deficit-hyperactivity disorder type: unspecified Qualified Code(s): F90.9 - Attention-deficit hyperactivity disorder, unspecified type (12) Bipolar disorder SNOMED Code(s): 86649772 Code(s): F31.9 - BIPOLAR DISORDER, UNSPECIFIED Priority: Medium Current Visit: No Qualifiers: Active/Remission status: remission status unspecified Qualified Code(s): F31.9 - Bipolar disorder, unspecified (13) Depression SNOMED Code(s): 54051882 Code(s): F32.9 - MAJOR DEPRESSIVE DISORDER, SINGLE EPISODE, UNSPECIFIED Priority: Low Current Visit: No Qualifiers: Depression Type: other depression Qualified Code(s): F32.89 - Other specified depressive episodes (14) OCD (obsessive compulsive disorder) SNOMED Code(s): 044453536 Code(s): F42.9 - OBSESSIVE-COMPULSIVE DISORDER, UNSPECIFIED Priority: Medium Current Visit: No Qualifiers: Obsessive-compulsive disorder type: unspecified Qualified Code(s): F42.9 - Obsessive-compulsive disorder, unspecified (15) Type II diabetes mellitus SNOMED Code(s): 60455068 Code(s): E11.9 - TYPE 2 DIABETES MELLITUS WITHOUT COMPLICATIONS Priority: Medium Current Visit: Yes Qualifiers: Diabetes mellitus longterm insulin use: without wire mill operator use Diabetes mellitus complication status: with other specified complication Qualified Code(s): E11.69 - Type 2 diabetes mellitus with other specified complication (16) Hypothyroidism SNOMED Code(s): 97512529 Code(s): E03.9 - HYPOTHYROIDISM, UNSPECIFIED Priority: Low Current Visit: No Qualifiers: Hypothyroidism type: unspecified Qualified Code(s): E03.9 - Hypothyroidism, unspecified (17) Recent surgical procedure on lower extremity SNOMED Code(s): 978795523 Code(s): Z98.890 - OTHER SPECIFIED POSTPROCEDURAL STATES Priority: High Current Visit: Yes (18) Transaminitis SNOMED Code(s): 621421419, 745251227 Code(s): R74.0 - NONSPEC ELEV OF LEVELS OF TRANSAMNS & LACTIC ACID DEHYDRGNSE Priority: Medium Current Visit: Yes (19) Hypomagnesemia SNOMED Code(s): 777498628 Code(s): E83.42 - HYPOMAGNESEMIA Priority: High Current Visit: Yes (20) Hypokalemia SNOMED Code(s): 63694813 Code(s): E87.6 - HYPOKALEMIA Priority: High Current Visit: Yes Problem List Initiated/Reviewed/Updated: Yes Plan: I/P: Acute: S/P right tibia intramedullary nailing - post-operative day 7 -Injured in fall - seen in ED on 02/17/2020 -Was admitted to floor after difficulty with ambulation and urination -DVT prophylaxis and pain management per primary care team -PT/OT -IS/RT -Monitor oxygen saturation -Titrate oxygen as needed -Home medications reviewed -Vital signs stable -Monitor labs -Pre-operative Hgb was 11.5; Now 9.3-->10.1-->9.1-->10.3 -Pre-operative GFR was >60; Now >60 -Pre-operative A1C was 7.2% -Discontinued blood glucose checks Current daily smoker -Nicotine patches -Cessation counseling -Patches on discharge Transaminitis, improving -AST 453-->503-->135 -ALT 240-->373-->284 -alkaline phosphatase 236-->293-->288 -Primary team adjusting pain medications from Percocet to Oxycodone -Monitor labs -Likely 2/2 anesthesia and pain medications -Carries history of elevated LFTs Hypomagnesemia -Magnesium 1.7-->1.9 -Started on daily supplementation Hypokalemia, Resolved -Potassium 3.4-->4.0 Constipation -Reports feeling constipated -Last BM 02/28/20 -Schedule Senna -PRN medications Chronic: HLD HTN asthma sleep apnea right lung nodule GERD IBD elevated LFT STDs recurrent UTIs fibromyalgia migraines short-term memory loss ADHD bipolar depression OCD type II DM hypothyroidism obesity History of drug and ETOH abuse History of gastric bypass Plan: CM for discharge planning GI prophylaxis Home medications as indicated Other orders as listed above Routine AM labs She is a full code. Her PCP is Ana M Fontana NP. 02/24/20: From a hospitalist standpoint Nancy is doing pretty well today, after a difficult night. She is known to this service from prior hospitalizations. She has been hospitalized in the past for hypoglycemia. Her labs and vital signs have remained stable. She was up ambulating and working with PT and OT. She has been up urinating and is off of oxygen. She takes Ozempic for her diabetes. Blood glucose readings have overall been satisfactory, especially given her hypoglycemia history. Patient reports glucose readings of 120-160 at home. She reports she takes these occasionally. A1C was reviewed and was 7.2% on 02/19/20, up from 7.0% on 11/13/2019. Pain has been controlled. Per primary team and after discussion with the patient, plan is for discharge to a SNF vs. [facility]. During her last admission placement was recommend and she ultimately refused, leaving AMA. She is cleared for discharge, pending primary team and PT/OT agreement. 02/25/20: Nancy had an ok night but a rough morning. Her pain has been more severe today. PT was in to work with her and reports her tolerance is much less today. The are currently recommending SNF placement. Per nursing, her higher bedside blood glucose readings yesterday were obtained after she had already ate. Liver enzy mes are elevated today and primary team is adjusting pain medications to address this. She dose carry a history of elevated LFTs. We will continue to monitor. Otherwise she remains clinically stable. She has been up ambulating and continues to urinate. Vital signs have been stable. SW involved in finding placement. She remains off of oxygen. 02/26/2020: Nancy is doing better today. She has been up ambulating with nursing utilizing a walker as a standby assist. Magnesium was 1.7 and was supplemented. Minor increase in liver enzymes as noted above. Hgb down to 9.1. Labs and vital signs otherwise remain stable. Patient reports last BM was 02/18/20 however she is a rather poor historian. She is only now starting to eat better. Blood sugars 144- 190. [place] swing-bed was in to evaluate patient. SW will follow-up with this. They did report earliest they could possibly accept patient would be 03/01/20. She remains off of oxygen. Continues to work with PT/OT. Pain has been controlled today. 02/27/2020: Nancy has continued to do well. She has been up ambulating with PT/OT and nursing. They continue to recommend SNF treatment. She complains of a headache improved with Imitrex. Magnesium was 1.9 and she was started on daily supplementation. Potassium was 3.4 and was supplemented. Vital signs trend: Tmax 98.7, HR 92-111, BP 145-128/94-89, RR 16-22, Oxygen saturations 93-99% on room air. Pain has been controlled with PO pain meds. Discontinued POC blood glucose readings. She remains off of oxygen. She has been accepted at [facility] on Sunday03/02/20. COVID-19 test ordered for Sunday03/01/20. Dr. Camarillo will reportedly be in [place] on March 10 and CM will contact [facility] to schedule this appointment. Hgb has increased as above. Liver enzymes have improved. Planning on discharge Sunday. 02/28/2020: Continues to do well Ambulating with physical therapy and nursing Tolerating diet Magnesium and potassium are now within normal limits Glucose POC [id number] Vital signs trend Blood pressure 998422/80 994 T-max 98.6 Heart rate 10850 Pulse ox greater than 96% on room air Pain is controlled Continues to do well Pending placement as per SNF recommendations by PT 02/29/2020 Pain is controlled Is ambulating with nursing and a walker Tolerating diet Sleeping well Vital signs stable 03/01/2020 Pain continues to be controlled. Has been up ambulating and walking with nursing/PT utilizing a walker Good PO intake Reports feeling of constipation. Will schedule BID Senna. Sleeping well Vital signs trend: Tmax 98.8, HR 74-86, BP: 124-122/88-83, RR 18-20, Oxygen saturations 99-100% on room air No labs obtained today Last BM: 02/28/2020 Ordered COVID-19 screen for discharge tomorrow Pending Discharge to [facility] tomorrow, 03/02/20. Thank you for allowing us to participate in the care of this patient!! LOS >96 hrs pending placement.
[2020-03-01] MEDS: Lubiprostone 24 MCG Cap PO SCH ×2 (09:04→17:24)
[2020-03-01] MEDS: Polyethylene Glycol 3350 Powder 17 GM Packet PO SCH (09:05)
[2020-03-01] MEDS: Enoxaparin 30 MG/0.3 ML Syringe SUBCUT SCH ×2 (09:05→21:09)
[2020-03-01] MEDS: valACYclovir 500 MG Tab PO SCH (09:05)
[2020-03-01] MEDS: Docusate Sodium 100 MG Cap PO SCH ×2 (09:06→21:08)
[2020-03-01] MEDS: Magnesium Oxide 400 MG Tab PO SCH (09:06)
[2020-03-01] MEDS: Trospium 20 MG Tab PO SCH ×2 (09:06→21:11)
[2020-03-01] MEDS: Propranolol 10 MG Tab PO SCH ×2 (09:07→21:09)
[2020-03-01] MEDS: Topiramate 25 MG Tab PO SCH ×2 (09:08→21:12)
[2020-03-01] MEDS: Nicotine 21 MG/24 Hr Patch TRDERM SCH (09:10)
[2020-03-01] MEDS: CYCLOSPORINE EYEBOTH SCH ×2 (09:11→21:11)
[2020-03-01] MEDS: Sennosides 8.6 MG Tab PO SCH ×2 (15:03→21:12)
--- NOTE | 2020-03-01 15:13 | PCM.SURGPN ---
- General Info Date of Service: 03/01/20 POD#: 7 Functional Status: Reports: Pain Controlled, Tolerating Diet, Ambulating, Urinating, Incentive Spirometry, Other (The pt's ambulation distance has increased. ) - Patient Data Vitals - Most Recent: Last Vital Signs Temp 98.2 F 03/01/20 08:32 Pulse 86 03/01/20 09:07 Resp 20 03/01/20 08:32 BP 122/88 03/01/20 09:07 Pulse Ox 100 03/01/20 08:32 Weight - Most Recent: 160 lb 8 oz I&O - Last 24 Hours: Intake & Output 03/01/20 03/01/20 03/01/20 06:59 14:59 22:59 Intake Total 1200 240 Output Total 2000 Balance -800 240 Med Orders - Current: Current Medications Albuterol (Proventil Hfa) 0 gm INH Q4H PRN PRN Reason: Shortness of Breath Bisacodyl (Dulcolax) 5 mg PO DAILY PRN PRN Reason: Constipation Last Admin: 02/27/20 09:52 Dose: 5 mg Documented by: Cyclobenzaprine HCl (Flexeril) 10 mg PO TID PRN PRN Reason: Spasms Last Admin: 02/26/20 08:46 Dose: 10 mg Documented by: Docusate Sodium (Colace) 100 mg PO BID [facility] [place] Last Admin: 03/01/20 09:06 Dose: 100 mg Documented by: Enalapril Maleate (Vasotec) 2.5 mg PO DAILY [facility] [place] Last Admin: 03/01/20 09:06 Dose: 2.5 mg Documented by: Enoxaparin Sodium (Lovenox) 30 mg SUBCUT BID [facility] [place] Last Admin: 03/01/20 09:05 Dose: 30 mg Documented by: Levothyroxine Sodium (Synthroid) 50 mcg PO ACBREAKFAST [facility] [place] Last Admin: 03/01/20 06:46 Dose: 50 mcg Documented by: Loratadine (Claritin) 10 mg PO BEDTIME [facility] [place] Last Admin: 02/29/20 20:31 Dose: 10 mg Documented by: Lubiprostone (Amitiza) 24 mcg PO BIDMEALS [facility] [place] Last Admin: 03/01/20 09:04 Dose: 24 mcg Documented by: Magnesium Hydroxide (Milk Of Magnesia) 30 ml PO BID PRN PRN Reason: Constipation Last Admin: 02/27/20 02:37 Dose: 30 ml Documented by: Magnesium Oxide (Magnesium Oxide) 400 mg PO DAILY [facility] [place] Last Admin: 03/01/20 09:06 Dose: 400 mg Documented by: Miscellaneous Information (Remove Patch) 1 ea TRDERM DAILY [facility] [place] Last Admin: 03/01/20 09:11 Dose: 1 ea Documented by: Morphine Sulfate (Morphine) 2 mg IVPUSH Q2H PRN PRN Reason: Breakthrough Pain Naloxone HCl (Narcan) 0.1 mg IVPUSH Q5M PRN PRN Reason: Oversedation Nicotine (Habitrol) 21 mg TRDERM DAILY [facility] [place] Last Admin: 03/01/20 09:10 Dose: 21 mg Documented by: Fluvoxamine 100 Mg (Tab) 0 each PO BID [facility] [place] Last Admin: 03/01/20 09:09 Dose: 2 each Documented by: Ondansetron HCl (Zofran Odt) 8 mg PO Q6H PRN PRN Reason: Nausea Last Admin: 02/27/20 08:27 Dose: 8 mg Documented by: Ondansetron HCl (Zofran) 4 mg IVPUSH Q6H PRN PRN Reason: Nausea/Vomiting Oxycodone HCl (Oxycodone) 5 - 10 mg PO Q4H PRN PRN Reason: Pain Last Admin: 02/29/20 20:41 Dose: 10 mg Documented by: Pantoprazole Sodium (Protonix) 40 mg PO DAILY@0700 [facility] [place] Last Admin: 03/01/20 06:46 Dose: 40 mg Documented by: Ozempic Pen Injector 0 each SUBCUT Th@0900 [facility] [place] Last Admin: 02/26/20 11:50 Dose: 1 each Documented by: Cyclosporine [ Restasis Multidose] Ophthal. Emulsion 0 each EYEBOTH BID [facility] [place] Last Admin: 03/01/20 09:11 Dose: Not Given Documented by: Polyethylene Glycol (Miralax) 17 gm PO DAILY [facility] [place] Last Admin: 03/01/20 09:05 Dose: 17 gm Documented by: Propranolol HCl (Inderal) 10 mg PO BID [facility] [place] Last Admin: 03/01/20 09:07 Dose: 10 mg Documented by: Rosuvastatin Calcium (Crestor) 5 mg PO BEDTIME [facility] [place] Last Admin: 02/29/20 20:34 Dose: 5 mg Documented by: Senna (Senna) 17.2 mg PO BID [facility] [place] Last Admin: 03/01/20 15:03 Dose: 17.2 mg Documented by: Sumatriptan Succinate (Imitrex) 50 mg PO ASDIRECTED PRN PRN Reason: migraines Last Admin: 02/27/20 10:27 Dose: 50 mg Documented by: Topiramate (Topamax) 50 mg PO BID [facility] [place] Last Admin: 03/01/20 09:08 Dose: 50 mg Documented by: Trospium (Sanctura) 20 mg PO BID [facility] [place] Last Admin: 03/01/20 09:06 Dose: 20 mg Documented by: Valacyclovir HCl (Valtrex) 500 mg PO DAILY [facility] [place] Last Admin: 03/01/20 09:05 Dose: 500 mg Documented by: Discontinued Medications Albuterol (Proventil Neb Soln) 2.5 mg NEB ONETIME PRN PRN Reason: asthma Stop: 02/23/20 18:00 Albuterol/Ipratropium (Duoneb 3.0-0.5 Mg/3 Ml) 3 ml NEB ONETIME ONE Stop: 02/23/20 09:01 Last Admin: 02/23/20 08:32 Dose: 3 ml Documented by: Bisacodyl (Dulcolax) 10 mg RECTAL ONETIME ONE Stop: 02/27/20 16:46 Last Admin: 02/27/20 16:52 Dose: 10 mg Documented by: Bupivacaine HCl (Sensorcaine-Mpf 0.25%) Confirm Administered Dose 20 ml .ROUTE .STK-MED ONE Stop: 02/23/20 07:22 Last Admin: 02/23/20 12:37 Dose: 20 ml Documented by: Cefazolin Sodium (Ancef) 2 gm .ROUTE .STK-MED ONE Stop: 02/23/20 11:07 Enoxaparin Sodium (Lovenox) 30 mg SUBCUT BID [facility] [place] Last Admin: 02/28/20 09:41 Dose: 30 mg Documented by: Famotidine (Pepcid) 20 mg IVPUSH ONETIME ONE Stop: 02/23/20 09:01 Last Admin: 02/23/20 08:40 Dose: 20 mg Documented by: Fentanyl (Sublimaze) Confirm Administered Dose 100 mcg .ROUTE .STK-MED ONE Stop: 02/23/20 07:40 Fentanyl (Sublimaze) 50 mcg IVPUSH Q5M PRN PRN Reason: Pain Stop: 02/23/20 18:00 Fentanyl (Sublimaze) Confirm Administered Dose 250 mcg .ROUTE .STK-MED ONE Stop: 02/23/20 11:21 Fentanyl (Sublimaze) 50 mcg IVPUSH Q5M PRN PRN Reason: Pain Stop: 02/23/20 18:00 Hydromorphone HCl (Dilaudid) 0.5 mg IVPUSH Q10M PRN PRN Reason: Pain (severe 7-10) Stop: 02/23/20 18:00 Hydromorphone HCl (Dilaudid) 0.5 mg IVPUSH Q10M PRN PRN Reason: Pain (severe 7-10) Stop: 02/23/20 18:00 Last Admin: 02/23/20 13:58 Dose: 0.5 mg Documented by: Lactated Ringer's (Ringers, Lactated) 1,000 mls @ 125 mls/hr IV ASDIRECTED [facility] [place] Lidocaine HCl (Xylocaine-Mpf 1%) Confirm Administered Dose 4 mls @ as directed .ROUTE .STK-MED ONE Stop: 02/23/20 07:39 Lactated Ringer's (Ringers, Lactated) 1,000 mls @ 125 mls/hr IV ASDIRECTED [facility] [place] Stop: 02/23/20 23:00 Last Admin: 02/23/20 14:03 Dose: 125 mls/hr Documented by: Cefazolin Sodium/Dextrose 2 gm (/ Premix) 50 mls @ 100 mls/hr IV Q8H [facility] [place] Stop: 02/24/20 11:29 Last Admin: 02/24/20 12:18 Dose: 100 mls/hr Documented by: Magnesium Sulfate (Magnesium Sulfate In Water Premix) 2 gm in 50 mls @ 25 mls/hr IV ONETIME ONE Stop: 02/26/20 09:59 Last Admin: 02/26/20 08:45 Dose: 25 mls/hr Documented by: Insulin Human Lispro (Humalog) 0 unit SUBCUT QIDACANDBED [facility] [place]; Protocol Last Admin: 02/25/20 07:40 Dose: Not Given Documented by: Ketorolac Tromethamine (Toradol) 15 mg IVPUSH Q6H PRN PRN Reason: Pain Last Admin: 02/24/20 20:20 Dose: 15 mg Documented by: Lidocaine/Sodium Bicarbonate (Buffered Lidocaine 1% In Ns 8.4%) 0.25 ml IDERM ONETIME PRN PRN Reason: Prior to IV Start Lidocaine/Sodium Bicarbonate (Buffered Lidocaine 1% In Ns 8.4%) 0.25 ml IDERM ONETIME PRN PRN Reason: Prior to IV Start Stop: 02/23/20 18:00 Metoclopramide HCl (Reglan) Confirm Administered Dose 10 mg .ROUTE .STK-MED ONE Stop: 02/26/20 09:30 Last Admin: 02/26/20 11:17 Dose: Not Given Documented by: Midazolam HCl (Versed 1 Mg/Ml) 1 mg IVPUSH ONETIME ONE Stop: 02/23/20 08:03 Last Admin: 02/23/20 17:12 Dose: Not Given Documented by: Midazolam HCl (Versed 1 Mg/Ml) Confirm Administered Dose 2 mg .ROUTE .STK-MED ONE Stop: 02/23/20 11:10 Miscellaneous Information (Remove Patch) 0 ea TRDERM ONETIME ONE Stop: 02/26/20 08:01 Last Admin: 02/26/20 08:46 Dose: 1 ea Documented by: Miscellaneous Information (Remove Patch) 1 ea TRDERM DAILY [facility] [place] Last Admin: 02/24/20 19:18 Dose: Not Given Documented by: Nicotine (Habitrol) 21 mg TRDERM DAILY [facility] [place] Stop: 02/25/20 01:00 Last Admin: 02/24/20 12:12 Dose: Not Given Documented by: Non-Formulary Medication (Cefdinir [Omnicef]) 300 mg PO BID [facility] [place] Non-Formulary Medication (Fluvoxamine) 200 mg PO BID [facility] [place] Non-Formulary Medication (Paliperidone Palmitate [Invega Sustenna]) 234 mg IM ASDIRECTED [facility] [place] Ondansetron HCl (Zofran) 4 mg IVPUSH ONETIME PRN PRN Reason: Nausea/Vomiting Stop: 02/23/20 18:00 Ondansetron HCl (Zofran) 4 mg IVPUSH ONETIME PRN PRN Reason: Nausea/Vomiting Stop: 02/23/20 18:00 Oxycodone/Acetaminophen (Percocet 325-5 Mg) 1 - 2 tab PO Q4H PRN PRN Reason: Pain Last Admin: 02/24/20 21:45 Dose: 2 tab Documented by: Fluvoxamine 200 Mg 0 each PO BEDTIME [facility] Last Admin: 02/26/20 20:12 Dose: Not Given Documented by: Fluvoxamine 200 Mg 0 each PO BID [facility] Potassium Chloride (Klor-Con M20) 40 meq PO BID [facility] Stop: 02/27/20 21:01 Last Admin: 02/27/20 20:09 Dose: 40 meq Documented by: Propofol (Diprivan 20 Ml) Confirm Administered Dose 200 mg .ROUTE .STK-MED ONE Stop: 02/23/20 07:39 Scopolamine (Transderm-Scop) 1.5 mg TRDERM ONETIME PRN PRN Reason: PONV Stop: 02/23/20 18:00 Last Admin: 02/23/20 07:54 Dose: 1.5 mg Documented by: Senna (Senna) 8.6 mg PO BID PRN PRN Reason: Constipation Last Admin: 02/24/20 21:44 Dose: 8.6 mg Documented by: Sodium Chloride (Saline Flush) 10 ml FLUSH ASDIRECTED PRN PRN Reason: Keep Vein Open Sodium Chloride (Saline Flush) 10 ml FLUSH ASDIRECTED PRN PRN Reason: Keep Vein Open Stop: 02/23/20 18:00 - Exam Wound/Incisions: Dressing Dry and Intact General: Alert, Cooperative, No Acute Distress Lungs: Normal Respiratory Effort Extremities: Other (Able to stand without assistance. No LOB noted. ) Sepsis Event Note - Evaluation Sepsis Screening Result: No Definite Risk - Focused Exam Vital Signs: Vital Signs Temp Pulse Resp BP Pulse Ox 03/01/20 09:07 86 122/88 03/01/20 09:06 122/88 03/01/20 08:32 98.2 F 86 20 122/88 100 03/01/20 04:35 98.4 F 74 20 122/83 100 - Problem List Review Problem List Initiated/Reviewed/Updated: Yes - My Orders Last 24 Hours: Active Orders 24 hr Category Date Time Status CORONAVIRUS COVID-19 PCR PHL Routine Lab 03/01/20 13:16 Ordered Sennosides [Senna] Med 03/01/20 14:15 Active 17.2 mg PO BID Medication Orders Albuterol (Proventil Hfa) 0 gm INH Q4H PRN PRN Reason: Shortness of Breath Bisacodyl (Dulcolax) 5 mg PO DAILY PRN PRN Reason: Constipation Last Admin: 02/27/20 09:52 Dose: 5 mg Documented by: LUIS ARMANDO Admin: 02/24/20 21:43 Dose: 5 mg Documented by: LAINA Cyclobenzaprine HCl (Flexeril) 10 mg PO TID PRN PRN Reason: Spasms Last Admin: 02/26/20 08:46 Dose: 10 mg Documented by: Admin: 02/25/20 22:00 Dose: 10 mg Documented by: Admin: 02/25/20 17:40 Dose: 10 mg Documented by: Admin: 02/25/20 09:58 Dose: 10 mg Documented by: Admin: 02/24/20 20:16 Dose: 10 mg Documented by: Admin: 02/24/20 12:24 Dose: 10 mg Documented by: Admin: 02/23/20 21:59 Dose: 10 mg Documented by: LAINA Docusate Sodium (Colace) 100 mg PO BID [facility] [place] Last Admin: 03/01/20 09:06 Dose: 100 mg Documented by: Admin: 02/29/20 20:34 Dose: 100 mg Documented by: Admin: 02/29/20 09:01 Dose: 100 mg Documented by: LUIS ARMANDO Admin: 02/28/20 20:45 Dose: 100 mg Documented by: Admin: 02/28/20 09:38 Dose: 100 mg Documented by: LUIS ARMANDO Admin: 02/27/20 20:10 Dose: 100 mg Documented by: Admin: 02/27/20 09:50 Dose: 100 mg Documented by: LUIS ARMANDO Admin: 02/26/20 20:10 Dose: 100 mg Documented by: Admin: 02/26/20 08:46 Dose: 100 mg Documented by: Admin: 02/25/20 20:10 Dose: 100 mg Documented by: Admin: 02/25/20 09:38 Dose: 100 mg Documented by: Admin: 02/24/20 21:42 Dose: 100 mg Documented by: Admin: 02/24/20 08:56 Dose: 100 mg Documented by: CHELSEA Enalapril Maleate (Vasotec) 2.5 mg PO DAILY [facility] Admin: 03/01/20 09:06 Dose: 2.5 mg Documented by: Admin: 02/29/20 09:00 Dose: 2.5 mg Documented by: LUIS ARMANDO Admin: 02/28/20 09:38 Dose: 2.5 mg Documented by: LUIS ARMANDO Enoxaparin Sodium (Lovenox) 30 mg SUBCUT BID [facility] Admin: 03/01/20 09:05 Dose: 30 mg Documented by: Admin: 02/29/20 20:35 Dose: 30 mg Documented by: Admin: 02/29/20 09:02 Dose: 30 mg Documented by: LUIS ARMANDO Admin: 02/28/20 20:46 Dose: 30 mg Documented by: KAYKAY Levothyroxine Sodium (Synthroid) 50 mcg PO ACBREAKFAST [facility] Admin: 03/01/20 06:46 Dose: 50 mcg Documented by: Admin: 02/29/20 06:52 Dose: 50 mcg Documented by: Admin: 02/28/20 06:02 Dose: 50 mcg Documented by: Admin: 02/27/20 06:54 Dose: 50 mcg Documented by: Admin: 02/26/20 06:16 Dose: 50 mcg Documented by: Admin: 02/25/20 06:15 Dose: 50 mcg Documented by: Admin: 02/24/20 06:48 Dose: 50 mcg Documented by: LAINA Loratadine (Claritin) 10 mg PO BEDTIME [facility] Admin: 02/29/20 20:31 Dose: 10 mg Documented by: Admin: 02/28/20 20:45 Dose: 10 mg Documented by: Admin: 02/27/20 20:10 Dose: 10 mg Documented by: Admin: 02/26/20 20:10 Dose: 10 mg Documented by: Admin: 02/25/20 20:10 Dose: 10 mg Documented by: Admin: 02/24/20 21:41 Dose: 10 mg Documented by: Admin: 02/23/20 22:00 Dose: 10 mg Documented by: LAINA Lubiprostone (Amitiza) 24 mcg PO BIDMEALS [facility] [place] Last Admin: 03/01/20 09:04 Dose: 24 mcg Documented by: Admin: 02/29/20 17:17 Dose: 24 mcg Documented by: LUIS ARMANDO Admin: 02/29/20 08:58 Dose: 24 mcg Documented by: LUISA RMANDO Admin: 02/28/20 18:02 Dose: 24 mcg Documented by: LUIS ARMANDO Admin: 02/28/20 06:03 Dose: 24 mcg Documented by: Admin: 02/27/20 16:52 Dose: 24 mcg Documented by: LUIS ARMANDO Admin: 02/27/20 09:46 Dose: 24 mcg Documented by: LUIS ARMANDO Admin: 02/26/20 16:38 Dose: 24 mcg Documented by: Admin: 02/26/20 08:45 Dose: 24 mcg Documented by: Admin: 02/25/20 16:59 Dose: 24 mcg Documented by: Admin: 02/25/20 07:57 Dose: 24 mcg Documented by: Admin: 02/24/20 18:14 Dose: 24 mcg Documented by: Admin: 02/24/20 08:55 Dose: 24 mcg Documented by: Admin: 02/23/20 17:43 Dose: 24 mcg Documented by: CHELSEA Magnesium Hydroxide (Milk Of Magnesia) 30 ml PO BID PRN PRN Reason: Constipation Last Admin: 02/27/20 02:37 Dose: 30 ml Documented by: Admin: 02/24/20 08:59 Dose: 30 ml Documented by: CHELSEA Magnesium Oxide (Magnesium Oxide) 400 mg PO DAILY [facility] [place] Last Admin: 03/01/20 09:06 Dose: 400 mg Documented by: Admin: 02/29/20 09:01 Dose: 400 mg Documented by: LUIS ARMANDO Admin: 02/28/20 09:38 Dose: 400 mg Documented by: LUIS ARMANDO Admin: 02/27/20 09:52 Dose: 400 mg Documented by: LUIS ARMANDO Miscellaneous Information (Remove Patch) 1 ea TRDERM DAILY [facility] Admin: 03/01/20 09:11 Dose: 1 ea Documented by: Admin: 02/29/20 09:03 Dose: 1 ea Documented by: LUIS ARMANDO Admin: 02/28/20 09:41 Dose: 1 ea Documented by: LUIS ARMANDO Admin: 02/27/20 09:54 Dose: 1 ea Documented by: LUIS ARMANDO Admin: 02/26/20 08:47 Dose: 1 ea Documented by: Admin: 02/25/20 09:49 Dose: 1 ea Documented by: MOISES Morphine Sulfate (Morphine) 2 mg IVPUSH Q2H PRN PRN Reason: Breakthrough Pain Naloxone HCl (Narcan) 0.1 mg IVPUSH Q5M PRN PRN Reason: Oversedation Nicotine (Habitrol) 21 mg TRDERM DAILY [facility] Admin: 03/01/20 09:10 Dose: 21 mg Documented by: Admin: 02/29/20 09:02 Dose: 21 mg Documented by: LUIS ARMANDO Admin: 02/28/20 09:41 Dose: 21 mg Documented by: LUIS ARMANDO Admin: 02/27/20 09:53 Dose: 21 mg Documented by: LUIS ARMANDO Admin: 02/26/20 08:45 Dose: 21 mg Documented by: Admin: 02/25/20 09:48 Dose: 21 mg Documented by: MOISES Fluvoxamine 100 Mg (Tab) 0 each PO BID [facility] Admin: 03/01/20 09:09 Dose: 2 each Documented by: Admin: 02/29/20 20:35 Dose: 200 each Documented by: Admin: 02/29/20 08:59 Dose: 2 each Documented by: LUIS ARMANDO Admin: 02/28/20 20:47 Dose: 2 each Documented by: Admin: 02/28/20 09:36 Dose: 2 each Documented by: LUIS ARMANDO Admin: 02/27/20 20:12 Dose: 2 each Documented by: BASIM Ondansetron HCl (Zofran Odt) 8 mg PO Q6H PRN PRN Reason: Nausea Last Admin: 02/27/20 08:27 Dose: 8 mg Documented by: Admin: 02/26/20 09:04 Dose: 8 mg Documented by: NICHJES Ondansetron HCl (Zofran) 4 mg IVPUSH Q6H PRN PRN Reason: Nausea/Vomiting Oxycodone HCl (Oxycodone) 5 - 10 mg PO Q4H PRN PRN Reason: Pain Last Admin: 02/29/20 20:41 Dose: 10 mg Documented by: Admin: 02/29/20 08:59 Dose: 5 mg Documented by: LUIS ARMANDO Admin: 02/28/20 20:47 Dose: 5 mg Documented by: Admin: 02/28/20 15:33 Dose: 5 mg Documented by: LUIS ARMANDO Admin: 02/28/20 08:29 Dose: 5 mg Documented by: LUIS ARMANDO Admin: 02/27/20 16:52 Dose: 5 mg Documented by: LUIS ARMANDO Admin: 02/27/20 02:37 Dose: 5 mg Documented by: Admin: 02/26/20 20:12 Dose: 5 mg Documented by: Admin: 02/26/20 03:08 Dose: 5 mg Documented by: Admin: 02/25/20 22:00 Dose: 5 mg Documented by: Admin: 02/25/20 17:37 Dose: 5 mg Documented by: Admin: 02/25/20 13:42 Dose: 10 mg Documented by: Admin: 02/25/20 09:38 Dose: 5 mg Documented by: MOISES Pantoprazole Sodium (Protonix) 40 mg PO DAILY@0700 [facility] [place] Last Admin: 03/01/20 06:46 Dose: 40 mg Documented by: Admin: 02/29/20 06:52 Dose: 40 mg Documented by: Admin: 02/28/20 06:02 Dose: 40 mg Documented by: Admin: 02/27/20 06:54 Dose: 40 mg Documented by: Admin: 02/26/20 06:16 Dose: 40 mg Documented by: Admin: 02/25/20 06:15 Dose: 40 mg Documented by: Admin: 02/24/20 06:48 Dose: 40 mg Documented by: LAINA Ozempic Pen Injector 0 each SUBCUT Th@0900 [facility] [place] Last Admin: 02/26/20 11:50 Dose: 1 each Documented by: CRISTOFER Cyclosporine [ Restasis Multidose] Ophthal. Emulsion 0 each EYEBOTH BID [facility] Admin: 03/01/20 09:11 Dose: Not Given Documented by: Admin: 02/29/20 20:36 Dose: Not Given Documented by: Admin: 02/29/20 09:03 Dose: Not Given Documented by: LUIS ARMANDO Admin: 02/28/20 20:48 Dose: Not Given Documented by: Admin: 02/28/20 09:41 Dose: Not Given Documented by: LUIS ARMANDO Admin: 02/27/20 20:12 Dose: Not Given Documented by: Admin: 02/27/20 09:54 Dose: Not Given Documented by: LUIS ARMANDO Admin: 02/26/20 20:12 Dose: Not Given Documented by: Admin: 02/26/20 08:47 Dose: Not Given Documented by: Admin: 02/25/20 20:10 Dose: Not Given Documented by: CARLOS Polyethylene Glycol (Miralax) 17 gm PO DAILY [facility] Admin: 03/01/20 09:05 Dose: 17 gm Documented by: Admin: 02/29/20 08:58 Dose: 17 gm Documented by: LUIS ARMANDO Admin: 02/28/20 09:39 Dose: 17 gm Documented by: LUIS ARMANDO Admin: 02/27/20 09:45 Dose: 17 gm Documented by: LUIS ARMANDO Admin: 02/26/20 08:45 Dose: 17 gm Documented by: Admin: 02/25/20 09:48 Dose: 17 gm Documented by: Admin: 02/24/20 08:57 Dose: 17 gm Documented by: CHELSEA Propranolol HCl (Inderal) 10 mg PO BID [facility] Admin: 03/01/20 09:07 Dose: 10 mg Documented by: Admin: 02/29/20 20:31 Dose: 10 mg Documented by: Admin: 02/29/20 09:01 Dose: 10 mg Documented by: LUIS ARMANDO Admin: 02/28/20 20:44 Dose: 10 mg Documented by: Admin: 02/28/20 09:40 Dose: 10 mg Documented by: LUIS ARMANDO Admin: 02/27/20 20:10 Dose: 10 mg Documented by: BASIM Rosuvastatin Calcium (Crestor) 5 mg PO BEDTIME [facility] [place] Last Admin: 02/29/20 20:34 Dose: 5 mg Documented by: Admin: 02/28/20 20:46 Dose: 5 mg Documented by: Admin: 02/27/20 20:11 Dose: 5 mg Documented by: Admin: 02/26/20 20:11 Dose: 5 mg Documented by: Admin: 02/25/20 20:10 Dose: 5 mg Documented by: Admin: 02/24/20 21:42 Dose: 5 mg Documented by: Admin: 02/23/20 22:00 Dose: 5 mg Documented by: LAINA Senna (Senna) 17.2 mg PO BID [facility] Admin: 03/01/20 15:03 Dose: 17.2 mg Documented by: LORNA Sumatriptan Succinate (Imitrex) 50 mg PO ASDIRECTED PRN PRN Reason: migraines Last Admin: 02/27/20 10:27 Dose: 50 mg Documented by: LUIS ARMANDO Admin: 02/26/20 08:46 Dose: 50 mg Documented by: CRISTOFER Topiramate (Topamax) 50 mg PO BID [facility] Admin: 03/01/20 09:08 Dose: 50 mg Documented by: Admin: 02/29/20 20:34 Dose: 50 mg Documented by: Admin: 02/29/20 09:00 Dose: 50 mg Documented by: LUIS ARMANDO Admin: 02/28/20 20:45 Dose: 50 mg Documented by: Admin: 02/28/20 09:39 Dose: 50 mg Documented by: LUIS ARMANDO Admin: 02/27/20 20:10 Dose: 50 mg Documented by: Admin: 02/27/20 09:51 Dose: 50 mg Documented by: LUIS ARMANDO Admin: 02/26/20 20:10 Dose: 50 mg Documented by: Admin: 02/26/20 08:46 Dose: 50 mg Documented by: Admin: 02/25/20 20:10 Dose: 50 mg Documented by: Admin: 02/25/20 09:47 Dose: 50 mg Documented by: Admin: 02/24/20 21:43 Dose: 50 mg Documented by: Admin: 02/24/20 09:15 Dose: 50 mg Documented by: Admin: 02/23/20 22:00 Dose: 50 mg Documented by: LAINA Trospium (Sanctura) 20 mg PO BID [facility] Admin: 03/01/20 09:06 Dose: 20 mg Documented by: Admin: 02/29/20 20:31 Dose: 20 mg Documented by: Admin: 02/29/20 09:00 Dose: 20 mg Documented by: LUIS ARMANDO Admin: 02/28/20 20:44 Dose: 20 mg Documented by: Admin: 02/28/20 09:40 Dose: 20 mg Documented by: LUIS ARMANDO Admin: 02/27/20 20:10 Dose: 20 mg Documented by: Admin: 02/27/20 09:46 Dose: 20 mg Documented by: LUIS ARMANDO Admin: 02/26/20 20:10 Dose: 20 mg Documented by: Admin: 02/26/20 08:45 Dose: 20 mg Documented by: Admin: 02/25/20 20:10 Dose: 20 mg Documented by: Admin: 02/25/20 09:47 Dose: 20 mg Documented by: Admin: 02/24/20 21:44 Dose: 20 mg Documented by: Admin: 02/24/20 08:50 Dose: 20 mg Documented by: CHELSEA Valacyclovir HCl (Valtrex) 500 mg PO DAILY [facility] Admin: 03/01/20 09:05 Dose: 500 mg Documented by: Admin: 02/29/20 10:16 Dose: 500 mg Documented by: LUIS ARMANDO Admin: 02/28/20 09:40 Dose: 500 mg Documented by: LUIS ARMANDO Admin: 02/27/20 09:52 Dose: 500 mg Documented by: LUIS ARMANDO Admin: 02/26/20 08:46 Dose: 500 mg Documented by: Admin: 02/25/20 09:47 Dose: 500 mg Documented by: Admin: 02/24/20 08:51 Dose: 500 mg Documented by: [email or web address] - Assessment Assessment (Free Text/Narrative):: POD#7 - s/p IM gracie placement for right tibia fracture - Plan Plan (Free Text/Narrative):: 1. Discharge to [place] tomorrow. 2. Lovenox BID. TEDs, SCDs. Continue with frequent mobility. 3. Medical management per Hospitalist service. The pt's case was discussed with Dr. Camarillo.
--- NOTE | 2020-03-01 17:01 | PCM.OPNOTE ---
- General Post-Op/Procedure Note Date of Surgery/Procedure: 02/23/20 Operative Procedure(s): intramedullary nailing of right tibial shaft fracture Pre Op Diagnosis: right tibial shaft fracture Post-Op Diagnosis: Same Anesthesia Technique: General LMA, Local Primary Surgeon: Romeo Camarillo Anesthesia Provider: Maritza Coronado [employer] Architect: Sharla Rinaldi EBL in mLs: 400 Complications: None Condition: Good Free Text/Narrative:: Intake & Output 03/01/20 03/01/20 03/01/20 06:59 14:59 22:59 Intake Total 1200 240 420 Output Total 1999 Balance -800 240 420 10/300 nail
[2020-03-01] MEDS: Loratadine 10 MG Tab PO SCH (21:08)
[2020-03-01] MEDS: Rosuvastatin 10 MG Tab PO SCH (21:08)
[2020-03-01] MEDS: Cyclobenzaprine 10 MG Tab PO PRN (21:16)
[2020-03-02] MEDS: Levothyroxine 50 MCG Tab PO SCH (05:57)
[2020-03-02] MEDS: Pantoprazole 40 MG Tab.CR PO SCH ×2 (05:58→06:56)
--- NOTE | 2020-03-02 07:17 | PCM.CONSN ---
- General Info Date of Service: 03/02/20 Admission Dx/Problem (Free Text): Admission Diagnosis/Problem Admission Diagnosis/Problem Fracture of distal end of right tibia Functional Status: Reports: Pain Controlled, Tolerating Diet, Ambulating, Urinating, Incentive Spirometry. Denies: New Symptoms - Review of Systems General: Reports: No Symptoms, Weakness. Denies: Fever, Fatigue, Malaise, Chills HEENT: Reports: No Symptoms. Denies: Headaches, Sore Throat Pulmonary: Reports: No Symptoms. Denies: Shortness of Breath, Cough, Sputum, Wheezing Cardiovascular: Reports: No Symptoms. Denies: Chest Pain, Palpitations, Dyspnea on Exertion, Edema Gastrointestinal: Reports: No Symptoms. Denies: Constipation, Diarrhea, Nausea, Vomiting Genitourinary: Reports: No Symptoms. Denies: Pain Musculoskeletal: Reports: Leg Pain Skin: Reports: No Symptoms. Denies: Cyanosis Neurological: Reports: Difficulty Walking, Gait Disturbance. Denies: Confusion, Numbness, Pre-Existing Deficit, Tingling Psychiatric: Reports: No Symptoms - Patient Data Vitals - Most Recent: Last Vital Signs Temp 97.9 F 03/02/20 06:00 Pulse 78 03/02/20 06:00 Resp 14 03/02/20 06:00 BP 131/78 03/02/20 06:00 Pulse Ox 96 03/02/20 06:00 Weight - Most Recent: 159 lb 3.2 oz I&O - Last 24 Hours: Intake & Output 03/01/20 03/02/20 03/02/20 22:59 06:59 14:59 Intake Total 1220 1200 Output Total 1050 Balance 170 1200 Lab Results Last 24 Hours: Laboratory Results - last 24 hr 03/01/20 Range/Units 16:50 SARS-CoV-2 RNA (RAYNE) Negative (NEGATIVE) Med Orders - Current: Current Medications Albuterol (Proventil Hfa) 0 gm INH Q4H PRN PRN Reason: Shortness of Breath Bisacodyl (Dulcolax) 5 mg PO DAILY PRN PRN Reason: Constipation Last Admin: 02/27/20 09:52 Dose: 5 mg Documented by: Cyclobenzaprine HCl (Flexeril) 10 mg PO TID PRN PRN Reason: Spasms Last Admin: 03/01/20 21:16 Dose: 10 mg Documented by: Docusate Sodium (Colace) 100 mg PO BID [facility] Last Admin: 03/01/20 21:08 Dose: 100 mg Documented by: Enalapril Maleate (Vasotec) 2.5 mg PO DAILY [facility] Last Admin: 03/01/20 09:06 Dose: 2.5 mg Documented by: Enoxaparin Sodium (Lovenox) 30 mg SUBCUT BID [facility] Last Admin: 03/01/20 21:09 Dose: 30 mg Documented by: Levothyroxine Sodium (Synthroid) 50 mcg PO ACBREAKFAST [facility] Last Admin: 03/02/20 05:57 Dose: 50 mcg Documented by: Loratadine (Claritin) 10 mg PO BEDTIME [facility] Last Admin: 03/01/20 21:08 Dose: 10 mg Documented by: Lubiprostone (Amitiza) 24 mcg PO BIDMEALS [facility] Last Admin: 03/01/20 17:24 Dose: 24 mcg Documented by: Magnesium Hydroxide (Milk Of Magnesia) 30 ml PO BID PRN PRN Reason: Constipation Last Admin: 02/27/20 02:37 Dose: 30 ml Documented by: Magnesium Oxide (Magnesium Oxide) 400 mg PO DAILY [facility] Last Admin: 03/01/20 09:06 Dose: 400 mg Documented by: Miscellaneous Information (Remove Patch) 1 ea TRDERM DAILY [facility] Last Admin: 03/01/20 09:11 Dose: 1 ea Documented by: Morphine Sulfate (Morphine) 2 mg IVPUSH Q2H PRN PRN Reason: Breakthrough Pain Naloxone HCl (Narcan) 0.1 mg IVPUSH Q5M PRN PRN Reason: Oversedation Nicotine (Habitrol) 21 mg TRDERM DAILY [facility] Last Admin: 03/01/20 09:10 Dose: 21 mg Documented by: Fluvoxamine 100 Mg (Tab) 0 each PO BID [facility] Last Admin: 03/01/20 21:10 Dose: 1 each Documented by: Ondansetron HCl (Zofran Odt) 8 mg PO Q6H PRN PRN Reason: Nausea Last Admin: 02/27/20 08:27 Dose: 8 mg Documented by: Ondansetron HCl (Zofran) 4 mg IVPUSH Q6H PRN PRN Reason: Nausea/Vomiting Oxycodone HCl (Oxycodone) 5 - 10 mg PO Q4H PRN PRN Reason: Pain Last Admin: 02/29/20 20:41 Dose: 10 mg Documented by: Pantoprazole Sodium (Protonix) 40 mg PO DAILY@0700 [facility] Last Admin: 03/02/20 06:56 Dose: Not Given Documented by: Ozempic Pen Injector 0 each SUBCUT Th@0900 [facility] Last Admin: 02/26/20 11:50 Dose: 1 each Documented by: Cyclosporine [ Restasis Multidose] Ophthal. Emulsion 0 each EYEBOTH BID [facility] Last Admin: 03/01/20 21:11 Dose: Not Given Documented by: Polyethylene Glycol (Miralax) 17 gm PO DAILY [facility] Last Admin: 03/01/20 09:05 Dose: 17 gm Documented by: Propranolol HCl (Inderal) 10 mg PO BID [facility] Last Admin: 03/01/20 21:09 Dose: 10 mg Documented by: Rosuvastatin Calcium (Crestor) 5 mg PO BEDTIME [facility] Last Admin: 03/01/20 21:08 Dose: 5 mg Documented by: Senna (Senna) 17.2 mg PO BID [facility] Last Admin: 03/01/20 21:12 Dose: 17.2 mg Documented by: Sumatriptan Succinate (Imitrex) 50 mg PO ASDIRECTED PRN PRN Reason: migraines Last Admin: 02/27/20 10:27 Dose: 50 mg Documented by: Topiramate (Topamax) 50 mg PO BID [facility] Last Admin: 03/01/20 21:12 Dose: 50 mg Documented by: Trospium (Sanctura) 20 mg PO BID [facility] Last Admin: 03/01/20 21:11 Dose: 20 mg Documented by: Valacyclovir HCl (Valtrex) 500 mg PO DAILY [facility] Last Admin: 03/01/20 09:05 Dose: 500 mg Documented by: Discontinued Medications Albuterol (Proventil Neb Soln) 2.5 mg NEB ONETIME PRN PRN Reason: asthma Stop: 02/23/20 18:00 Albuterol/Ipratropium (Duoneb 3.0-0.5 Mg/3 Ml) 3 ml NEB ONETIME ONE Stop: 02/23/20 09:01 Last Admin: 02/23/20 08:32 Dose: 3 ml Documented by: Bisacodyl (Dulcolax) 10 mg RECTAL ONETIME ONE Stop: 02/27/20 16:46 Last Admin: 02/27/20 16:52 Dose: 10 mg Documented by: Bupivacaine HCl (Sensorcaine-Mpf 0.25%) Confirm Administered Dose 20 ml .ROUTE .STK-MED ONE Stop: 02/23/20 07:22 Last Admin: 02/23/20 12:37 Dose: 20 ml Documented by: Cefazolin Sodium (Ancef) 2 gm .ROUTE .STK-MED ONE Stop: 02/23/20 11:07 Enoxaparin Sodium (Lovenox) 30 mg SUBCUT BID [facility] Last Admin: 02/28/20 09:41 Dose: 30 mg Documented by: Famotidine (Pepcid) 20 mg IVPUSH ONETIME ONE Stop: 02/23/20 09:01 Last Admin: 02/23/20 08:40 Dose: 20 mg Documented by: Fentanyl (Sublimaze) Confirm Administered Dose 100 mcg .ROUTE .STK-MED ONE Stop: 02/23/20 07:40 Fentanyl (Sublimaze) 50 mcg IVPUSH Q5M PRN PRN Reason: Pain Stop: 02/23/20 18:00 Fentanyl (Sublimaze) Confirm Administered Dose 250 mcg .ROUTE .STK-MED ONE Stop: 02/23/20 11:21 Fentanyl (Sublimaze) 50 mcg IVPUSH Q5M PRN PRN Reason: Pain Stop: 02/23/20 18:00 Hydromorphone HCl (Dilaudid) 0.5 mg IVPUSH Q10M PRN PRN Reason: Pain (severe 7-10) Stop: 02/23/20 18:00 Hydromorphone HCl (Dilaudid) 0.5 mg IVPUSH Q10M PRN PRN Reason: Pain (severe 7-10) Stop: 02/23/20 18:00 Last Admin: 02/23/20 13:58 Dose: 0.5 mg Documented by: Lactated Ringer's (Ringers, Lactated) 1,000 mls @ 125 mls/hr IV ASDIRECTED [facility] Lidocaine HCl (Xylocaine-Mpf 1%) Confirm Administered Dose 4 mls @ as directed .ROUTE .STK-MED ONE Stop: 02/23/20 07:39 Lactated Ringer's (Ringers, Lactated) 1,000 mls @ 125 mls/hr IV ASDIRECTED [facility] Stop: 02/23/20 23:00 Last Admin: 02/23/20 14:03 Dose: 125 mls/hr Documented by: Cefazolin Sodium/Dextrose 2 gm (/ Premix) 50 mls @ 100 mls/hr IV Q8H [facility] Stop: 02/24/20 11:29 Last Admin: 02/24/20 12:18 Dose: 100 mls/hr Documented by: Magnesium Sulfate (Magnesium Sulfate In Water Premix) 2 gm in 50 mls @ 25 mls/hr IV ONETIME ONE Stop: 02/26/20 09:59 Last Admin: 02/26/20 08:45 Dose: 25 mls/hr Documented by: Insulin Human Lispro (Humalog) 0 unit SUBCUT QIDACANDBED [facility]; Protocol Last Admin: 02/25/20 07:40 Dose: Not Given Documented by: Ketorolac Tromethamine (Toradol) 15 mg IVPUSH Q6H PRN PRN Reason: Pain Last Admin: 02/24/20 20:20 Dose: 15 mg Documented by: Lidocaine/Sodium Bicarbonate (Buffered Lidocaine 1% In Ns 8.4%) 0.25 ml IDERM ONETIME PRN PRN Reason: Prior to IV Start Lidocaine/Sodium Bicarbonate (Buffered Lidocaine 1% In Ns 8.4%) 0.25 ml IDERM ONETIME PRN PRN Reason: Prior to IV Start Stop: 02/23/20 18:00 Metoclopramide HCl (Reglan) Confirm Administered Dose 10 mg .ROUTE .STK-MED ONE Stop: 02/26/20 09:30 Last Admin: 02/26/20 11:17 Dose: Not Given Documented by: Midazolam HCl (Versed 1 Mg/Ml) 1 mg IVPUSH ONETIME ONE Stop: 02/23/20 08:03 Last Admin: 02/23/20 17:12 Dose: Not Given Documented by: Midazolam HCl (Versed 1 Mg/Ml) Confirm Administered Dose 2 mg .ROUTE .STK-MED ONE Stop: 02/23/20 11:10 Miscellaneous Information (Remove Patch) 0 ea TRDERM ONETIME ONE Stop: 02/26/20 08:01 Last Admin: 02/26/20 08:46 Dose: 1 ea Documented by: Miscellaneous Information (Remove Patch) 1 ea TRDERM DAILY [facility] Last Admin: 02/24/20 19:18 Dose: Not Given Documented by: Nicotine (Habitrol) 21 mg TRDERM DAILY [facility] Stop: 02/25/20 01:00 Last Admin: 02/24/20 12:12 Dose: Not Given Documented by: Non-Formulary Medication (Cefdinir [Omnicef]) 300 mg PO BID [facility] Non-Formulary Medication (Fluvoxamine) 200 mg PO BID [facility] Non-Formulary Medication (Paliperidone Palmitate [Invega Sustenna]) 234 mg IM ASDIRECTED [facility] Ondansetron HCl (Zofran) 4 mg IVPUSH ONETIME PRN PRN Reason: Nausea/Vomiting Stop: 02/23/20 18:00 Ondansetron HCl (Zofran) 4 mg IVPUSH ONETIME PRN PRN Reason: Nausea/Vomiting Stop: 02/23/20 18:00 Oxycodone/Acetaminophen (Percocet 325-5 Mg) 1 - 2 tab PO Q4H PRN PRN Reason: Pain Last Admin: 02/24/20 21:45 Dose: 2 tab Documented by: Fluvoxamine 200 Mg 0 each PO BEDTIME [facility] Last Admin: 02/26/20 20:12 Dose: Not Given Documented by: Fluvoxamine 200 Mg 0 each PO BID [facility] Potassium Chloride (Klor-Con M20) 40 meq PO BID [facility] Stop: 02/27/20 21:01 Last Admin: 02/27/20 20:09 Dose: 40 meq Documented by: Propofol (Diprivan 20 Ml) Confirm Administered Dose 200 mg .ROUTE .STK-MED ONE Stop: 02/23/20 07:39 Scopolamine (Transderm-Scop) 1.5 mg TRDERM ONETIME PRN PRN Reason: PONV Stop: 02/23/20 18:00 Last Admin: 02/23/20 07:54 Dose: 1.5 mg Documented by: Senna (Senna) 8.6 mg PO BID PRN PRN Reason: Constipation Last Admin: 02/24/20 21:44 Dose: 8.6 mg Documented by: Sodium Chloride (Saline Flush) 10 ml FLUSH ASDIRECTED PRN PRN Reason: Keep Vein Open Sodium Chloride (Saline Flush) 10 ml FLUSH ASDIRECTED PRN PRN Reason: Keep Vein Open Stop: 02/23/20 18:00 - Exam Quality Assessment: DVT Prophylaxis. No: Supplemental Oxygen, Urine Catheter General: Alert, Oriented, Cooperative, No Acute Distress HEENT: Pupils Equal, Pupils Reactive, Mucous Membr. Moist/[place] Neck: Supple, Trachea Midline Lungs: Clear to Auscultation, Normal Respiratory Effort Cardiovascular: Regular Rate, Regular Rhythm GI/Abdominal Exam: Normal Bowel Sounds, Soft, Non-Tender, No Distention (Female) Exam: Deferred Back Exam: Normal Inspection, Full Range of Motion Extremities: No Pedal Edema, Leg Pain, Limited Range of Motion, Other (Bandage in place on right leg. Cooling pack in place. ) Peripheral Pulses: 2+: Radial (L), Radial (R), Dorsalis Pedis (L), Dorsalis Pedis (R) Skin: Warm, Dry, Intact Wound/Incisions: Dressing Dry and Intact Neurological: No New Focal Deficit Psy/Mental Status: Alert Sepsis Event Note - Evaluation Sepsis Screening Result: No Definite Risk Consult PN Assessment/Plan POD#: 8 Procedures: Procedures ACUTE HEPATITIS PANEL (03/20/18) ANTINUCLEAR ANTIBODIES (03/20/18) APPLICATION LONG LEG SPLINT (02/17/20) ASSAY OF AMMONIA (11/25/18) ASSAY OF CERULOPLASMIN (03/20/18) ASSAY OF CK (CPK) (08/12/18) ASSAY OF COPPER (11/16/15) ASSAY OF CREATININE (01/31/16) ASSAY OF FERRITIN (04/21/19) ASSAY OF FOLIC ACID SERUM (11/16/15) ASSAY OF FREE THYROXINE (09/15/15) ASSAY OF IRON (04/21/19) ASSAY OF LITHIUM (10/11/15) ASSAY OF MAGNESIUM (08/16/18) ASSAY OF PHOSPHORUS (11/16/15) ASSAY THYROID STIM HORMONE (11/13/19) BL SMEAR W/DIFF WBC COUNT (11/25/18) C-REACTIVE PROTEIN (02/17/20) CARDIOVASCULAR STRESS TEST (01/13/16) CARPAL TUNNEL SURGERY (04/17/17) CHEST X-RAY 2VW FRONTAL&LATL (01/13/16) COMP SCREEN MAMMOGRAM ADD-ON (09/03/14) COMPLETE CBC AUTOMATED (11/13/19) COMPLETE CBC W/AUTO DIFF WBC (02/19/20) COMPREHEN METABOLIC PANEL (02/19/20) CT HEAD/BRAIN W/O DYE (02/17/20) CT MAXILLOFACIAL W/O DYE (06/05/18) CT NECK SPINE W/O DYE (02/25/15) CT THORAX W/DYE (01/31/16) CULTURE SCREEN ONLY (08/21/17) DRUG TEST PRSMV INSTRMNT (11/25/18) ECHO EXAM OF ABDOMEN (12/12/17) ELECTROCARDIOGRAM TRACING (11/25/18) EMERGENCY DEPT VISIT (02/17/20) EMERGENCY DEPT VISIT (08/13/18) EMERGENCY DEPT VISIT (08/12/18) EMERGENCY DEPT VISIT (06/12/18) EMERGENCY DEPT VISIT (07/04/16) EMERGENCY DEPT VISIT (02/25/15) EMERGENCY DEPT VISIT (11/10/13) FIBRIN DEGRADATION QUANT (08/16/18) FREE ASSAY (FT-3) (09/15/15) GLUCOSE BLOOD TEST (02/17/20) GLYCOSYLATED HEMOGLOBIN TEST (02/19/20) HT MUSCLE IMAGE SPECT MULT (01/13/16) HYDRATE IV INFUSION ADD-ON (02/17/20) HYDRATION IV INFUSION INIT (11/25/18) LIPID PANEL (11/25/18) METABOLIC PANEL TOTAL CA (08/16/18) MICROBE SUSCEPTIBLE SALOME (02/17/20) MR-STAPH DNA AMP PROBE (04/04/17) MRI JOINT UPR EXTREM W/O DYE (10/23/17) OFFICE/OUTPATIENT VISIT EST (11/13/19) POLYSOM 6/> YRS 4/> ALEKSANDRA (05/17/17) PROTHROMBIN TIME (04/10/17) ROUTINE VENIPUNCTURE (02/19/20) SMEAR WET [place] SALINE/INK (06/24/18) STREP A AG IA (08/21/17) THER/PROPH/DIAG INJ IV PUSH (02/17/20) THER/PROPH/DIAG INJ SC/IM (08/13/18) TRICHOMONAS ASSAY W/OPTIC (06/24/18) TX/PRO/DX INJ NEW DRUG ADDON (02/17/20) TX/PRO/DX INJ SAME DRUG [employer] (02/17/20) UR ALBUMIN SEMIQUANTITATIVE (02/15/16) URINALYSIS AUTO W/O SCOPE (04/21/19) URINALYSIS AUTO W/SCOPE (02/17/20) URINE BACTERIA CULTURE (02/17/20) URINE CULTURE/COLONY COUNT (02/17/20) URINE TEST (11/25/18) VITAMIN B-12 (06/27/17) VITAMIN D 25 HYDROXY (06/27/17) X-RAY EXAM L-S SPINE 2/3 VWS (12/06/17) X-RAY EXAM NECK SPINE 2-3 VW (11/10/13) X-RAY EXAM NECK SPINE 4/5VWS (10/17/17) X-RAY EXAM OF ABDOMEN (08/05/16) X-RAY EXAM OF ABDOMEN (07/29/16) X-RAY EXAM OF LOWER LEG (02/17/20) X-RAY EXAM OF SHOULDER (10/17/17) (1) HLD (hyperlipidemia) SNOMED Code(s): 56986891 Code(s): E78.5 - HYPERLIPIDEMIA, UNSPECIFIED Priority: Low Current Visit: No Qualifiers: Hyperlipidemia type: unspecified Qualified Code(s): E78.5 - Hyperlipidemia, unspecified (2) HTN (hypertension) SNOMED Code(s): 80177504 Code(s): I10 - ESSENTIAL (PRIMARY) HYPERTENSION Priority: Medium Current Visit: No Qualifiers: Hypertension type: unspecified Qualified Code(s): I10 - Essential (primary) hypertension (3) Asthma SNOMED Code(s): 076468779 Code(s): J45.909 - UNSPECIFIED ASTHMA, UNCOMPLICATED Priority: Low Current Visit: No Qualifiers: Asthma severity: unspecified severity Asthma persistence: unspecified Asthma complication type: unspecified Qualified Code(s): J45.909 - Unspecified asthma, uncomplicated (4) ROWDY (obstructive sleep apnea) SNOMED Code(s): 84387554 Code(s): G47.33 - OBSTRUCTIVE SLEEP APNEA (ADULT) (PEDIATRIC) Priority: Low Current Visit: No (5) GERD (gastroesophageal reflux disease) SNOMED Code(s): 034382686 Code(s): K21.9 - GASTRO-ESOPHAGEAL REFLUX DISEASE WITHOUT ESOPHAGITIS Priority: Low Current Visit: No Qualifiers: Esophagitis presence: esophagitis presence not specified Qualified Code(s): K21.9 - Gastro-esophageal reflux disease without esophagitis (6) Nodule of right lung SNOMED Code(s): 473267479 Code(s): R91.1 - SOLITARY PULMONARY NODULE Priority: Low Current Visit: No (7) STD (female) SNOMED Code(s): 3074436, 795109356 Code(s): A64 - UNSPECIFIED SEXUALLY TRANSMITTED DISEASE Priority: Low Current Visit: No (8) Recurrent UTI SNOMED Code(s): 201643188 Code(s): N39.0 - URINARY TRACT INFECTION, SITE NOT SPECIFIED Priority: Low Current Visit: No (9) Fibromyalgia SNOMED Code(s): 797478288 Code(s): M79.7 - FIBROMYALGIA Priority: Medium Current Visit: No (10) Migraines SNOMED Code(s): 57420226 Code(s): G43.909 - MIGRAINE, UNSP, NOT INTRACTABLE, WITHOUT STATUS MIGRAINOSUS Priority: Low Current Visit: No Qualifiers: Migraine type: unspecified Status migrainosus presence: without status migrainosus Intractability: not intractable Qualified Code(s): G43.909 - Migraine, unspecified, not intractable, without status migrainosus (11) ADHD SNOMED Code(s): 877904109 Code(s): F90.9 - ATTENTION-DEFICIT HYPERACTIVITY DISORDER, UNSPECIFIED TYPE Priority: Low Current Visit: No Qualifiers: Attention deficit-hyperactivity disorder type: unspecified Qualified Code(s): F90.9 - Attention-deficit hyperactivity disorder, unspecified type (12) Bipolar disorder SNOMED Code(s): 08673137 Code(s): F31.9 - BIPOLAR DISORDER, UNSPECIFIED Priority: Medium Current Visit: No Qualifiers: Active/Remission status: remission status unspecified Qualified Code(s): F31.9 - Bipolar disorder, unspecified (13) Depression SNOMED Code(s): 29787235 Code(s): F32.9 - MAJOR DEPRESSIVE DISORDER, SINGLE EPISODE, UNSPECIFIED Priority: Low Current Visit: No Qualifiers: Depression Type: other depression Qualified Code(s): F32.89 - Other specified depressive episodes (14) OCD (obsessive compulsive disorder) SNOMED Code(s): 388822100 Code(s): F42.9 - OBSESSIVE-COMPULSIVE DISORDER, UNSPECIFIED Priority: Medium Current Visit: No Qualifiers: Obsessive-compulsive disorder type: unspecified Qualified Code(s): F42.9 - Obsessive-compulsive disorder, unspecified (15) Type II diabetes mellitus SNOMED Code(s): 50270007 Code(s): E11.9 - TYPE 2 DIABETES MELLITUS WITHOUT COMPLICATIONS Priority: Medium Current Visit: Yes Qualifiers: Diabetes mellitus intermediate insulin use: without long term care social worker use Diabetes mellitus complication status: with other specified complication Qualified Code(s): E11.69 - Type 2 diabetes mellitus with other specified complication (16) Hypothyroidism SNOMED Code(s): 30851022 Code(s): E03.9 - HYPOTHYROIDISM, UNSPECIFIED Priority: Low Current Visit: No Qualifiers: Hypothyroidism type: unspecified Qualified Code(s): E03.9 - Hypothyroidism, unspecified (17) Recent surgical procedure on lower extremity SNOMED Code(s): 806172523 Code(s): Z98.890 - OTHER SPECIFIED POSTPROCEDURAL STATES Priority: High Current Visit: Yes (18) Transaminitis SNOMED Code(s): 075485997, 103183252 Code(s): R74.0 - NONSPEC ELEV OF LEVELS OF TRANSAMNS & LACTIC ACID DEHYDRGNSE Priority: Medium Current Visit: Yes (19) Hypomagnesemia SNOMED Code(s): 388379086 Code(s): E83.42 - HYPOMAGNESEMIA Priority: High Current Visit: Yes (20) Hypokalemia SNOMED Code(s): 76846796 Code(s): E87.6 - HYPOKALEMIA Priority: High Current Visit: Yes Problem List Initiated/Reviewed/Updated: Yes My Orders Last 24 Hours: My Active Orders 03/01/20 14:15 Sennosides [Senna] 17.2 mg PO BID Plan: I/P: Acute: S/P right tibia intramedullary nailing - post-operative day 8 -Injured in fall - seen in ED on 02/17/2020 -Was admitted to floor after difficulty with ambulation and urination -DVT prophylaxis and pain management per primary care team -PT/OT -IS/RT -Monitor oxygen saturation -Titrate oxygen as needed -Home medications reviewed -Vital signs stable -Monitor labs -Pre-operative Hgb was 11.5; Now 9.3-->10.1-->9.1-->10.3 -Pre-operative GFR was >60; Now >60 -Pre-operative A1C was 7.2% -Discontinued blood glucose checks Current daily smoker -Nicotine patches -Cessation counseling -Patches on discharge Transaminitis, improving -AST 453-->503-->135 -ALT 240-->373-->284 -alkaline phosphatase 236-->293-->288 -Primary team adjusting pain medications from Percocet to Oxycodone -Monitor labs -Likely 2/2 anesthesia and pain medications -Carries history of elevated LFTs Hypomagnesemia -Magnesium 1.7-->1.9 -Started on daily supplementation Hypokalemia, Resolved -Potassium 3.4-->4.0 Constipation -Reports feeling constipated -Last BM 02/28/20 -Schedule Senna -PRN medications Chronic: HLD HTN asthma sleep apnea right lung nodule GERD IBD elevated LFT STDs recurrent UTIs fibromyalgia migraines short-term memory loss ADHD bipolar depression OCD type II DM hypothyroidism obesity History of drug and ETOH abuse History of gastric bypass Plan: CM for discharge planning GI prophylaxis Home medications as indicated Other orders as listed above Routine AM labs She is a full code. Her PCP is Ana M Fontana NP. 02/24/20: From a hospitalist standpoint Nancy is doing pretty well today, after a difficult night. She is known to this service from prior hospitalizations. She has been hospitalized in the past for hypoglycemia. Her labs and vital signs have remained stable. She was up ambulating and working with PT and OT. She has been up urinating and is off of oxygen. She takes Ozempic for her diabetes. Blood glucose readings have overall been satisfactory, especially given her hypoglycemia history. Patient reports glucose readings of 120-160 at home. She reports she takes these occasionally. A1C was reviewed and was 7.2% on 02/19/20, up from 7.0% on 11/13/2019. Pain has been controlled. Per primary team and after discussion with the patient, plan is for discharge to a SNF vs. [facility]. During her last admission placement was recommend and she ultimately refused, leaving AMA. She is cleared for discharge, pending primary team and PT/OT agreement. 02/25/20: Nancy had an ok night but a rough morning. Her pain has been more severe today. PT was in to work with her and reports her tolerance is much less today. The are currently recommending SNF placement. Per nursing, her higher bedside blood glucose readings yesterday were obtained after she had already ate. Liver enzymes are elevated today and primary team is adjusting pain medications to address this. She dose carry a history of elevated LFTs. We will continue to monitor. Otherwise she remains clinically stable. She has been up ambulating and continues to urinate. Vital signs have been stable. SW involved in finding placement. She remains off of oxygen. 02/26/2020: Nancy is doing better today. She has been up ambulating with nursing utilizing a walker as a standby assist. Magnesium was 1.7 and was supplemented. Minor increase in liver enzymes as noted above. Hgb down to 9.1. Labs and vital signs otherwise remain stable. Patient reports last BM was 02/18/20 however she is a rather poor historian. She is only now starting to eat better. Blood sugars 144- 190. [place] swing-bed was in to evaluate patient. SW will follow-up with this. They did report earliest they could possibly accept patient would be 03/01/20. She remains off of oxygen. Continues to work with PT/OT. Pain has been controlled today. 02/27/2020: Nancy has continued to do well. She has been up ambulating with PT/OT and nursing. They continue to recommend SNF treatment. She complains of a headache improved with Imitrex. Magnesium was 1.9 and she was started on daily supplementation. Potassium was 3.4 and was supplemented. Vital signs trend: Tmax 98.7, HR 92-111, BP 145-128/94-89, RR 16-22, Oxygen saturations 93-99% on room air. Pain has been controlled with PO pain meds. Discontinued POC blood glucose readings. She remains off of oxygen. She has been accepted at [facility] on Sunday03/02/20. COVID-19 test ordered for Sunday03/01/20. Dr. Camarillo will reportedly be in [place] on March 10 and CM will contact [facility] to schedule this appointment. Hgb has increased as above. Liver enzymes have improved. Planning on discharge Sunday. 02/28/2020: Continues to do well Ambulating with physical therapy and nursing Tolerating diet Magnesium and potassium are now within normal limits Glucose POC [id number] Vital signs trend Blood pressure 472441/80 994 T-max 98.6 Heart rate 86166 Pulse ox greater than 96% on room air Pain is controlled Continues to do well Pending placement as per SNF recommendations by PT 02/29/2020 Pain is controlled Is ambulating with nursing and a walker Tolerating diet Sleeping well Vital signs stable 03/01/2020 Pain continues to be controlled. Has been up ambulating and walking with nursing/PT utilizing a walker Good PO intake Reports feeling of constipation. Will schedule BID Senna. Sleeping well Vital signs trend: Tmax 98.8, HR 74-86, BP: 124-122/88-83, RR 18-20, Oxygen saturations 99-100% on room air No labs obtained today Last BM: 02/28/2020 Ordered COVID-19 screen for discharge tomorrow Pending Discharge to [facility] tomorrow, 03/02/20. 03/02/2020 From a hospitalist standpoint Nancy is doing well. She has been up ambulating with a walker. Her labs and vital signs have been stable throughout her stay. Her pain has been controlled. She has required some assistance with ADLs and will be discharged to [facility]. She should continue PT/OT while there. She should continue to utilizer her IS. No labs were obtained today. Her COVID-19 screen was negative. Her PO intake has been good. She is cleared for discharge pending primary team and PT/OT agreement. We discussed her smoking status and she was given practical resources and contact information for smoking cessation services at discharge. She will be prescribed nicotine patches. She should resume her prior diabetic medication and blood glucose check regimen. Thank you for allowing us to participate in the care of this patient!! LOS >96 hrs pending placement.
--- NOTE | 2020-03-02 08:24 | PCM.SURGPN ---
- General Info Date of Service: 03/02/20 POD#: 8 Functional Status: Reports: Pain Controlled, Tolerating Diet, Ambulating, Urinating, Incentive Spirometry, Other (The pt states she is prepared for d/c to [facility] for today.) - Patient Data Vitals - Most Recent: Last Vital Signs Temp 97.9 F 03/02/20 06:00 Pulse 78 03/02/20 06:00 Resp 14 03/02/20 06:00 BP 131/78 03/02/20 06:00 Pulse Ox 96 03/02/20 06:00 Weight - Most Recent: 159 lb 3.2 oz I&O - Last 24 Hours: Intake & Output 03/01/20 03/02/20 03/02/20 22:59 06:59 14:59 Intake Total 1220 1200 Output Total 1050 Balance 170 1200 Lab Results Last 24 Hrs: Laboratory Results - last 24 hr 03/01/20 Range/Units 16:50 SARS-CoV-2 RNA (RAYNE) Negative (NEGATIVE) Med Orders - Current: Current Medications Albuterol (Proventil Hfa) 0 gm INH Q4H PRN PRN Reason: Shortness of Breath Bisacodyl (Dulcolax) 5 mg PO DAILY PRN PRN Reason: Constipation Last Admin: 02/27/20 09:52 Dose: 5 mg Documented by: Cyclobenzaprine HCl (Flexeril) 10 mg PO TID PRN PRN Reason: Spasms Last Admin: 03/01/20 21:16 Dose: 10 mg Documented by: Docusate Sodium (Colace) 100 mg PO BID [facility] Last Admin: 03/01/20 21:08 Dose: 100 mg Documented by: Enalapril Maleate (Vasotec) 2.5 mg PO DAILY [facility] Last Admin: 03/01/20 09:06 Dose: 2.5 mg Documented by: Enoxaparin Sodium (Lovenox) 30 mg SUBCUT BID [facility] Last Admin: 03/01/20 21:09 Dose: 30 mg Documented by: Levothyroxine Sodium (Synthroid) 50 mcg PO ACBREAKFAST [facility] Last Admin: 03/02/20 05:57 Dose: 50 mcg Documented by: Loratadine (Claritin) 10 mg PO BEDTIME [facility] Last Admin: 03/01/20 21:08 Dose: 10 mg Documented by: Lubiprostone (Amitiza) 24 mcg PO BIDMEALS [facility] Last Admin: 03/01/20 17:24 Dose: 24 mcg Documented by: Magnesium Hydroxide (Milk Of Magnesia) 30 ml PO BID PRN PRN Reason: Constipation Last Admin: 02/27/20 02:37 Dose: 30 ml Documented by: Magnesium Oxide (Magnesium Oxide) 400 mg PO DAILY [facility] Last Admin: 03/01/20 09:06 Dose: 400 mg Documented by: Miscellaneous Information (Remove Patch) 1 ea TRDERM DAILY [facility] Last Admin: 03/01/20 09:11 Dose: 1 ea Documented by: Morphine Sulfate (Morphine) 2 mg IVPUSH Q2H PRN PRN Reason: Breakthrough Pain Naloxone HCl (Narcan) 0.1 mg IVPUSH Q5M PRN PRN Reason: Oversedation Nicotine (Habitrol) 21 mg TRDERM DAILY [facility] Last Admin: 03/01/20 09:10 Dose: 21 mg Documented by: Fluvoxamine 100 Mg (Tab) 0 each PO BID [facility] Last Admin: 03/01/20 21:10 Dose: 1 each Documented by: Ondansetron HCl (Zofran Odt) 8 mg PO Q6H PRN PRN Reason: Nausea Last Admin: 02/27/20 08:27 Dose: 8 mg Documented by: Ondansetron HCl (Zofran) 4 mg IVPUSH Q6H PRN PRN Reason: Nausea/Vomiting Oxycodone HCl (Oxycodone) 5 - 10 mg PO Q4H PRN PRN Reason: Pain Last Admin: 02/29/20 20:41 Dose: 10 mg Documented by: Pantoprazole Sodium (Protonix) 40 mg PO DAILY@0700 [facility] Last Admin: 03/02/20 06:56 Dose: Not Given Documented by: Ozempic Pen Injector 0 each SUBCUT Th@0900 [facility] Last Admin: 02/26/20 11:50 Dose: 1 each Documented by: Cyclosporine [ Restasis Multidose] Ophthal. Emulsion 0 each EYEBOTH BID [facility] Last Admin: 03/01/20 21:11 Dose: Not Given Documented by: Polyethylene Glycol (Miralax) 17 gm PO DAILY [facility] Last Admin: 03/01/20 09:05 Dose: 17 gm Documented by: Propranolol HCl (Inderal) 10 mg PO BID [facility] Last Admin: 03/01/20 21:09 Dose: 10 mg Documented by: Rosuvastatin Calcium (Crestor) 5 mg PO BEDTIME [facility] Last Admin: 03/01/20 21:08 Dose: 5 mg Documented by: Senna (Senna) 17.2 mg PO BID [facility] Last Admin: 03/01/20 21:12 Dose: 17.2 mg Documented by: Sumatriptan Succinate (Imitrex) 50 mg PO ASDIRECTED PRN PRN Reason: migraines Last Admin: 02/27/20 10:27 Dose: 50 mg Documented by: Topiramate (Topamax) 50 mg PO BID [facility] Last Admin: 03/01/20 21:12 Dose: 50 mg Documented by: Trospium (Sanctura) 20 mg PO BID [facility] Last Admin: 03/01/20 21:11 Dose: 20 mg Documented by: Valacyclovir HCl (Valtrex) 500 mg PO DAILY [facility] Last Admin: 03/01/20 09:05 Dose: 500 mg Documented by: Discontinued Medications Albuterol (Proventil Neb Soln) 2.5 mg NEB ONETIME PRN PRN Reason: asthma Stop: 02/23/20 18:00 Albuterol/Ipratropium (Duoneb 3.0-0.5 Mg/3 Ml) 3 ml NEB ONETIME ONE Stop: 02/23/20 09:01 Last Admin: 02/23/20 08:32 Dose: 3 ml Documented by: Bisacodyl (Dulcolax) 10 mg RECTAL ONETIME ONE Stop: 02/27/20 16:46 Last Admin: 02/27/20 16:52 Dose: 10 mg Documented by: Bupivacaine HCl (Sensorcaine-Mpf 0.25%) Confirm Administered Dose 20 ml .ROUTE .STK-MED ONE Stop: 02/23/20 07:22 Last Admin: 02/23/20 12:37 Dose: 20 ml Documented by: Cefazolin Sodium (Ancef) 2 gm .ROUTE .STK-MED ONE Stop: 02/23/20 11:07 Enoxaparin Sodium (Lovenox) 30 mg SUBCUT BID [facility] Last Admin: 02/28/20 09:41 Dose: 30 mg Documented by: Famotidine (Pepcid) 20 mg IVPUSH ONETIME ONE Stop: 02/23/20 09:01 Last Admin: 02/23/20 08:40 Dose: 20 mg Documented by: Fentanyl (Sublimaze) Confirm Administered Dose 100 mcg .ROUTE .STK-MED ONE Stop: 02/23/20 07:40 Fentanyl (Sublimaze) 50 mcg IVPUSH Q5M PRN PRN Reason: Pain Stop: 02/23/20 18:00 Fentanyl (Sublimaze) Confirm Administered Dose 250 mcg .ROUTE .STK-MED ONE Stop: 02/23/20 11:21 Fentanyl (Sublimaze) 50 mcg IVPUSH Q5M PRN PRN Reason: Pain Stop: 02/23/20 18:00 Hydromorphone HCl (Dilaudid) 0.5 mg IVPUSH Q10M PRN PRN Reason: Pain (severe 7-10) Stop: 02/23/20 18:00 Hydromorphone HCl (Dilaudid) 0.5 mg IVPUSH Q10M PRN PRN Reason: Pain (severe 7-10) Stop: 02/23/20 18:00 Last Admin: 02/23/20 13:58 Dose: 0.5 mg Documented by: Lactated Ringer's (Ringers, Lactated) 1,000 mls @ 125 mls/hr IV ASDIRECTED [facility] Lidocaine HCl (Xylocaine-Mpf 1%) Confirm Administered Dose 4 mls @ as directed .ROUTE .STK-MED ONE Stop: 02/23/20 07:39 Lactated Ringer's (Ringers, Lactated) 1,000 mls @ 125 mls/hr IV ASDIRECTED [facility] Stop: 02/23/20 23:00 Last Admin: 02/23/20 14:03 Dose: 125 mls/hr Documented by: Cefazolin Sodium/Dextrose 2 gm (/ Premix) 50 mls @ 100 mls/hr IV Q8H [facility] Stop: 02/24/20 11:29 Last Admin: 02/24/20 12:18 Dose: 100 mls/hr Documented by: Magnesium Sulfate (Magnesium Sulfate In Water Premix) 2 gm in 50 mls @ 25 mls/hr IV ONETIME ONE Stop: 02/26/20 09:59 Last Admin: 02/26/20 08:45 Dose: 25 mls/hr Documented by: Insulin Human Lispro (Humalog) 0 unit SUBCUT QIDACANDBED [facility]; Protocol Last Admin: 02/25/20 07:40 Dose: Not Given Documented by: Ketorolac Tromethamine (Toradol) 15 mg IVPUSH Q6H PRN PRN Reason: Pain Last Admin: 02/24/20 20:20 Dose: 15 mg Documented by: Lidocaine/Sodium Bicarbonate (Buffered Lidocaine 1% In Ns 8.4%) 0.25 ml IDERM ONETIME PRN PRN Reason: Prior to IV Start Lidocaine/Sodium Bicarbonate (Buffered Lidocaine 1% In Ns 8.4%) 0.25 ml IDERM ONETIME PRN PRN Reason: Prior to IV Start Stop: 02/23/20 18:00 Metoclopramide HCl (Reglan) Confirm Administered Dose 10 mg .ROUTE .STK-MED ONE Stop: 02/26/20 09:30 Last Admin: 02/26/20 11:17 Dose: Not Given Documented by: Midazolam HCl (Versed 1 Mg/Ml) 1 mg IVPUSH ONETIME ONE Stop: 02/23/20 08:03 Last Admin: 02/23/20 17:12 Dose: Not Given Documented by: Midazolam HCl (Versed 1 Mg/Ml) Confirm Administered Dose 2 mg .ROUTE .STK-MED ONE Stop: 02/23/20 11:10 Miscellaneous Information (Remove Patch) 0 ea TRDERM ONETIME ONE Stop: 02/26/20 08:01 Last Admin: 02/26/20 08:46 Dose: 1 ea Documented by: Miscellaneous Information (Remove Patch) 1 ea TRDERM DAILY [facility] Last Admin: 02/24/20 19:18 Dose: Not Given Documented by: Nicotine (Habitrol) 21 mg TRDERM DAILY [facility] Stop: 02/25/20 01:00 Last Admin: 02/24/20 12:12 Dose: Not Given Documented by: Non-Formulary Medication (Cefdinir [Omnicef]) 300 mg PO BID [facility] Non-Formulary Medication (Fluvoxamine) 200 mg PO BID [facility] Non-Formulary Medication (Paliperidone Palmitate [Invega Sustenna]) 234 mg IM ASDIRECTED [facility] Ondansetron HCl (Zofran) 4 mg IVPUSH ONETIME PRN PRN Reason: Nausea/Vomiting Stop: 02/23/20 18:00 Ondansetron HCl (Zofran) 4 mg IVPUSH ONETIME PRN PRN Reason: Nausea/Vomiting Stop: 02/23/20 18:00 Oxycodone/Acetaminophen (Percocet 325-5 Mg) 1 - 2 tab PO Q4H PRN PRN Reason: Pain Last Admin: 02/24/20 21:45 Dose: 2 tab Documented by: Fluvoxamine 200 Mg 0 each PO BEDTIME [facility] Last Admin: 02/26/20 20:12 Dose: Not Given Documented by: Fluvoxamine 200 Mg 0 each PO BID [facility] Potassium Chloride (Klor-Con M20) 40 meq PO BID [facility] Stop: 02/27/20 21:01 Last Admin: 02/27/20 20:09 Dose: 40 meq Documented by: Propofol (Diprivan 20 Ml) Confirm Administered Dose 200 mg .ROUTE .STK-MED ONE Stop: 02/23/20 07:39 Scopolamine (Transderm-Scop) 1.5 mg TRDERM ONETIME PRN PRN Reason: PONV Stop: 02/23/20 18:00 Last Admin: 02/23/20 07:54 Dose: 1.5 mg Documented by: Senna (Senna) 8.6 mg PO BID PRN PRN Reason: Constipation Last Admin: 02/24/20 21:44 Dose: 8.6 mg Documented by: Sodium Chloride (Saline Flush) 10 ml FLUSH ASDIRECTED PRN PRN Reason: Keep Vein Open Sodium Chloride (Saline Flush) 10 ml FLUSH ASDIRECTED PRN PRN Reason: Keep Vein Open Stop: 02/23/20 18:00 - Exam Wound/Incisions: Dressing Dry and Intact General: Alert, Cooperative, No Acute Distress Lungs: Normal Respiratory Effort Extremities: Other (NVS intact for RLE. Corine's negative.) Sepsis Event Note - Evaluation Sepsis Screening Result: No Definite Risk - Focused Exam Vital Signs: Vital Signs Temp Pulse Resp BP Pulse Ox 03/02/20 06:00 97.9 F 78 14 131/78 96 03/01/20 21:09 86 112/76 - Problem List Review Problem List Initiated/Reviewed/Updated: Yes - My Orders Last 24 Hours: Active Orders 24 hr Category Date Time Status Ready for Discharge [RC] PER UNIT ROUTINE Care 03/02/20 08:09 Ordered Sennosides [Senna] Med 03/01/20 14:15 Active 17.2 mg PO BID Medication Orders Albuterol (Proventil Hfa) 0 gm INH Q4H PRN PRN Reason: Shortness of Breath Bisacodyl (Dulcolax) 5 mg PO DAILY PRN PRN Reason: Constipation Last Admin: 02/27/20 09:52 Dose: 5 mg Documented by: LUIS ARMANDO Admin: 02/24/20 21:43 Dose: 5 mg Documented by: LAINA Cyclobenzaprine HCl (Flexeril) 10 mg PO TID PRN PRN Reason: Spasms Last Admin: 03/01/20 21:16 Dose: 10 mg Documented by: PEDRO PABLO Admin: 02/26/20 08:46 Dose: 10 mg Documented by: Admin: 02/25/20 22:00 Dose: 10 mg Documented by: Admin: 02/25/20 17:40 Dose: 10 mg Documented by: Admin: 02/25/20 09:58 Dose: 10 mg Documented by: Admin: 02/24/20 20:16 Dose: 10 mg Documented by: Admin: 02/24/20 12:24 Dose: 10 mg Documented by: Admin: 02/23/20 21:59 Dose: 10 mg Documented by: LAINA Docusate Sodium (Colace) 100 mg PO BID [facility] Last Admin: 03/01/20 21:08 Dose: 100 mg Documented by: PEDRO PABLO Admin: 03/01/20 09:06 Dose: 100 mg Documented by: Admin: 02/29/20 20:34 Dose: 100 mg Documented by: Admin: 02/29/20 09:01 Dose: 100 mg Documented by: LUIS ARMANDO Admin: 02/28/20 20:45 Dose: 100 mg Documented by: Admin: 02/28/20 09:38 Dose: 100 mg Documented by: LUIS ARMANDO Admin: 02/27/20 20:10 Dose: 100 mg Documented by: Admin: 02/27/20 09:50 Dose: 100 mg Documented by: LUIS ARMANDO Admin: 02/26/20 20:10 Dose: 100 mg Documented by: Admin: 02/26/20 08:46 Dose: 100 mg Documented by: Admin: 02/25/20 20:10 Dose: 100 mg Documented by: Admin: 02/25/20 09:38 Dose: 100 mg Documented by: Admin: 02/24/20 21:42 Dose: 100 mg Documented by: Admin: 02/24/20 08:56 Dose: 100 mg Documented by: CHELSEA Enalapril Maleate (Vasotec) 2.5 mg PO DAILY [facility] Admin: 03/01/20 09:06 Dose: 2.5 mg Documented by: Admin: 02/29/20 09:00 Dose: 2.5 mg Documented by: LUIS ARMANDO Admin: 02/28/20 09:38 Dose: 2.5 mg Documented by: LUIS ARMANDO Enoxaparin Sodium (Lovenox) 30 mg SUBCUT BID [facility] Admin: 03/01/20 21:09 Dose: 30 mg Documented by: PEDRO PABLO Admin: 03/01/20 09:05 Dose: 30 mg Documented by: Admin: 02/29/20 20:35 Dose: 30 mg Documented by: Admin: 02/29/20 09:02 Dose: 30 mg Documented by: LUIS ARMANDO Admin: 02/28/20 20:46 Dose: 30 mg Documented by: KAYKAY Levothyroxine Sodium (Synthroid) 50 mcg PO ACBREAKFAST [facility] Admin: 03/02/20 05:57 Dose: 50 mcg Documented by: PEDRO PABLO Admin: 03/01/20 06:46 Dose: 50 mcg Documented by: Admin: 02/29/20 06:52 Dose: 50 mcg Documented by: Admin: 02/28/20 06:02 Dose: 50 mcg Documented by: Admin: 02/27/20 06:54 Dose: 50 mcg Documented by: Admin: 02/26/20 06:16 Dose: 50 mcg Documented by: Admin: 02/25/20 06:15 Dose: 50 mcg Documented by: Admin: 02/24/20 06:48 Dose: 50 mcg Documented by: LAINA Loratadine (Claritin) 10 mg PO BEDTIME [facility] Admin: 03/01/20 21:08 Dose: 10 mg Documented by: PEDRO PABLO Admin: 02/29/20 20:31 Dose: 10 mg Documented by: Admin: 02/28/20 20:45 Dose: 10 mg Documented by: Admin: 02/27/20 20:10 Dose: 10 mg Documented by: Admin: 02/26/20 20:10 Dose: 10 mg Documented by: Admin: 02/25/20 20:10 Dose: 10 mg Documented by: Admin: 02/24/20 21:41 Dose: 10 mg Documented by: Admin: 02/23/20 22:00 Dose: 10 mg Documented by: LAINA Lubiprostone (Amitiza) 24 mcg PO BIDMEALS [facility] Admin: 03/01/20 17:24 Dose: 24 mcg Documented by: MARY JANE Admin: 03/01/20 09:04 Dose: 24 mcg Documented by: Admin: 02/29/20 17:17 Dose: 24 mcg Documented by: LUIS ARMANDO Admin: 02/29/20 08:58 Dose: 24 mcg Documented by: LUIS ARMANDO Admin: 02/28/20 18:02 Dose: 24 mcg Documented by: LUIS ARMANDO Admin: 02/28/20 06:03 Dose: 24 mcg Documented by: Admin: 02/27/20 16:52 Dose: 24 mcg Documented by: LUISA RMANDO Admin: 02/27/20 09:46 Dose: 24 mcg Documented by: LUIS ARMANDO Admin: 02/26/20 16:38 Dose: 24 mcg Documented by: Admin: 02/26/20 08:45 Dose: 24 mcg Documented by: Admin: 02/25/20 16:59 Dose: 24 mcg Documented by: Admin: 02/25/20 07:57 Dose: 24 mcg Documented by: Admin: 02/24/20 18:14 Dose: 24 mcg Documented by: Admin: 02/24/20 08:55 Dose: 24 mcg Documented by: Admin: 02/23/20 17:43 Dose: 24 mcg Documented by: CHELSEA Magnesium Hydroxide (Milk Of Magnesia) 30 ml PO BID PRN PRN Reason: Constipation Last Admin: 02/27/20 02:37 Dose: 30 ml Documented by: Admin: 02/24/20 08:59 Dose: 30 ml Documented by: CHELSEA Magnesium Oxide (Magnesium Oxide) 400 mg PO DAILY [facility] Admin: 03/01/20 09:06 Dose: 400 mg Documented by: Admin: 02/29/20 09:01 Dose: 400 mg Documented by: LUIS ARMANDO Admin: 02/28/20 09:38 Dose: 400 mg Documented by: LUIS ARMANDO Admin: 02/27/20 09:52 Dose: 400 mg Documented by: LUIS ARMANDO Miscellaneous Information (Remove Patch) 1 ea TRDERM DAILY [facility] Admin: 03/01/20 09:11 Dose: 1 ea Documented by: Admin: 02/29/20 09:03 Dose: 1 ea Documented by: LUIS ARMANDO Admin: 02/28/20 09:41 Dose: 1 ea Documented by: LUIS ARMANDO Admin: 02/27/20 09:54 Dose: 1 ea Documented by: LUIS ARMANDO Admin: 02/26/20 08:47 Dose: 1 ea Documented by: Admin: 02/25/20 09:49 Dose: 1 ea Documented by: MOISES Morphine Sulfate (Morphine) 2 mg IVPUSH Q2H PRN PRN Reason: Breakthrough Pain Naloxone HCl (Narcan) 0.1 mg IVPUSH Q5M PRN PRN Reason: Oversedation Nicotine (Habitrol) 21 mg TRDERM DAILY [facility] Admin: 03/01/20 09:10 Dose: 21 mg Documented by: Admin: 02/29/20 09:02 Dose: 21 mg Documented by: LUIS ARMANDO Admin: 02/28/20 09:41 Dose: 21 mg Documented by: LUIS ARMANDO Admin: 02/27/20 09:53 Dose: 21 mg Documented by: LUIS ARMANDO Admin: 02/26/20 08:45 Dose: 21 mg Documented by: Admin: 02/25/20 09:48 Dose: 21 mg Documented by: MOISES Fluvoxamine 100 Mg (Tab) 0 each PO BID [facility] Admin: 03/01/20 21:10 Dose: 1 each Documented by: PEDRO PABLO Admin: 03/01/20 09:09 Dose: 2 each Documented by: Admin: 02/29/20 20:35 Dose: 200 each Documented by: Admin: 02/29/20 08:59 Dose: 2 each Documented by: LUIS ARMANDO Admin: 02/28/20 20:47 Dose: 2 each Documented by: Admin: 02/28/20 09:36 Dose: 2 each Documented by: LUIS ARMANDO Admin: 02/27/20 20:12 Dose: 2 each Documented by: BASIM Ondansetron HCl (Zofran Odt) 8 mg PO Q6H PRN PRN Reason: Nausea Last Admin: 02/27/20 08:27 Dose: 8 mg Documented by: Admin: 02/26/20 09:04 Dose: 8 mg Documented by: CRISTOFER Ondansetron HCl (Zofran) 4 mg IVPUSH Q6H PRN PRN Reason: Nausea/Vomiting Oxycodone HCl (Oxycodone) 5 - 10 mg PO Q4H PRN PRN Reason: Pain Last Admin: 02/29/20 20:41 Dose: 10 mg Documented by: Admin: 02/29/20 08:59 Dose: 5 mg Documented by: LUIS ARMANDO Admin: 02/28/20 20:47 Dose: 5 mg Documented by: Admin: 02/28/20 15:33 Dose: 5 mg Documented by: LUIS ARMANDO Admin: 02/28/20 08:29 Dose: 5 mg Documented by: LUIS ARMANDO Admin: 02/27/20 16:52 Dose: 5 mg Documented by: LUIS ARMANDO Admin: 02/27/20 02:37 Dose: 5 mg Documented by: Admin: 02/26/20 20:12 Dose: 5 mg Documented by: Admin: 02/26/20 03:08 Dose: 5 mg Documented by: Admin: 02/25/20 22:00 Dose: 5 mg Documented by: Admin: 02/25/20 17:37 Dose: 5 mg Documented by: Admin: 02/25/20 13:42 Dose: 10 mg Documented by: Admin: 02/25/20 09:38 Dose: 5 mg Documented by: MOISES Pantoprazole Sodium (Protonix) 40 mg PO DAILY@0700 [facility] Last Admin: 03/02/20 06:56 Dose: Not Given Documented by: PEDRO PABLO Admin: 03/02/20 05:58 Dose: 40 mg Documented by: PEDRO PABLO Admin: 03/01/20 06:46 Dose: 40 mg Documented by: Admin: 02/29/20 06:52 Dose: 40 mg Documented by: Admin: 02/28/20 06:02 Dose: 40 mg Documented by: Admin: 02/27/20 06:54 Dose: 40 mg Documented by: Admin: 02/26/20 06:16 Dose: 40 mg Documented by: Admin: 02/25/20 06:15 Dose: 40 mg Documented by: Admin: 02/24/20 06:48 Dose: 40 mg Documented by: LAINA Ozempic Pen Injector 0 each SUBCUT Th@0900 [facility] Admin: 02/26/20 11:50 Dose: 1 each Documented by: CRISTOFER Cyclosporine [ Restasis Multidose] Ophthal. Emulsion 0 each EYEBOTH BID [facility] Admin: 03/01/20 21:11 Dose: Not Given Documented by: PEDRO PABLO Admin: 03/01/20 09:11 Dose: Not Given Documented by: Admin: 02/29/20 20:36 Dose: Not Given Documented by: Admin: 02/29/20 09:03 Dose: Not Given Documented by: LUIS ARMANDO Admin: 02/28/20 20:48 Dose: Not Given Documented by: Admin: 02/28/20 09:41 Dose: Not Given Documented by: LUIS ARMANDO Admin: 02/27/20 20:12 Dose: Not Given Documented by: Admin: 02/27/20 09:54 Dose: Not Given Documented by: LUIS ARMANDO Admin: 02/26/20 20:12 Dose: Not Given Documented by: Admin: 02/26/20 08:47 Dose: Not Given Documented by: Admin: 02/25/20 20:10 Dose: Not Given Documented by: CARLOS Polyethylene Glycol (Miralax) 17 gm PO DAILY [facility] Admin: 03/01/20 09:05 Dose: 17 gm Documented by: Admin: 02/29/20 08:58 Dose: 17 gm Documented by: LUIS ARMANDO Admin: 02/28/20 09:39 Dose: 17 gm Documented by: LUIS ARMANDO Admin: 02/27/20 09:45 Dose: 17 gm Documented by: LUIS ARMANDO Admin: 02/26/20 08:45 Dose: 17 gm Documented by: Admin: 02/25/20 09:48 Dose: 17 gm Documented by: Admin: 02/24/20 08:57 Dose: 17 gm Documented by: CHELSEA Propranolol HCl (Inderal) 10 mg PO BID [facility] Admin: 03/01/20 21:09 Dose: 10 mg Documented by: PEDRO PABLO Admin: 03/01/20 09:07 Dose: 10 mg Documented by: Admin: 02/29/20 20:31 Dose: 10 mg Documented by: Admin: 02/29/20 09:01 Dose: 10 mg Documented by: LUIS ARMANDO Admin: 02/28/20 20:44 Dose: 10 mg Documented by: Admin: 02/28/20 09:40 Dose: 10 mg Documented by: LUIS ARMANDO Admin: 02/27/20 20:10 Dose: 10 mg Documented by: BASIM Rosuvastatin Calcium (Crestor) 5 mg PO BEDTIME [facility] Admin: 03/01/20 21:08 Dose: 5 mg Documented by: PEDRO PABLO Admin: 02/29/20 20:34 Dose: 5 mg Documented by: Admin: 02/28/20 20:46 Dose: 5 mg Documented by: Admin: 02/27/20 20:11 Dose: 5 mg Documented by: Admin: 02/26/20 20:11 Dose: 5 mg Documented by: Admin: 02/25/20 20:10 Dose: 5 mg Documented by: Admin: 02/24/20 21:42 Dose: 5 mg Documented by: Admin: 02/23/20 22:00 Dose: 5 mg Documented by: LAINA Senna (Senna) 17.2 mg PO BID [facility] Admin: 03/01/20 21:12 Dose: 17.2 mg Documented by: PEDRO PABLO Admin: 03/01/20 15:03 Dose: 17.2 mg Documented by: LORNA Sumatriptan Succinate (Imitrex) 50 mg PO ASDIRECTED PRN PRN Reason: migraines Last Admin: 02/27/20 10:27 Dose: 50 mg Documented by: LUIS ARMANDO Admin: 02/26/20 08:46 Dose: 50 mg Documented by: CRISTOFER Topiramate (Topamax) 50 mg PO BID [facility] Admin: 03/01/20 21:12 Dose: 50 mg Documented by: PEDRO PABLO Admin: 03/01/20 09:08 Dose: 50 mg Documented by: Admin: 02/29/20 20:34 Dose: 50 mg Documented by: Admin: 02/29/20 09:00 Dose: 50 mg Documented by: LUIS ARMANDO Admin: 02/28/20 20:45 Dose: 50 mg Documented by: Admin: 02/28/20 09:39 Dose: 50 mg Documented by: LUIS ARMANDO Admin: 02/27/20 20:10 Dose: 50 mg Documented by: Admin: 02/27/20 09:51 Dose: 50 mg Documented by: LUIS ARMANDO Admin: 02/26/20 20:10 Dose: 50 mg Documented by: Admin: 02/26/20 08:46 Dose: 50 mg Documented by: Admin: 02/25/20 20:10 Dose: 50 mg Documented by: Admin: 02/25/20 09:47 Dose: 50 mg Documented by: Admin: 02/24/20 21:43 Dose: 50 mg Documented by: Admin: 02/24/20 09:15 Dose: 50 mg Documented by: Admin: 02/23/20 22:00 Dose: 50 mg Documented by: LAINA Trospium (Sanctura) 20 mg PO BID [facility] Admin: 03/01/20 21:11 Dose: 20 mg Documented by: PEDRO PABLO Admin: 03/01/20 09:06 Dose: 20 mg Documented by: Admin: 02/29/20 20:31 Dose: 20 mg Documented by: Admin: 02/29/20 09:00 Dose: 20 mg Documented by: LUIS ARMANDO Admin: 02/28/20 20:44 Dose: 20 mg Documented by: Admin: 02/28/20 09:40 Dose: 20 mg Documented by: LUIS ARMANDO Admin: 02/27/20 20:10 Dose: 20 mg Documented by: Admin: 02/27/20 09:46 Dose: 20 mg Documented by: LUIS ARMANDO Admin: 02/26/20 20:10 Dose: 20 mg Documented by: Admin: 02/26/20 08:45 Dose: 20 mg Documented by: Admin: 02/25/20 20:10 Dose: 20 mg Documented by: Admin: 02/25/20 09:47 Dose: 20 mg Documented by: Admin: 02/24/20 21:44 Dose: 20 mg Documented by: Admin: 02/24/20 08:50 Dose: 20 mg Documented by: CHELSEA Valacyclovir HCl (Valtrex) 500 mg PO DAILY [facility] Admin: 03/01/20 09:05 Dose: 500 mg Documented by: Admin: 02/29/20 10:16 Dose: 500 mg Documented by: ULIS ARMANDO Admin: 02/28/20 09:40 Dose: 500 mg Documented by: LUIS ARMANDO Admin: 02/27/20 09:52 Dose: 500 mg Documented by: LUIS ARMANDO Admin: 02/26/20 08:46 Dose: 500 mg Documented by: Admin: 02/25/20 09:47 Dose: 500 mg Documented by: Admin: 02/24/20 08:51 Dose: 500 mg Documented by: CHELSEA - Assessment Assessment (Free Text/Narrative):: POD#8 - s/p IM gracie placement for right tibia fracture - Plan Plan (Free Text/Narrative):: 1. D/C to [facility] today for continued therapy. 2. The pt will continue with Lovenox BID x 30 days. 3. Oxycodone and Flexeril for pain management. 4. Continue with PT and OT. The pt's case was discussed with Dr. Camarillo.
[2020-03-02] MEDS: Polyethylene Glycol 3350 Powder 17 GM Packet PO SCH (08:28)
[2020-03-02] MEDS: Lubiprostone 24 MCG Cap PO SCH (08:28)
[2020-03-02] MEDS: Docusate Sodium 100 MG Cap PO SCH (08:28)
[2020-03-02] MEDS: Topiramate 25 MG Tab PO SCH (08:38)
--- NOTE | 2020-03-02 08:38 | PCM.DCSUM1 ---
Discharge Summary - Hospital Course Brief History: Nancy is a 39 yo female who underwent IM gracie placement for right tibia fracture on 02-23-2020. The pt tolerated the procedure well and was admitted to the [facility] under medical surgical status. The pt progressed with therapy slowly initially. She continued with PT and OT and met inpt therapy goals. The pt was allowed to WBAT RLE and used a FWW for mobility. The pt's Hgb on POD#1 was 9.3. On POD#1, Lovenox BID was initiated for VTE prophylaxis. SCDs and TEDs were also ordered. Medical management was provided by the Hospitalist service. The pt's blood sugars and LFTs were closely monitored. A social work consult was obtained and d/c to [place] was planned as the pt lives alone and unable to care for herself. On POD#8, the pt was deemed appropriate to d/c to [place] in [place]. - Discharge Data Discharge Date: 03/02/20 Discharge Disposition: Home, Self-Care 01 Condition: Good - Referral to Home Health Primary Care Physician: Ana M Fontana NP - Patient Summary/Data Operative Procedure(s) Performed: intramedullary nailing of right tibial shaft fracture Consults: Consultations 02/23/20 14:06 PT Evaluation and Treatment [CONS] Routine 02/23/20 19:03 OT Evaluation and Treatment [CONS] Routine 02/24/20 07:51 Consult to Physician [CONS] Routine - Patient Instructions Diet: Diabetic Diet Activity: Apply Ice, As Tolerated, Elevate Extremity Driving: Do Not Drive Showering/Bathing: May Shower Wound/Incision Care: Keep Operative Site/Wound Site Clean and Dry, Do NOT Change Dressing Notify Provider of: Fever, Increased Pain, Swelling and Redness, Drainage, Nausea and/or Vomiting Other/Special Instructions: Please get up and moving around EVERY HOUR while awake. This helps to prevent blood clots. Please use your walker or crutches and have help with mobility as needed. Take a short walk in your home every hour while awake. Starting TOMORROW (02-24-2020), please start using a Lovenox injection twice daily to help decrease your risk of blood clot. You will inject one syringe in the morning and one in the evening. Use the pain medication as needed. The medication may cause drowsiness and constipation. Contact your primary care provider for instructions if you are constipated. You may use a stool softener like docusate sodium or Colace 100mg twice daily and/or a laxative like Miralax daily for constipation. Increase your water and fiber intake while you are using the pain medication. Please discontinue use of the prescription pain medication as soon as able. The goal is to use the least amount of prescription pain medication as possible and to discontinue use of the prescription pain medication as soon as possible. You may use EITHER the Percocet (oxycodone) prescription provided today OR the [place] (hydrocodone) prescription listed in your chart BUT NOT BOTH. Choose one or the other. Please do not use other medications that may cause drowsiness (other pain medications, anxiety pills, cold medications, sleeping pills, etc) while using the prescription pain medication. Do not use alcohol while using the pain medication. You may use acetaminophen or Tylenol for pain management, however, please ensure you are not using over 4000 mg or 4 grams of acetaminophen per day from all sources. Your pain medication has 325mg of acetaminophen per tablet. At this time, please do not use ibuprofen (Motrin, Advil) or naproxen (Aleve) for pain management as you are using the Lovenox injections. . Elevate the limb to decrease swelling. Place ice to the area often. Place a towel between your skin and the blue pad. Please keep the dressing in place until follow-up. Notify the Clinic if the dressing becomes saturated. Increase your protein intake while you are healing. Please closely monitor your blood sugars and notify your primary care provider with abnormal values. Elevated blood sugars increases the risk of infection. It is normal to have swelling and bruising at the surgical site, as well as above and below the surgical site. The rosie will be removed when you have an appointment with Dr. Camarillo in [place], [place] on 03-10-2020. The Assisted can change the dressings if they become saturated. Call the Clinic with questions or concerns - [phone] and leave a message for the nurse. - Discharge Plan *PRESCRIPTION DRUG MONITORING PROGRAM REVIEWED*: No *COPY OF PRESCRIPTION DRUG MONITORING REPORT IN PATIENT NICOLAS: No Prescriptions/Med Rec: Cyclobenzaprine [Flexeril] 10 mg PO BID PRN #20 tablet PRN Reason: Spasms Enoxaparin [Lovenox] 30 mg SUBCUT BID #60 syringe Enoxaparin [Lovenox] 30 mg SUBCUT BID #60 syringe oxyCODONE 5 - 10 mg PO Q6H PRN #40 tablet PRN Reason: Pain Home Medications: Home Meds Cetirizine [ZyrTEC] 10 mg PO BEDTIME 12/01/17 [History] Fesoterodine Fumarate [Toviaz] 8 mg PO DAILY 12/01/17 [History] Levothyroxine [Synthroid] 50 mcg PO ACBREAKFAST 12/01/17 [History] Lubiprostone [Amitiza] 24 mcg PO BID 12/01/17 [History] Ondansetron [Zofran ODT] 8 mg PO Q8H PRN 12/01/17 [History] Pantoprazole Sodium [Protonix] 40 mg PO DAILY 12/01/17 [History] Rosuvastatin [Crestor] 5 mg PO BEDTIME 12/01/17 [History] Topiramate [Topamax] 50 mg PO BID 12/01/17 [History] polyethylene glycoL 3350 [MiraLAX] 1 packet PO DAILY 12/01/17 [History] valACYclovir HCl [Valtrex] 500 mg PO DAILY 12/01/17 [History] SUMAtriptan [Imitrex] 50 mg PO ASDIRECTED PRN 08/16/18 [History] Cefdinir [Omnicef] 300 mg PO BID 7 Days #14 cap 02/20/20 [Rx] Ozempic 1 dose SQ TH 02/21/20 [History] Cyclobenzaprine [Flexeril] 10 mg PO BID PRN #20 tablet 02/23/20 [Rx] Enoxaparin [Lovenox] 30 mg SUBCUT BID #60 syringe 02/23/20 [Rx] cycloSPORINE [Restasis Multidose] 1 drop EYEBOTH BID 02/25/20 [History] Albuterol [Proair HFA] 2 inh PO Q4H PRN 02/27/20 [History] Enalapril [Vasotec] 2.5 mg PO DAILY 02/27/20 [History] Fluticasone Propionate [Flonase Allergy Relief] 1 spray NASBOTH BID 02/27/20 [History] Insulin Glargine,Hum.Rec.Anlog [Lantus Solostar] 82 units SUBCUT BEDTIME 02/27/20 [History] Magnesium Oxide [Mag-Oxide] 400 mg PO DAILY 02/27/20 [History] Paliperidone Palmitate [Invega Sustenna] 234 mg IM ASDIRECTED 02/27/20 [History] Prazosin HCl [Prazosin] 5 mg PO BEDTIME 02/27/20 [History] Propranolol [Inderal] 10 mg PO BID 02/27/20 [History] estradioL [Estradiol] 10 mcg VAG ASDIRECTED 02/27/20 [History] fluvoxaMINE [Luvox] 200 mg PO BID 02/27/20 [History] Docusate Sodium [Colace] 100 mg PO BID cap 03/02/20 [Rx] Enoxaparin [Lovenox] 30 mg SUBCUT BID #60 syringe 03/02/20 [Rx] Magnesium Hydroxide [Milk of Magnesia] 30 ml PO BID PRN cup 03/02/20 [Rx] Magnesium Oxide 400 mg PO DAILY tablet 03/02/20 [Rx] Nicotine [Habitrol] 21 mg TRDERM DAILY patch 03/02/20 [Rx] Non-Formulary Medication [NF Drug] 0 each PO BID each 03/02/20 [Rx] Remove Patch 1 ea TRDERM DAILY each 03/02/20 [Rx] Sennosides [Senna] 17.2 mg PO BID tablet 03/02/20 [Rx] bisacodyL [Dulcolax] 5 mg PO DAILY PRN tablet 03/02/20 [Rx] oxyCODONE 5 - 10 mg PO Q6H PRN #40 tablet 03/02/20 [Rx] Patient Handouts: Cyclobenzaprine tablets, Acetaminophen; Oxycodone tablets, Intramedullary Nailing of Tibial Diaphyseal Fracture, Care After, Enoxaparin injection, Steps to Quit Smoking Referrals: Romeo Camarillo MD [Physician] - 03/10/20 10:15 am (appt is at [place] [id number]) Serene Mack MD [Consulting Physician] - - Discharge Summary/Plan Comment DC Time >30 min.: No - Patient Data Vitals - Most Recent: Last Vital Signs Temp 97.9 F 03/02/20 06:00 Pulse 78 03/02/20 06:00 Resp 14 03/02/20 06:00 BP 131/78 03/02/20 06:00 Pulse Ox 96 03/02/20 06:00 Weight - Most Recent: 159 lb 3.2 oz I&O - Last 24 hours: Intake & Output 03/01/20 03/02/20 03/02/20 22:59 06:59 14:59 Intake Total 1220 1200 Output Total 1050 Balance 170 1200 Lab Results - Last 24 hrs: Laboratory Results - last 24 hr 03/01/20 Range/Units 16:50 SARS-CoV-2 RNA (RAYNE) Negative (NEGATIVE) Med Orders - Current: Current Medications Albuterol (Proventil Hfa) 0 gm INH Q4H PRN PRN Reason: Shortness of Breath Bisacodyl (Dulcolax) 5 mg PO DAILY PRN PRN Reason: Constipation Last Admin: 02/27/20 09:52 Dose: 5 mg Documented by: Cyclobenzaprine HCl (Flexeril) 10 mg PO TID PRN PRN Reason: Spasms Last Admin: 03/01/20 21:16 Dose: 10 mg Documented by: Docusate Sodium (Colace) 100 mg PO BID [facility] Last Admin: 03/02/20 08:28 Dose: 100 mg Documented by: Enalapril Maleate (Vasotec) 2.5 mg PO DAILY [facility] Last Admin: 03/01/20 09:06 Dose: 2.5 mg Documented by: Enoxaparin Sodium (Lovenox) 30 mg SUBCUT BID [facility] Last Admin: 03/01/20 21:09 Dose: 30 mg Documented by: Levothyroxine Sodium (Synthroid) 50 mcg PO ACBREAKFAST [facility] Last Admin: 03/02/20 05:57 Dose: 50 mcg Documented by: Loratadine (Claritin) 10 mg PO BEDTIME [facility] Last Admin: 03/01/20 21:08 Dose: 10 mg Documented by: Lubiprostone (Amitiza) 24 mcg PO BIDMEALS [facility] Last Admin: 03/02/20 08:28 Dose: 24 mcg Documented by: Magnesium Hydroxide (Milk Of Magnesia) 30 ml PO BID PRN PRN Reason: Constipation Last Admin: 02/27/20 02:37 Dose: 30 ml Documented by: Magnesium Oxide (Magnesium Oxide) 400 mg PO DAILY [facility] Last Admin: 03/01/20 09:06 Dose: 400 mg Documented by: Miscellaneous Information (Remove Patch) 1 ea TRDERM DAILY [facility] Last Admin: 03/01/20 09:11 Dose: 1 ea Documented by: Morphine Sulfate (Morphine) 2 mg IVPUSH Q2H PRN PRN Reason: Breakthrough Pain Naloxone HCl (Narcan) 0.1 mg IVPUSH Q5M PRN PRN Reason: Oversedation Nicotine (Habitrol) 21 mg TRDERM DAILY [facility] Last Admin: 03/01/20 09:10 Dose: 21 mg Documented by: Fluvoxamine 100 Mg (Tab) 0 each PO BID [facility] Last Admin: 03/02/20 08:28 Dose: 2 each Documented by: Ondansetron HCl (Zofran Odt) 8 mg PO Q6H PRN PRN Reason: Nausea Last Admin: 02/27/20 08:27 Dose: 8 mg Documented by: Ondansetron HCl (Zofran) 4 mg IVPUSH Q6H PRN PRN Reason: Nausea/Vomiting Oxycodone HCl (Oxycodone) 5 - 10 mg PO Q4H PRN PRN Reason: Pain Last Admin: 02/29/20 20:41 Dose: 10 mg Documented by: Pantoprazole Sodium (Protonix) 40 mg PO DAILY@0700 [facility] Last Admin: 03/02/20 06:56 Dose: Not Given Documented by: Ozempic Pen Injector 0 each SUBCUT Th@0900 [facility] Last Admin: 02/26/20 11:50 Dose: 1 each Documented by: Cyclosporine [ Restasis Multidose] Ophthal. Emulsion 0 each EYEBOTH BID [facility] Last Admin: 03/01/20 21:11 Dose: Not Given Documented by: Polyethylene Glycol (Miralax) 17 gm PO DAILY [facility] Last Admin: 03/02/20 08:28 Dose: 17 gm Documented by: Propranolol HCl (Inderal) 10 mg PO BID [facility] Last Admin: 03/01/20 21:09 Dose: 10 mg Documented by: Rosuvastatin Calcium (Crestor) 5 mg PO BEDTIME [facility] Last Admin: 03/01/20 21:08 Dose: 5 mg Documented by: Senna (Senna) 17.2 mg PO BID [facility] Last Admin: 03/01/20 21:12 Dose: 17.2 mg Documented by: Sumatriptan Succinate (Imitrex) 50 mg PO ASDIRECTED PRN PRN Reason: migraines Last Admin: 02/27/20 10:27 Dose: 50 mg Documented by: Topiramate (Topamax) 50 mg PO BID [facility] Last Admin: 03/01/20 21:12 Dose: 50 mg Documented by: Trospium (Sanctura) 20 mg PO BID [facility] Last Admin: 03/01/20 21:11 Dose: 20 mg Documented by: Valacyclovir HCl (Valtrex) 500 mg PO DAILY [facility] Last Admin: 03/01/20 09:05 Dose: 500 mg Documented by: Discontinued Medications Albuterol (Proventil Neb Soln) 2.5 mg NEB ONETIME PRN PRN Reason: asthma Stop: 02/23/20 18:00 Albuterol/Ipratropium (Duoneb 3.0-0.5 Mg/3 Ml) 3 ml NEB ONETIME ONE Stop: 02/23/20 09:01 Last Admin: 02/23/20 08:32 Dose: 3 ml Documented by: Bisacodyl (Dulcolax) 10 mg RECTAL ONETIME ONE Stop: 02/27/20 16:46 Last Admin: 02/27/20 16:52 Dose: 10 mg Documented by: Bupivacaine HCl (Sensorcaine-Mpf 0.25%) Confirm Administered Dose 20 ml .ROUTE .STK-MED ONE Stop: 02/23/20 07:22 Last Admin: 02/23/20 12:37 Dose: 20 ml Documented by: Cefazolin Sodium (Ancef) 2 gm .ROUTE .STK-MED ONE Stop: 02/23/20 11:07 Enoxaparin Sodium (Lovenox) 30 mg SUBCUT BID [facility] Last Admin: 02/28/20 09:41 Dose: 30 mg Documented by: Famotidine (Pepcid) 20 mg IVPUSH ONETIME ONE Stop: 02/23/20 09:01 Last Admin: 02/23/20 08:40 Dose: 20 mg Documented by: Fentanyl (Sublimaze) Confirm Administered Dose 100 mcg .ROUTE .STK-MED ONE Stop: 02/23/20 07:40 Fentanyl (Sublimaze) 50 mcg IVPUSH Q5M PRN PRN Reason: Pain Stop: 02/23/20 18:00 Fentanyl (Sublimaze) Confirm Administered Dose 250 mcg .ROUTE .STK-MED ONE Stop: 02/23/20 11:21 Fentanyl (Sublimaze) 50 mcg IVPUSH Q5M PRN PRN Reason: Pain Stop: 02/23/20 18:00 Hydromorphone HCl (Dilaudid) 0.5 mg IVPUSH Q10M PRN PRN Reason: Pain (severe 7-10) Stop: 02/23/20 18:00 Hydromorphone HCl (Dilaudid) 0.5 mg IVPUSH Q10M PRN PRN Reason: Pain (severe 7-10) Stop: 02/23/20 18:00 Last Admin: 02/23/20 13:58 Dose: 0.5 mg Documented by: Lactated Ringer's (Ringers, Lactated) 1,000 mls @ 125 mls/hr IV ASDIRECTED [facility] Lidocaine HCl (Xylocaine-Mpf 1%) Confirm Administered Dose 4 mls @ as directed .ROUTE .K-MED ONE Stop: 02/23/20 07:39 Lactated Ringer's (Ringers, Lactated) 1,000 mls @ 125 mls/hr IV ASDIRECTED [facility] Stop: 02/23/20 23:00 Last Admin: 02/23/20 14:03 Dose: 125 mls/hr Documented by: Cefazolin Sodium/Dextrose 2 gm (/ Premix) 50 mls @ 100 mls/hr IV Q8H [facility] Stop: 02/24/20 11:29 Last Admin: 02/24/20 12:18 Dose: 100 mls/hr Documented by: Magnesium Sulfate (Magnesium Sulfate In Water Premix) 2 gm in 50 mls @ 25 mls/hr IV ONETIME ONE Stop: 02/26/20 09:59 Last Admin: 02/26/20 08:45 Dose: 25 mls/hr Documented by: Insulin Human Lispro (Humalog) 0 unit SUBCUT QIDACANDBED [facility]; Protocol Last Admin: 02/25/20 07:40 Dose: Not Given Documented by: Ketorolac Tromethamine (Toradol) 15 mg IVPUSH Q6H PRN PRN Reason: Pain Last Admin: 02/24/20 20:20 Dose: 15 mg Documented by: Lidocaine/Sodium Bicarbonate (Buffered Lidocaine 1% In Ns 8.4%) 0.25 ml IDERM ONETIME PRN PRN Reason: Prior to IV Start Lidocaine/Sodium Bicarbonate (Buffered Lidocaine 1% In Ns 8.4%) 0.25 ml IDERM ONETIME PRN PRN Reason: Prior to IV Start Stop: 02/23/20 18:00 Metoclopramide HCl (Reglan) Confirm Administered Dose 10 mg .ROUTE .STK-MED ONE Stop: 02/26/20 09:30 Last Admin: 02/26/20 11:17 Dose: Not Given Documented by: Midazolam HCl (Versed 1 Mg/Ml) 1 mg IVPUSH ONETIME ONE Stop: 02/23/20 08:03 Last Admin: 02/23/20 17:12 Dose: Not Given Documented by: Midazolam HCl (Versed 1 Mg/Ml) Confirm Administered Dose 2 mg .ROUTE .STK-MED ONE Stop: 02/23/20 11:10 Miscellaneous Information (Remove Patch) 0 ea TRDERM ONETIME ONE Stop: 02/26/20 08:01 Last Admin: 02/26/20 08:46 Dose: 1 ea Documented by: Miscellaneous Information (Remove Patch) 1 ea TRDERM DAILY [facility] Last Admin: 02/24/20 19:18 Dose: Not Given Documented by: Nicotine (Habitrol) 21 mg TRDERM DAILY [facility] Stop: 02/25/20 01:00 Last Admin: 02/24/20 12:12 Dose: Not Given Documented by: Non-Formulary Medication (Cefdinir [Omnicef]) 300 mg PO BID [facility] Non-Formulary Medication (Fluvoxamine) 200 mg PO BID [facility] Non-Formulary Medication (Paliperidone Palmitate [Invega Sustenna]) 234 mg IM ASDIRECTED [facility] Ondansetron HCl (Zofran) 4 mg IVPUSH ONETIME PRN PRN Reason: Nausea/Vomiting Stop: 02/23/20 18:00 Ondansetron HCl (Zofran) 4 mg IVPUSH ONETIME PRN PRN Reason: Nausea/Vomiting Stop: 02/23/20 18:00 Oxycodone/Acetaminophen (Percocet 325-5 Mg) 1 - 2 tab PO Q4H PRN PRN Reason: Pain Last Admin: 02/24/20 21:45 Dose: 2 tab Documented by: Fluvoxamine 200 Mg 0 each PO BEDTIME [facility] Last Admin: 02/26/20 20:12 Dose: Not Given Documented by: Fluvoxamine 200 Mg 0 each PO BID [facility] Potassium Chloride (Klor-Con M20) 40 meq PO BID [facility] Stop: 02/27/20 21:01 Last Admin: 02/27/20 20:09 Dose: 40 meq Documented by: Propofol (Diprivan 20 Ml) Confirm Administered Dose 200 mg .ROUTE .STK-MED ONE Stop: 02/23/20 07:39 Scopolamine (Transderm-Scop) 1.5 mg TRDERM ONETIME PRN PRN Reason: PONV Stop: 02/23/20 18:00 Last Admin: 02/23/20 07:54 Dose: 1.5 mg Documented by: Senna (Senna) 8.6 mg PO BID PRN PRN Reason: Constipation Last Admin: 02/24/20 21:44 Dose: 8.6 mg Documented by: Sodium Chloride (Saline Flush) 10 ml FLUSH ASDIRECTED PRN PRN Reason: Keep Vein Open Sodium Chloride (Saline Flush) 10 ml FLUSH ASDIRECTED PRN PRN Reason: Keep Vein Open Stop: 02/23/20 18:00
[2020-03-02] MEDS: valACYclovir 500 MG Tab PO SCH (08:39)
[2020-03-02] MEDS: Trospium 20 MG Tab PO SCH (08:39)
[2020-03-02] MEDS: Propranolol 10 MG Tab PO SCH (08:40)
[2020-03-02] MEDS: Nicotine 21 MG/24 Hr Patch TRDERM SCH (08:41)
[2020-03-02] MEDS: Sennosides 8.6 MG Tab PO SCH (08:41)
[2020-03-02] MEDS: Magnesium Oxide 400 MG Tab PO SCH (08:41)
[2020-03-02 08:45] VITALS: BP 113/75; PULSE 96
[2020-03-02] MEDS: Enoxaparin 30 MG/0.3 ML Syringe SUBCUT SCH (08:47)
--- NOTE | 2020-03-04 07:44 | OR ---
DATE OF OPERATION: 02/23/2020 SURGEON: Romeo Camarillo MD OPERATION PERFORMED: Intramedullary nailing of right tibial shaft fracture. PREOPERATIVE DIAGNOSIS: Right tibial shaft fracture. POSTOPERATIVE DIAGNOSIS: Right tibial shaft fracture. ANESTHESIA: General LMA with local. ANESTHESIA PROVIDER: Maritza Coronado CRNA RENTAL CLERK: Sharla Rinaldi PA-C ESTIMATED BLOOD LOSS: 400 mL. COMPLICATIONS: None. CONDITION: Stable. IMPLANTS: [place] size 10 x 300 mm nail. DESCRIPTION OF PROCEDURE: The patient was identified in the preop holding area. Proper site was marked and identified by the surgeon. The patient was taken back to the operating theater, where after adequate anesthesia, the patient's right lower extremity was sterilely prepped and draped in the usual sterile fashion. OR time-out was performed. The patient received 2 g IV Ancef. At this time, standard incision from the inferior pole of the patella to the tibial tubercle was done. This was taken down to the paratenon. Paratenon was incised and the fibers of the patellar tendon were incised in length along the patellar tendon. A guide pin then for [place] tibial nail was then placed in the proper position just medial to the lateral tibial spine and in good position on C-arm fluoroscopy on the lateral view. Opening reamer was then utilized. Ball-tipped guidewire was then placed down to the fracture site. The fracture site was reduced and a ball- tipped guidewire was placed down to the ankle. It was found to be adequately reduced. Starting with an 8.5 reamer, I was able to ream up to a size 11.5 for a 10 mm nail. It was measured and found to be 300 mm. A 10 x 300 mm nail was then opened. It was impacted into place making sure the band was in proper position. Fracture site which showed to have anatomic alignment on C-arm fluoroscopy after the nail was passed across the fracture site and was found to be in adequate position. Two crossing locking screws were placed proximally and the aiming arm was then removed. Two medial to lateral perfect [place] interlocks were then placed distally. They were found to be in adequate position. Final C-arm fluoroscopy films show near anatomic alignment of the fracture site as well as the screws and nail being in good position. At this time, all incisions were adequately irrigated. 0 Vicryl was used for closure of the paratenon. 2-0 Vicryl was used subcutaneously and rosie were used for closure of the skin. The patient tolerated the procedure well and was sent to the PACU in stable condition with a sterile soft dressing. MMODAL /[id number]
== END 2020-03-02 12:05 | disposition home or self-care (01) | DRG 494 ==
LOC: JD.SDS 14:07 → JD.OB 15:50 → JD.SDS 15:50 → UNDOADMIN 15:58 → JD.OB 15:58 → JD.SDS 15:58 → JD.OB 18:52 → JD.SDS 18:52 → JD.OB 18:52 → UNDOADMIN 21:55 → JD.ICU 02-25 17:13 → JD.OB 02-25 17:13 → JD.MS 02-25 17:13 → JD.ICU 02-26 13:00 → JD.MS 03-01 16:43 → JD.OB 03-01 16:43 → JD.MS 03-02 12:00 → JD.OB 03-02 12:00 → JD.MS 03-02 12:04 → UNDODISIN 03-02 12:05
PROVIDERS: ADMIT Orthopaedic Surgery; ATTEND Orthopaedic Surgery
PROC: 0QSG36Z Reposition Right Tibia with Intramedullary Internal Fixation Device, Percutaneous Approach (ICD-10-PCS; principal; 2020-02-23)
DX: S82.201A Unspecified fracture of shaft of right tibia, initial encounter for closed fracture (principal); X58.XXXA Exposure to other specified factors, initial encounter; H54.7 Unspecified visual loss; E11.9 Type 2 diabetes mellitus without complications; F41.9 Anxiety disorder, unspecified; M19.90 Unspecified osteoarthritis, unspecified site; K59.09 Other constipation; H04.129 Dry eye syndrome of unspecified lacrimal gland; K21.9 Gastro-esophageal reflux disease without esophagitis; H91.90 Unspecified hearing loss, unspecified ear; E03.9 Hypothyroidism, unspecified; E78.5 Hyperlipidemia, unspecified; G43.909 Migraine, unspecified, not intractable, without status migrainosus; I10 Essential (primary) hypertension; J45.909 Unspecified asthma, uncomplicated; M79.7 Fibromyalgia; R41.3 Other amnesia; F90.9 Attention-deficit hyperactivity disorder, unspecified type; F31.9 Bipolar disorder, unspecified; F42.9 Obsessive-compulsive disorder, unspecified; F10.10 Alcohol abuse, uncomplicated; F17.210 Nicotine dependence, cigarettes, uncomplicated; E78.00 Pure hypercholesterolemia, unspecified; Z90.89 Acquired absence of other organs; Z90.49 Acquired absence of other specified parts of digestive tract; E07.89 Other specified disorders of thyroid; E66.9 Obesity, unspecified; Z87.891 Personal history of nicotine dependence; Z87.440 Personal history of urinary (tract) infections; Z98.84 Bariatric surgery status; Z90.710 Acquired absence of both cervix and uterus; Z98.51 Tubal ligation status; W19.XXXA Unspecified fall, initial encounter; E83.42 Hypomagnesemia; E87.6 Hypokalemia; R91.1 Solitary pulmonary nodule; G47.33 Obstructive sleep apnea (adult) (pediatric); Z68.29 Body mass index [BMI] 29.0-29.9, adult; Z91.041 Radiographic dye allergy status; Z79.890 Hormone replacement therapy; Z79.4 Long term (current) use of insulin; Z79.899 Other long term (current) drug therapy; Z20.828 Contact with and (suspected) exposure to other viral communicable diseases
CPT/HCPCS: 01390; 36415; 51701; 76000; 76000-26; 80048; 80053; 80306; 82962; 83735; 84100; 85025; 85027; 87641; 94640; 97110-GO; 97110-GP; 97116-GP; 97162-GP; 97165-GO; 97530-GO; 97530-GP; 97535-GO; A9270-GY; C1713; C1776; J0690; J1170; J1650; J1815-GY; J1885; J2001; J2250; J2704; J3010; J3475; J3490; J7120; J7620-GY; U0002

== ENCOUNTER 2020-03-24 19:14 | Emergency (ER) | payer MEDICARE, MEDICAID ==
[2020-03-24 19:30] VITALS: BP 167/104; PULSE 73
--- NOTE | 2020-03-24 21:05 | EDM.PDOC ---
ED HPI GENERAL MEDICAL PROBLEM - General Chief Complaint: Diabetic Complaint Stated Complaint: [facility] Time Seen by Provider: 03/24/20 20:45 Source of Information: Reports: Patient, RN Notes Reviewed History Limitations: Reports: Physical Impairment (chronic poor short-term memory) - History of Present Illness INITIAL COMMENTS - FREE TEXT/NARRATIVE: Ms. Davenport is a pleasant 39-year-old woman with a past medical history significant for insulin requiring diabetes, who is now brought to the ED by EMS due to hypoglycemia. According to the triage note, the patient's significant other found the patient to be hypoglycemic. He called EMS. When they arrived, they found the patient's blood glucose to be "low", and the patient to be unresponsive. They gave 1 amp of D50, after which the patient may have suffered 45 seconds of seizure-like activity. A subsequent blood glucose was over 200. Upon arrival to the ED, the patient's initial Accu-Chek was 125. Unfortunately, the patient has poor short-term memory, and is unable to tell us if she ate dinner tonight, or how much insulin she took, etc. Here in the ED, the patient's initial BP is found to be mildly elevated at 167/104, otherwise, she is hemodynamically stable, afebrile, saturating 100% on room air. Again, because of the patient's short-term memory, she cannot tell us if she has recently been ill or not. The patient's PCP is Ana M Fontana NP. Her Psychiatrist is Dr. Flaco Mishra, in [place]. Treatments MAINTENANCE ANALYST: Reports: Glucagon, IV/IO - Related Data Allergies Allergy/AdvReac Type Severity Reaction Status Date / Time Iodinated Contrast Media Allergy Rash Verified 03/24/20 19:23 [Iodinated Contrast Media - IV Dye] Home Meds: Home Meds Cetirizine [ZyrTEC] 10 mg PO BEDTIME 12/01/17 [History] Fesoterodine Fumarate [Toviaz] 8 mg PO DAILY 12/01/17 [History] Levothyroxine [Synthroid] 50 mcg PO ACBREAKFAST 12/01/17 [History] Lubiprostone [Amitiza] 24 mcg PO BID 12/01/17 [History] Ondansetron [Zofran ODT] 8 mg PO Q8H PRN 12/01/17 [History] Pantoprazole Sodium [Protonix] 40 mg PO DAILY 12/01/17 [History] Rosuvastatin [Crestor] 5 mg PO BEDTIME 12/01/17 [History] Topiramate [Topamax] 50 mg PO BID 12/01/17 [History] polyethylene glycoL 3350 [MiraLAX] 1 packet PO DAILY 12/01/17 [History] valACYclovir HCl [Valtrex] 500 mg PO DAILY 12/01/17 [History] Ozempic 1 dose SQ TH 02/21/20 [History] Cyclobenzaprine [Flexeril] 10 mg PO BID PRN #20 tablet 02/23/20 [Rx] cycloSPORINE [Restasis Multidose] 1 drop EYEBOTH BID 02/25/20 [History] Albuterol [Proair HFA] 2 inh PO Q4H PRN 02/27/20 [History] Enalapril [Vasotec] 2.5 mg PO DAILY 02/27/20 [History] Fluticasone Propionate [Flonase Allergy Relief] 1 spray NASBOTH BID 02/27/20 [History] Insulin Glargine,Hum.Rec.Anlog [Lantus Solostar] 82 units SUBCUT BEDTIME 02/27/20 [History] Magnesium Oxide [Mag-Oxide] 400 mg PO DAILY 02/27/20 [History] Propranolol [Inderal] 10 mg PO BID 02/27/20 [History] estradioL [Estradiol] 10 mcg VAG ASDIRECTED 02/27/20 [History] Docusate Sodium [Colace] 100 mg PO BID cap 03/02/20 [Rx] Magnesium Hydroxide [Milk of Magnesia] 30 ml PO BID PRN cup 03/02/20 [Rx] Nicotine [Habitrol] 21 mg TRDERM DAILY patch 03/02/20 [Rx] Remove Patch 1 ea TRDERM DAILY each 03/02/20 [Rx] Sennosides [Senna] 17.2 mg PO BID tablet 03/02/20 [Rx] Acetaminophen [Tylenol] 650 mg PO Q6HR PRN 03/24/20 [History] FLUoxetine [Fluoxetine HCl] 200 gm PO BID 03/24/20 [History] Paliperidone [Invega] 234 mg PO WEEKLY 03/24/20 [History] SUMAtriptan [Imitrex] 50 mg PO DAILY PRN 03/24/20 [History] traMADol [Ultram] 50 mg PO Q8HR PRN 03/24/20 [History] Past Medical History HEENT History: Reports: Impaired Vision (wears glasses), Other (See Below) (Endentulous) Cardiovascular History: Reports: High Cholesterol, Hypertension Respiratory History: Reports: Asthma (suspected, not PFT-tested), Sleep Apnea (noncompliant with CPAP/BiPAP) Gastrointestinal History: Reports: GERD, Irritable Bowel Syndrome (suspected), Other (See Below) (Anal fissure) 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 BI DEVELOPER History: Reports: Other (See Below) (Atrophic vaginitis) Neurological History: Reports: Migraines, Other (See Below) (Short term memory loss) Psychiatric History: Reports: ADHD, Bipolar, Depression, OCD, Other (See Below) (Fibromyalgia) Endocrine/Metabolic History: Reports: Diabetes, Type II, Hypothyroidism Dermatologic History: Reports: Seborrheic Dermatitis - Infectious Disease History Infectious Disease History: Reports: Herpes (genital) - Past Surgical History HEENT Surgical History: Reports: Naso-Sinus Surgery (x 2), Oral Surgery (dental extractions), Tonsillectomy GI Surgical History: Reports: Appendectomy, Bariatric Procedure (Gastric bypass 2012), Cholecystectomy (2008) Female Surgical History: Reports: Hysterectomy (complete), Tubal Ligation Social & Family History - Family History Family Medical History: Noncontributory - Tobacco Use Years of Tobacco use: 28 Packs/Tins Daily: 0.5 Month/Year Tobacco Last Used: Quit 2016 - Caffeine Use Caffeine Use: Reports: Coffee, Soda Other Caffeine Use: 2 cans of pop and a cup of coffee - Alcohol Use Alcohol Use History: No - Recreational Drug Use Recreational Drug Use: Yes Drug Use in Last 12 Months: No Recreational Drug Type: Reports: Heroin (last injected 1979), Marijuana/Hashish (last smoked 1995) - Living Situation & Occupation Living situation: Reports: Single, Alone Occupation: Disabled ED ROS GENERAL - Review of Systems Review Of Systems: Comprehensive ROS is negative, except as noted in HPI. ED EXAM GENERAL NO PERIP PULSE - Physical Exam Exam: See Below Exam Limited By: No Limitations General Appearance: Alert, WD/WN, No Apparent Distress Eye Exam: Bilateral Eye: EOMI, Normal Inspection Ears: Normal External Exam, Hearing Grossly Normal Nose: Normal Inspection Throat/Mouth: Normal Inspection, Normal Voice, No Airway Compromise Head: Atraumatic, Normocephalic Neck: Normal Inspection, Full Range of Motion Respiratory/Chest: No Respiratory Distress, Lungs Clear, Normal Breath Sounds, No Accessory Muscle Use Cardiovascular: Normal Peripheral Pulses, Regular Rate, Rhythm, No Edema, No Gallop, No JVD, No Murmur, No Rub GI/Abdominal: Normal Bowel Sounds, Soft, Non-Tender, No Organomegaly, No Distention, No Abnormal Bruit, No Mass Back Exam: Normal Inspection, Full Range of Motion, NT Extremities: Normal Inspection, Normal Range of Motion, No Pedal Edema, Normal Capillary Refill Neurological: Alert, Oriented, No Motor/Sensory Deficits, Other (Poor shoirt- term memory) Psychiatric: Normal Affect Skin Exam: Warm, Dry, Intact, Normal Color, No Rash Course - Vital Signs Last Recorded V/S: Last Vital Signs Temp 36.1 C 03/24/20 19:23 Pulse 73 03/24/20 19:23 Resp 16 03/24/20 19:23 BP 167/104 H 03/24/20 19:23 Pulse Ox 100 03/24/20 19:23 - Orders/Labs/Meds Labs: Laboratory Tests 03/24/20 03/24/20 03/24/20 Range/Units 19:21 19:59 20:30 WBC (3.98-10.04) K/mm3 RBC (3.98-5.22) M/mm3 Hgb (11.2-15.7) gm/dl Hct (34.1-44.9) % MCV (79.4-94.8) fl MCH (25.6-32.2) pg MCHC (32.2-35.5) g/dl RDW Std Deviation (36.4-46.3) fL Plt Count (182-369) K/mm3 MPV (9.4-12.3) fl Neutrophils % (Manual) (40-60) % Band Neutrophils % (0-10) % Lymphocytes % (Manual) (20-40) % Atypical Lymphs % % Monocytes % (Manual) (2-10) % Eosinophils % (Manual) (0.7-5.8) % Basophils % (Manual) (0.1-1.2) Platelet Estimate Poikilocytosis Ovalocytes RBC Morph Comment Sodium (136-145) mEq/L Potassium (3.5-5.1) mEq/L Chloride (98-107) mEq/L Carbon Dioxide (21-32) mEq/L Anion Gap (5-15) BUN (7-18) mg/dL Creatinine (0.55-1.02) mg/dL Est Cr Clr Drug Dosing mL/min Estimated GFR (MDRD) (>60) mL/min BUN/Creatinine Ratio (14-18) Glucose (74-106) mg/dL POC Glucose 125 H 100 141 H (70-105) mg/dL Calcium (8.5-10.1) mg/dL Total Bilirubin (0.2-1.0) mg/dL AST (15-37) U/L ALT (14-59) U/L Alkaline Phosphatase (46-116) U/L Total Protein (6.4-8.2) g/dl Albumin (3.4-5.0) g/dl Globulin gm/dL Albumin/Globulin Ratio (1-2) Urine Color (Yellow) Urine Appearance (Clear) Urine pH (5.0-8.0) Ur Specific [place] (1.005-1.030) Urine Protein (Negative) Urine Glucose (UA) (Negative) Urine Ketones (Negative) Urine Occult Blood (Negative) Urine Nitrite (Negative) Urine Bilirubin (Negative) Urine Urobilinogen (0.2-1.0) Ur Leukocyte Esterase (Negative) Urine RBC (0-5) /hpf Urine WBC (0-5) /hpf Ur Squamous Epith Cells (0-5) /hpf Urine Bacteria (FEW) /hpf Urine Mucus (FEW) /hpf 03/24/20 03/24/20 03/24/20 Range/Units 20:40 20:40 20:57 WBC 7.62 (3.98-10.04) K/mm3 RBC 3.76 L (3.98-5.22) M/mm3 Hgb 11.5 (11.2-15.7) gm/dl Hct 37.0 (34.1-44.9) % MCV 98.4 H (79.4-94.8) fl MCH 30.6 (25.6-32.2) pg MCHC 31.1 L (32.2-35.5) g/dl RDW Std Deviation 47.8 H (36.4-46.3) fL Plt Count 375 H (182-369) K/mm3 MPV 8.5 L (9.4-12.3) fl Neutrophils % (Manual) 61 H (40-60) % Band Neutrophils % 1 (0-10) % Lymphocytes % (Manual) 31 (20-40) % Atypical Lymphs % 2 % Monocytes % (Manual) 1 L (2-10) % Eosinophils % (Manual) 3 (0.7-5.8) % Basophils % (Manual) 1 (0.1-1.2) Platelet Estimate Adequate Poikilocytosis 1+ slight Ovalocytes 1+ slight RBC Morph Comment Not Reportable Sodium 142 (136-145) mEq/L Potassium 3.3 L (3.5-5.1) mEq/L Chloride 107 (98-107) mEq/L Carbon Dioxide 20 L (21-32) mEq/L Anion Gap 18.3 H (5-15) BUN 20 H (7-18) mg/dL Creatinine 1.1 H (0.55-1.02) mg/dL Est Cr Clr Drug Dosing 53.23 mL/min Estimated GFR (MDRD) 55 (>60) mL/min BUN/Creatinine Ratio 18.2 H (14-18) Glucose 146 H (74-106) mg/dL POC Glucose (70-105) mg/dL Calcium 8.6 (8.5-10.1) mg/dL Total Bilirubin 0.3 (0.2-1.0) mg/dL AST 126 H (15-37) U/L ALT 161 H (14-59) U/L Alkaline Phosphatase 263 H (46-116) U/L Total Protein 6.4 (6.4-8.2) g/dl Albumin 3.1 L (3.4-5.0) g/dl Globulin 3.3 gm/dL Albumin/Globulin Ratio 0.9 L (1-2) Urine Color Yellow (Yellow) Urine Appearance Slt cloudy H (Clear) Urine pH 6.0 (5.0-8.0) Ur Specific [place] 1.025 (1.005-1.030) Urine Protein Negative (Negative) Urine Glucose (UA) Negative (Negative) Urine Ketones Negative (Negative) Urine Occult Blood Negative (Negative) Urine Nitrite Negative (Negative) Urine Bilirubin Negative (Negative) Urine Urobilinogen 0.2 (0.2-1.0) Ur Leukocyte Esterase Negative (Negative) Urine RBC 0-5 (0-5) /hpf Urine WBC 0-5 (0-5) /hpf Ur Squamous Epith Cells 5-10 H (0-5) /hpf Urine Bacteria Many H (FEW) /hpf Urine Mucus Few (FEW) /hpf 03/24/20 03/24/20 Range/Units 21:00 21:34 WBC (3.98-10.04) K/mm3 RBC (3.98-5.22) M/mm3 Hgb (11.2-15.7) gm/dl Hct (34.1-44.9) % MCV (79.4-94.8) fl MCH (25.6-32.2) pg MCHC (32.2-35.5) g/dl RDW Std Deviation (36.4-46.3) fL Plt Count (182-369) K/mm3 MPV (9.4-12.3) fl Neutrophils % (Manual) (40-60) % Band Neutrophils % (0-10) % Lymphocytes % (Manual) (20-40) % Atypical Lymphs % % Monocytes % (Manual) (2-10) % Eosinophils % (Manual) (0.7-5.8) % Basophils % (Manual) (0.1-1.2) Platelet Estimate Poikilocytosis Ovalocytes RBC Morph Comment Sodium (136-145) mEq/L Potassium (3.5-5.1) mEq/L Chloride (98-107) mEq/L Carbon Dioxide (21-32) mEq/L Anion Gap (5-15) BUN (7-18) mg/dL Creatinine (0.55-1.02) mg/dL Est Cr Clr Drug Dosing mL/min Estimated GFR (MDRD) (>60) mL/min BUN/Creatinine Ratio (14-18) Glucose (74-106) mg/dL POC Glucose 158 H 168 H (70-105) mg/dL Calcium (8.5-10.1) mg/dL Total Bilirubin (0.2-1.0) mg/dL AST (15-37) U/L ALT (14-59) U/L Alkaline Phosphatase (46-116) U/L Total Protein (6.4-8.2) g/dl Albumin (3.4-5.0) g/dl Globulin gm/dL Albumin/Globulin Ratio (1-2) Urine Color (Yellow) Urine Appearance (Clear) Urine pH (5.0-8.0) Ur Specific [place] (1.005-1.030) Urine Protein (Negative) Urine Glucose (UA) (Negative) Urine Ketones (Negative) Urine Occult Blood (Negative) Urine Nitrite (Negative) Urine Bilirubin (Negative) Urine Urobilinogen (0.2-1.0) Ur Leukocyte Esterase (Negative) Urine RBC (0-5) /hpf Urine WBC (0-5) /hpf Ur Squamous Epith Cells (0-5) /hpf Urine Bacteria (FEW) /hpf Urine Mucus (FEW) /hpf - Re-Assessments/Exams Free Text/Narrative Re-Assessment/Exam: 03/24/20 21:02 As above, EMS was called by the patient's significant other after she was found to have low blood glucose at home. EMS found her to be unresponsive with a "low" reading. They gave 1 amp of D50, with a subsequent blood glucose of over 200. Here in the ED, the patient's Accu-Cheks have been 125, 100, then, after eating, 145, and now most recently 158. A CBC and CMP ordered at triage are still pending. Her physical exam is unremarkable. The plan will be to keep her for another 30 minutes to an hour, and if her blood glucose remains stable, she can be discharged home. 03/24/20 21:33 The patient's CBC is remarkable for thrombocytosis of 375,000, and is otherwise unremarkable. Her CMP is remarkable for a potassium mildly depressed at 3.3, a bicarbonate decreased at 20 with an anion gap elevated at 18.3, a BUN/Cr slightly elevated at 20/1.1, a blood glucose elevated 146, and AST/ALT elevated 126/161, and alkaline phosphatase of 263, with the remainder of her CMP being unremarkable. Repeat Accu-Chek at this time is 168. I will discharge the patient home. Departure - Departure Time of Disposition: 21:35 Disposition: Home, Self-Care 01 Condition: Good Clinical Impression: Insulin reaction Qualifiers: Encounter type: initial encounter Qualified Code(s): T38.3X5A - Adverse effect of insulin and oral hypoglycemic [antidiabetic] drugs, initial encounter - Discharge Information *PRESCRIPTION DRUG MONITORING PROGRAM REVIEWED*: Not Applicable *COPY OF PRESCRIPTION DRUG MONITORING REPORT IN PATIENT NICOLAS: Not Applicable Instructions: Drug Allergy, [id number] Referrals: Ana M Fontana YAM CURER [Primary Care Provider] - Forms: ED Department Discharge Additional Instructions: You were seen in the emergency room after becoming unresponsive with low blood sugar. The paramedics gave you IV dextrose, and you were given food in the ER. All of your Accu-Cheks since then have been within normal limits or mildly elevated. Going forward, we recommend that you eat an appropriate diet if you are going to be taking insulin. Please follow-up with your PCP, Darcy Fontana NP, at the next available appointment. If any other problems, please do not hesitate to return to the ER. Sepsis Event Note (ED) - Evaluation Sepsis Screening Result: No Definite Risk - Focused Exam Vital Signs: Vital Signs Temp Pulse Resp BP Pulse Ox 03/24/20 19:23 36.1 C 73 16 167/104 H 100
== END 2020-03-24 22:04 | disposition home or self-care (01) ==
LOC: JD.ED 19:14
DX: E11.649 Type 2 diabetes mellitus with hypoglycemia without coma (principal); T38.3X5A Adverse effect of insulin and oral hypoglycemic [antidiabetic] drugs, initial encounter; E78.00 Pure hypercholesterolemia, unspecified; I10 Essential (primary) hypertension; J45.909 Unspecified asthma, uncomplicated; K21.9 Gastro-esophageal reflux disease without esophagitis; F17.210 Nicotine dependence, cigarettes, uncomplicated; E03.9 Hypothyroidism, unspecified; F32.9 Major depressive disorder, single episode, unspecified; Z91.041 Radiographic dye allergy status; Z79.899 Other long term (current) drug therapy; Z79.4 Long term (current) use of insulin
CPT/HCPCS: 36415; 80053; 81001; 82962; 85007; 85027; 99283; 99285

== ENCOUNTER 2020-03-25 06:34 | Emergency (ER) | payer MEDICARE, MEDICAID ==
[2020-03-25 06:43] VITALS: BP 136/106; PULSE 78
[2020-03-25 07:51] LABS: HEMOGLOBIN A1C 5.9 % (4.50-6.20)
--- NOTE | 2020-03-25 08:11 | EDM.PDOC ---
ED HPI GENERAL MEDICAL PROBLEM - General Chief Complaint: Diabetic Complaint Stated Complaint: [facility] Time Seen by Provider: 03/25/20 06:55 Source of Information: Reports: Patient, EMS History Limitations: Reports: No Limitations - History of Present Illness INITIAL COMMENTS - FREE TEXT/NARRATIVE: The patient presents again with low blood sugar. She was here last night for the same and she was given D50. Her blood sugars were fine here with each being over 140. She went home and this morning she could not wake up and her blood sugar was less then 30. Her blood sugar is now 87 and she is getting something to eat. She has no fever, chills, cough, congestion, runny nose, chest pain, shortness of breath, abdominal pain, nausea or vomiting. There has been no changes in her medications. She did not take more insulin then normal. She is on ozempic on and lantus 82units at bedtime. Onset: Gradual Duration: Day(s): Improves with: Reports: None Worsens with: Reports: None Associated Symptoms: Reports: No Other Symptoms - Related Data Allergies Allergy/AdvReac Type Severity Reaction Status Date / Time Iodinated Contrast Media Allergy Rash Verified 03/25/20 06:39 [Iodinated Contrast Media - IV Dye] Home Meds: Home Meds Cetirizine [ZyrTEC] 10 mg PO BEDTIME 12/01/17 [History] Fesoterodine Fumarate [Toviaz] 8 mg PO DAILY 12/01/17 [History] Levothyroxine [Synthroid] 50 mcg PO ACBREAKFAST 12/01/17 [History] Lubiprostone [Amitiza] 24 mcg PO BID 12/01/17 [History] Ondansetron [Zofran ODT] 8 mg PO Q8H PRN 12/01/17 [History] Pantoprazole Sodium [Protonix] 40 mg PO DAILY 12/01/17 [History] Rosuvastatin [Crestor] 5 mg PO BEDTIME 12/01/17 [History] Topiramate [Topamax] 50 mg PO BID 12/01/17 [History] polyethylene glycoL 3350 [MiraLAX] 1 packet PO DAILY 12/01/17 [History] valACYclovir HCl [Valtrex] 500 mg PO DAILY 12/01/17 [History] Ozempic 1 dose SQ TH 02/21/20 [History] Cyclobenzaprine [Flexeril] 10 mg PO BID PRN #20 tablet 02/23/20 [Rx] cycloSPORINE [Restasis Multidose] 1 drop EYEBOTH BID 02/25/20 [History] Albuterol [Proair HFA] 2 inh PO Q4H PRN 02/27/20 [History] Enalapril [Vasotec] 2.5 mg PO DAILY 02/27/20 [History] Fluticasone Propionate [Flonase Allergy Relief] 1 spray NASBOTH BID 02/27/20 [History] Insulin Glargine,Hum.Rec.Anlog [Lantus Solostar] 82 units SUBCUT BEDTIME 02/27/20 [History] Magnesium Oxide [Mag-Oxide] 400 mg PO DAILY 02/27/20 [History] Propranolol [Inderal] 10 mg PO BID 02/27/20 [History] estradioL [Estradiol] 10 mcg VAG ASDIRECTED 02/27/20 [History] Docusate Sodium [Colace] 100 mg PO BID cap 03/02/20 [Rx] Magnesium Hydroxide [Milk of Magnesia] 30 ml PO BID PRN cup 03/02/20 [Rx] Nicotine [Habitrol] 21 mg TRDERM DAILY patch 03/02/20 [Rx] Remove Patch 1 ea TRDERM DAILY each 03/02/20 [Rx] Sennosides [Senna] 17.2 mg PO BID tablet 03/02/20 [Rx] Acetaminophen [Tylenol] 650 mg PO Q6HR PRN 03/24/20 [History] FLUoxetine [Fluoxetine HCl] 200 gm PO BID 03/24/20 [History] Paliperidone [Invega] 234 mg PO WEEKLY 03/24/20 [History] SUMAtriptan [Imitrex] 50 mg PO DAILY PRN 03/24/20 [History] traMADol [Ultram] 50 mg PO Q8HR PRN 03/24/20 [History] Past Medical History HEENT History: Reports: Impaired Vision (wears glasses), Other (See Below) (Endentulous) Other HEENT History: wears glasses Cardiovascular History: Reports: High Cholesterol, Hypertension Respiratory History: Reports: Asthma (suspected, not PFT-tested), Sleep Apnea (noncompliant with CPAP/BiPAP) Other Respiratory History: upper respiratory infection, Right lung nodule Gastrointestinal History: Reports: GERD, Irritable Bowel Syndrome (suspected), Other (See Below) (Anal fissure) Other Gastrointestinal History: anal fissure, elevated liver function tests, nausea, flank pain Genitourinary History: Reports: STD, UTI, Recurrent, Other (See Below) Other Genitourinary History: dysuria, gential herpes, dyspareunia, frequency CHILD MONITOR History: Reports: Other (See Below) (Atrophic vaginitis) Other CHILD MONITOR History: vagintis, vulvovagintitis, atropic vaginitis Musculoskeletal History: Reports: Fibromyalgia Other Musculoskeletal History: left carpal tunnel syndrome, cubital tunnel syndrome, elbow pain Neurological History: Reports: Migraines, Other (See Below) (Short term memory loss) Other Neuro History: short term memory loss Psychiatric History: Reports: ADHD, Bipolar, Depression, OCD, Other (See Below) (Fibromyalgia) Endocrine/Metabolic History: Reports: Diabetes, Type II, Hypothyroidism Other Endocrine/Metabolic History: fibromyalgia Hematologic History: Reports: Other (See Below) Other Hematologic History: hypomagnesia Immunologic History: Reports: None Oncologic (Cancer) History: Reports: None Dermatologic History: Reports: Seborrheic Dermatitis Other Dermatologic History: acne, skin excoriation, skin lesion - Infectious Disease History Infectious Disease History: Reports: Herpes (genital) Other Infectious Disease History: STD: genital herpes - Past Surgical History HEENT Surgical History: Reports: Naso-Sinus Surgery (x 2), Oral Surgery (dental extractions), Tonsillectomy GI Surgical History: Reports: Appendectomy, Bariatric Procedure (Gastric bypass 2012), Cholecystectomy (2008) Female Surgical History: Reports: Hysterectomy (complete), Tubal Ligation Social & Family History - Family History Family Medical History: Noncontributory - Caffeine Use Caffeine Use: Reports: Coffee, Soda Other Caffeine Use: 2 cans of pop and a cup of coffee - Living Situation & Occupation Living situation: Reports: Single, Alone Occupation: Disabled ED ROS GENERAL - Review of Systems Review Of Systems: See Below Constitutional: Reports: No Symptoms HEENT: Reports: No Symptoms Respiratory: Reports: No Symptoms Cardiovascular: Reports: No Symptoms Endocrine: Reports: Low Glucose GI/Abdominal: Reports: No Symptoms : Reports: No Symptoms Musculoskeletal: Reports: No Symptoms Skin: Reports: No Symptoms Neurological: Reports: No Symptoms ED EXAM GENERAL NO PERIP PULSE - Physical Exam Exam: See Below Exam Limited By: No Limitations General Appearance: Alert, No Apparent Distress Ears: Normal External Exam Nose: Normal Inspection Head: Atraumatic, Normocephalic Neck: Normal Inspection Respiratory/Chest: No Respiratory Distress, Lungs Clear, Normal Breath Sounds Cardiovascular: Regular Rate, Rhythm, No Edema, No Murmur GI/Abdominal: Soft, Non-Tender, No Organomegaly, No Mass Back Exam: Normal Inspection Extremities: Normal Inspection Course - Vital Signs Last Recorded V/S: Last Vital Signs Temp 98.5 F 03/25/20 06:40 Pulse 78 03/25/20 06:40 Resp 16 03/25/20 06:40 BP 136/106 H 03/25/20 06:40 Pulse Ox 100 03/25/20 06:40 - Orders/Labs/Meds Orders: Active Orders 24 hr Category Date Time Status Accu Check [Blood Glucose Check, Bedside] [RC] ONETIME Care 03/25/20 08:42 Active Cardiac Monitoring [RC] . DIRECTED Care 03/25/20 07:02 Active Labs: Laboratory Tests 03/25/20 03/25/20 03/25/20 Range/Units 06:39 07:07 07:20 WBC 6.25 (3.98-10.04) K/mm3 RBC 3.72 L (3.98-5.22) M/mm3 Hgb 11.4 (11.2-15.7) gm/dl Hct 36.6 (34.1-44.9) % MCV 98.4 H (79.4-94.8) fl MCH 30.6 (25.6-32.2) pg MCHC 31.1 L (32.2-35.5) g/dl RDW Std Deviation 48.3 H (36.4-46.3) fL Plt Count 381 H (182-369) K/mm3 MPV 8.4 L (9.4-12.3) fl Neut % (Auto) 61.0 (34.0-71.1) % Lymph % (Auto) 27.8 (19.3-51.7) % [place] % (Auto) 7.7 (4.7-12.5) % Eos % (Auto) 3.2 (0.7-5.8) Baso % (Auto) 0.3 (0.1-1.2) % Neut # (Auto) 3.81 (1.56-6.13) K/mm3 Lymph # (Auto) 1.74 (1.18-3.74) K/mm3 [place] # (Auto) 0.48 H (0.24-0.36) K/mm3 Eos # (Auto) 0.20 (0.04-0.36) K/mm3 Baso # (Auto) 0.02 (0.01-0.08) K/mm3 Sodium (136-145) mEq/L Potassium (3.5-5.1) mEq/L Chloride (98-107) mEq/L Carbon Dioxide (21-32) mEq/L Anion Gap (5-15) BUN (7-18) mg/dL Creatinine (0.55-1.02) mg/dL Est Cr Clr Drug Dosing Estimated GFR (MDRD) (>60) mL/min BUN/Creatinine Ratio (14-18) Glucose (74-106) mg/dL POC Glucose 87 77 (70-105) mg/dL Hemoglobin A1c (4.50-6.20) % Calcium (8.5-10.1) mg/dL Total Bilirubin (0.2-1.0) mg/dL AST (15-37) U/L ALT (14-59) U/L Alkaline Phosphatase (46-116) U/L Total Protein (6.4-8.2) g/dl Albumin (3.4-5.0) g/dl Globulin gm/dL Albumin/Globulin Ratio (1-2) 03/25/20 03/25/20 03/25/20 Range/Units 07:20 07:20 09:11 WBC (3.98-10.04) K/mm3 RBC (3.98-5.22) M/mm3 Hgb (11.2-15.7) gm/dl Hct (34.1-44.9) % MCV (79.4-94.8) fl MCH (25.6-32.2) pg MCHC (32.2-35.5) g/dl RDW Std Deviation (36.4-46.3) fL Plt Count (182-369) K/mm3 MPV (9.4-12.3) fl Neut % (Auto) (34.0-71.1) % Lymph % (Auto) (19.3-51.7) % [place] % (Auto) (4.7-12.5) % Eos % (Auto) (0.7-5.8) Baso % (Auto) (0.1-1.2) % Neut # (Auto) (1.56-6.13) K/mm3 Lymph # (Auto) (1.18-3.74) K/mm3 [place] # (Auto) (0.24-0.36) K/mm3 Eos # (Auto) (0.04-0.36) K/mm3 Baso # (Auto) (0.01-0.08) K/mm3 Sodium 144 (136-145) mEq/L Potassium 3.4 L (3.5-5.1) mEq/L Chloride 108 H (98-107) mEq/L Carbon Dioxide 24 (21-32) mEq/L Anion Gap 15.4 H (5-15) BUN 15 (7-18) mg/dL Creatinine 1.1 H (0.55-1.02) mg/dL Est Cr Clr Drug Dosing TNP Estimated GFR (MDRD) 55 (>60) mL/min BUN/Creatinine Ratio 13.6 L (14-18) Glucose 75 (74-106) mg/dL POC Glucose 122 H (70-105) mg/dL Hemoglobin A1c 5.90 (4.50-6.20) % Calcium 9.0 (8.5-10.1) mg/dL Total Bilirubin 0.3 (0.2-1.0) mg/dL AST 82 H (15-37) U/L ALT 145 H (14-59) U/L Alkaline Phosphatase 267 H (46-116) U/L Total Protein 6.6 (6.4-8.2) g/dl Albumin 3.1 L (3.4-5.0) g/dl Globulin 3.5 gm/dL Albumin/Globulin Ratio 0.9 L (1-2) - Re-Assessments/Exams Free Text/Narrative Re-Assessment/Exam: 03/25/20 08:39 I ordered labs and some breakfast. Her CBC looks good. Her potassium was a little low at 3.4. Her creatinine was a little elevated at 1.1. Her AST was elevated at 82. Her ALT is elevated at 145 along with her alk phose is elevated at 267. I am going to recheck her blood sugar after she eats. 03/25/20 08:41 Her glycosylated hemoglobin was good at 5.9. 03/25/20 09:24 Her repeat blood sugar was 122. I called her provider Ana M and we talked and we lowered her lantus to 76. I will discharge her home. Departure - Departure Time of Disposition: 09:30 Disposition: Home, Self-Care 01 Condition: Good Clinical Impression: Hypoglycemia - Discharge Information *PRESCRIPTION DRUG MONITORING PROGRAM REVIEWED*: Not Applicable *COPY OF PRESCRIPTION DRUG MONITORING REPORT IN PATIENT NICOLAS: Not Applicable Referrals: Ana M Fontana, [employer] [Primary Care Provider] - 1 Week Forms: ED Department Discharge Additional Instructions: Take all your medications like before except lower your lantus dose to 76. Eat every meal today and even have an afternoon snack today. Please return if you are worse. Sepsis Event Note (ED) - Evaluation Sepsis Screening Result: No Definite Risk - Focused Exam Vital Signs: Vital Signs Temp Pulse Resp BP Pulse Ox 03/25/20 06:40 98.5 F 78 16 136/106 H 100 - My Orders Last 24 Hours: My Active Orders 03/25/20 07:02 Cardiac Monitoring [RC] . DIRECTED 03/25/20 08:42 Accu Check [Blood Glucose Check, Bedside] [RC] ONETIME - Assessment/Plan Last 24 Hours: My Active Orders 03/25/20 07:02 Cardiac Monitoring [RC] . DIRECTED 03/25/20 08:42 Accu Check [Blood Glucose Check, Bedside] [RC] ONETIME
== END 2020-03-25 10:30 | disposition home or self-care (01) ==
LOC: JD.ED 06:34
DX: E11.649 Type 2 diabetes mellitus with hypoglycemia without coma (principal); R74.01 Elevation of levels of liver transaminase levels; R79.89 Other specified abnormal findings of blood chemistry; I10 Essential (primary) hypertension; E78.00 Pure hypercholesterolemia, unspecified; K21.9 Gastro-esophageal reflux disease without esophagitis; F31.9 Bipolar disorder, unspecified; E03.9 Hypothyroidism, unspecified; Z90.49 Acquired absence of other specified parts of digestive tract; Z90.710 Acquired absence of both cervix and uterus; Z91.041 Radiographic dye allergy status; Z79.4 Long term (current) use of insulin; Z79.899 Other long term (current) drug therapy
CPT/HCPCS: 36415; 80053; 82962; 83036; 85025; 99283; 99284

== ENCOUNTER 2020-03-26 12:15 | Emergency (ER) | payer MEDICARE, MEDICAID ==
--- NOTE | 2020-03-26 14:51 | EDM.PDOC ---
ED HPI GENERAL MEDICAL PROBLEM - General Chief Complaint: Diabetic Complaint Stated Complaint: [facility] Time Seen by Provider: 03/26/20 12:22 Source of Information: Reports: Patient, RN Notes Reviewed - History of Present Illness INITIAL COMMENTS - FREE TEXT/NARRATIVE: 39 yr old female found in bed unresponsive, diaphoretic, low blood sugar [employer]. Upon EMS arrival glucose was 39. She is known diabetic. Was sleeping late, had not been up yet today and nothing to eat or drink since last evening. denies recent illness. - Related Data Allergies Allergy/AdvReac Type Severity Reaction Status Date / Time Iodinated Contrast Media Allergy Rash Verified 03/26/20 12:31 [Iodinated Contrast Media - IV Dye] Home Meds: Home Meds Cetirizine [ZyrTEC] 10 mg PO BEDTIME 12/01/17 [History] Fesoterodine Fumarate [Toviaz] 8 mg PO DAILY 12/01/17 [History] Levothyroxine [Synthroid] 50 mcg PO ACBREAKFAST 12/01/17 [History] Lubiprostone [Amitiza] 24 mcg PO BID 12/01/17 [History] Ondansetron [Zofran ODT] 8 mg PO Q8H PRN 12/01/17 [History] Pantoprazole Sodium [Protonix] 40 mg PO DAILY 12/01/17 [History] Rosuvastatin [Crestor] 5 mg PO BEDTIME 12/01/17 [History] Topiramate [Topamax] 50 mg PO BID 12/01/17 [History] polyethylene glycoL 3350 [MiraLAX] 1 packet PO DAILY 12/01/17 [History] valACYclovir HCl [Valtrex] 500 mg PO DAILY 12/01/17 [History] Ozempic 1 dose SQ TH 02/21/20 [History] Cyclobenzaprine [Flexeril] 10 mg PO BID PRN #20 tablet 02/23/20 [Rx] cycloSPORINE [Restasis Multidose] 1 drop EYEBOTH BID 02/25/20 [History] Albuterol [Proair HFA] 2 inh PO Q4H PRN 02/27/20 [History] Enalapril [Vasotec] 2.5 mg PO DAILY 02/27/20 [History] Fluticasone Propionate [Flonase Allergy Relief] 1 spray NASBOTH BID 02/27/20 [History] Insulin Glargine,Hum.Rec.Anlog [Lantus Solostar] 82 units SUBCUT BEDTIME 02/27/20 [History] Magnesium Oxide [Mag-Oxide] 400 mg PO DAILY 02/27/20 [History] Propranolol [Inderal] 10 mg PO BID 02/27/20 [History] estradioL [Estradiol] 10 mcg VAG ASDIRECTED 02/27/20 [History] Docusate Sodium [Colace] 100 mg PO BID cap 03/02/20 [Rx] Magnesium Hydroxide [Milk of Magnesia] 30 ml PO BID PRN cup 03/02/20 [Rx] Nicotine [Habitrol] 21 mg TRDERM DAILY patch 03/02/20 [Rx] Remove Patch 1 ea TRDERM DAILY each 03/02/20 [Rx] Sennosides [Senna] 17.2 mg PO BID tablet 03/02/20 [Rx] Acetaminophen [Tylenol] 650 mg PO Q6HR PRN 03/24/20 [History] FLUoxetine [Fluoxetine HCl] 200 gm PO BID 03/24/20 [History] Paliperidone [Invega] 234 mg PO WEEKLY 03/24/20 [History] SUMAtriptan [Imitrex] 50 mg PO DAILY PRN 03/24/20 [History] traMADol [Ultram] 50 mg PO Q8HR PRN 03/24/20 [History] Past Medical History HEENT History: Reports: Impaired Vision, Other (See Below) Other HEENT History: wears glasses Cardiovascular History: Reports: High Cholesterol, Hypertension Respiratory History: Reports: Asthma, Sleep Apnea Other Respiratory History: upper respiratory infection, Right lung nodule Gastrointestinal History: Reports: GERD, Irritable Bowel Syndrome, Other (See Below) Other Gastrointestinal History: anal fissure, elevated liver function tests, nausea, flank pain Genitourinary History: Reports: STD, UTI, Recurrent, Other (See Below) Other Genitourinary History: dysuria, gential herpes, dyspareunia, frequency SOCIAL SERVICES ASSISTANT History: Reports: Other (See Below) Other SOCIAL SERVICES ASSISTANT History: vagintis, vulvovagintitis, atropic vaginitis Musculoskeletal History: Reports: Fibromyalgia Other Musculoskeletal History: left carpal tunnel syndrome, cubital tunnel syndrome, elbow pain Neurological History: Reports: Migraines, Other (See Below) Other Neuro History: short term memory loss Psychiatric History: Reports: ADHD, Bipolar, Depression, OCD, Other (See Below) Endocrine/Metabolic History: Reports: Diabetes, Type II, Hypothyroidism Other Endocrine/Metabolic History: fibromyalgia Hematologic History: Reports: Other (See Below) Other Hematologic History: hypomagnesia Immunologic History: Reports: None Oncologic (Cancer) History: Reports: None Dermatologic History: Reports: Seborrheic Dermatitis Other Dermatologic History: acne, skin excoriation, skin lesion - Infectious Disease History Infectious Disease History: Reports: Chicken Pox, Influenza Other Infectious Disease History: STD: genital herpes - Past Surgical History HEENT Surgical History: Reports: Naso-Sinus Surgery, Oral Surgery, Tonsillectomy GI Surgical History: Reports: Appendectomy, Bariatric Procedure, Cholecystectomy Female Surgical History: Reports: Hysterectomy, Tubal Ligation Social & Family History - Family History Family Medical History: Noncontributory - Tobacco Use Tobacco Use Status *Q: Current Every Day Tobacco User Years of Tobacco use: 25 Packs/Tins Daily: 0.5 Second Hand Smoke Exposure: Yes - Caffeine Use Caffeine Use: Reports: Coffee, Soda, Tea Other Caffeine Use: 2 cans of pop and a cup of coffee - Recreational Drug Use Recreational Drug Use: No - Living Situation & Occupation Living situation: Reports: Single, Alone Occupation: Disabled ED ROS GENERAL - Review of Systems Review Of Systems: See Below Constitutional: Reports: Diaphoresis. Denies: Fever, Chills HEENT: Reports: No Symptoms Respiratory: Denies: Shortness of Breath, Cough Cardiovascular: Denies: Chest Pain GI/Abdominal: Denies: Abdominal Pain, Diarrhea, Nausea, Vomiting : Reports: No Symptoms Musculoskeletal: Reports: No Symptoms Neurological: Reports: Dizziness, Weakness (now better) ED EXAM GENERAL NO PERIP PULSE - Physical Exam Exam: See Below General Appearance: Alert, No Apparent Distress, Other (waking up on arrival to ED, still somewhat drowsy) Eye Exam: Bilateral Eye: PERRL Throat/Mouth: Normal Inspection Head: Atraumatic Neck: Supple Respiratory/Chest: No Respiratory Distress, Lungs Clear, Normal Breath Sounds Cardiovascular: Regular Rate, Rhythm GI/Abdominal: Soft, Non-Tender Extremities: Normal Inspection, Normal Range of Motion Neurological: Alert, No Motor/Sensory Deficits Skin Exam: Warm, Dry, Normal Color Course - Vital Signs Last Recorded V/S: Last Vital Signs Temp 98.2 F 03/26/20 12:26 Pulse 85 03/26/20 12:26 Resp 18 03/26/20 12:26 BP 124/85 03/26/20 12:26 Pulse Ox 100 03/26/20 12:26 - Orders/Labs/Meds Labs: Laboratory Tests 03/26/20 03/26/20 03/26/20 Range/Units 12:19 12:42 13:00 Sodium 144 (136-145) mEq/L Potassium 3.6 (3.5-5.1) mEq/L Chloride 110 H (98-107) mEq/L Carbon Dioxide 23 (21-32) mEq/L Anion Gap 14.6 (5-15) BUN 15 (7-18) mg/dL Creatinine 0.9 (0.55-1.02) mg/dL Est Cr Clr Drug Dosing TNP Estimated GFR (MDRD) > 60 (>60) mL/min BUN/Creatinine Ratio 16.7 (14-18) Glucose 93 (74-106) mg/dL POC Glucose 126 H (70-105) mg/dL Calcium 8.7 (8.5-10.1) mg/dL Total Bilirubin 0.3 (0.2-1.0) mg/dL AST 32 (15-37) U/L ALT 87 H (14-59) U/L Alkaline Phosphatase 200 H (46-116) U/L Total Protein 5.8 L (6.4-8.2) g/dl Albumin 2.7 L (3.4-5.0) g/dl Globulin 3.1 gm/dL Albumin/Globulin Ratio 0.9 L (1-2) Urine Color Yellow (Yellow) Urine Appearance Clear (Clear) Urine pH 7.0 (5.0-8.0) Ur Specific [place] 1.020 (1.005-1.030) Urine Protein Negative (Negative) Urine Glucose (UA) Negative (Negative) Urine Ketones Negative (Negative) Urine Occult Blood Negative (Negative) Urine Nitrite Negative (Negative) Urine Bilirubin Negative (Negative) Urine Urobilinogen 0.2 (0.2-1.0) Ur Leukocyte Esterase Negative (Negative) 03/26/20 Range/Units 14:02 Sodium (136-145) mEq/L Potassium (3.5-5.1) mEq/L Chloride (98-107) mEq/L Carbon Dioxide (21-32) mEq/L Anion Gap (5-15) BUN (7-18) mg/dL Creatinine (0.55-1.02) mg/dL Est Cr Clr Drug Dosing Estimated GFR (MDRD) (>60) mL/min BUN/Creatinine Ratio (14-18) Glucose (74-106) mg/dL POC Glucose 192 H (70-105) mg/dL Calcium (8.5-10.1) mg/dL Total Bilirubin (0.2-1.0) mg/dL AST (15-37) U/L ALT (14-59) U/L Alkaline Phosphatase (46-116) U/L Total Protein (6.4-8.2) g/dl Albumin (3.4-5.0) g/dl Globulin gm/dL Albumin/Globulin Ratio (1-2) Urine Color (Yellow) Urine Appearance (Clear) Urine pH (5.0-8.0) Ur Specific [place] (1.005-1.030) Urine Protein (Negative) Urine Glucose (UA) (Negative) Urine Ketones (Negative) Urine Occult Blood (Negative) Urine Nitrite (Negative) Urine Bilirubin (Negative) Urine Urobilinogen (0.2-1.0) Ur Leukocyte Esterase (Negative) - Re-Assessments/Exams Free Text/Narrative Re-Assessment/Exam: 03/26/20 15:08 glucose 190 on arrival, lab glucose 93. She has eaten a full meal. feels back to normal at time of discharge. Departure - Departure Time of Disposition: 14:49 Disposition: Home, Self-Care 01 Condition: Fair Clinical Impression: Hypoglycemia - Discharge Information Instructions: Hypoglycemia, [id number] Referrals: Ana M Fontana [employer] [Primary Care Provider] - Forms: ED Department Discharge Additional Instructions: Eat regular meals and snacks. Be sure to eat a snack before you go to bed for the night. If you start running low blood sugar frequently you will need to have your insulin dosage reduced. See your regular medical provider next week for recheck. Call for appointment. Return to ED as needed. Sepsis Event Note (ED) - Evaluation Sepsis Screening Result: No Definite Risk - Focused Exam Vital Signs: Vital Signs Temp Pulse Resp BP Pulse Ox 03/26/20 12:26 98.2 F 85 18 124/85 100
[2020-03-26 15:18] VITALS: BP 116/93; PULSE 98
== END 2020-03-26 15:15 | disposition home or self-care (01) ==
LOC: JD.ED 12:15
DX: E11.649 Type 2 diabetes mellitus with hypoglycemia without coma (principal); E78.00 Pure hypercholesterolemia, unspecified; I10 Essential (primary) hypertension; J45.909 Unspecified asthma, uncomplicated; K21.9 Gastro-esophageal reflux disease without esophagitis; F41.9 Anxiety disorder, unspecified; F32.9 Major depressive disorder, single episode, unspecified; E11.9 Type 2 diabetes mellitus without complications; E03.9 Hypothyroidism, unspecified; F17.210 Nicotine dependence, cigarettes, uncomplicated; Z79.4 Long term (current) use of insulin; Z79.899 Other long term (current) drug therapy
CPT/HCPCS: 36415; 80053; 81003; 82962; 99283; 99285

== ENCOUNTER 2020-12-19 17:13 | Emergency (ER) | payer MEDICARE, MEDICAID ==
[2020-12-19 17:52] VITALS: BP 124/87; PULSE 81
--- NOTE | 2020-12-19 19:46 | EDM.PDOC ---
ED HPI GENERAL MEDICAL PROBLEM - General Chief Complaint: Headache Stated Complaint: fever cough headache Time Seen by Provider: 12/19/20 17:51 Source of Information: Reports: Patient, RN Notes Reviewed History Limitations: Reports: No Limitations - History of Present Illness INITIAL COMMENTS - FREE TEXT/NARRATIVE: Patient is a 40-year-old female presenting to the emergency department for evaluation with regards to some mild nasal congestion, occasional cough, slight headache, and possible fever. Symptoms have been occurring off and on for the last week. She states that she has felt hot but has not had a known fever. She was coming to the emergency department to visit her mother who was a patient and while going through the screening process, her temperature was found to be 99.6. She then came to the ER to be evaluated. She has had both Covid vaccinations as well as her flu shot. She is had no nausea, vomiting, or diarrhea. Headache Pain Score (Numeric/FACES): 2 - Related Data Allergies Allergy/AdvReac Type Severity Reaction Status Date / Time Iodinated Contrast Media Allergy Rash Verified 12/19/20 17:52 [Iodinated Contrast Media - IV Dye] Home Meds: Home Meds Cetirizine [ZyrTEC] 10 mg PO BEDTIME 12/01/17 [History] Fesoterodine Fumarate [Toviaz] 8 mg PO DAILY 12/01/17 [History] Levothyroxine [Synthroid] 50 mcg PO ACBREAKFAST 12/01/17 [History] Lubiprostone [Amitiza] 24 mcg PO BID 12/01/17 [History] Ondansetron [Zofran ODT] 8 mg PO Q8H PRN 12/01/17 [History] Pantoprazole Sodium [Protonix] 40 mg PO DAILY 12/01/17 [History] Rosuvastatin [Crestor] 5 mg PO BEDTIME 12/01/17 [History] Topiramate [Topamax] 50 mg PO BID 12/01/17 [History] polyethylene glycoL 3350 [MiraLAX] 1 packet PO DAILY 12/01/17 [History] Ozempic 1 dose SQ TH 02/21/20 [History] Cyclobenzaprine [Flexeril] 10 mg PO BID PRN #20 tablet 02/23/20 [Rx] cycloSPORINE [Restasis Multidose] 1 drop EYEBOTH BID 02/25/20 [History] Albuterol [Proair HFA] 2 inh PO Q4H PRN 02/27/20 [History] Enalapril [Vasotec] 2.5 mg PO DAILY 02/27/20 [History] Fluticasone Propionate [Flonase Allergy Relief] 1 spray NASBOTH BID 02/27/20 [History] Insulin Glargine,Hum.Rec.Anlog [Lantus Solostar] 82 units SUBCUT BEDTIME 02/27/20 [History] Magnesium Oxide [Mag-Oxide] 400 mg PO DAILY 02/27/20 [History] Propranolol [Inderal] 10 mg PO BID 02/27/20 [History] estradioL [Estradiol] 10 mcg VAG ASDIRECTED 02/27/20 [History] Docusate Sodium [Colace] 100 mg PO BID cap 03/02/20 [Rx] Magnesium Hydroxide [Milk of Magnesia] 30 ml PO BID PRN cup 03/02/20 [Rx] Nicotine [Habitrol] 21 mg TRDERM DAILY patch 03/02/20 [Rx] Remove Patch 1 ea TRDERM DAILY each 03/02/20 [Rx] Sennosides [Senna] 17.2 mg PO BID tablet 03/02/20 [Rx] Acetaminophen [Tylenol] 650 mg PO Q6HR PRN 03/24/20 [History] FLUoxetine [Fluoxetine HCl] 200 gm PO BID 03/24/20 [History] Paliperidone [Invega] 234 mg PO WEEKLY 03/24/20 [History] SUMAtriptan [Imitrex] 50 mg PO DAILY PRN 03/24/20 [History] traMADol [Ultram] 50 mg PO Q8HR PRN 03/24/20 [History] Past Medical History HEENT History: Reports: Impaired Vision, Other (See Below) Other HEENT History: wears glasses Cardiovascular History: Reports: High Cholesterol, Hypertension Respiratory History: Reports: Asthma, Sleep Apnea Other Respiratory History: upper respiratory infection, Right lung nodule Gastrointestinal History: Reports: GERD, Irritable Bowel Syndrome, Other (See Below) Other Gastrointestinal History: anal fissure, elevated liver function tests, nausea, flank pain Genitourinary History: Reports: STD, UTI, Recurrent, Other (See Below) Other Genitourinary History: dysuria, gential herpes, dyspareunia, frequency [employer]ENDER History: Reports: Other (See Below) Other [employer]ON [employer]ASS BENDER History: vagintis, vulvovagintitis, atropic vaginitis Musculoskeletal History: Reports: Fibromyalgia Other Musculoskeletal History: left carpal tunnel syndrome, cubital tunnel syndrome, elbow pain Neurological History: Reports: Migraines, Other (See Below) Other Neuro History: short term memory loss Psychiatric History: Reports: ADHD, Bipolar, Depression, OCD, Other (See Below) Endocrine/Metabolic History: Reports: Diabetes, Type II, Hypothyroidism Other Endocrine/Metabolic History: fibromyalgia Hematologic History: Reports: Other (See Below) Other Hematologic History: hypomagnesia Immunologic History: Reports: None Oncologic (Cancer) History: Reports: None Dermatologic History: Reports: Seborrheic Dermatitis Other Dermatologic History: acne, skin excoriation, skin lesion - Infectious Disease History Infectious Disease History: Reports: Chicken Pox, Influenza Other Infectious Disease History: STD: genital herpes - Past Surgical History Head Surgeries/Procedures: Reports: None HEENT Surgical History: Reports: Naso-Sinus Surgery, Oral Surgery, Tonsillectomy Other HEENT Surgeries/Procedures: Endentulous Cardiovascular Surgical History: Reports: None Respiratory Surgical History: Reports: None GI Surgical History: Reports: Appendectomy, Bariatric Procedure, Cholecystectomy Female Surgical History: Reports: Hysterectomy, Tubal Ligation Endocrine Surgical History: Reports: None Neurological Surgical History: Reports: None Other Neurological Surgeries/Procedures: Depression Musculoskeletal Surgical History: Reports: None Oncologic Surgical History: Reports: None Social & Family History - Family History Family Medical History: No Pertinent Family History - Tobacco Use Tobacco Use Status *Q: Current Every Day Tobacco User Years of Tobacco use: 20 Packs/Tins Daily: 0.5 - Caffeine Use Caffeine Use: Reports: Coffee, Soda, Tea Other Caffeine Use: 2 cans of pop and a cup of coffee - Living Situation & Occupation Living situation: Reports: Single, Alone Occupation: Disabled ED ROS GENERAL - Review of Systems Review Of Systems: Comprehensive ROS is negative, except as noted in HPI. ED EXAM, GENERAL - Physical Exam Exam: See Below Exam Limited By: No Limitations General Appearance: Alert, WD/WN, No Apparent Distress Respiratory/Chest: No Respiratory Distress, Lungs Clear, Normal Breath Sounds, No Accessory Muscle Use, Chest Non-Tender Cardiovascular: Normal Peripheral Pulses, Regular Rate, Rhythm, No Edema, No Gallop, No JVD, No Murmur, No Rub Neurological: Alert, Oriented, CN II-XII Intact, Normal Cognition, Normal Gait, Normal Reflexes, No Motor/Sensory Deficits Psychiatric: Normal Affect, Normal Mood Skin Exam: Warm, Dry, Intact, Normal Color, No Rash Course - Vital Signs Last Recorded V/S: Last Vital Signs Temp 98.8 F 12/19/20 17:49 Pulse 81 12/19/20 17:49 Resp 18 12/19/20 17:49 BP 124/87 12/19/20 17:49 Pulse Ox 99 12/19/20 17:49 - Orders/Labs/Meds Labs: Laboratory Tests 12/19/20 Range/Units 18:29 SARS-CoV-2 RNA (RAYNE) Negative (NEGATIVE) - Re-Assessments/Exams Free Text/Narrative Re-Assessment/Exam: Patient is a 40-year-old female presenting to the emergency department with concerns of mild upper respiratory symptoms as well as a mild headache. There was concern that she could have had a fever when she was coming in to visit her mother, however she is afebrile in triage. Vital signs are normal. Exam is unremarkable. She would like to be tested for Covid, therefore I have ordered a 1 hour Covid test. 12/19/20 19:45 Covid test is negative. Patient will be discharged home. Discharge instructions as documented. Departure - Departure Time of Disposition: 19:45 Disposition: Home, Self-Care 01 Preliminary Cause of *Q: Sepsis & Multi System Organ Failure Clinical Impression: Viral illness - Discharge Information *PRESCRIPTION DRUG MONITORING PROGRAM REVIEWED*: No *COPY OF PRESCRIPTION DRUG MONITORING REPORT IN PATIENT NICOLAS: No Instructions: Viral Illness, Adult Referrals: Ana M Fontana [employer] [Primary Care Provider] - Forms: ED Department Discharge Additional Instructions: You were seen in the emergency department today for evaluation of mild cough, congestion, possible fever, and mild headache. Covid testing was done and found to be negative. Recommend that you go home and rest. Follow-up with your primary care provider as needed. Return to ER as needed. Sepsis Event Note (ED) - Evaluation Sepsis Screening Result: No Definite Risk
== END 2020-12-19 19:50 | disposition home or self-care (01) ==
LOC: JD.ED 17:13
DX: B34.9 Viral infection, unspecified (principal); E78.00 Pure hypercholesterolemia, unspecified; I10 Essential (primary) hypertension; J45.909 Unspecified asthma, uncomplicated; K21.9 Gastro-esophageal reflux disease without esophagitis; E11.9 Type 2 diabetes mellitus without complications; E03.9 Hypothyroidism, unspecified; Z72.0 Tobacco use; Z91.041 Radiographic dye allergy status; Z79.4 Long term (current) use of insulin; Z79.899 Other long term (current) drug therapy; Z20.822 Contact with and (suspected) exposure to COVID-19
CPT/HCPCS: 99283; U0002; 99282

== ENCOUNTER 2021-08-25 08:16 | Day surgery (SDC) | payer MEDICARE, MEDICAID ==
[2021-08-25] MEDS ORDERED: Lidocaine 1% 2 ML ONE (09:23)
[2021-08-25] MEDS ORDERED: Propofol 200 MG/20 ML SDV ONE ×2 (09:23→12:53)
[2021-08-25] MEDS ORDERED: Sodium Chloride 0.9% 10 ML Syringe FLUSH PRN (11:38)
[2021-08-25] MEDS ORDERED: Lidocaine 1%/Sod Bicarbonate in NS 8.4% 1 ML Syringe IDERM PRN (11:38)
[2021-08-25] MEDS ORDERED: Lactated Ringers 1,000 ML IV SCH (11:45)
[2021-08-25 14:47] VITALS: BP 132/72; PULSE 74
[2021-08-25] MEDS ORDERED: Sodium Chloride 0.9% 10 ML Syringe FLUSH SCH (21:00)
== END 2021-08-25 14:10 | disposition home or self-care (01) ==
LOC: JD.SDS 08:16
PROVIDERS: ATTEND Surgery
DX: R19.7 Diarrhea, unspecified (principal); R13.10 Dysphagia, unspecified; R63.4 Abnormal weight loss; K44.9 Diaphragmatic hernia without obstruction or gangrene; F41.8 Other specified anxiety disorders; J45.909 Unspecified asthma, uncomplicated; I10 Essential (primary) hypertension; E78.00 Pure hypercholesterolemia, unspecified; E03.9 Hypothyroidism, unspecified; E83.42 Hypomagnesemia; G43.909 Migraine, unspecified, not intractable, without status migrainosus; G62.9 Polyneuropathy, unspecified; E11.9 Type 2 diabetes mellitus without complications; N39.0 Urinary tract infection, site not specified; Z01.812 Encounter for preprocedural laboratory examination; Z20.822 Contact with and (suspected) exposure to COVID-19; Z91.041 Radiographic dye allergy status; Z79.899 Other long term (current) drug therapy; Z98.84 Bariatric surgery status; Z98.890 Other specified postprocedural states; Z87.891 Personal history of nicotine dependence; Z79.84 Long term (current) use of oral hypoglycemic drugs
CPT/HCPCS: 43239; 45380; J2704; J7120; U0002; 00731; 88305

== ENCOUNTER 2024-01-25 19:34 | Emergency (ER) | payer MEDICARE, MEDICAID ==
[~2024-01-25 19:34] MED LIST changes: -Albuterol 0.083% 2.5 MG/3 ML Neb Soln NEB PRN; -Albuterol/Ipratropium 3.0-0.5 MG/3 ML Neb Soln NEB ONE; -Bupivacaine 0.25% 10 ML SDV ONE; +EPINEPHrine 1:10,000 1 MG/10 ML Syringe ONE; -Famotidine 20 MG/2 ML SDV IVPUSH ONE; -HYDROmorphone 0.5 MG/0.5 ML Syringe IVPUSH PRN; -Lactated Ringers 1,000 ML IV SCH; -Lidocaine 1% 4 ML ONE; -Lidocaine 1%/Sod Bicarbonate in NS 8.4% 1 ML Syringe IDERM PRN; -Midazolam 1 MG/ML 2 ML SDV IVPUSH ONE; -Midazolam 1 MG/ML 2 ML SDV ONE; -Morphine 2 MG/ML SYRINGE IVPUSH PRN; -Naloxone 0.4 MG/ML SDV IVPUSH PRN; -Ondansetron 4 MG/2 ML SDV IVPUSH PRN; -Propofol 200 MG/20 ML SDV ONE; -Scopolamine 1.5 MG Transdermal Patch TRDERM PRN; -Sodium Chloride 0.9% 10 ML Syringe FLUSH PRN; -ceFAZolin 1 GM Vial ONE; -fentaNYL 100 MCG/2 ML SDV IVPUSH PRN; -fentaNYL 100 MCG/2 ML SDV ONE; -fentaNYL 250 MCG/5 ML SDV ONE
[2024-01-25 19:47] LABS: BASOPHILS PERCENT AUTO 0.2 % (0.0-1.0); EOSINOPHILS PERCENT AUTO 0.4 % (0.0-6.0); HEMATOCRIT 34.3 % (37.0-47.0); HEMOGLOBIN 11.1 gm/dl (12.0-16.0); IMMATURE GRAN PERCENT AUTO 5.4 % (0.0-0.4); LYMPHOCYTES ABSOLUTE AUTO 4.3 K/mm3 (1.0-4.8); LYMPHOCYTES PERCENT AUTO 77.6 % (24.0-44.0); MEAN CORPUSCULAR HGB CONC 32.4 g/dl (32.0-36.0); MEAN CORPUSCULAR VOLUME 105.2 fl (83.0-99.0); MEAN PLATELET VOLUME 9.4 fl (9.4-12.3); MONOCYTES ABSOLUTE AUTO 0.1 K/mm3 (0.0-0.8); NEUTROPHILS ABSOLUTE AUTO 0.8 K/mm3 (1.8-7.7); NEUTROPHILS PERCENT AUTO 14.4 % (41.0-71.0); NRBC ABSOLUTE 0.09 (0.00-0.02); NRBC PERCENT 1.6 % (0.0-0.2); PLATELET COUNT,PLT 174 K/mm3 (150-400); RED BLOOD CELL COUNT 3.26 M/mm3 (4.10-5.30); WHITE BLOOD CELL COUNT,WBC 5.54 K/mm3 (3.9-11.3)
[2024-01-25 20:08] LABS: A/G RATIO 0.8 (1-2); ALANINE AMINOTRANSFERASE,ALT 152 U/L (14-59); ALBUMIN 1.5 g/dl (3.4-5.0); ALKALINE PHOSPHATASE 82 U/L (46-116); ANION GAP 24.9 (5-15); ASPARTATE AMNIOTRANSFERASE,AST 423 U/L (15-37); BILIRUBIN TOTAL 0.1 mg/dL (0.2-1.0); BLOOD UREA NITROGEN,BUN 4 mg/dL (7-18); BUN/CREATININE RATIO 3.6 (14-18); CALCIUM 7.4 mg/dL (8.5-10.1); CARBON DIOXIDE,CO2 14 mEq/L (21-32); CHLORIDE,CL 108 mEq/L (98-107); CREATININE 1.1 mg/dL (0.55-1.02); ESTIMATED GFR 63 mL/min (>60); GLUCOSE RANDOM 301 mg/dL (70-99); PROTEIN TOTAL,TP 3.5 g/dl (6.4-8.2); SODIUM,NA 143 mEq/L (136-145)
[2024-01-25 20:11] LABS: POTASSIUM,K 3.9 mEq/L (3.5-5.1)
[2024-01-26 03:32] VITALS: BP 61/17; PULSE 102
== END 2024-01-25 22:03 | disposition expired ==
LOC: JD.ED 19:34
DX: I46.9 Cardiac arrest, cause unspecified (principal); I10 Essential (primary) hypertension; K21.9 Gastro-esophageal reflux disease without esophagitis; E78.00 Pure hypercholesterolemia, unspecified; E11.9 Type 2 diabetes mellitus without complications; E03.9 Hypothyroidism, unspecified; Z91.041 Radiographic dye allergy status; Z79.890 Hormone replacement therapy; Z79.899 Other long term (current) drug therapy; Z90.49 Acquired absence of other specified parts of digestive tract; Z90.710 Acquired absence of both cervix and uterus
CPT/HCPCS: 36415; 36680; 80053; 80307; 82947; 85025; 92950; 99285; J0171